=== PATIENT | male | born 1940 | race Caucasian/White ===

== ENCOUNTER 2016-09-08 14:59 | Inpatient (IN) | payer OTHER, MEDICARE ==
[~2016-09-08] VITALS: Ht 167.6 cm; Wt 49.9 kg
[~2016-09-08 14:59] MED LIST: 8 HOUR PAIN RE650 M2 PO; 8 HOUR650 MG PO; ACEPHEN650 M1 PR; ADULT TUSS100 MG/5 M PO; ALBUTEROL2.5 MG/3 M INH/SOL; ASPIRIN81 M4 PO; ATIVAN0.5 M1 PO; AUGMENTIN 875875 MG PO; B12 1MG PE1000 MCG/M SL; BISACODYL10 M1 RC; CALCIUM 600-D 61 TAB PO; CLINDAMYCIN HY300 MG PO; COZAAR 50MG TAB50 MG PO; COZAAR25 M1 PO; FLEET ENEMA133 ML RC; FOLIC ACID 1 MG PO; FOLIC ACID1 M1 PO; LASIX20 M1 PO; LEADER NIC14 MG/24 H TOP; LOPRESSOR50 M1 PO; LOSARTAN POTASS50 MG PO; LOVENOX40 MG/0.1 SC; MAG-OX 400400 MG PO; MAGIC CUP PO; MAGNESIUM OXID400 MG PO; MAGNESIUM250 M1 PO; METOPROLOL SUCC25 M1 PO; MILK OF MA400 MG/52 PO; MIRALAX119 GM PO; MULTI-DAY PLUS1 TAB PO; MULTI-DAY VITA1 EACH PO; MULTIVITAMIN1 TAB PO; NITROSTAT0.4 MG SL; NUTRITIONAL SU237 ML PO; ONE DAILY MULT1 EAC2 PO; PERCOCET 5-3251 EACH PO; POTASSIUM GLUC550 M1 PO; SENNA PLUS TAB1 EACH PO; SLO NIACIN500 MG PO; SLOW-MAG71.5 MG PO; SUPER B COMPLEX1 TAB PO; THYROSTIM PO; TOPROL XL 25MG25 MG PO; VITAMIN B-1100 MG PO; VITAMIN B1100 MG PO; VITAMIN B122500 MCG SL; VITAMIN D250000 UNIT PO; XANAX0.25 M1 PO; ZETIA10 MG PO; ZOFRAN ODT4 MG PO; ZOFRAN4 M1 SL; [UNRECOGNIZED DRUG - CODE] PO
--- NOTE | 2016-09-08 15:09 | NUR ---
PT TO ED REPORTING WEAKNESS AND BEING IN BED X A COUPLE WEEKS. NON-AMBULATORY AT HOME AT THIS POINT. REPORTS POOR PO INTAKE, LAST ATE 2-3 WEEKS AGO. PT VOMITED 6X YESTERDAY, 3X TODAY. LAST BM THIS AM AND MINIMAL. ABLE TO TOLERATE SMALL AMOUNTS OF WATER. PRESENTS MALNOURISHED, FRAIL. 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 HX COPD, EMPHYSEMA, DENIES CP OR SOB. ARRIVES TACHY 120'S AND O2 SAT 95% RA. AAOX3. ACCUCHECK 94. SPITTING UP SMALL AMT OF BLOOD CAM MAKER
--- NOTE | 2016-09-08 15:22 | NUR ---
TRIAGE NOTE ACKNOWLEDGED AND RN CARE ASSUMED PT BOUGHT TO ROOM # 2 AND EVALUATED BY DAVIE ALMAZAN
--- NOTE | 2016-09-08 15:22 | ED GENERAL ADULT ---
History of Present Illness General Chief Complaint: Nausea, Vomiting, Diarrhea Stated Complaint: N/V SINCE YESTERDAY, SPITTING UP BLOOD Source: patient, family, old records Exam Limitations: no limitations Vital Signs & Intake/Output Vital Signs & Intake/Output Vital Signs Date Time Temp Pulse Resp B/P Pulse O2 O2 Flow FiO2 Ox Delivery Rate 09/08 2033 98.8 99 20 127/75 100 Room Air 09/08 1815 98.3 102 20 150/75 09/08 1803 98.3 102 20 150/75 96 Room Air 09/08 1730 95 Room Air 09/08 1508 96.8 89 28 123/81 95 Room Air Allergies Coded Allergies: NO KNOWN ALLERGIES (06/18/16) Reconcile Medications Albuterol Sulfate 2.5 MG/3 ML VIAL.NEB 1 Vial INH/SHANNON Q6H PRN RESPIRATORY ( Reported) Aspirin (Aspirin*) 81 MG TAB.CHEW 81 MG PO DAILY heart Folic Acid 1 MG TABLET 1 MG PO DAILY SUPPLEMENT Losartan Potassium (Cozaar) 25 MG TABLET 1 TAB PO DAILY heart failure PLEASE START THE MEDICATION ON 12/12/2015. PLEASE HOLD IF SBP< 90 Metoprolol Tartrate (Lopressor) 50 MG TABLET 1 TAB PO BID TACHYCARDIA Multivitamin (One Daily Multivitamin) 1 EACH TABLET 1 TAB PO DAILY SUPPLEMENT Thiamine HCl (Vitamin B-1) 100 MG TABLET 100 MG PO DAILY SUPPLEMENT Triage Note: PT TO ED REPORTING WEAKNESS AND BEING IN BED X A COUPLE WEEKS. NON-AMBULATORY AT HOME AT THIS POINT. REPORTS POOR PO INTAKE, LAST ATE 2-3 WEEKS AGO. PT VOMITED 6X YESTERDAY, 3X TODAY. LAST BM THIS AM AND MINIMAL. ABLE TO TOLERATE SMALL AMOUNTS OF WATER. PRESENTS MALNOURISHED, FRAIL. 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 HX COPD, EMPHYSEMA, DENIES CP OR SOB. ARRIVES TACHY 120'S AND O2 SAT 95% RA. AAOX3. ACCUCHECK 94, REPORTS SPITTING UP SMALL AMT OF BLOOD FREE LANCE MODEL Triage Nurses Notes Reviewed? yes Onset: Gradual Duration: week(s): (3) Timing: remote history Injury Environment: home Severity: moderate Severity Numbers: 7 No Modifying Factors: none HPI: Patient is a 76-year-old male, daily smoker with history of open-heart surgery presenting to the emergency department with friends with chief complaint of failure to thrive over the past 2-3 weeks. According to friends and the patient he's been in bed for the past 3 weeks. He's been using a urinal in bed.. He hasn't been getting out of bed to bathe either. I requested weeks seize develop intermittent upper abdominal pain as crampy in nature and nonradiating. He's also had associated nausea and vomiting over the past couple days. He reports 6 episodes of emesis yesterday. Today he noticed sputum that was blood-tinged today when he was dry heaving. Denies any fevers or chills. No sick contacts. Friends report that his 3 weeks ago and is been like this ever since. His primary care physician is Dr. pond, he has canceled the last several appointments with her because he has been feeling ill. He also reports that he was supposed to see his hypertrichologist last week for checkup but canceled as well. Patient does report sadness. Denies any suicidal homicidal ideation. He hasn't been eating anything for the past 2-3 weeks. He's been drinking small amounts of water and Pepsi along with vodka. According to the friend she's been replacing some of the vodka with water. He reports increasing weakness in the lower extremities and feels off balance since he's been in bed. He usually ambulates with a cane but has been unsteady. He is reporting constipation over the past several days, was able to move his bowels today but it was small and hard. Denies any urinary frequency urgency or dysuria. (MARIAM ALMAZAN,DAVIE) Past History Travel History Traveled to [place] past 21 day No Medical History Any Pertinent Medical History? see below for history Neurological: NONE EENT: NONE Cardiovascular: CAD, hypertension, myocardial infarction, CAD status post CABG SVT ablation Respiratory: COPD, emphysema Gastrointestinal: NONE Hepatic: PANCREATITIS Renal: NONE Musculoskeletal: R/L HIP FX Psychiatric: ETOH WITHDRAWAL Endocrine: NONE Blood Disorders: NONE Cancer(s): NONE EXTRUSION OPERATOR/Reproductive: NONE History of MRSA: No History of VRE: No History of CDIFF: No Tetanus Vaccine: 02/28/12 Surgical History Surgical History: BYPASS QUAD b/l hip percutaneous pinning. Psychosocial History Who do you live with Spouse What is your primary language Bengali Tobacco Use: Current Daily Use Daily Tobacco Use Amount/Type: => 5 Cigarettes daily ETOH Use: alcoholic Illicit Drug Use: denies illicit drug use Family History Family History, If Any: MOTHER (Breast Cancer). . FATHER (Stroke, [place]). . Hx Contributory? No (DAVIE GONZALEZ) Review of Systems Review of Systems Constitutional: Reports: see HPI, malaise, weakness. Comments Review of systems: See HPI, All other systems negative. Constitutional, no chills fever HEENT: No visual changes no sore throat Cardiovascular: No chest pain ,palpitation , orthopnea or ankle swelling Skin, no jaundice no rashes Respiratory: No dyspnea GI: No diarrhea : No dysuria No hematuria Muscle skeletal: no back pain, no neck pain, Neurologic: No numbness no confusion, no headaches Psych: Positive stress, depression Heme/endocrine: No bruising no bleeding no polyuria or polydipsia Immunology: No splenectomy or history of AIDS (DAVIE GONZALEZ) Physical Exam Physical Exam General Appearance: no apparent distress, alert, cachetic Comments: Cachectic person in no acute distress HEENT: extraocular motion intact, no nystagmus. Pupils equally round and reactive to light and accommodation. Nose is atraumatic. External auditory canal and Tympanic membranes clear. Pharynx is erythematous, dry. No swelling or edema. Tongue has a white COAT on it, very dry and patchy in nature. Neck: Supple, no lymphadenopathy, normal range of motion without pain or tenderness Back: Nontender, no CVA tenderness. Full range of motion Cardiovascular: Tachycardic rate and rhythms no murmurs rubs or gallops, normal JVP Respiratory: Chest nontender. No respiratory distress.diffuse rhonchi to auscultation bilaterally Abdomen: Soft, thin, tender to palpation in the epigastric region without rebound or guarding, nondistended, no appreciable organomegaly. Normal bowel sounds. No ascites Extremity: No edema, no calf tenderness to palpation, normal and equal pulses. Muscular strength is 4-5 in the upper extremities well-seated, 3 out of 5 in the lower extremity is well-seated. Neuro: Alert oriented x3, motor sensory normal, cranial nerves II through XII grossly intact. Patellar reflexes are 2+ bilaterally. Skin: Stage I coccyx wound approximately 4 cm x 4 cm noted otherwise No appreciable rash on exposed skin, skin is warm and dry. Psych: Depressed affect, memory and judgment is normal. Core Measures ACS in differential dx? Yes CVA/TIA Diagnosis: No Severe Sepsis Present: No Septic Shock Present: No (DAVIE GONZALEZ) Progress Differential Diagnoses I considered the following diagnoses in my evaluation of the patient: Dehydration, electrolyte abnormality, failure to thrive, pneumonia, COPD exacerbation, bronchitis, multifactorial gait disorder, adjustment disorder, major depressive disorder Plan of Care: Orders Procedure Date/time Status Heart Healthy Diet 09/09 B Active MAGNESIUM 09/09 06 Active CBC WITHOUT DIFFERENTIAL 09/09 06 Active BASIC ELECTROLYTES PLUS BUN&CR 09/09 0600 Active MAGNESIUM 09/09 0100 Active BASIC ELECTROLYTES PLUS BUN&CR 09/09 010 Active PT Evaluate & Treat 09/08 190 Active SOCIAL WORK CONSULT 09/08 1908 Active Add-on Test (ER Only) 09/08 1858 Active PROTHROMBIN TIME 09/08 1858 Active Code Status 09/08 1858 Active Admit to inpatient 09/08 1843 Active Vital Signs 09/08 1843 Active BLOOD CULTURE 09/08 1824 Active TRC EVALUATION (GEN) 09/08 1822 Active Pathway - chart 09/08 1822 Active House Staff 09/08 1822 Active Patient Data 09/08 1822 Active Code Status 09/08 1822 Complete LACTIC ACID 09/08 1815 Active URINE DRUGS OF ABUSE 09/08 1805 Complete Add-on Test (ER Only) 09/08 1713 Active CIWA 09/08 1656 Active Add-on Test (ER Only) 09/08 1633 Active Add-on Test (ER Only) 09/08 1611 Active Add-on Test (ER Only) 09/08 1608 Active MAGNESIUM 09/08 1550 Complete FOLIC ACID 09/08 1550 Complete ETHANOL 09/08 1550 Complete CREATINE PHOSPHOKINASE 09/08 1550 Complete VITAMIN B12 09/08 1550 Complete CULTURE,URINE 09/08 1522 Active Add-on Test (ER Only) 09/08 1521 Active Telemetry/Rotary Surface Grinder 09/08 1515 Active URINALYSIS 09/08 1515 Complete TROPONIN LEVEL 09/08 1515 Complete LIPASE 09/08 1515 Complete LACTIC ACID 09/08 1515 Complete COMPREHENSIVE METABOLIC PANEL 09/08 1515 Complete CBC WITHOUT DIFFERENTIAL 09/08 1515 Complete AMYLASE 09/08 1515 Complete Intake & Output 09/08 1511 Active EKG 09/08 1510 Active VTE Mechanical Prophylaxis 09/08 UNK Active Vital Signs 09/08 UNK Active CIWA 09/08 UNK Active Current Medications Sig/Sae Start time Last Medication Dose Stop Time Status Admin Aspirin 81 MG DAILY 09/09 1000 AC (Aspirin) Folic Acid 1 MG DAILY 09/09 1000 AC (Folic Acid) Losartan Potassium 25 MG DAILY 09/09 1000 AC (Cozaar) Multivitamins 1 TAB DAILY 09/09 1000 AC Therapeutic (Theragran-M Vitamins Tabs) Thiamine HCl 100 MG DAILY 09/09 1000 AC (Vitamin B1) Lorazepam 2 MG Q6 09/08 2359 CAN (Ativan) Heparin Sodium 5,000 UNIT Q8 09/08 2199 AC (Porcine) Metoprolol Tartrate 50 MG BID 09/08 2199 AC (Lopressor) Vitamin A/Vitamin D 1 KAPIL BID 09/08 2199 AC (A+D Original) Zinc Oxide 1 KAPIL BID 09/08 2199 AC (Desitin) Nicotine 21 MG DAILY 09/08 193 AC (Nicoderm) Cyanocobalamin/ 1 BAG ONCE ONE 09/08 1914 AC Thiamine/Pyridoxine 09/09 0314 (Vitamin in I.V.) Sodium Chloride 1,000 ML (Normal Saline 0.9%) Acetaminophen 650 MG Q6P PRN 09/08 183 AC (Tylenol) Albuterol Sulfate 3 ML Q6P PRN 09/08 183 AC (Proventil) Lorazepam 0 Q1P PRN 09/08 183 AC (Ativan) Oxycodone/ 2 TAB Q6P PRN 09/08 183 AC Acetaminophen (Percocet) Magnesium Sulfate 1 GM ONCE ONE 09/08 1745 CAN (Mag Sulfate in D5) 09/08 2144 Dextrose/Water 100 ML (D5W) Laboratory Tests 09/08/16 1805: Urine Opiates Screen < 100.00, Methadone Screen < 40, Barbiturate Screen < 60, Ur Phencyclidine Scrn < 6.00, Amphetamines Screen 120, U Benzodiazepines Scrn < 85, Urine Cocaine Screen < 50, Urine Cannabis Screen < 5.00, Urine Color YEL, Urine Clarity CLEAR, Urine pH 6.0, Ur Specific Burwell 1.015, Urine Protein 100 H, Urine Ketones 15 H, Urine Nitrite NEG, Urine Bilirubin NEG@ICTO, Urine Urobilinogen 1.0, Ur Leukocyte Esterase NEG, Ur Microscopic SEDIMENT EXAMINED, Urine RBC 10-15 H, Urine WBC 5-10 H, Ur Epithelial Cells MANY H, Hyaline Casts MOD H, Granular Casts RARE H, Urine Hemoglobin MOD H, Urine Glucose NEG 09/08/16 1645: Whole Bld Vitamin B1 Pending 09/08/16 1550: Anion Gap 23 H, Estimated GFR > 60, BUN/Creatinine Ratio 33.0 H, Glucose 113 H, Lactic Acid 4.5 H, Calcium 9.7, Magnesium 1.0 L, Total Bilirubin 1.5 H, AST 125 H, ALT 57, Alkaline Phosphatase 114, Creatine Kinase 81, Troponin I < 0.01, Total Protein 7.9, Albumin 4.4, Globulin 3.5, Albumin/Globulin Ratio 1.3, Amylase 88, Lipase 221, Vitamin B12 778, Folate 2.3 L, CBC w Diff NO MAN DIFF REQ, RBC 5.20, MCV 95.0 H, MCH 31.9 H, RDW 13.6, MPV 7.8, Gran % 80.0 H, Lymphocytes % 12.7 L, Monocytes % 6.4, Eosinophils % 0.4, Basophils % 0.5, Absolute Granulocytes 5.9, Absolute Lymphocytes 0.9 L, Absolute Monocytes 0.5, Absolute Eosinophils 0, Absolute Basophils 0, PUBS MCHC 33.6, Serum Alcohol 23.0 Microbiology 09/09 1823 BLOOD: Blood Culture - ORD 09/09 1823 BLOOD: Blood Culture - ORD 09/08 1804 URINE ROUT: Urine Culture - RECD Diagnostic Imaging: Viewed by Me: Radiology Read. Discussed w/RAD: Radiology Read. Radiology Impression: PATIENT: CONCHA JAMA PRESENT AGE: 76 PATIENT ACCOUNT NO: [id number] : 42 LOCATION: [facility] ORDERING PHYSICIAN: DAVIE ALMAZAN SERVICE DATE: 09/08/16 EXAM TYPE: RAD - XRY-PORTABLE CHEST XRAY EXAMINATION: XR PORTABLE CHEST CLINICAL INFORMATION: Altered mental status COMPARISON: Chest x-ray 06/18/2016 TECHNIQUE: Portable AP portable view of the chest was obtained. 3:20 PM FINDINGS: Status post median sternotomy. Heart size is normal. There are calcifications of thoracic aorta. No pulmonary vascular congestion. Hyperexpansion of lungs. Lungs are clear. There is no pleural effusion. No pneumothorax. IMPRESSION: No acute abnormality of the chest., PATIENT: CONCHA JAMA PRESENT AGE: 76 PATIENT ACCOUNT NO: [id number] : 42 LOCATION: [facility] ORDERING PHYSICIAN: DAVIE ALMAZAN SERVICE DATE: 09/08/162329 EXAM TYPE: CAT - CT ABD & PELVIS W IV CONTRAST EXAMINATION: CT ABDOMEN AND PELVIS WITHOUT AND WITH CONTRAST CLINICAL INFORMATION: Epigastric pain, nausea and vomiting. COMPARISON: CT abdomen and pelvis 11/12/2015. TECHNIQUE: Multidetector volumetric imaging was performed of the abdomen and pelvis before and after the IV administration of 93 mL of Optiray 320 intravenous contrast. Sagittal and coronal reformatted images were obtained on the technologist's workstation. The abdomen was evaluated without contrast and the study repeated after injection of intravenous contrast through the abdomen in the arterial phase and through the abdomen and pelvis in the pancreatic phase. DLP: 395.92 mGy-cm FINDINGS: LUNG BASES: The visualized lung bases are unremarkable. LIVER, GALLBLADDER, AND BILIARY TREE: The liver is diffusely decreased in attenuation consistent with hepatic steatosis. Mild focal fatty sparing is seen around the gallbladder. No evidence of hepatic mass or biliary dilatation. The liver size is normal. The gallbladder is unremarkable with no evidence of radiopaque gallstones, gallbladder wall thickening, or obvious pericholecystic inflammatory changes. PANCREAS: The pancreas is atrophic. No evidence of pancreatic ductal dilatation or pancreatic mass. No evidence of adjacent peripancreatic adenopathy. No evidence to suggest vascular invasion. SPLEEN: Unremarkable. ADRENAL GLANDS: Unremarkable. KIDNEYS AND URETERS: Noncontrast images of the kidneys show no evidence of calculus or hydronephrosis. Contrast images of the kidneys show no evidence of renal mass. Incidental circumaortic left renal vein is identified. Atherosclerotic changes in the renal arteries are demonstrated. BLADDER: Mild bladder wall thickening. The bladder is unremarkable. GASTROINTESTINAL TRACT: Mild thickening of the right colonic wall is seen, also noted previously. No evidence of pericolonic soft tissue stranding or adjacent ascites. There is moderate diverticulosis without diverticulitis. The appendix is normal. Small hiatal hernia is seen. No evidence of small bowel thickening or bowel obstruction. ABDOMINAL WALL: No significant hernia is appreciated. LYMPH NODES: Normal. VASCULAR: Extensive atherosclerotic changes are seen in the abdominal aorta and iliac arteries. Calcification is seen at the ostium of the celiac artery and bilateral renal arteries. The celiac, superior mesenteric artery and inferior mesenteric arteries are patent. The renal arteries are patent with additional calcifications. PELVIC VISCERA: The prostate is enlarged. No evidence of pelvic mass. OSSEOUS STRUCTURES: Surgical changes are seen in both hips. IMPRESSION: 1. Hepatic steatosis with focal fatty sparing. 2. No evidence of pancreatic necrosis or pancreatic effusion or mass. The pancreas demonstrates atrophic change. 3. Extensive atherosclerotic changes are seen in the abdominal aorta and iliac arteries. No vascular thrombosis is appreciated. 4. Mild bowel wall thickening in the right colon was present previously and is slightly more prominent on the current study. Correlate with any clinical history of colitis, inflammatory or infectious. Correlate with prior colonoscopy. Evidence of diverticulosis without CT changes of diverticulitis. 5. Small hiatal hernia, similar to prior. DICTATED BY: MAMADOU ERAZO MD DATE/TIME DICTATED:09/08/161840 COTTRELL BLOWER:DAVIDSON DATE/TIME TRANSCRIBED:1840 CONFIDENTIAL, DO NOT COPY WITHOUT APPROPRIATE AUTHORIZATION. < Electronically signed in Other Vendor System> SIGNED BY: MAMADOU ERAZO MD 09/08/161913 Initial ED EKG: SINUS TACHYCARDIA AT 115 BPM Prior EKG: changed (PREVIOUS ekg WAS NORMAL SINUS ) Comments: 09/08/2016 4:33:59 PM on arrival patient is afebrile in no acute distress, appears cachectic, tachycardic on EKG. Patient has history of tachycardia, suppose to be on medications which she had stopped 4-6 months ago. He reports that he felt better off of the medications. His muscle strength is decreased from baseline according to patient. Patient barely unable to stand at bedside. Patient has a very dry oral mucosa as well. Patient will be hydrated with fluids. 09/08/2016 4:56:14 PM patient and family informed of all lab work results. Patient doing well. Was able to visualize patient's coccyx wound which appears to be grade 1 at this time. We will apply a dressing to see that helps with symptoms. We'll also rotate patient to help alleviate pressure. Lipase is negative. No signs of acute pancreatitis.. Alcohol level slightly positive. 09/08/2016 5:25:23 PM spoke with hospitalist, patient will be admitted for hypomagnesemia, lactic acidosis, dehydration. Patient will need physical therapy consultation and rehabilitation placement likely. Electrolyte abnormalities are likely from malnourishment, alcohol intake being stationary. Discussed with Dr. Vidal and he agrees to plan. (DAVIE GONZALEZ) Departure Departure Time of Disposition: 1753 Disposition: STILL A PATIENT Condition: Stable Clinical Impression Primary Impression: Hypomagnesemia Secondary Impressions: Dehydration, Lactic acidosis, Tachycardia, Weakness Referrals: THIERNO POND MD (PCP/Family) Departure Forms: Customer Survey General Discharge Information Admission Note Spoke With: ARNAUD ROJAS MD Documentation of Exam: Documentation of any treatments & extenuating circumstances including Concerns Regarding Discharge (functional status, medication knowledge or non-compliance, living conditions, etc.) that warrant an admission rather than observation: Patient requiring repletion of electrolytes, IV hydration for dehydration, physical therapy consultation secondary to weakness, may need social work consultation secondary to failure to thrive at home , may need psychiatric consultation secondary to eye just with disorder after her of SIGNIFICANT OTHER. Discharge at this time would be medically harmful, patient will likely become more dehydrated. Still pending CT of the abdomen for further evaluation of abdominal pain. (DAVIE GONZALEZ) PA/OPERATIONS PROGRAM MANAGER Co-Sign Statement Statement: ED Attending supervision documentation- [x] I saw and evaluated the patient. I have also reviewed all the pertinent lab results and diagnostic results. I agree with the findings and the plan of care as documented in the PA's/OPERATIONS PROGRAM MANAGER's documentation. [] I have reviewed the ED Record and agree with the PA's/OPERATIONS PROGRAM MANAGER's documentation. [] Additions or exceptions (if any) to the PAs/OPERATIONS PROGRAM MANAGER's note and plan are summarized below: [] I've seen and personally examined the patient. He is in no acute distress. The patient's being admitted to the hospital for IV magnesium and further care. (RENU VIDAL DO) Critical Care Note Critical Care Note Critical Care Time: non-applicable (DAVIE GONZALEZ)
--- NOTE | 2016-09-08 15:47 | RADIOLOGY REPORT ---
EXAMINATION: XR PORTABLE CHEST CLINICAL INFORMATION: Altered mental status COMPARISON: Chest x-ray 06/18/2016 TECHNIQUE: Portable AP portable view of the chest was obtained. 3:20 PM FINDINGS: Status post median sternotomy. Heart size is normal. There are calcifications of thoracic aorta. No pulmonary vascular congestion. Hyperexpansion of lungs. Lungs are clear. There is no pleural effusion. No pneumothorax. IMPRESSION: No acute abnormality of the chest.
--- NOTE | 2016-09-08 15:52 | NUR ---
BLOOD DRAWN AND SENT TO LAB. SST,LAV,BLUE,MCKENZIE
[2016-09-08 16:05] LABS: ABSOLUTE BASOPHIL COUNT 0 /CUMM (0.0-0.2); ABSOLUTE EOSINOPHIL COUNT 0 /CUMM (0.0-0.7); ABSOLUTE GRANULOCYTE CT 5.9 /CUMM (1.4-6.5); ABSOLUTE LYMPH COUNT 0.9 /CUMM (1.2-3.4); ABSOLUTE MONOCYTE COUNT 0.5 /CUMM (0.10-0.60); BASOPHIL % 0.5 % (0.0-2.0); EOSINOPHIL % 0.4 % (0-5); HEMATOCRIT 49.4 % (42-52); MEAN CORPUSCULAR HGB 31.9 PG (27.0-31.0); MEAN CORPUSCULAR HGB CONC 33.6 G/DL (33.0-37.0); MEAN PLATELET VOLUME 7.8 FL (7.4-10.4); PLATELET COUNT 94 /CUMM (130-400); RBC DISTRIBUTION WIDTH 13.6 % (11.5-14.5); WHITE BLOOD CELL COUNT 7.4 /CUMM (4.8-10.8)
--- NOTE | 2016-09-08 16:22 | NUR ---
JESSICA FROM LAB CALLED NEED A LAV DUE TO ADD ON
--- NOTE | 2016-09-08 17:01 | NUR ---
20 G GREG PLACED IN LEFT WRIST. IV OF N/S STARTED AT 500 ML/HR X 2 LITERS PT MEDICATED WITH 4 MG ZOFRAN IV FOR N/V
--- NOTE | 2016-09-08 18:08 | NUR ---
URINE TRIO SENT TO LAB.
[2016-09-08 18:15] VITALS: BP 150/75
--- NOTE | 2016-09-08 18:19 | History & Physical ---
[address] ST[address],LADARIUS 09/08/168: General Information and HPI MD Statement: I have seen and personally examined CONCHA JAMA and documented this H&P. The patient is a 76 year old M who presented with a patient stated chief complaint of [I feel weak]. Source of Information: patient Exam Limitations: no limitations History of Present Illness: This is a 76-year-old gentleman with a past history significant for hypertension and alcohol use that presents to the emergency room with his neighbors and friends with a chief complaint of weakness and failure to thrive. He states that his 2-1/2 weeks ago and since then he has been laying in bed and doesn't walk around much. He has not eaten anything in the last 2-1/2 weeks and continues to however drink alcohol which is brought to him by family members. Drinks about 5-6 drinks a day. Has tried previous detox no history of alcohol withdrawal seizures. States that his desire to the is fairly decreased since his . States he feels unsteady on his feet. States his mood is okay denies any overt depression. At present his only complaint is mild abdominal pain no chest pain or shortness of breath. States that he has lost 10 pounds in the last 2 weeks. Allergies/Medications Allergies: Coded Allergies: NO KNOWN ALLERGIES (06/18/16) Home Med list Albuterol Sulfate 2.5 MG/3 ML VIAL.NEB 1 Vial INH/SHANNON Q6H PRN RESPIRATORY ( Reported) Aspirin (Aspirin*) 81 MG TAB.CHEW 81 MG PO DAILY heart Folic Acid 1 MG TABLET 1 MG PO DAILY SUPPLEMENT Losartan Potassium (Cozaar) 25 MG TABLET 1 TAB PO DAILY heart failure PLEASE START THE MEDICATION ON 12/12/2015. PLEASE HOLD IF SBP< 90 Metoprolol Tartrate (Lopressor) 50 MG TABLET 1 TAB PO BID TACHYCARDIA Multivitamin (One Daily Multivitamin) 1 EACH TABLET 1 TAB PO DAILY SUPPLEMENT Thiamine HCl (Vitamin B-1) 100 MG TABLET 100 MG PO DAILY SUPPLEMENT Past History Travel History Traveled to [place] past 21 day No Medical History Neurological: NONE EENT: NONE Cardiovascular: CAD, hypertension, myocardial infarction, CAD status post CABG SVT ablation Respiratory: COPD, emphysema Gastrointestinal: NONE Hepatic: PANCREATITIS Renal: NONE Musculoskeletal: R/L HIP FX Psychiatric: ETOH WITHDRAWAL Endocrine: NONE Blood Disorders: NONE Cancer(s): NONE TRANSMITTER TESTER/Reproductive: NONE History of MRSA: No History of VRE: No History of CDIFF: No Tetanus Vaccine: 02/28/12 Surgical History Surgical History: BYPASS QUAD b/l hip percutaneous pinning. Past Family/Social History Family History Relations & Conditions if any MOTHER (Breast Cancer). . FATHER (Stroke, [place]). . Psychosocial History Who Do You Live With? spouse Primary Language: Bengali ETOH Use: alcoholic Illicit Drug Use: denies illicit drug use Functional Ability Ambulation: cane Review of Systems Review of Systems Constitutional: Reports: see HPI. Exam & Diagnostic Data Last 24 Hrs of Vital Signs/I&O Vital Signs Date Time Temp Pulse Resp B/P Pulse O2 O2 Flow FiO2 Ox Delivery Rate 09/08 180 98.3 102 20 150/75 96 Room Air 09/08 1730 95 Room Air 09/08 1508 96.8 89 28 123/81 95 Room Air Intake & Output 09/08 1600 09/08 0800 09/08 0000 Intake Total Output Total Balance Patient 110 lb Weight Physical Exam General Appearance Alert, Oriented X3 HEENT Atraumatic, PERRLA, EOMI Cardiovascular Regular Rate, Normal S1, Normal S2 Lungs Clear to Auscultation, Normal Air Movement Abdomen Normal Bowel Sounds, Soft, No Tenderness Neurological Normal Speech, Strength at 5/5 X4 Ext, Normal Tone, Sensation Intact, Cranial Nerves 3-12 NL Extremities No Clubbing, No Cyanosis, No Edema Last 24 Hrs of Labs/Dominic: Laboratory Tests 09/08/16 1805: Urine Color YEL, Urine Clarity CLEAR, Urine pH 6.0, Ur Specific [place] 1.015, Urine Protein 100 H, Urine Ketones 15 H, Urine Nitrite NEG, Urine Bilirubin NEG@ICTO, Urine Urobilinogen 1.0, Ur Leukocyte Esterase NEG, Ur Microscopic SEDIMENT EXAMINED, Urine RBC 10-15 H, Urine WBC 5-10 H, Ur Epithelial Cells MANY H, Hyaline Casts MOD H, Granular Casts RARE H, Urine Hemoglobin MOD H, Urine Glucose NEG 09/08/16 1645: Whole Bld Vitamin B1 Pending 09/08/16 1550: Anion Gap 23 H, Estimated GFR > 60, BUN/Creatinine Ratio 33.0 H, Glucose 113 H, Lactic Acid 4.5 H, Calcium 9.7, Magnesium 1.0 L, Total Bilirubin 1.5 H, AST 125 H, ALT 57, Alkaline Phosphatase 114, Creatine Kinase Pending, Troponin I < 0.01, Total Protein 7.9, Albumin 4.4, Globulin 3.5, Albumin/Globulin Ratio 1.3, Amylase 88, Lipase 221, Vitamin B12 778, Folate 2.3 L, CBC w Diff NO MAN DIFF REQ, RBC 5.20, MCV 95.0 H, MCH 31.9 H, RDW 13.6, MPV 7.8, Gran % 80.0 H, Lymphocytes % 12.7 L, Monocytes % 6.4, Eosinophils % 0.4, Basophils % 0.5, Absolute Granulocytes 5.9, Absolute Lymphocytes 0.9 L, Absolute Monocytes 0.5, Absolute Eosinophils 0, Absolute Basophils 0, PUBS MCHC 33.6, Serum Alcohol 23.0 Microbiology 09/09 1823 BLOOD: Blood Culture - ORD 09/09 1823 BLOOD: Blood Culture - ORD 09/08 1804 URINE ROUT: Urine Culture - RECD Diagnostic Data EKG Results Rate 115, PA-148, QRS 82, QTC 471 Sinus tachycardia CXR Results IMPRESSION: No acute abnormality of the chest. Assessment/Plan Assessment: Assessment- 1. Failure to thrive, decreased by mouth intake 2. Hypomagnesemia 3. Alcohol dependence 4. Lactic acidosis with anion gap; likely secondary to starvation ketosis 5. History of hypertension 6. Transaminitis; AST do ALT ratio was 2:1 suggestive of alcohol use Plan- Admit to general med Vitals per protocol CIWA protocol; Ativan 2 mg IV every 6 and Ativan when necessary Banana bag 1 L Replete electrolytes and recheck mag in about 6 hours Pending CAT scan of the abdomen pelvis to rule out any intra-abdominal source Psychiatry and social director consult PT eval Check U tox and INR Nutrition consult High-protein diet Pain pathway DVT prophylaxis with subcutaneous heparin DNR/DNI As Ranked By This Provider Problem List: 1. Weakness 2. Tachycardia 3. Lactic acidosis Core Measures/Miscellaneous Acute Coronary Syndrome ACS Diagnosis: No Cerebrovascular Accident CVA/TIA Diagnosis: No Congestive Heart Failure CHF Diagnosis: No Venous Thromboembolism VTE Risk Factors: Age > 40 [facility] prophylaxis d/t: No contraindications No VTE Pharm Prophylaxis d/t: No contraindications VTE Diagnosis: No VTE Type: NONE VTE Confirmed by (Test): NONE Severe Sepsis Severe Sepsis Present: No Septic Shock Septic Shock Present: No Miscellaneous Documentation Attending Case Discussed With: dr. jimenez Primary Care Physician: YE STREET,THIERNO Patient sees these Specialists none Level of Patient Care: General Medicine Resident Review Statement Resident Statement: examined this patient, discussed with international marketing coordinator CHRIS STREET, DRU 09/08/16 1836: Attending MD Review Statement Attending Statement Attending MD Statement: examined this patient, discuss w/resident/PA/FILENET ARCHITECT, agreed w/resident/PA/FILENET ARCHITECT Attending Assessment/Plan: 76 yo M smoker with h/o CAD s/p CABG, SVT ablation, P afib/flutter not on AC 2/2 falls, HTN, HLD, chronic alcohol abuse, COPD, alcoholic pancreatitis, UGIB (2012 ), 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 Patient recently lost his , and for past 2.5-3 weeks, he has been in bed, non- ambulatory, not eating, reports no appetite and drinking vodka (5-6 drinks daily ) although friend reported that they have been mixing vodka (1/4) with water ( 3/4), so patient actually is not consuming that much alcohol. He reports dizziness, unsteady gait and weakness, because of fear of falling he has not been moving around. C/o nausea, bilious vomiting with bloody streaks, and cough productive of white phlegm. Weight loss of 10 lbs in 2.5 weeks. He uses a bedside commode and has at times been incontinent of urine. Patient has not been taking any prescribed medications. Vitals stable except for tachycardia. Exam: Elderly cachectic male, disheveled appearance, in no distress, flat affect, dry mucous membranes. Chest b/l clear, Heart S1S2 regular, Abd soft, NT. Back: sacral decub 2 nonblanchable areas with discoloration. Labs: Platelets 94, Na 132, AG 23, BUN 33, glucose 113, lactic acid 4.5, Mag 1.0, T. Bili 1.5, AST 125, ALT 57, CK 81, trop neg, B12 778, folate 2.3. UA ketones positive, many epi cells, WBC 5-10, Utox neg. S. Alcohol 23. EKG: Sinus tachycardia, no acute changes. CXR: neg. CT abd/pelvis: hepatic steatosis, nonspecific colitis, small hiatal hernia. 1. Failure to thrive with starvation ketoacidosis - hypomagnesemia, lactic acidosis and dehydration. GM admit, nutrition consult, banana bag, replete electrolytes, IV fluids, anti-emetics, monitor renal functions, trend lactic acid. CT abd/pelvis nothing acute. CIWA protocol, IV ativan per CIWA, no scheduled ativan for now. Social work consult and PT eval. Patient refuses to see a psychiatrist. 2. Transaminitis and thrombocytopenia in the setting of chronic alcohol use. Check INR. Hydrate and trend LFTs. 3. Please resume his medications aspirin 81, metoprolol 50 BID, albuterol PRN and losartan 25 QD. 4. Smoking cessation counseling, patient refused nicotine patch. 5. Wound care - topical zinc oxide and vit A and D ointment to sacral area. DVT ppx Alps. DNR/I.
--- NOTE | 2016-09-08 19:13 | NUR ---
PT TO ROOM 209 BED 2
--- NOTE | 2016-09-08 19:14 | CT SCAN REPORT ---
EXAMINATION: CT ABDOMEN AND PELVIS WITHOUT AND WITH CONTRAST CLINICAL INFORMATION: Epigastric pain, nausea and vomiting. COMPARISON: CT abdomen and pelvis 11/12/2015. TECHNIQUE: Multidetector volumetric imaging was performed of the abdomen and pelvis before and after the IV administration of 93 mL of Optiray 320 intravenous contrast. Sagittal and coronal reformatted images were obtained on the technologist's workstation. The abdomen was evaluated without contrast and the study repeated after injection of intravenous contrast through the abdomen in the arterial phase and through the abdomen and pelvis in the pancreatic phase. DLP: 395.92 mGy-cm FINDINGS: LUNG BASES: The visualized lung bases are unremarkable. LIVER, GALLBLADDER, AND BILIARY TREE: The liver is diffusely decreased in attenuation consistent with hepatic steatosis. Mild focal fatty sparing is seen around the gallbladder. No evidence of hepatic mass or biliary dilatation. The liver size is normal. The gallbladder is unremarkable with no evidence of radiopaque gallstones, gallbladder wall thickening, or obvious pericholecystic inflammatory changes. PANCREAS: The pancreas is atrophic. No evidence of pancreatic ductal dilatation or pancreatic mass. No evidence of adjacent peripancreatic adenopathy. No evidence to suggest vascular invasion. SPLEEN: Unremarkable. ADRENAL GLANDS: Unremarkable. KIDNEYS AND URETERS: Noncontrast images of the kidneys show no evidence of calculus or hydronephrosis. Contrast images of the kidneys show no evidence of renal mass. Incidental circumaortic left renal vein is identified. Atherosclerotic changes in the renal arteries are demonstrated. BLADDER: Mild bladder wall thickening. The bladder is unremarkable. GASTROINTESTINAL TRACT: Mild thickening of the right colonic wall is seen, also noted previously. No evidence of pericolonic soft tissue stranding or adjacent ascites. There is moderate diverticulosis without diverticulitis. The appendix is normal. Small hiatal hernia is seen. No evidence of small bowel thickening or bowel obstruction. ABDOMINAL WALL: No significant hernia is appreciated. LYMPH NODES: Normal. VASCULAR: Extensive atherosclerotic changes are seen in the abdominal aorta and iliac arteries. Calcification is seen at the ostium of the celiac artery and bilateral renal arteries. The celiac, superior mesenteric artery and inferior mesenteric arteries are patent. The renal arteries are patent with additional calcifications. PELVIC VISCERA: The prostate is enlarged. No evidence of pelvic mass. OSSEOUS STRUCTURES: Surgical changes are seen in both hips. IMPRESSION: 1. Hepatic steatosis with focal fatty sparing. 2. No evidence of pancreatic necrosis or pancreatic effusion or mass. The pancreas demonstrates atrophic change. 3. Extensive atherosclerotic changes are seen in the abdominal aorta and iliac arteries. No vascular thrombosis is appreciated. 4. Mild bowel wall thickening in the right colon was present previously and is slightly more prominent on the current study. Correlate with any clinical history of colitis, inflammatory or infectious. Correlate with prior colonoscopy. Evidence of diverticulosis without CT changes of diverticulitis. 5. Small hiatal hernia, similar to prior.
--- NOTE | 2016-09-08 19:35 | NUR ---
REPORT GIVEN TO PAIGE CHRISTINE BY PAIGE MERRILL
--- NOTE | 2016-09-08 19:39 | Admission Certification ---
Admission Certification Certification Statement - As attending physician, I certify that at the time of - admission, based on clinical presentation, severity of - symptoms, need for further diagnostic testing and - therapeutic interventions, and risk of adverse outcomes - without in-hospital treatment, in my clinical assessment, - this patient requires an acute hospital stay for a minimum - of two nights or longer. I have also considered psychsocial - factors such as support system, advanced age, financial - issues, cognitive issues, and failed out-patient treatments, - past re-admission history, safety of patient, and lack of - compliance as applicable. Specific rationale supporting this admission is: 76 yo M with failure to thrive, gait instability and metabolic derangements - hypomagnesemia, lactic acidosis, transaminitis given h/o alcohol dependence. Needs PT eval, nutritional consult and possible placement.
--- NOTE | 2016-09-08 19:43 | NUR ---
PT ADMITTED TO ROOM # 209-2. ORAL REPORT GIVEN TO SHABBIR GIBSON
--- NOTE | 2016-09-08 19:55 | NUR ---
[facility] CALLED FOR TRANSPORT
[2016-09-08 20:34] VITALS: BP 127/75
[2016-09-08 23:11] VITALS: BP 124/82
[2016-09-09] VITALS (8 sets, daily range): BP systolic 92–134; BP diastolic 51–82
--- NOTE | 2016-09-09 02:17 | NUR ---
LATE ENTRY NURSING NOTE: PT ARRIVED ON FLOOR VIA STRETCHER WITH FRIENDS AT BEDSIDE. PT STATED THOSE ARE FRIENDS HE PAYS TO HELP HIM WITH HIS ADLs. PT AOX2. CONFUSED TO TIME. PT ON RA AND NONAMBULATORY AT THIS TIME. PT INDEPENDANT W/CANE AT BASELINE. PT HAS 2 RED AREAS THAT ARE NONBLANCHABE AT THE COCCYX WITH DARK DISCOLRATION. WCE SUBMITTED FOR ASSESSMENT. PT HAD MAG BOLUS RNNING WHEN ARRIVED TO FLOOR. IV WORKING WELL. BED ALARM & ALPS PLACED. PT HAS PRODUCTIVE COUGH BRINGING UP WHITE THICK SPUTUM. PT HAS A VERY FLAT AFFECT AND DID MENTION A FEW WEEKS AGO. PT REFUSED A VISIT FROM THE ANISH AND BECAME AGITATED WHEN THIS WAS OFFERED. PT HYGIENE APPEARS TO BE LACKING. THIS RN WITH ASSISTANCE OF MST PERFORMED BED BATH. ORDER FOR SIZEWIZE TO BE PLACED IN THE AM. PT RESTING AT THIS TIME. BED INLOWEST POSITION AND CALL RODRÍGUEZ WITHIN PT REACH.
--- NOTE | 2016-09-09 08:00 | PN- Housestaff ---
See Addendum Subjective Follow-up For: Starvation ketosis Subjective: Mr Courtney was seen and examined this morning. He reports no issues overnight. Patient states that he understands why he is in the hospital and expresses his desire in "getting through" after recently using his approximately 2 weeks ago..Patient denies any active pain. He is tolerating by mouth intake well although endorses a small appetite. Patient denies any fever, chills, nausea, vomiting. Review of Systems Constitutional: Reports: see HPI. Objective Last 24 Hrs of Vital Signs/I&O Vital Signs Date Time Temp Pulse Resp B/P Pulse O2 O2 Flow FiO2 Ox Delivery Rate 09/09 1406 97.8 78 20 134/82 9 09/09 1010 97.5 71 18 118/65 09/09 1010 97.5 71 18 118/65 09/09 0731 97.5 71 18 118/65 93 Room Air 09/08 2311 97.6 98 18 124/82 96 Room Air 09/08 2229 127/75 09/08 2058 Room Air Room Air 09/08 2034 98.8 99 20 127/75 100 Room Air 09/08 1815 98.3 102 20 150/75 09/08 1803 98.3 102 20 150/75 96 Room Air 09/08 1730 95 Room Air Intake & Output 09/09 1600 09/09 0800 09/09 0000 Intake Total 800 1150 Output Total 600 Balance 800 550 Intake, IV 200 1000 Intake, Oral 600 150 Output, Urine 600 Patient 49.895 kg Weight Physical Exam General Appearance: Alert, Oriented X3, Cooperative, No Acute Distress, Cachectic Cardiovascular: Regular Rate, Normal S1, Normal S2 Lungs: Clear to Auscultation Abdomen: Normal Bowel Sounds, Soft, No Tenderness Neurological: Normal Speech Extremities: No Clubbing, No Cyanosis, No Edema Current Medications: Current Medications Sig/Sae Start time Last Medication Dose Route Stop Time Status Admin Acetaminophen 650 MG Q6P PRN 09/08 1830 AC PO Albuterol Sulfate 3 ML Q4-PRN PRN 09/08 2100 AC INH Albuterol Sulfate 3 ML Q6P PRN 09/08 1830 AC INH Albuterol Sulfate 3 ML ONCE ONE 09/08 1630 DC 09/08 INH 09/08 1631 1650 Aspirin 81 MG DAILY 09/09 1000 AC 09/09 PO 1010 Cyanocobalamin/ 1 BAG ONCE ONE 09/08 1915 DC 09/08 Thiamine/Pyridoxine IV 09/09 0314 2227 Sodium Chloride 1,000 ML Folic Acid 1 MG DAILY 09/09 1000 AC 09/09 PO 1010 Heparin Sodium 5,000 UNIT Q8 09/08 2200 DC 09/08 (Porcine) SC 2228 Ipratropium [place] 2.5 ML ONCE ONE 09/08 1630 DC 09/08 INH 09/08 1631 1649 Lorazepam 2 MG Q6 09/08 2359 CAN IV Lorazepam 0 Q1P PRN 09/08 1830 AC IV Losartan Potassium 25 MG DAILY 09/09 1000 AC 09/09 PO 1010 Magnesium Sulfate 0 .STK-MED ONE 09/08 1805 DC .ROUTE Magnesium Sulfate 1 GM Q2H 09/08 1800 DC 09/08 Dextrose/Water 100 ML IV 09/08 2159 2226 Magnesium Sulfate 1 GM ONCE ONE 09/08 1745 CAN Dextrose/Water 100 ML IV 09/08 2144 Metoprolol Tartrate 50 MG BID 09/08 2200 AC 09/09 PO 1010 Multivitamins 1 TAB DAILY 09/09 1000 AC 09/09 Therapeutic PO 1010 Nicotine 0 .STK-MED ONE 09/08 1943 DC TOP Nicotine 21 MG DAILY 09/08 1934 AC TOP Ondansetron HCl 0 .STK-MED ONE 09/08 1650 DC .ROUTE Ondansetron HCl 4 MG ONCE ONE 09/08 1545 DC 09/08 IV 09/08 1546 1651 Oxycodone HCl 0 .STK-MED ONE 09/08 1943 DC PO Oxycodone HCl 5 MG Q6H 09/08 1830 AC 09/09 PO 1304 Oxycodone/ 2 TAB Q6P PRN 09/08 1830 AC Acetaminophen PO Potassium Chloride 40 MEQ ONCE ONE 09/09 1130 DC 09/09 PO 09/09 1131 1304 Sodium Chloride 1,000 ML BOLUS ONE 09/08 1645 DC 09/08 IV 09/08 1844 1811 Sodium Chloride 1,000 ML BOLUS ONE 09/08 1530 DC 09/08 IV 09/08 1729 1651 Thiamine HCl 100 MG DAILY 09/09 1000 AC 09/09 PO 1011 Vitamin A/Vitamin D 1 KAPIL BID 09/08 2200 AC 09/09 TOP 1011 Zinc Oxide 1 KAPIL BID 09/08 2200 AC 09/09 TOP 1011 Last 24 Hrs of Lab/Dominic Results Last 24 Hrs of Labs/Mics: Laboratory Tests 09/09/16 0658: Anion Gap 11, Estimated GFR > 60, BUN/Creatinine Ratio 32.5 H, Lactic Acid 1.1, Magnesium 1.8, PT 10.8, INR 1.03, CBC w Diff NO MAN DIFF REQ, RBC 4.33 L, MCV 94.9 H, MCH 31.8 H, RDW 13.6, MPV 8.2, Gran % 76.3 H, Lymphocytes % 15.7 L, Monocytes % 7.0, Eosinophils % 0.7, Basophils % 0.3, Absolute Granulocytes 4.2, Absolute Lymphocytes 0.9 L, Absolute Monocytes 0.4, Absolute Eosinophils 0, Absolute Basophils 0, PUBS MCHC 33.5 09/09/16 0355: Lactic Acid Cancelled 09/09/16 0100: Anion Gap 13, Estimated GFR > 60, BUN/Creatinine Ratio 35.0 H, Magnesium 1.8 09/08/16 1858: PT Cancelled, INR Cancelled 09/08/16 1815: Lactic Acid Cancelled 09/08/16 1805: Urine Opiates Screen < 100.00, Methadone Screen < 40, Barbiturate Screen < 60, Ur Phencyclidine Scrn < 6.00, Amphetamines Screen 120, U Benzodiazepines Scrn < 85, Urine Cocaine Screen < 50, Urine Cannabis Screen < 5.00, Urine Color YEL, Urine Clarity CLEAR, Urine pH 6.0, Ur Specific [place] 1.015, Urine Protein 100 H, Urine Ketones 15 H, Urine Nitrite NEG, Urine Bilirubin NEG@ICTO, Urine Urobilinogen 1.0, Ur Leukocyte Esterase NEG, Ur Microscopic SEDIMENT EXAMINED, Urine RBC 10-15 H, Urine WBC 5-10 H, Ur Epithelial Cells MANY H, Hyaline Casts MOD H, Granular Casts RARE H, Urine Hemoglobin MOD H, Urine Glucose NEG 09/08/16 1645: Whole Bld Vitamin B1 Pending 09/08/16 1550: Anion Gap 23 H, Estimated GFR > 60, BUN/Creatinine Ratio 33.0 H, Glucose 113 H, Lactic Acid 4.5 H, Calcium 9.7, Magnesium 1.0 L, Total Bilirubin 1.5 H, AST 125 H, ALT 57, Alkaline Phosphatase 114, Creatine Kinase 81, Troponin I < 0.01, Total Protein 7.9, Albumin 4.4, Globulin 3.5, Albumin/Globulin Ratio 1.3, Amylase 88, Lipase 221, Vitamin B12 778, Folate 2.3 L, CBC w Diff NO MAN DIFF REQ, RBC 5.20, MCV 95.0 H, MCH 31.9 H, RDW 13.6, MPV 7.8, Gran % 80.0 H, Lymphocytes % 12.7 L, Monocytes % 6.4, Eosinophils % 0.4, Basophils % 0.5, Absolute Granulocytes 5.9, Absolute Lymphocytes 0.9 L, Absolute Monocytes 0.5, Absolute Eosinophils 0, Absolute Basophils 0, PUBS MCHC 33.6, Serum Alcohol 23.0 Microbiology 09/09 1823 BLOOD: Blood Culture - CAN Cancelled: SPECIMEN NOT RECEIVED IN LABORATORY 09/09 1823 BLOOD: Blood Culture - CAN Cancelled: SPECIMEN NOT RECEIVED IN LABORATORY 09/08 1804 URINE ROUT: Urine Culture - RES Assessment/Plan Assessment: This is a 76-year-old gentleman with past medical history of atrial fibrillation not on anticoagulation hypertension, coronary artery disease,E Zakiya abuse to who presented to the emergency department on 09/08/2016 altered mental status malaise and weakness. Failure to thrive due to alcohol abuse and decreased by mouth intake. CIWA protocol; Ativan 2 mg IV every 6 and Ativan when necessary. Ciwa over last 24 hours 0, 4, 2, 2, 2, 0, 0 A banana bag was given to the patient overnight. Pending CAT scan of the abdomen pelvis to rule out any intra-abdominal source. No evidence of any intra-abdominal pathology. Psychiatry and social work contract on Sunday09/12/2016. PT eval History of hypertension. Continue Cozaar 25 mg daily. Hypokalemia. Patient had a potassium level of 2.3 today. Repeat BEP in a.m. Potassium by mouth 40 mEq dosed. Questionable drugs of abuse Check U tox and INR DVT prophylaxis DVT prophylaxis with subcutaneous heparin CODE STATUS DNR/DNI Problem List: 1. Weakness 2. Tachycardia 3. Hypokalemia 4. Alcohol abuse 5. Alcohol abuse Pain Ratin Pain Location: No Pain Pain Goal: Remain pain free Pain Plan: Tylenol PRN Tomorrow's Labs & Rationales: BEP: Monitor K and Magnesium Magenisum
[2016-09-09 08:35] LABS: PT 10.8 SEC (9.4-12.5)
[2016-09-09 09:03] LABS: ABSOLUTE BASOPHIL COUNT 0 /CUMM (0.0-0.2); ABSOLUTE EOSINOPHIL COUNT 0 /CUMM (0.0-0.7); ABSOLUTE LYMPH COUNT 0.9 /CUMM (1.2-3.4); ABSOLUTE MONOCYTE COUNT 0.4 /CUMM (0.10-0.60); EOSINOPHIL % 0.7 % (0-5); MEAN CORPUSCULAR HGB CONC 33.5 G/DL (33.0-37.0)
[2016-09-09 09:39] LABS: ABSOLUTE GRANULOCYTE CT 4.2 /CUMM (1.4-6.5); BASOPHIL % 0.3 % (0.0-2.0); GRANULOCYTE % 76.3 % (42.2-75.2); MEAN CORPUSCULAR HGB 31.8 PG (27.0-31.0); MEAN CORPUSCULAR VOLUME 94.9 FL (80.0-94.0); MEAN PLATELET VOLUME 8.2 FL (7.4-10.4); PLATELET COUNT 57 /CUMM (130-400); RBC DISTRIBUTION WIDTH 13.6 % (11.5-14.5); RED BLOOD CELL CT 4.33 /CUMM (4.70-6.10); WHITE BLOOD CELL COUNT 5.5 /CUMM (4.8-10.8)
[2016-09-09 09:45] LABS: HEMATOCRIT 41.1 % (42-52)
--- NOTE | 2016-09-09 23:06 | NUR ---
PATIENT IS ALERT AND ORIENTED. CONFUSED AT TIMES. DENIES CHEST PAIN. + PULSES ON ROOM AIR. NO DISCOMFORT NOTED. SPOOLER OPERATOR AWARE OF BP. PATIENT RESTING AT THIS TIME. WILL CONTINUE TO MONIOTR
[2016-09-10] VITALS (9 sets, daily range): BP systolic 98–110; BP diastolic 55–68
--- NOTE | 2016-09-10 08:41 | PN- Housestaff ---
Subjective Follow-up For: Failure to thrive Alcohol Subjective: I saw and examined the patient today morning Reports significant night hein disrupting sleep. otherwise no pain. Didnt have a bowel movement for the past 2 days. Review of Systems Constitutional: Reports: see HPI. Comments: ROS negative except the above. Objective Last 24 Hrs of Vital Signs/I&O Vital Signs Date Time Temp Pulse Resp B/P Pulse O2 O2 Flow FiO2 Ox Delivery Rate 09/10 0652 98.6 74 20 110/68 92 Room Air 09/10 0017 76 110/60 09/10 0000 Room Air 09/09 2220 95.6 65 18 92/51 94 Room Air 09/09 2215 97.1 09/09 2200 97.1 65 18 92/51 09/09 2134 63 90/60 09/09 2000 96.9 63 20 113/55 09/09 1952 93 Room Air 09/09 1900 96.9 63 20 113/55 95 Room Air 09/09 1800 97.8 78 20 134/82 09/09 1600 97.8 78 20 134/82 09/09 1600 95 Room Air 09/09 1406 97.8 78 20 134/82 9 09/09 1010 97.5 71 18 118/65 11 1010 97.5 71 18 118/65 Intake & Output 09/10 1600 09/10 0800 09/10 0000 Intake Total 300 Output Total 300 Balance -300 300 Intake, Oral 300 Output, Urine 300 Physical Exam General Appearance: Alert, Oriented X3, Cooperative, No Acute Distress Skin: No Rashes, No Breakdown HEENT: Atraumatic, PERRLA Neck: Supple Cardiovascular: Normal S1, Normal S2, No Murmurs Lungs: Clear to Auscultation, Normal Air Movement Abdomen: Normal Bowel Sounds, Soft, No Tenderness Neurological: Normal Speech, Strength at 5/5 X4 Ext, Normal Tone Extremities: No Clubbing, No Cyanosis, No Edema Current Medications: Current Medications Sig/Sae Start time Last Medication Dose Route Stop Time Status Admin Acetaminophen 650 MG Q6P PRN 09/08 1830 AC PO Albuterol Sulfate 3 ML Q4-PRN PRN 09/08 2100 AC INH Albuterol Sulfate 3 ML Q6P PRN 09/08 1830 AC INH Aspirin 81 MG DAILY 09/09 1000 AC 09/09 PO 1010 Folic Acid 1 MG DAILY 09/09 1000 AC 09/09 PO 1010 Lorazepam 0 Q1P PRN 09/08 1830 AC IV Losartan Potassium 25 MG DAILY 09/09 1000 AC 09/09 PO 1010 Metoprolol Tartrate 50 MG BID 09/08 2200 AC 09/09 PO 1010 Multivitamins 1 TAB DAILY 09/09 1000 AC 09/09 Therapeutic PO 1010 Nicotine 21 MG DAILY 09/08 1934 AC 09/09 TOP 1831 Oxycodone HCl 5 MG Q6H 09/08 1830 AC 09/10 PO 0546 Oxycodone/ 2 TAB Q6P PRN 09/08 1830 AC Acetaminophen PO Potassium Chloride 40 MEQ ONCE ONE 09/09 1130 DC 09/09 PO 09/09 1131 1304 Thiamine HCl 100 MG DAILY 09/09 1000 AC 09/09 PO 1011 Vitamin A/Vitamin D 1 KAPIL BID 09/08 2200 AC 09/09 TOP 2134 Zinc Oxide 1 KAPIL BID 09/08 2200 AC 09/09 TOP 2134 Last 24 Hrs of Lab/Dominic Results Last 24 Hrs of Labs/Mics: Laboratory Tests 09/10/16 0615: Anion Gap 9, Estimated GFR > 60, BUN/Creatinine Ratio 30.0 H, Magnesium 1.4 L Lines/Diet/Fluids Lines: peripheral lines Assessment/Plan Assessment: This is a 76-year-old gentleman with past medical history of atrial fibrillation not on anticoagulation hypertension, coronary artery disease,E Zakiya abuse to who presented to the emergency department on 09/08/2016 altered mental status malaise and weakness. Failure to thrive due to alcohol abuse and decreased by mouth intake. CIWA protocol; Ativan 2 mg IV every 6 and Ativan when necessary. A banana bag was given to the patient overnight. Pending CAT scan of the abdomen pelvis to rule out any intra-abdominal source. No evidence of any intra-abdominal pathology. Psychiatry and social work contract on Sunday09/12/2016. PT eval History of hypertension. Continue Cozaar 25 mg daily. Hypokalemia. Patient had a potassium level of 2.3 today. Repeat BEP in a.m. Potassium by mouth 40 mEq dosed. Questionable drugs of abuse Check U tox and INR DVT prophylaxis DVT prophylaxis with subcutaneous heparin CODE STATUS DNR/DNI Problem List: 1. Alcohol abuse 2. Alcoholism Pain Ratin Pain Location: n/a Pain Goal: Pain 4 or less Pain Plan: tylenol Tomorrow's Labs & Rationales: BEP: Monitor K and Magnesium
--- NOTE | 2016-09-10 10:31 | NUR ---
PHYSICAL THERAPY. Pt ADAMENTLY REFUSING PT TREATMENT AT THIS TIME. Pt UNABLE TO GIVE A REASON. PT WILL F/U APPROPRIATE.
--- NOTE | 2016-09-10 10:52 | NUR ---
PATIENT HAS 2 CELL PHONES AT BEDSIDE TABLE. PT ALSO WISHES TO HOLD ONTO HIS 35 DOLLARS IN [place] IN BED WITH HIM. 2 - 1O DOLLAR BILLS 1 FIVE DOLLAR BILL AND 10 - 1 DOLLAR BILLS.
--- NOTE | 2016-09-10 15:15 | PN- Att Addend ---
Attending MD Review Statement Attending Statement Attending MD Statement: examined this patient, discuss w/resident/PA/ANTHROPOLOGY DEPARTMENT CHAIR, agreed w/resident/PA/ANTHROPOLOGY DEPARTMENT CHAIR, reviewed EMR data (avail), discussed w/nursing Attending Assessment/Plan: Laboratory Tests 09/10/16 0615: Anion Gap 9, Estimated GFR > 60, BUN/Creatinine Ratio 30.0 H, Magnesium 1.4 L Vital Signs Date Time Temp Pulse Resp B/P Pulse O2 O2 Flow FiO2 Ox Delivery Rate 09/10 1459 98.1 76 20 98/56 92 Room Air 09/10 0950 78 110/68 09/10 0950 74 110/68 09/10 0909 94 Room Air Room Air 09/10 0652 98.6 74 20 110/68 92 Room Air 09/10 0017 76 110/60 09/10 0000 Room Air 09/09 2220 95.6 65 18 92/51 94 Room Air 09/09 2215 97.1 09/09 2200 97.1 65 18 92/51 09/09 2134 63 90/60 09/09 2000 96.9 63 20 113/55 09/09 1952 93 Room Air 09/09 1900 96.9 63 20 113/55 95 Room Air 09/09 1800 97.8 78 20 134/82 09/09 1600 97.8 78 20 134/82 09/09 1600 95 Room Air Patient seen and examined at bedside. CIWA scores has been between 0 and 6. Continue to monitor him closely. We will get psychiatry to see the patient on Sunday given his feeling of depression. Patient's recently from COPD 3 weeks ago. Patient appears very unkempt and would need social media editor evaluation prior to discharge. Thrombocytopenia patient's platelet count yesterday was 57. We will repeat the the platelet count tomorrow. Hypomagnesemia with magnesium level of 1.4. We will give him 2 g IV magnesium. Recheck labs in the morning. Discussed with patient the care plan.
--- NOTE | 2016-09-10 16:36 | NUR ---
PATIENT IS ALERT TO PERSON AND TIME BUT DISORIENTED TO PLACE. PATIENT IS AGITATED AND PULLED OUT HIS IV. 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
--- NOTE | 2016-09-11 | NUR ---
PATIENT ALERT.SPEECH CLEAR.MOVING ABOUT IN BED.PT ABLE TO TELL ME HE IS IN [place],STATES MONTH AUG.,RELATES THAT HE HAS RECENTLY .C/O HEADACHE JUST BEGINNING. SCHEDULED DOSE OF ROXICODONE GIVEN.
--- NOTE | 2016-09-11 04:06 | NUR ---
PATIENT CALMER AT PRESENT.SLEEPING. TALKING IN HIS SLEEP.CIWA AT 0000 PRIOR TO ROXICODONE DOSE WAS 7,4 AT 0200.NOW 2-4.LESS AGITATED BUT REMAINS WITH CLOUDED ORIENTATION.
--- NOTE | 2016-09-11 06:03 | PN- Housestaff ---
[address],[facility] 09/11/16 0603: Subjective Follow-up For: Failure to thrive Alcohol Abuse Subjective: Mr. Ford was seen and examined this morning. He appears very somnolent and states that he does not want to be disturbed. Patient states that he does feel some back discomfort. Located in the coccyx area. Does not endose any further complaints. Patient denies any fever, chills, nausea, vomiting. Nurse did report that he was unable to sleep till early this morning. Review of Systems Constitutional: Reports: see HPI. Objective Last 24 Hrs of Vital Signs/I&O Vital Signs Date Time Temp Pulse Resp B/P Pulse O2 O2 Flow FiO2 Ox Delivery Rate 09/11 0818 98.6 78 17 116/70 96 Room Air 09/11 0000 Room Air 09/10 2302 62 115/60 09/10 2239 98.5 75 21 110/60 94 09/10 2200 97.4 70 18 100/55 09/10 2005 92 Room Air 09/10 2000 97.4 70 18 100/55 09/10 1900 97.4 70 18 100/55 93 Room Air 09/10 1800 98.1 76 20 98/56 09/10 1600 98.1 76 20 98/56 09/10 1459 98.1 76 20 98/56 92 Room Air 09/10 0950 78 110/68 09/10 0950 74 110/68 09/10 0909 94 Room Air Room Air Intake & Output 09/11 1600 09/11 0800 09/11 0000 Intake Total 50 200 Output Total Balance 50 200 Intake, Oral 50 200 Physical Exam General Appearance: Alert, Oriented X3, Cooperative Cardiovascular: Regular Rate, Normal S1, Normal S2 Lungs: Clear to Auscultation Abdomen: Normal Bowel Sounds, Soft, No Tenderness Neurological: Normal Tone Extremities: No Cyanosis, No Edema, Stage one Coccyx Ulcer. 2x2 cm Current Medications: Current Medications Sig/Sae Start time Last Medication Dose Route Stop Time Status Admin Acetaminophen 650 MG Q6P PRN 09/08 1830 AC PO Albuterol Sulfate 3 ML Q4-PRN PRN 09/08 2100 DC INH Albuterol Sulfate 3 ML Q6P PRN 09/08 1830 AC 09/10 INH 0906 Aspirin 81 MG DAILY 09/09 1000 AC 09/10 PO 0949 Folic Acid 1 MG DAILY 09/09 1000 AC 09/10 PO 0949 Lorazepam 2 MG ONCE ONE 09/10 1645 DC 09/10 PO 09/10 1646 1706 Lorazepam 0 Q1P PRN 09/08 1830 AC IV Losartan Potassium 25 MG DAILY 09/09 1000 AC 09/10 PO 0950 Magnesium Sulfate 1 GM Q2H 09/10 1145 DC 09/10 Dextrose/Water 100 ML IV 09/10 1544 1250 Metoprolol Tartrate 50 MG BID 09/08 2200 AC 09/10 PO 0950 Multivitamins 1 TAB DAILY 09/09 1000 AC 09/10 Therapeutic PO 0949 Nicotine 21 MG DAILY 09/08 1934 AC 09/10 TOP 1220 Oxycodone HCl 5 MG Q6H 09/08 1830 AC 09/11 PO 0059 Oxycodone/ 2 TAB Q6P PRN 09/08 1830 AC Acetaminophen PO Thiamine HCl 100 MG DAILY 09/09 1000 AC 09/10 PO 0949 Vitamin A/Vitamin D 1 KAPIL BID 09/08 2200 AC 09/10 TOP 2229 Zinc Oxide 1 KAPIL BID 09/08 2200 AC 09/10 TOP 2229 Last 24 Hrs of Lab/Dominic Results Last 24 Hrs of Labs/Mics: Laboratory Tests 09/11/16 0740: Sodium Pending, Potassium Pending, Chloride Pending, Carbon Dioxide Pending, Anion Gap Pending, BUN Pending, Creatinine Pending, BUN/Creatinine Ratio Pending , Magnesium Pending, CBC w Diff Pending, WBC Pending, RBC Pending, Hgb Pending, Hct Pending, MCV Pending, MCH Pending, RDW Pending, Plt Count Pending, MPV Pending, PUBS MCHC Pending Assessment/Plan Assessment: This is a 76-year-old gentleman with past medical history of atrial fibrillation not on anticoagulation hypertension, coronary artery disease,E Zakiya abuse to who presented to the emergency department on 09/08/2016 altered mental status malaise and weakness. Failure to thrive due to alcohol abuse and decreased by mouth intake. CIWA protocol; Ativan 2 mg IV every 6 and Ativan when necessary. A banana bag was given to the patient overnight. Pending CAT scan of the abdomen pelvis to rule out any intra-abdominal source. No evidence of any intra-abdominal pathology. Psychiatry and social work consult on Sunday09/11/2016. PT eval Patient may benefit from Mirtazapine 15-45mg PO QHS History of hypertension. Continue Cozaar 25 mg daily. Hypomagnesemia Patient had a magenesium level of 1.1 Repeat BEP in a.m. Magnesium Sulfate inj 1 GM Hypokalemia. Patient had a potassium level of 3.6 today. Repeat BEP in a.m. Potassium by mouth 40 mEq dosed. #Skin Break down Located in [place] area. Continue Zinc Oxide BID Questionable drugs of abuse Check U tox INR: 1.03 DVT prophylaxis DVT prophylaxis with subcutaneous heparin General well being: PT recomends STR CODE STATUS DNR/DNI Problem List: 1. Weakness 2. Altered mental status 3. Alcohol withdrawal 4. Hypomagnesemia 5. Alcoholism Pain Ratin Pain Location: [place] Pain Goal: Remain pain free Pain Plan: Oxycodone Tomorrow's Labs & Rationales: BEP: Monitor Electrolytes Magenesium: Hypomagnesimia [address],[facility] 09/11/16 1309: Attending MD Review Statement Attending Statement Attending MD Statement: examined this patient, discuss w/resident/PA/ASSISTANT HAIRSTYLIST, agreed w/resident/PA/ASSISTANT HAIRSTYLIST, discussed with family, reviewed EMR data (avail), discussed with nursing, discussed with case mgmt, reviewed images, amended to note Attending Assessment/Plan: Patient seen and examined, did not participate much in conversation. He just laid in bed with his eyes closed. Vital Signs Date Time Temp Pulse Resp B/P Pulse O2 O2 Flow FiO2 Ox Delivery Rate 09/11 1104 98.6 78 17 118/70 09/11 1104 98.6 78 17 118/70 09/11 1103 94 Room Air 09/11 0900 98.6 78 17 118/70 09/11 0818 98.6 78 17 116/70 96 Room Air 09/11 0000 Room Air 09/10 2302 62 115/60 09/10 2239 98.5 75 21 110/60 94 09/10 2200 97.4 70 18 100/55 09/10 2005 92 Room Air 09/10 2000 97.4 70 18 100/55 09/10 1900 97.4 70 18 100/55 93 Room Air 09/10 1800 98.1 76 20 98/56 09/10 1600 98.1 76 20 98/56 09/10 1459 98.1 76 20 98/56 92 Room Air on exam; awake, not cooperative, nad. cv; s1, s2, rrr resp; clear abd; soft, nt, bs+ ext; no edema. Laboratory Tests 09/11 0740 Chemistry Sodium (137 - 145 mmol/L) 135 L Potassium (3.5 - 5.1 mmol/L) 3.6 Chloride (98 - 107 mmol/L) 94 L Carbon Dioxide (22 - 30 mmol/L) 31 H Anion Gap (5 - 16) 10 BUN (9 - 20 mg/dL) 18 Creatinine (0.7 - 1.2 mg/dL) 0.8 Estimated GFR (>60 ml/min) > 60 BUN/Creatinine Ratio (7 - 25 %) 22.5 Magnesium (1.6 - 2.3 mg/dL) 1.1 L Hematology CBC w Diff NO MAN DIFF REQ WBC (4.8 - 10.8 /CUMM) 4.5 L RBC (4.70 - 6.10 /CUMM) 4.30 L Hgb (14.0 - 18.0 G/DL) 13.6 L Hct (42 - 52 %) 40.6 L MCV (80.0 - 94.0 FL) 94.4 H MCH (27.0 - 31.0 PG) 31.5 H RDW (11.5 - 14.5 %) 13.4 Plt Count (130 - 400 /CUMM) 51 L MPV (7.4 - 10.4 FL) 8.6 Gran % (42.2 - 75.2 %) 63.9 Lymphocytes % (20.5 - 51.1 %) 21.9 Monocytes % (1.7 - 9.3 %) 10.7 H Eosinophils % (0 - 5 %) 2.6 Basophils % (0.0 - 2.0 %) 0.9 Absolute Granulocytes (1.4 - 6.5 /CUMM) 2.9 Absolute Lymphocytes (1.2 - 3.4 /CUMM) 1.0 L Absolute Monocytes (0.10 - 0.60 /CUMM) 0.5 Absolute Eosinophils (0.0 - 0.7 /CUMM) 0.1 Absolute Basophils (0.0 - 0.2 /CUMM) 0 PUBS MCHC (33.0 - 37.0 G/DL) 33.4 A/P: 76 y/o M with pmh sig for CAD s/p CABG, SVT ablation, P afib/flutter not on AC 2/2 falls, HTN, HLD, chronic alcohol abuse, COPD, alcoholic pancreatitis, UGIB (2012), 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 Patient on ativan per CIWA but scores are not high. Will replete electrolytes as indicated. Psych eval. Continue MVI, FA and thiamine DVt px ; ALPS.
[2016-09-11 08:18] VITALS: BP 116/70
[2016-09-11 08:43] LABS: ABSOLUTE BASOPHIL COUNT 0 /CUMM (0.0-0.2); ABSOLUTE EOSINOPHIL COUNT 0.1 /CUMM (0.0-0.7); ABSOLUTE GRANULOCYTE CT 2.9 /CUMM (1.4-6.5); ABSOLUTE MONOCYTE COUNT 0.5 /CUMM (0.10-0.60); BASOPHIL % 0.9 % (0.0-2.0); EOSINOPHIL % 2.6 % (0-5); GRANULOCYTE % 63.9 % (42.2-75.2); HEMATOCRIT 40.6 % (42-52); MEAN CORPUSCULAR HGB 31.5 PG (27.0-31.0); MEAN CORPUSCULAR HGB CONC 33.4 G/DL (33.0-37.0); MEAN CORPUSCULAR VOLUME 94.4 FL (80.0-94.0); MEAN PLATELET VOLUME 8.6 FL (7.4-10.4); RBC DISTRIBUTION WIDTH 13.4 % (11.5-14.5); WHITE BLOOD CELL COUNT 4.5 /CUMM (4.8-10.8)
[2016-09-11 09:00] VITALS: BP 118/70
--- NOTE | 2016-09-11 09:57 | NUR ---
PHYSICAL THERAPY- ATTEMPTED TO SEE PT x2 THIS AM. PT REFUSED TO OPEN EYES, STATING "I ONLY WALK WITH MY FRIENDS" AND "I'M NOT GETTING UP". WHEN EDUCATED ON IMPORTANCE OF MOBILITY AND FULL EVALUATION OF AMBULATION FOR SAFE HOME D/C. PT TURNED OVER AND IGNORED THERAPIST. WILL FOLLOW ABLE.
[2016-09-11 10:42] LABS: PLATELET COUNT 51 /CUMM (130-400)
--- NOTE | 2016-09-11 12:59 | NUR ---
PHYSICAL THERAPY- ATTEMPTED A THIRD TIME TO SEE PT TODAY FOR P.T. TX, PT AGITATED AND REFUSING. APPEARS TO MOVE SELF AROUND IN BED AND POSITION SELF WELL, BUT NOT AMENABLE TO FURTHER ASSESSMENT OF OOB AND GAIT AT THIS TIME. WILL FOLLOW ABLE.
--- NOTE | 2016-09-11 14:00 | NUR ---
PATIENT LETHARGIC AND CONFUSED. UNCOPERATIVE AT TIMES. VSS. DENIES PAIN. CARDIOPULMONARY STABLE. TOLORATED DIETS. INCONTINENT OF LARGE AMOUNT OF URINE. STAGE 2 TO COCCYX. WOUND CARE CONSULT INPLACE. DESETIN AND A&D OINTMENT APPLIED. WILL FOLLOWUP WITH WOUNDCARE NURSE FOR FURTHER TREATMENT PLAN.
--- NOTE | 2016-09-11 15:16 | Discharge Summary ---
Visit Information Visit Dates Admission Date: 09/08/16 Discharge Date: 09/15/2016 Hospital Course Course Attending Physician: CRICKET LINK MDESHA Primary Care Physician: [address],[place] Hospital Course: This is a 76-year-old gentleman with a past history significant for hypertension and alcohol use that presents to the emergency room with his neighbors and friends with a chief complaint of weakness and failure to thrive. Vitals and admission: Blood pressure 123/81, respiration 28, pulse 89, temperature 96.8, oxygen saturation 95% on room air. Labs an exam: WBC 7.4, hemoglobin 16.6, hematocrit 49.4, platelets 94, sodium 132, hypertension 2.0, BUN 33, creatinine 1.0, lactic acid on admission 4.5 one total bilirubin 1.5, and admission 1.0, anion gap 23 Hospital course 1. Failure to thrive with starvation ketoacidosis: She does admit to general medical floor, at least depicted. Lactic acid returned to baseline. CAT scan of the abdomen and pelvis did not show any acute abdominal pathology. Patient has recently lost his about one half weeks ago and has been not eating at all. Psychiatry consult was obtained recommended to start him on mirtazapine which could again antidepressant as well as an appetite stimulant. He denied any suicidal or homicidal ideations, but was refusing to participate in conversation or take his medications. He will need to follow-up with psychiatry as an outpatient and mirtazapine can be increased to a total of 15 mg at bedtime if no improvement at current dose. Nutrition consult was obtained 2. Mild protein calorie malnutrition due to poor by mouth intake. Patient was followed by nutrition consult during the hospital stay. 3. Transaminitis and thrombocytopenia in the setting of chronic alcohol use: INR was stable. 4. Hypertension: He was restarted on his home medications including metoprolol and losartan. 5. Stage I sacral ulcer present on admission: He was started on topical zinc oxide vitamin A and D ointment 6. Hypomagnesemia: Secondary to alcohol use. Was monitored and repleted accordingly. He was discharged on Mag-ox for 10 days. 7. EtOH dependence: He was maintained on CIWA protocol and Ativan scheduled and when necessary as needed. He wa salso seen by psych and was given Mirtazepine in hospital. DVT prophylaxis with Alps DNR/DNI Allergies: Coded Allergies: NO KNOWN ALLERGIES (06/18/16) Pertinent Lab Results: Laboratory Tests 09/13 09/12 0700 0710 Chemistry Sodium (137 - 145 mmol/L) 138 137 Potassium (3.5 - 5.1 mmol/L) 4.1 4.4 Chloride (98 - 107 mmol/L) 99 97 L Carbon Dioxide (22 - 30 mmol/L) 26 28 Anion Gap (5 - 16) 13 12 BUN (9 - 20 mg/dL) 21 H 20 Creatinine (0.7 - 1.2 mg/dL) 0.8 0.8 Estimated GFR (>60 ml/min) > 60 > 60 BUN/Creatinine Ratio (7 - 25 %) 26.3 H 25.0 Magnesium (1.6 - 2.3 mg/dL) 1.4 L 1.4 L Total Bilirubin (0.2 - 1.3 mg/dL) 0.9 Direct Bilirubin (< 0.4 mg/dL) 0.6 H AST (17 - 59 U/L) 160 H ALT (21 - 72 U/L) 107 H Alkaline Phosphatase (< 127 U/L) 109 Total Protein (6.3 - 8.2 g/dL) 7.2 Albumin (3.5 - 5.0 g/dL) 3.8 Folate (2.76 - 20.0 ng/mL) Pending Hematology CBC w Diff NO MAN DIFF REQ WBC (4.8 - 10.8 /CUMM) 8.5 RBC (4.70 - 6.10 /CUMM) 4.73 Hgb (14.0 - 18.0 G/DL) 15.0 Hct (42 - 52 %) 44.8 MCV (80.0 - 94.0 FL) 94.7 H MCH (27.0 - 31.0 PG) 31.7 H RDW (11.5 - 14.5 %) 13.7 Plt Count (130 - 400 /CUMM) 110 L MPV (7.4 - 10.4 FL) 9.3 Gran % (42.2 - 75.2 %) 67.8 Lymphocytes % (20.5 - 51.1 %) 14.4 L Monocytes % (1.7 - 9.3 %) 15.6 H Eosinophils % (0 - 5 %) 1.6 Basophils % (0.0 - 2.0 %) 0.6 Absolute Granulocytes (1.4 - 6.5 /CUMM) 5.8 Absolute Lymphocytes (1.2 - 3.4 /CUMM) 1.2 Absolute Monocytes (0.10 - 0.60 /CUMM) 1.3 H Absolute Eosinophils (0.0 - 0.7 /CUMM) 0.1 Absolute Basophils (0.0 - 0.2 /CUMM) 0 PUBS MCHC (33.0 - 37.0 G/DL) 33.5 03/13 0740 Chemistry Sodium (137 - 145 mmol/L) 135 L Potassium (3.5 - 5.1 mmol/L) 3.6 Chloride (98 - 107 mmol/L) 94 L Carbon Dioxide (22 - 30 mmol/L) 31 H Anion Gap (5 - 16) 10 BUN (9 - 20 mg/dL) 18 Creatinine (0.7 - 1.2 mg/dL) 0.8 Estimated GFR (>60 ml/min) > 60 BUN/Creatinine Ratio (7 - 25 %) 22.5 Phosphorus (2.5 - 4.5 mg/dL) 1.4 L Magnesium (1.6 - 2.3 mg/dL) 1.1 L Hematology CBC w Diff NO MAN DIFF REQ WBC (4.8 - 10.8 /CUMM) 4.5 L RBC (4.70 - 6.10 /CUMM) 4.30 L Hgb (14.0 - 18.0 G/DL) 13.6 L Hct (42 - 52 %) 40.6 L MCV (80.0 - 94.0 FL) 94.4 H MCH (27.0 - 31.0 PG) 31.5 H RDW (11.5 - 14.5 %) 13.4 Plt Count (130 - 400 /CUMM) 51 L MPV (7.4 - 10.4 FL) 8.6 Gran % (42.2 - 75.2 %) 63.9 Lymphocytes % (20.5 - 51.1 %) 21.9 Monocytes % (1.7 - 9.3 %) 10.7 H Eosinophils % (0 - 5 %) 2.6 Basophils % (0.0 - 2.0 %) 0.9 Absolute Granulocytes (1.4 - 6.5 /CUMM) 2.9 Absolute Lymphocytes (1.2 - 3.4 /CUMM) 1.0 L Absolute Monocytes (0.10 - 0.60 /CUMM) 0.5 Absolute Eosinophils (0.0 - 0.7 /CUMM) 0.1 Absolute Basophils (0.0 - 0.2 /CUMM) 0 PUBS MCHC (33.0 - 37.0 G/DL) 33.4 Disposition Summary Disposition Principal Diagnosis: 1. Failure to thrive with starvation ketoacidosis 2. Mild protein calorie malnutrition 3. ETOH dependence 4. Transaminitis and thrombocytopenia 5. Stage I sacral ulcer Additional Diagnosis: Current smoker Discharge Disposition: STR Discharge Instructions General Discharge Information Code Status: Do Not Resucitate/Intubat Patient's Diet: Heart healthy diet Patient's Activity: As tolerated with physical therapy Follow-Up Instructions/Appts: 1. Follow-up with primary care physician a week upon discharge Medications at Discharge Discharge Medications: Continue taking these medications: Aspirin (Aspirin*) 81 MG TAB.CHEW 81 Milligram ORAL DAILY Days = 30 Comments: Last Taken: 09/15/16 Time: 08:00 AM Metoprolol Tartrate (Lopressor) 50 MG TABLET 1 Tablet ORAL TWICE DAILY Qty = 60 Comments: Last Taken: 09/15/16 Time: 08:00 AM Albuterol Sulfate (Albuterol Sulfate) 2.5 MG/3 ML VIAL.NEB 1 Vial Inhale Solution Q6H as needed for RESPIRATORY Comments: PER PT NOT TAKING MEDS NOT GIVEN Losartan Potassium (Cozaar) 25 MG TABLET 1 Tablet ORAL DAILY Qty = 60 Instructions: PLEASE START THE MEDICATION ON 12/12/2015. PLEASE HOLD IF SBP< 90 Comments: Last Taken: 09/15/16 Time: 08:00 AM Folic Acid (Folic Acid) 1 MG TABLET 1 Milligram ORAL DAILY Days = 28 Comments: Last Taken: 09/15/16 Time: 08:00 AM Thiamine HCl (Vitamin B-1) 100 MG TABLET 100 Milligram ORAL DAILY Days = 28 Comments: Last Taken: 09/15/16 Time: 08:00 AM Multivitamin (One Daily Multivitamin) 1 EACH TABLET 1 Tablet ORAL DAILY Days = 28 Comments: Last Taken: 09/15/16 TimE: 08:00 AM Start taking the following new medications: Magnesium Oxide (Magnesium Oxide) 400 MG TABLET 400 Milligram ORAL TWICE DAILY Days = 10 No Refills Comments: Last Taken: 09/15/16 Time: 08:00 AM Copies To: THIERNO BELCHER MD Copies To: THIERNO BELCHER MD
[2016-09-11 15:27] VITALS: BP 110/60
--- NOTE | 2016-09-11 16:30 | Cons- Psychiatry ---
MELLISA HIRSCH 09/11/16 1612: Psychiatric Consult Date of Consult: 09/11/16 Reason for Consult: Depressed mood, recent loss of spouse History of Present Illness: 76M with history of alcohol use disorder and multiple chronic medical problems is on HD#4 admitted for weakness, unsteadiness on his feet, and lactic acidosis with elevated anion gap gradually developing since his about 2 weeks ago. Per chart he has been staying in bed all day, stopped eating, lost 10 lbs, and has continued to drink 5-6 drinks daily. Patient has been very irritable and nursing states he is not cooperating with [facility] assessments. In the past he has had hallucinations and delirium in the setting of EtOH withdrawal. Upon entering the patient's room he did not open his eyes to speak with us, answered only some questions, cursed at us and expressed that he did not want to speak to psychiatry. Further history unable to obtain at this time. Plan: - Recommend beginning Ativan 0.5mg q6hrs for EtOH withdrawal. If the patient does not respond we will taper to off. - Recommend beginning Mirtazapine 7.5mg QHS PRN for depression and appetite stimulation. - Will revisit and reassess the patient tomorrow morning. 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 Psychosocial History Strengths/Capabilities: Unknown Physical Limitations (Interventions): Multiple medical comorbidities Psychiatric Treatment History Diagnosis: Alcohol use disorder Risk Factors: age (under 24/over 65), chronic/serious med cond., SA/MH hospitalized, substance abuse, poor impulse control, male DIANELYS FRIEND APRN 09/11/16 5256: Assessment/Plan Mental Status Mental Status Exam: We visited the patient today, 09/11/16, and found him lying on his side. He is responsive to our initial greeting, but opened his eyes only briefly, and declined to answer most questions. He did state that he wanted to throw some soto off the roof, who was bothering him; house staff warned of this. Lab Results: Laboratory Tests 09/11 0740 Chemistry Sodium (137 - 145 mmol/L) 135 L Potassium (3.5 - 5.1 mmol/L) 3.6 Chloride (98 - 107 mmol/L) 94 L Carbon Dioxide (22 - 30 mmol/L) 31 H Anion Gap (5 - 16) 10 BUN (9 - 20 mg/dL) 18 Creatinine (0.7 - 1.2 mg/dL) 0.8 Estimated GFR (>60 ml/min) > 60 BUN/Creatinine Ratio (7 - 25 %) 22.5 Phosphorus (2.5 - 4.5 mg/dL) 1.4 L Magnesium (1.6 - 2.3 mg/dL) 1.1 L Hematology CBC w Diff NO MAN DIFF REQ WBC (4.8 - 10.8 /CUMM) 4.5 L RBC (4.70 - 6.10 /CUMM) 4.30 L Hgb (14.0 - 18.0 G/DL) 13.6 L Hct (42 - 52 %) 40.6 L MCV (80.0 - 94.0 FL) 94.4 H MCH (27.0 - 31.0 PG) 31.5 H RDW (11.5 - 14.5 %) 13.4 Plt Count (130 - 400 /CUMM) 51 L MPV (7.4 - 10.4 FL) 8.6 Gran % (42.2 - 75.2 %) 63.9 Lymphocytes % (20.5 - 51.1 %) 21.9 Monocytes % (1.7 - 9.3 %) 10.7 H Eosinophils % (0 - 5 %) 2.6 Basophils % (0.0 - 2.0 %) 0.9 Absolute Granulocytes (1.4 - 6.5 /CUMM) 2.9 Absolute Lymphocytes (1.2 - 3.4 /CUMM) 1.0 L Absolute Monocytes (0.10 - 0.60 /CUMM) 0.5 Absolute Eosinophils (0.0 - 0.7 /CUMM) 0.1 Absolute Basophils (0.0 - 0.2 /CUMM) 0 PUBS MCHC (33.0 - 37.0 G/DL) 33.4 Diffential Diagnosis: Alcohol use disorder, recurrent. Adjustment disorder 2/2 recent of his spouse. rule out alcohol-related dementia Rule out neurocognitive disorder Impression: We will revisit the patient on 09/12/16, and hope to administer a Folstein/MMSE. The patient has not been responding to nursing's questions regarding CIWA and alcohol detox progression. He has a history of hallucinosis in the setting of alcohol withdrawal. We suggest above that a trial of lorazepam 0.5 mg PO every 6 hours be performed, as he is currently not on any scheduled lorazepam, only a low PRN dose. It is possible that he is not communicating well due to recurrent hallucinosis and alcohol withdrawal symptoms. If the patient calms with lorazepam, nursing and staff may have a better chance of determining his mental status. If he is indeed delirious from alcohol withdrawal, haloperidol is indicated, provided no arrythmia or QTC greater than 475 mS. Serum alcohol on admission was 23; utox was negative. Provisional Treatment Plan: In addition to the plan above: * Continue daily thiamine, folate and MVI * Please start haloperidol 0.5 mg PO every 6 hours when necessary for hallucinosis or agitation. Consider IM formulation if violent agitation. Monitor electrolytes and EKG. * Nursing interventions to the minimum necessary during sleep hours. We will continue to follow, and expect to revist on 08/15/16 Toshia Friend APRN, Pager [phone] Addendum Addendum The patient was not receptive to an interview today, and refused permission to speak with his friend (or sister) who arrived during our visit. He expressed apprecitation for our condolences on the of his a few weeks ago, but declined to answer most questions. When asked by this senior technical writer if he was having suicidal or homicidal thoughts, he stated that there was a soto who kept bothering him, whom he wanted to throw off the roof, and that I was a candidate, too. I informed the patient's sports broadcasting internship, Ashutosh Dueñas MD, of the patient's statement about throwing a man off the roof; possibly meaning Dr. Dueñas.
--- NOTE | 2016-09-11 18:39 | Patient Discharge Instructions ---
Discharge Instructions General Discharge Information You were seen/treated for: Electrolyte Disturbances Alcohol Use Failure to Thrive Watch for these problems: Fever, nausea, vomiting, chills, weakness, increased generalized edema. Palpitations. Chest pain. Shortness of breath. If you have any adverse reactions from any of the medications prescribed please inform your primary care physician and you may be required to come back to the emergency department. Thank you for allowing us to be part of your care. Special Instructions: Please follow up with your PCP Dr Lundberg in one week. Please inform Dr Lundberg about the medication changes we have made and started. Diet Recommended Diet: Regular Activity Activity Self Limited: Yes (As Tolerated) Acute Coronary Syndrome Inclusion Criteria At DC or during hospital stay patient has or had the following: ACS DIAGNOSIS No Discharge Core Measures Meds if any: Prescribed or Continued at Discharge Meds if any: NOT Prescribed or Continued at Discharge Congestive Heart Failure Inclusion Criteria At DC or during hospital stay patient has or had the following: CHF DIAGNOSIS No Discharge Core Measures Meds if any: Prescribed or Continued at Discharge Meds if any: NOT Prescribed or Continued at Discharge Cerebrovascular accident Inclusion Criteria At DC or during hospital stay patient has or had the following: CVA/TIA Diagnosis No Discharge Core Measures Meds if any: Prescribed or Continued at Discharge Meds if any: NOT Prescribed or Continued at Discharge Venous thromboembolism Inclusion Criteria VTE Diagnosis No VTE Type NONE VTE Confirmed by (Test) NONE Discharge Core Measures - Per Current guidelines, there needs to be overlap - treatment for the first 5 days of Warfarin therapy. - If discharged on Warfarin prior to 5 days of - overlap therapy, the patient will need to be - assessed for post discharge needs including - *Post discharge parental anticoagulation - *Warfarin and/or parental anticoagulation education - *Follow up date to check INR post discharge At least 5 days overlap therapy as Inpatient No Meds if any: Prescribed or Continued at Discharge Note: Overlap Therapy is Warfarin and Anticoagulant Meds if any: NOT Prescribed or Continued at Discharge
[2016-09-11 22:19] VITALS: BP 137/60
--- NOTE | 2016-09-11 23:45 | NUR ---
PT MAKING MULTIPLE ATTEMPTS OOB UNASSISTED. WHEN STAFF ENTERS ROOM, PT YELLING TO GET OUT OF HIS HOUSE, THREATENING STAFF WITH VIOLENCE AND TAKING SWINGS. PT MEDICATED WITH ATIVAN PER ORDERS. ORDER 10 CALLED, SECURITY ALSO UNSUCCESSFUL AT REDIRECTING PT. SECURITY PLACED BACK TO BED BY SECURITY AND NIMCO NUNEZT APPLIED. RECREATION ESTABLISHMENT MANAGER BLANCHE BONE PAGED, AWAITING CALL BACK.
--- NOTE | 2016-09-12 07:00 | NUR ---
PHYSICAL THERAPY- ATTEMPTED TO SEE PT THIS DAY; PT SOMNOLENT AND IN NIMCO R/T ATTEMPTING UNSAFE AMB WHILE AGITATED PREV EVENING. PT UNABLE TO OPEN EYES OR ENGAGE IN ANY LEVEL OF CONVERSATION 2* LETHARGY. UNABLE TO PARTICIPATE IN P.T. AT THIS TIME. WILL FOLLOW.
[2016-09-12 07:05] VITALS: BP 144/76
--- NOTE | 2016-09-12 07:24 | PN- Housestaff ---
[address],[facility] 09/12/16 0724: Subjective Follow-up For: Failure to thrive Alcohol abuse Subjective: Patient was seen and examined. He looks lethargic and delirious, the nurse reported that patient was agitated and yelling on the nurses yesterday, oxycodone 7 was called on the patient yesterday. Patient vitals are within normal limits. Review of Systems Constitutional: Reports: see HPI. Comments: Review of systems can't be obtained because patient is in cooperative and won't respond to questions Objective Last 24 Hrs of Vital Signs/I&O Vital Signs Date Time Temp Pulse Resp B/P Pulse O2 O2 Flow FiO2 Ox Delivery Rate 09/12 1431 97.8 77 20 138/80 96 Room Air 09/12 1042 97 Room Air 09/12 0705 97.9 84 18 144/76 93 Room Air 09/11 2219 99.1 79 20 137/60 93 Room Air 09/11 2148 80 110/60 Intake & Output 09/12 1600 09/12 0800 09/12 0000 Intake Total 400 500 Output Total Balance 400 500 Intake, IV 150 Intake, Oral 250 500 Number 0 Bowel Movements Physical Exam General Appearance: patient is sleeping all day long, when we make him up to examine him he gets agitated HEENT: Atraumatic Cardiovascular: Regular Rate, Normal S1, Normal S2, No Murmurs Lungs: Clear to Auscultation Abdomen: Soft, No Tenderness Current Medications: Current Medications Sig/Sae Start time Last Medication Dose Route Stop Time Status Admin Acetaminophen 650 MG Q6P PRN 09/08 1830 AC PO Albuterol Sulfate 3 ML Q6P PRN 09/08 1830 DC 09/10 INH 0906 Aspirin 81 MG DAILY 09/09 1000 AC 09/11 PO 1104 Docusate Sodium 100 MG DAILY PRN 09/12 1945 AC PO Folic Acid 1 MG DAILY 09/09 1000 AC 09/11 PO 1104 Lorazepam 0.5 MG Q6 09/11 1800 DC 09/11 PO 09/18 1759 2332 Lorazepam 0 Q1P PRN 09/08 1830 AC IV Losartan Potassium 25 MG DAILY 09/09 1000 AC 09/11 PO 1104 Magnesium Sulfate 1 GM ONCE ONE 09/12 1000 DC 09/12 Dextrose/Water 100 ML IV 09/12 1359 1147 Metoprolol Tartrate 50 MG BID 09/08 2199 AC 09/11 PO 2148 Mirtazapine 7.5 MG AT BEDTIME PRN 09/11 2200 AC 09/11 PO 2148 Multivitamins 1 TAB DAILY 09/09 1000 AC 09/11 Therapeutic PO 1104 Nicotine 21 MG DAILY 09/08 1934 AC 09/12 TOP 1418 Oxycodone HCl 5 MG Q6H 09/08 1830 AC 09/11 PO 0059 Oxycodone/ 2 TAB Q6P PRN 09/08 1830 AC Acetaminophen PO Senna 187 MG AT BEDTIME PRN 09/12 1945 AC PO Thiamine HCl 100 MG DAILY 09/09 1000 AC 09/11 PO 1104 Vitamin A/Vitamin D 1 KAPIL BID 09/08 2199 AC 09/12 TOP 1419 Zinc Oxide 1 KAPIL BID 09/08 2199 AC 09/12 TOP 1419 Last 24 Hrs of Lab/Dominic Results Last 24 Hrs of Labs/Mics: Laboratory Tests 09/12/16 0710: Anion Gap 12, Estimated GFR > 60, BUN/Creatinine Ratio 25.0, Magnesium 1.4 L Assessment/Plan Assessment: This is a 76-year-old gentleman with past medical history of atrial fibrillation not on anticoagulation hypertension, coronary artery disease,E Zakiya abuse to who presented to the emergency department on 09/08/2016 altered mental status malaise and weakness. #Failure to thrive due to alcohol abuse and decreased by mouth intake. * We'll continue Ativan as per EVA pack * We replete electrolytes as necessary * We will replete his folate Psychiatry and social work consult * We will follow up psychiatry recommendation * Patient will be followed up by physical therapy to try to ambulate him #History of hypertension. * We will Continue Cozaar 25 mg daily. #Hypomagnesemia * We replete magnesium today * We repeat magnesium tomorrow #Hypokalemia. Potassium today is 4.4 #Skin Break down * Located in [place] area. * Continue Zinc Oxide BID Regular diet DVT Ppx heparin SC DNR/DNI Problem List: 1. Alcohol abuse Pain Ratin (cant be obtained) Pain Location: NA Pain Goal: Remain pain free Pain Plan: see A&P Tomorrow's Labs & Rationales: see A&P [address],[place] 09/12/16 1338: Attending MD Review Statement Attending Statement Attending MD Statement: examined this patient, discuss w/resident/PA/[employer] INDUSTRIAL DEVELOPMENT CONSULTANT, agreed w/resident/PA/[employer] INDUSTRIAL DEVELOPMENT CONSULTANT, reviewed EMR data (avail), discussed with case mgmt, reviewed images Attending Assessment/Plan: This is a 76-year-old male with multiple medical problems including coronary artery disease status post bypass, A. fib flutter not on anticoagulation due to bleeding and fall risk, COPD and ongoing alcohol abuse. He is here with failure to thrive, multiple electrolyte abnormalities and overnight started becoming very delirious. He was agitated and yelling and an order #7 was called in. Today he is quite drowsy and somnolent. His last dose of Ativan was yesterday 0.5 mg and today wasn't given. We are repleting his electrolytes, depleting his folate for his folate deficiency PT is actively working with him. We think his liver enzymes all secondary to alcoholic liver disease his imaging to shows hepatic steatosis and will need to follow that closely.
--- NOTE | 2016-09-12 14:00 | NUR ---
LATE ENTRY: PT HAS BEEN LETHARGIC FOR MOST OF THE DAY. RN HAS MADE CONTINUED ATTEMPTS TO WAKE PT UP FOR MEALS AND MEDICATIONS. RN UNABLE TO ADMINISTER PT'S MEDICATIONS D/T PT'S LETHARGY AND ASPIRATION RISK. VSS. DR. BELCHER NOTIFIED. TO CONT TO MONITOR.
[2016-09-12 14:31] VITALS: BP 138/80
--- NOTE | 2016-09-12 16:02 | PN- Psychiatry ---
Assessment/Plan Impression: The patient did not respond to lorazepam 0.5 mg PO q 6 hours, ordered for alcohol withdrawal, and has had the last two doses held, due to sedation. He has received lorazepam 0.5 mg X 2 doses yesterday, but none today. I will discontinue this medication, leaving the CIWA-directed, as needed dosing in place. CIWA as of 09/12/16 1200: 1-6-7-7-8-3-02-8-0-0-0-2-0-1 VS as of 09/12/16 1431: 138/80, 77, 97.8, 20, 96% RA Magnesium is being repleted. We had hoped to perform a Folstein/MMSE today, but the patient is too sleepy to participate. Suggestion: 1. Continue CIWA monitoring, and advise if the patient's scores trend upward. 2. Continue daily thiamine, folate and MVI. 3. Continue mirtazapine 7.5 mg PO at bedtime as needed. Hold for oversedation. We will continue to follow along with you. Saud Friend APRN, Pager [phone] Subjective Subjective: The patient declined to be interviewed today, and continued to sleep through preliminary questions. He does not appear to be in any distress. Objective Last 24 Hrs of Vital Signs/I&O Vital Signs Date Time Temp Pulse Resp B/P Pulse O2 O2 Flow FiO2 Ox Delivery Rate 09/12 1431 97.8 77 20 138/80 96 Room Air 09/12 1042 97 Room Air 09/12 0705 97.9 84 18 144/76 93 Room Air 09/11 2219 99.1 79 20 137/60 93 Room Air 09/11 2148 80 110/60 09/11 1632 98 Room Air Room Air Intake & Output 09/12 1600 09/12 0800 09/12 0000 Intake Total 500 Output Total Balance 500 Intake, Oral 500 Current Medications: Current Medications Sig/Sae Start time Last Medication Dose Route Stop Time Status Admin Acetaminophen 650 MG Q6P PRN 09/08 1830 AC PO Albuterol Sulfate 3 ML Q6P PRN 09/08 1830 DC 09/10 INH 0906 Aspirin 81 MG DAILY 09/09 1000 AC 09/11 PO 1104 Folic Acid 1 MG DAILY 09/09 1000 AC 09/11 PO 1104 Lorazepam 0.5 MG Q6 09/11 1800 AC 09/11 PO 09/18 1759 2332 Lorazepam 0 Q1P PRN 09/08 1830 AC IV Losartan Potassium 25 MG DAILY 09/09 1000 AC 09/11 PO 1104 Magnesium Sulfate 1 GM ONCE ONE 09/12 1000 DC 09/12 Dextrose/Water 100 ML IV 09/12 1359 1147 Metoprolol Tartrate 50 MG BID 09/080 AC 09/11 PO 2148 Mirtazapine 7.5 MG AT BEDTIME PRN 09/11 2200 AC 09/11 PO 2148 Multivitamins 1 TAB DAILY 09/09 1000 AC 09/11 Therapeutic PO 1104 Nicotine 21 MG DAILY 09/08 1934 AC 09/12 TOP 1418 Oxycodone HCl 5 MG Q6H 09/08 1830 AC 09/11 PO 0059 Oxycodone/ 2 TAB Q6P PRN 09/08 183 AC Acetaminophen PO Thiamine HCl 100 MG DAILY 09/09 1000 AC 09/11 PO 1104 Vitamin A/Vitamin D 1 KAPIL BID 09/08 2200 AC 09/12 TOP 1419 Zinc Oxide 1 KAPIL BID 09/080 AC 09/12 TOP 1419 Results Last 24 Hrs of Labs/Mics: Laboratory Tests 09/12 0710 Chemistry Sodium (137 - 145 mmol/L) 137 Potassium (3.5 - 5.1 mmol/L) 4.4 Chloride (98 - 107 mmol/L) 97 L Carbon Dioxide (22 - 30 mmol/L) 28 Anion Gap (5 - 16) 12 BUN (9 - 20 mg/dL) 20 Creatinine (0.7 - 1.2 mg/dL) 0.8 Estimated GFR (>60 ml/min) > 60 BUN/Creatinine Ratio (7 - 25 %) 25.0 Magnesium (1.6 - 2.3 mg/dL) 1.4 L
--- NOTE | 2016-09-12 19:43 | NUR ---
PT'S LBM NOTED TO BE 5 DAYS AGO- 09/07/16. PT HAS VARIED PO INTAKE- DID MANAGE TO DO WELL WITH DINNER. NO LAXATIVES ON ORDER. DR. MAYORGA UPDATED. PENDING POSSIBLE NEW ORDERS. NIGHT RN TO FOLLOW.
[2016-09-12 22:00] VITALS: BP 120/60
[2016-09-13 07:15] VITALS: BP 123/71
[2016-09-13 08:09] LABS: ABSOLUTE BASOPHIL COUNT 0 /CUMM (0.0-0.2); ABSOLUTE EOSINOPHIL COUNT 0.1 /CUMM (0.0-0.7); ABSOLUTE GRANULOCYTE CT 5.8 /CUMM (1.4-6.5); ABSOLUTE LYMPH COUNT 1.2 /CUMM (1.2-3.4); ABSOLUTE MONOCYTE COUNT 1.3 /CUMM (0.10-0.60); BASOPHIL % 0.6 % (0.0-2.0); EOSINOPHIL % 1.6 % (0-5); GRANULOCYTE % 67.8 % (42.2-75.2); HEMATOCRIT 44.8 % (42-52); MEAN CORPUSCULAR HGB 31.7 PG (27.0-31.0); MEAN CORPUSCULAR HGB CONC 33.5 G/DL (33.0-37.0); MEAN CORPUSCULAR VOLUME 94.7 FL (80.0-94.0); MEAN PLATELET VOLUME 9.3 FL (7.4-10.4); RBC DISTRIBUTION WIDTH 13.7 % (11.5-14.5); RED BLOOD CELL CT 4.73 /CUMM (4.70-6.10)
[2016-09-13 08:20] LABS: PLATELET COUNT 110 /CUMM (130-400); WHITE BLOOD CELL COUNT 8.5 /CUMM (4.8-10.8)
--- NOTE | 2016-09-13 08:26 | PN- Housestaff ---
[address],[facility] 09/13/16 0826: Subjective Follow-up For: Failure to thrive Alcohol abuse Subjective: Afebrile, awake and alert, looks relaxed and comfortable. There is a significant improvement comparing to yesterday. Patient appetite improved. He denies any current complaints. Patient is refusing to go to the short-term rehabilitation. Review of Systems Constitutional: Reports: no symptoms. Objective Last 24 Hrs of Vital Signs/I&O Vital Signs Date Time Temp Pulse Resp B/P Pulse O2 O2 Flow FiO2 Ox Delivery Rate 09/13 1353 97.4 80 18 112/60 94 Room Air 09/13 0959 86 09/13 0959 124/70 09/13 0715 98.5 85 20 123/71 94 Room Air 09/13 0000 Room Air 09/12 2200 97.9 113 18 120/60 09/12 2055 113 120/60 Intake & Output 09/13 1600 09/13 0800 09/13 0000 Intake Total 650 Output Total Balance 650 Intake, Oral 650 Physical Exam General Appearance: Alert, Oriented X3, Cooperative, No Acute Distress Skin: No Rashes HEENT: Atraumatic, PERRLA, EOMI, Mucous Membr. moist/pink Cardiovascular: Regular Rate, Normal S1, Normal S2, No Murmurs Lungs: Clear to Auscultation Abdomen: Soft, No Tenderness Neurological: Normal Speech Extremities: No Clubbing, No Cyanosis, No Edema Current Medications: Current Medications Sig/Sae Start time Last Medication Dose Route Stop Time Status Admin Acetaminophen 650 MG Q6P PRN 09/08 1830 AC PO Aspirin 81 MG DAILY 09/09 1000 AC 09/13 PO 0959 Docusate Sodium 100 MG DAILY PRN 09/12 1945 AC 09/13 PO 0959 Folic Acid 1 MG DAILY 09/09 1000 AC 09/13 PO 1000 Lorazepam 0 Q1P PRN 09/08 1830 AC IV Losartan Potassium 25 MG DAILY 09/09 1000 AC 09/13 PO 0959 Magnesium Sulfate 1 GM Q2H 09/13 0845 DC 09/13 Dextrose/Water 100 ML IV 09/13 1244 1235 Metoprolol Tartrate 50 MG BID 09/08 2200 AC 09/13 PO 0959 Mirtazapine 7.5 MG AT BEDTIME PRN 09/11 2200 AC 09/12 PO 205 Multivitamins 1 TAB DAILY 09/09 1000 AC 09/13 Therapeutic PO 0959 Nicotine 21 MG DAILY 09/08 1934 AC 09/13 TOP 0959 Oxycodone HCl 5 MG Q6H 09/08 1830 AC 09/11 PO 0059 Oxycodone/ 2 TAB Q6P PRN 09/08 1830 AC Acetaminophen PO Patient Medication 1 ED .STK-MED ONE 09/13 1350 NM Teaching ED 09/13 1351 Polyethylene Glycol 17 GM DAILY PRN 09/13 1515 AC PO Senna 187 MG AT BEDTIME PRN 09/12 1945 AC 09/12 PO 2055 Thiamine HCl 100 MG DAILY 09/09 1000 AC 09/13 PO 0959 Vitamin A/Vitamin D 1 KAPIL BID 09/08 2200 AC 09/13 TOP 1001 Zinc Oxide 1 KAPIL BID 09/08 2200 AC 09/13 TOP 1001 Last 24 Hrs of Lab/Dominic Results Last 24 Hrs of Labs/Mics: Laboratory Tests 09/13/16 0700: Anion Gap 13, Estimated GFR > 60, BUN/Creatinine Ratio 26.3 H, Magnesium 1.4 L , Total Bilirubin 0.9, Direct Bilirubin 0.6 H, AST 160 H, ALT 107 H, Alkaline Phosphatase 109, Total Protein 7.2, Albumin 3.8, Folate 12.0, CBC w Diff NO MAN DIFF REQ, RBC 4.73, MCV 94.7 H, MCH 31.7 H, RDW 13.7, MPV 9.3, Gran % 67.8, Lymphocytes % 14.4 L, Monocytes % 15.6 H, Eosinophils % 1.6, Basophils % 0.6, Absolute Granulocytes 5.8, Absolute Lymphocytes 1.2, Absolute Monocytes 1.3 H, Absolute Eosinophils 0.1, Absolute Basophils 0, PUBS MCHC 33.5 Assessment/Plan Assessment: This is a 76-year-old gentleman with past medical history of atrial fibrillation not on anticoagulation hypertension, coronary artery disease,E Zakiya abuse to who presented to the emergency department on 09/08/2016 with altered mental status malaise and weakness. #Failure to thrive due to alcohol abuse and decreased by mouth intake. * We'll continue Ativan as per CIWA protoco * We replete electrolytes as necessary * We will replete his folate Psychiatry and social work consult * We will follow up psychiatry recommendation * Physical therapy recommended short-term rehabilitation however the patient is refusing, will discuss the case with the case manage. #History of hypertension. * We will Continue Cozaar 25 mg daily. #Hypomagnesemia Magnesium today is 1.4 * We replete magnesium today * We repeat magnesium tomorrow #Hypokalemia. Potassium today is 4.1 #Skin Break down * Located in [place] area. * Continue Zinc Oxide BID Regular diet DVT Ppx heparin SC DNR/DNI Problem List: 1. Alcohol abuse Pain Ratin Pain Location: NA Pain Goal: Remain pain free Pain Plan: See assessment and plan Tomorrow's Labs & Rationales: See assessment and plan [address],[facility] 09/13/16 1429: Attending MD Review Statement Attending Statement Attending MD Statement: examined this patient, discuss w/resident/PA/SEED PACKER, agreed w/resident/PA/SEED PACKER, reviewed EMR data (avail), discussed with nursing, discussed with case mgmt, reviewed images, amended to note Attending Assessment/Plan: Patient seen and examined, he was much more awake today and ate his breakfast. He was not very happy with the cold breakfast and the care he has been provided. Vital Signs Date Time Temp Pulse Resp B/P Pulse O2 O2 Flow FiO2 Ox Delivery Rate 09/13 1353 97.4 80 18 112/60 94 Room Air 09/13 0959 86 09/13 0959 124/70 09/13 0715 98.5 85 20 123/71 94 Room Air 09/13 0000 Room Air 09/12 2200 97.9 113 18 120/60 09/12 2055 113 120/60 on exam; awake, nad cv; s1,s2, rrr resp: clear. abd; soft, nt, bs+ ext; no edema. Laboratory Tests 09/13 0700 Chemistry Sodium (137 - 145 mmol/L) 138 Potassium (3.5 - 5.1 mmol/L) 4.1 Chloride (98 - 107 mmol/L) 99 Carbon Dioxide (22 - 30 mmol/L) 26 Anion Gap (5 - 16) 13 BUN (9 - 20 mg/dL) 21 H Creatinine (0.7 - 1.2 mg/dL) 0.8 Estimated GFR (>60 ml/min) > 60 BUN/Creatinine Ratio (7 - 25 %) 26.3 H Magnesium (1.6 - 2.3 mg/dL) 1.4 L Total Bilirubin (0.2 - 1.3 mg/dL) 0.9 Direct Bilirubin (< 0.4 mg/dL) 0.6 H AST (17 - 59 U/L) 160 H ALT (21 - 72 U/L) 107 H Alkaline Phosphatase (< 127 U/L) 109 Total Protein (6.3 - 8.2 g/dL) 7.2 Albumin (3.5 - 5.0 g/dL) 3.8 Folate (2.76 - 20.0 ng/mL) 12.0 Hematology CBC w Diff NO MAN DIFF REQ WBC (4.8 - 10.8 /CUMM) 8.5 RBC (4.70 - 6.10 /CUMM) 4.73 Hgb (14.0 - 18.0 G/DL) 15.0 Hct (42 - 52 %) 44.8 MCV (80.0 - 94.0 FL) 94.7 H MCH (27.0 - 31.0 PG) 31.7 H RDW (11.5 - 14.5 %) 13.7 Plt Count (130 - 400 /CUMM) 110 L MPV (7.4 - 10.4 FL) 9.3 Gran % (42.2 - 75.2 %) 67.8 Lymphocytes % (20.5 - 51.1 %) 14.4 L Monocytes % (1.7 - 9.3 %) 15.6 H Eosinophils % (0 - 5 %) 1.6 Basophils % (0.0 - 2.0 %) 0.6 Absolute Granulocytes (1.4 - 6.5 /CUMM) 5.8 Absolute Lymphocytes (1.2 - 3.4 /CUMM) 1.2 Absolute Monocytes (0.10 - 0.60 /CUMM) 1.3 H Absolute Eosinophils (0.0 - 0.7 /CUMM) 0.1 Absolute Basophils (0.0 - 0.2 /CUMM) 0 PUBS MCHC (33.0 - 37.0 G/DL) 33.5 A/P; 76 y/o M with pmh sig for CAD s/p CABG, SVT ablation, P afib/flutter not on AC 2/2 falls, HTN, HLD, chronic alcohol abuse, COPD, alcoholic pancreatitis, UGIB (2012), 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 Today he is more awake and talking. Continue CIWA protocol. Continue to encourage by mouth intake. Physical therapy has been ordered. Patient also has abnormal LFTs secondary to alcoholic and fatty liver disease. Bowel regimen has been ordered. Continue other current medications.. DVT px; ALPS secondary to thrombocytopenia.
--- NOTE | 2016-09-13 13:48 | NUR ---
WOUND CARE: REQUESTED BY NURSING TO EVALUATE PT FOR SKIN ALTERATIONS T BUTTOCKS/COCCYX REGION - PT NOTED WITH AN AREA OF HYPERPIGMENTED TISSUE FROM PREVIOUS BREAKDOWN, AND DEEP TISSUE INJURY TO COCCYX 1 X 1.3 CM LIGHT GRAYISH HUE - SUPERFICIAL BREAK IN SKIN INTEGRITY 0.3 X 0.1 CM CLEAN PINK FILL RECOMMNEDATION: CLEANSE WITH SOAP AND WATER FB MOISTURE BARRIER QS AND PRN - MAINTAIN SIDELYING POSITION FOR 100% OFFLOADING AT ALL TIMES PLEASE IMPRESSION: EVOLVING DTI
[2016-09-13 13:53] VITALS: BP 112/60
[2016-09-13 16:00] VITALS: BP 112/60
--- NOTE | 2016-09-13 21:57 | NUR ---
NO BM SINCE 09/07/16. SENNA AND MIRALAX GIVEN WITH 2200 MEDS. BP 100/52, METOPROLOL 50 MG HELD, DR AMARIS Soriano NOTIFIED. PATIENT SLEEPY AT BEGINNING OF SHIFT, OTHERWISE QUIETLY WATCHING TV. DID ASK TO REMOVE NIMCO VEST, AND I EXPLAINED THE IMPORTANCE OF HIS SAFETY. CONTINUE TO MONITOR
[2016-09-13 22:00] VITALS: BP 100/52
[2016-09-13 22:02] VITALS: BP 100/52
[2016-09-14 07:09] VITALS: BP 108/61
--- NOTE | 2016-09-14 07:40 | PN- Housestaff ---
[address] 09/14/16 0740: Subjective Follow-up For: Failure to thrive Alcohol abuse Subjective: Afebrile, patient laying in bed not in any distress. Patient Review of Systems Constitutional: Reports: no symptoms. Denies: chills, diaphoresis, fever, malaise, weakness. Objective Last 24 Hrs of Vital Signs/I&O Vital Signs Date Time Temp Pulse Resp B/P Pulse O2 O2 Flow FiO2 Ox Delivery Rate 09/14 1025 Room Air Room Air 09/14 0709 98.3 95 20 108/61 93 Room Air 09/13 2202 98.2 88 18 100/52 92 09/13 2200 98.2 88 18 100/52 09/13 2104 79 100/52 09/13 1600 97.4 80 18 112/60 Intake & Output 09/14 1600 09/14 0800 09/14 0000 Intake Total 500 Output Total Balance 500 Intake, Oral 500 Physical Exam General Appearance: Alert, Oriented X3, Cooperative, No Acute Distress Skin: No Rashes Cardiovascular: Regular Rate, Normal S1, Normal S2, No Murmurs Lungs: Clear to Auscultation, Normal Air Movement Abdomen: Soft, No Tenderness Neurological: Normal Speech Extremities: No Clubbing, No Cyanosis, No Edema Current Medications: Current Medications Sig/Sae Start time Last Medication Dose Route Stop Time Status Admin Acetaminophen 650 MG Q6P PRN 09/08 1829 AC PO Aspirin 81 MG DAILY 09/09 1000 AC 09/13 PO 0959 Docusate Sodium 100 MG DAILY PRN 09/12 1945 AC 09/13 PO 0959 Folic Acid 1 MG DAILY 09/09 1000 AC 09/13 PO 1000 Lorazepam 0 Q1P PRN 09/08 183 AC IV Losartan Potassium 25 MG DAILY 09/09 1000 AC 09/13 PO 0959 Metoprolol Tartrate 50 MG BID 09/08 2199 AC 09/13 PO 0959 Mirtazapine 7.5 MG AT BEDTIME PRN 09/11 2199 AC 09/12 PO 205 Multivitamins 1 TAB DAILY 09/09 1000 AC 09/13 Therapeutic PO 0959 Nicotine 21 MG DAILY 09/08 193 AC 09/13 TOP 0959 Ondansetron HCl 4 MG ONCE ONE 09/14 0315 DC 09/14 PO 09/15 315 0312 Oxycodone HCl 5 MG Q6H 09/08 1830 AC 09/11 PO 0059 Oxycodone/ 2 TAB Q6P PRN 09/08 1830 AC Acetaminophen PO Polyethylene Glycol 17 GM DAILY PRN 09/13 1515 AC 09/13 PO 2104 Senna 187 MG AT BEDTIME PRN 09/12 1945 AC 09/13 PO 2105 Thiamine HCl 100 MG DAILY 09/09 1000 AC 09/13 PO 0959 Vitamin A/Vitamin D 1 KAPIL BID 09/08 2200 AC 09/14 TOP 1240 Zinc Oxide 1 KAPIL BID 09/08 2200 AC 09/14 TOP 1240 Last 24 Hrs of Lab/Dominic Results Last 24 Hrs of Labs/Mics: Laboratory Tests 09/14/16 0710: Anion Gap 10, Estimated GFR > 60, BUN/Creatinine Ratio 34.5 H, Magnesium 1.7 Assessment/Plan Assessment: This is a 76-year-old gentleman with past medical history of atrial fibrillation not on anticoagulation hypertension, coronary artery disease,E Zakiya abuse to who presented to the emergency department on 09/08/2016 with altered mental status malaise and weakness. #Failure to thrive due to alcohol abuse and decreased by mouth intake. * We'll continue Ativan as per EVA pack * We replete electrolytes as necessary * We will replete his folate Psychiatry and social work consult * We will follow up psychiatry recommendation * Physical therapy recommended short-term rehabilitation patient today agreed to go for one week only #History of hypertension. * We will Continue Cozaar 25 mg daily. #Hypomagnesemia Magnesium today is 1.7 * We will start patient on 400 mg magnesium twice a day by mouth #Hypokalemia. Potassium today is 3.8 #Skin Break down * Located in [place] area. * Continue Zinc Oxide BID Regular diet DVT Ppx heparin SC DNR/DNI Problem List: 1. Alcohol abuse Pain Ratin Pain Location: [place] area Pain Goal: Remain pain free Pain Plan: See assessment and plan Tomorrow's Labs & Rationales: See assessment and plan PABLO LINK MD 09/14/16 1533: Attending MD Review Statement Attending Statement Attending Statement: examined this patient, discuss w/resident/PA/CASING MIXER, agreed w/resident/PA/CASING MIXER, reviewed EMR data (avail), discussed with nursing, discussed with case mgmt, amended to note Attending Assessment/Plan: Patient seen and examined, he is much more awake today. He ate his breakfast. He was more cooperative today. Vital Signs Date Time Temp Pulse Resp B/P Pulse O2 O2 Flow FiO2 Ox Delivery Rate 09/14 1025 Room Air Room Air 09/14 0709 98.3 95 20 108/61 93 Room Air 09/13 2202 98.2 88 18 100/52 92 09/13 2200 98.2 88 18 100/52 09/13 2104 79 100/52 09/13 1600 97.4 80 18 112/60 on exam; aox3, nad. cv; s1,s2, rrr resp; clear abd; soft, nt, bs+ ext; no edema. 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 Electrolytes are improving. Can switch magnesium to oral. Patient has been seen by psychiatry. Overall his mental status is improving. Patient was encouraged to ambulate. For DVT px he is on ALPS. Patient needs rehabilitation for discharge and possibly can be discharged tomorrow if there is a bed available.
--- NOTE | 2016-09-14 11:29 | NUR ---
Physical Therapy: Attempted to see pt this morning for treatment. Pt refusing participation at this time. Not willing to even open his eyes. Will follow up as appropraite.
--- NOTE | 2016-09-14 16:13 | NUR ---
PATIENT LETHARGIC AND SLEEPING THROUGHOUT SHIFT. AFTER BREAKFAST PATIENT FELL ASLEEP. WHEN LUNCH CAME, PATIENT REFUSED TRAY AND REFUSED MORNING MEDICATIONS WELL. MD STEPHIE WELSH NOTIFIED THAT PATIENT IS REFUSING MEDICATIONS.
[2016-09-14 23:13] VITALS: BP 100/58
[2016-09-15 06:32] VITALS: BP 112/62
--- NOTE | 2016-09-15 07:37 | PN- Housestaff ---
See Addendum Subjective Follow-up For: Failure to thrive Alcohol abuse Subjective: Afebrile, looks relaxed and comfortable, no events reported, tolerating food. Patient denies any current complaints and all review of system was benign. Patient agreed to go for 1 week at a short-term rehabilitation. Review of Systems Constitutional: Reports: no symptoms. Objective Last 24 Hrs of Vital Signs/I&O Vital Signs Date Time Temp Pulse Resp B/P Pulse O2 O2 Flow FiO2 Ox Delivery Rate 09/15 0805 90 112/64 09/15 0804 90 112/64 09/15 0632 98.4 90 18 112/62 94 Room Air 09/14 2313 98.6 89 18 100/58 93 Room Air 09/14 2137 89 100/58 Intake & Output 09/15 1600 09/15 0800 09/15 0000 Intake Total 240 500 Output Total 300 Balance -60 500 Intake, Oral 240 500 Output, Urine 300 Physical Exam General Appearance: Alert, Oriented X3, Cooperative, No Acute Distress Skin: No Rashes HEENT: Atraumatic, PERRLA, EOMI, Mucous Membr. moist/pink Cardiovascular: Regular Rate, Normal S1, Normal S2, No Murmurs Lungs: Clear to Auscultation Abdomen: Soft, No Tenderness Neurological: Normal Speech Extremities: No Cyanosis, No Edema Current Medications: Current Medications Sig/Sae Start time Last Medication Dose Route Stop Time Status Admin Acetaminophen 650 MG Q6P PRN 09/08 183 AC PO Aspirin 81 MG DAILY 09/09 1000 AC 09/15 PO 0804 Docusate Sodium 100 MG DAILY PRN 09/12 1945 AC 09/15 PO 0817 Folic Acid 1 MG DAILY 09/09 1000 AC 09/15 PO 0805 Lorazepam 0 Q1P PRN 09/08 1830 AC IV Losartan Potassium 25 MG DAILY 09/09 1000 AC 09/15 PO 0805 Magnesium Oxide 400 MG BID 09/14 2200 AC 09/15 PO 0805 Metoprolol Tartrate 50 MG BID 09/08 2199 AC 09/15 PO 0804 Mirtazapine 7.5 MG AT BEDTIME PRN 09/11 2200 AC 09/12 PO 205 Multivitamins 1 TAB DAILY 09/09 1000 AC 09/15 Therapeutic PO 0805 Nicotine 21 MG DAILY 09/08 1934 AC 09/15 TOP 0805 Oxycodone HCl 5 MG Q6H 09/08 1830 AC 09/14 PO 1756 Oxycodone/ 2 TAB Q6P PRN 09/08 1830 AC Acetaminophen PO Polyethylene Glycol 17 GM DAILY PRN 09/13 1515 AC 09/13 PO 2104 Senna 187 MG AT BEDTIME PRN 09/12 1945 AC 09/13 PO 2105 Thiamine HCl 100 MG DAILY 09/09 1000 AC 09/15 PO 0805 Vitamin A/Vitamin D 1 KAPIL BID 09/08 2200 AC 09/15 TOP 0805 Zinc Oxide 1 KAPIL BID 09/08 2200 AC 09/15 TOP 0805 Assessment/Plan Assessment: This is a 76-year-old gentleman with past medical history of atrial fibrillation not on anticoagulation hypertension, coronary artery disease,E Zakiya abuse to who presented to the emergency department on 09/08/2016 with altered mental status malaise and weakness. #Failure to thrive due to alcohol abuse and decreased by mouth intake. Patient looks stable and ready to be discharge, he is waiting for a bed on the short term rehabilitation * We'll continue Ativan as per EVA pack until discharge * We replete electrolytes as necessary * We will replete his folate Psychiatry and social work consult * We will follow up psychiatry recommendation * Physical therapy recommended short-term rehabilitation patient today agreed to go for one week only #History of hypertension. * We will Continue Cozaar 25 mg daily. #Hypomagnesemia Magnesium yesterday is 1.7 * We will start patient on 400 mg magnesium twice a day by mouth, he will be discharged on the same exact dose #Skin Break down * Located in [place] area. * Continue Zinc Oxide BID Regular diet DVT Ppx heparin SC DNR/DNI Problem List: 1. Alcohol abuse Pain Ratin Pain Location: na Pain Goal: Remain pain free Pain Plan: Assessment and plan Tomorrow's Labs & Rationales: See assessment and plan
[2016-09-15] MEDS ORDERED: MAGNESIUM OXID400 M1 PO (09:58)
[2016-09-15 12:40] VITALS: BP 112/64
--- NOTE | 2016-09-15 13:55 | NUR ---
Late Entry: Aware of patients discharge earlier today to [facility] in [place]. Referral had been submitted at time of admission with no specific reason for social work consult. This patient is known to this business writer from multiple previous admissions; patient with a history of chronic ETOH Dependence. recently . Patients sister assisted with post hospital plans.
== END 2016-09-15 13:35 | DRG 641 ==
LOC: ENRESERVDT → ENRESERVTM → ERH 14:59 → 2NB 18:43 → ENPENDDIS 18:43 → ERHI 18:43 → 2NB 20:05
PROVIDERS: Internal Medicine; Physician Assistant; Student in an Organized Health Care Education/Training Program; ADMIT Student in an Organized Health Care Education/Training Program
DX: R62.7 Adult failure to thrive (principal); E87.2 Acidosis; R64 Cachexia; D69.6 Thrombocytopenia, unspecified; I48.2 Chronic atrial fibrillation; E44.1 Mild protein-calorie malnutrition; J44.9 Chronic obstructive pulmonary disease, unspecified; E83.42 Hypomagnesemia; K70.9 Alcoholic liver disease, unspecified; L98.429 Non-pressure chronic ulcer of back with unspecified severity; E86.0 Dehydration; F10.239 Alcohol dependence with withdrawal, unspecified; Z68.1 Body mass index [BMI] 19.9 or less, adult; I25.10 Atherosclerotic heart disease of native coronary artery without angina pectoris; I25.2 Old myocardial infarction; Z95.1 Presence of aortocoronary bypass graft; F17.200 Nicotine dependence, unspecified, uncomplicated; R26.89 Other abnormalities of gait and mobility; E87.6 Hypokalemia; F43.20 Adjustment disorder, unspecified
CPT/HCPCS: 2NBSP; 36415; 74177; 80307; 81001; 82436; 84425; 87040; 87086; 93005; 93010; 96374; 96375; 97116-GO; 97161-GP; 97530-GO; G0480; J1644; J2405; J3101; J3490; J7060

== ENCOUNTER 2016-10-15 12:27 | Inpatient (IN) | payer OTHER, MEDICARE ==
[~2016-10-15] VITALS: Ht 167.6 cm; Wt 52.7 kg
[~2016-10-15 12:27] MED LIST changes: +MAGNESIUM OXID400 M1 PO
--- NOTE | 2016-10-15 12:30 | NUR ---
PT TO ROOM3 BIBA FROM HOME FOR C/O SOB SINCE THIS MORNING, +GENERAL WEAKNESS AND FAILURE TO THRIVE. HX OF COPD, EMPHYSEMA, HTN,MD,CAD. PT ARRIVED AAOx3, O2SAT 88-90%ON RA, PT PLACED ON O2 BY NON-REBREATHER WITH O2SAT IMPROVEMENT 96%. PT AFEBRILE AND HYPERTENSIVE. 2 LARGE SKIN GAEL NOTED TO LLE. DUONEB ADMINISTERED BY NAILING MACHINE OPERATOR. THA ROQUE AT BEDSIDE FOR PT EVAL.
--- NOTE | 2016-10-15 12:38 | ED GENERAL ADULT ---
History of Present Illness General Chief Complaint: Dyspnea (COPD, CHF, Other) Stated Complaint: SOB Source: patient, old records, EMS Exam Limitations: clinical condition, confusion, poor historian Vital Signs & Intake/Output Vital Signs & Intake/Output Vital Signs Date Time Temp Pulse Resp B/P Pulse O2 O2 Flow FiO2 Ox Delivery Rate 10/15 1428 97.0 108 26 127/66 97 Non ReBreather 10/15 1340 99 20 91/56 98 Non ReBreather 10/15 1302 98 Non ReBreather 10/15 1231 96.0 114 20 173/59 90 Room Air Allergies Coded Allergies: NO KNOWN ALLERGIES (06/18/16) Triage Nurses Notes Reviewed? yes HPI: Patient is a 76-year-old male brought in by ambulance for evaluation of dyspnea and failure to thrive. Patient's nephew reportedly called 911 reports that patient has remained in bed for several days. Patient reports that his recently , he has been depressed and did not want to come to the hospital. Intermittent cough. Patient appears confused. Denies any recent trauma, chest pain, fevers, chills, vomiting EMS reports that patient's oxygen saturation was in the mid 80s upon their arrival and he was tachycardic into the 160s. Patient received a nebulizer treatment and IV fluids during transport. Patient drinks alcohol daily. Reports last alcohol intake was yesterday. Denies history of alcohol withdrawal seizures. (JUDE ALMAZAN,MURRAY) Reconcile Medications Folic Acid 0.8 MG TABLET 1 TAB PO DAILY SUPPLEMENT (Reported) Losartan Potassium (Cozaar) 25 MG TABLET 1 TAB PO DAILY heart failure PLEASE START THE MEDICATION ON 12/12/2015. PLEASE HOLD IF SBP< 90 Magnesium Oxide 400 MG TABLET 400 MG PO BID supplement Meloxicam 7.5 MG TABLET 1 TAB PO DAILY PAIN (Reported) Metoprolol Tartrate (Lopressor) 50 MG TABLET 1 TAB PO BID TACHYCARDIA Phenol (Chloraseptic) 1.4 % SPRAY SORE THROAT (Reported) Thiamine HCl (Vitamin B-1) 100 MG TABLET 100 MG PO DAILY SUPPLEMENT ([address],XAVIER Bill) ED Sepsis Exam Date of Focused Sepsis Exam: 10/15/16 Time of Focused Sepsis Exam: 1240 Sepsis Cardiac Exam: Regular Rate/Rhythm Sepsis Resp Exam: CTA Sepsis Cap Refill Exam: <2 Sec Sepsis Peripheral Pulse Exam: Normal Sepsis Peripheral Pulse Location: Radial Sepsis Skin Color Exam: Normal for Ethnicity Skin Temp/Moisture Exam: Warm/Dry (MURRAY TAMEZ) Past History Travel History Traveled to [place] past 21 day No Medical History Any Pertinent Medical History? see below for history Neurological: NONE EENT: NONE Cardiovascular: CAD, hypertension, myocardial infarction, CAD status post CABG SVT ablation Respiratory: COPD, emphysema Gastrointestinal: NONE Hepatic: PANCREATITIS Renal: NONE Musculoskeletal: R/L HIP FX Psychiatric: ETOH WITHDRAWAL Endocrine: NONE Blood Disorders: NONE Cancer(s): NONE [employer]/Reproductive: NONE History of MRSA: No History of VRE: No History of CDIFF: No Tetanus Vaccine: 02/28/12 Surgical History Surgical History: BYPASS QUAD b/l hip percutaneous pinning. Psychosocial History Services at Home None What is your primary language [place] Tobacco Use: Current Daily Use Daily Tobacco Use Amount/Type: => 5 Cigarettes daily Family History Family History, If Any: MOTHER (Breast Cancer). . FATHER (Stroke, OR). . Hx Contributory? No (MURRAY TAMEZ) Review of Systems Review of Systems Constitutional: Reports: malaise, weakness. Denies: chills, fever. EENTM: Reports: no symptoms. Respiratory: Reports: cough, short of breath. Cardiovascular: Denies: chest pain, syncope. GI: Reports: vomiting. Denies: abdominal pain, diarrhea, bloody stool. Genitourinary: Reports: no symptoms. Musculoskeletal: Reports: joint pain (CHRONIC). Skin: Reports: lesions. Neurological/Psychological: Reports: confusion. Denies: headache. Hematologic/Endocrine: Denies: bruising, bleeding. Immunologic/Allergic: Denies: splenectomy. (MURRAY TAMEZ) Physical Exam Physical Exam General Appearance: awake, cachetic, lethargic Head: atraumatic, normal appearance Eyes: Bilateral: normal appearance, PERRL, EOMI. Ears, Nose, Throat: hearing grossly normal Neck: normal inspection, supple, full range of motion Respiratory: normal breath sounds, no respiratory distress, lungs clear Cardiovascular: regular rate/rhythm (regular rhythm), tachycardia Peripheral Pulses: 2+ dorsalis pedis (R), 2+ dorsalis pedis (L) Gastrointestinal: soft, non-tender Back: normal inspection, normal range of motion Extremities: partial thickness viveros to left lower extremities. no surrounding erythema Neurologic/Psych: awake, lethargic, easily arousable. disoriented to time Skin: partial thickness viveros left lower extremity. no drainage or surrounding erythema Lymphatic: no anterior cervical sherrie Core Measures ACS in differential dx? Yes ASA ordered for poss ACS? Yes-ordered CVA/TIA Diagnosis: No Severe Sepsis Present: Yes BC x2: Yes Lactic Acid x2: Yes IV ABX Broad Spectrum: Yes NS/LR Started: Yes Septic Shock Present: No (JUDE ALMAZAN,MURRAY) Progress Differential Diagnoses I considered the following diagnoses in my evaluation of the patient: Sepsis, COPD, pneumonia, intra-abdominal infection, acute coronary syndrome, metabolic acidosis(methanol, uremia, DKA, atypical alcohols, lactic acidosis, ethanol, salicylates), ICH, ACS Plan of Care: Orders Procedure Date/time Status CBC WITHOUT DIFFERENTIAL 10/16 0600 Active TROPONIN LEVEL 10/16 0500 Active EKG 10/16 0500 Active Nothing by Mouth 10/15 D Active TROPONIN LEVEL 10/15 2100 Active EKG 10/15 2100 Active LACTIC ACID 10/15 1534 Active ECHOCARDIOGRAM 10/15 1449 Active TRC EVALUATION (GEN) 10/15 1444 Active ARTERIAL BLOOD GAS (GEN) 10/15 1444 Active Pathway - chart 10/15 1444 Active Code Status 10/15 1444 Active Admit to inpatient 10/15 1415 Active Patient Data 10/15 1411 Active BLOOD CULTURE 10/15 1409 Active Admit to inpatient 10/15 1343 Active Add-on Test (ER Only) 10/15 1343 Active Add-on Test (ER Only) 10/15 1328 Active Add-on Test (ER Only) 10/15 1317 Active Add-on Test (ER Only) 10/15 1313 Active Chou, Insertion/Removal/Asses 10/15 1312 Active CULTURE,URINE 10/15 1312 Active ARTERIAL BLOOD GAS (GEN) 10/15 1300 Complete SALICYLATE 10/15 1245 Complete CREATINE PHOSPHOKINASE 10/15 1245 Complete ACETONE 10/15 1245 Complete TYPE & SCREEN (NOT X-MATCH) 10/15 1245 Active Add-on Test (ER Only) 10/15 1243 Active CIWA 10/15 1243 Active Add-on Test (ER Only) 10/15 1239 Active URINE DRUG SCREEN FOR ER ONLY 10/15 1239 Complete URINALYSIS 10/15 1239 Complete EKG 10/15 1237 Active Telemetry/Nutrition Consultant 10/15 1234 Active BLOOD CULTURE 10/15 1234 Active TROPONIN LEVEL 10/15 1234 Complete PARTIAL THROMBOPLASTIN TIME 10/15 1234 Complete PROTHROMBIN TIME 10/15 1234 Complete MAGNESIUM 10/15 1234 Complete LACTIC ACID 10/15 1234 Complete ETHANOL 10/15 1234 Complete COMPREHENSIVE METABOLIC PANEL 10/15 1234 Complete CBC WITHOUT DIFFERENTIAL 10/15 1234 Complete B-TYPE NATRIURETIC PEP (BNP) 10/15 1234 Complete House Staff 10/15 UNK Active Intake & Output 10/15 UNK Active Hemoccult 10/15 UNK Active CIWA 10/15 UNK Active SOCIAL WORK CONSULT 10/15 UNK Active Current Medications Sig/Sae Start time Last Medication Dose Stop Time Status Admin Heparin Sodium 5,000 UNIT Q8 10/15 2200 CAN (Porcine) Ampicillin Sodium/ 1,500 MG Q6 10/15 1800 UNVr Sulbactam Sodium (Unasyn) Sodium Chloride 100 ML (Normal Saline 0.9%) Acetaminophen/ 1 TAB Q6P PRN 10/15 1445 AC Hydrocodone Bitart (Vicodin) Morphine Sulfate 2 MG Q4P PRN 10/15 1445 AC (Morphine) Aspirin 162 MG ONCE ONE 10/15 1315 CAN (Aspirin) 10/15 1316 Laboratory Tests 10/15/16 1445: Urine Opiates Screen < 100.00, Methadone Screen 48, Barbiturate Screen < 60, Ur Phencyclidine Scrn 9.60, Amphetamines Screen < 100, U Benzodiazepines Scrn < 85, Urine Cocaine Screen < 50, Urine Cannabis Screen < 5.00, Urinalysis HEAVY H, Urine Color YEL, Urine Clarity HAZY H, Urine pH 5.5, Ur Specific [place] >= 1.030, Urine Protein 100 H, Urine Ketones TRACE H, Urine Nitrite POS H, Urine Bilirubin NEG@ICTO, Urine Urobilinogen 0.2, Ur Leukocyte Esterase NEG, Ur Microscopic SEDIMENT EXAMINED, Urine RBC 25-50 H, Urine WBC 3-5 H, Ur Epithelial Cells MOD H, Urine Bacteria MANY H, Granular Casts RARE H, Urine Hemoglobin MOD H, Urine Glucose NEG 10/15/16 1300: pH 7.26 *L, pCO2 21 L, pO2 91, HCO3 9 L, ABG O2 Sat (Measured) 94.0 L, Carboxyhemoglobin 1.3 L, O2 Concentration % 100, O2 Delivery Method NRB, Phlebotomy Draw Site RIGHT RADIAL 10/15/16 1245: Anion Gap 34 H, Estimated GFR 13 L, BUN/Creatinine Ratio 11.4, Glucose 200 H, Lactic Acid 14.1 H, Calcium 9.7, Magnesium 2.1, Total Bilirubin 1.8 H, AST 198 H, ALT 103 H, Alkaline Phosphatase 107, Creatine Kinase 7783 H, Troponin I 0.18 *H, Jvp-S-Bamzjgbjsjy Pept 55635 H, Total Protein 7.4, Albumin 4.2, Globulin 3.2, Albumin/Globulin Ratio 1.3, PT 13.1 H, INR 1.25 H, APTT 32, CBC w Diff MAN DIFF ORDERED, RBC 5.24, MCV 95.0 H, MCH 31.5 H, RDW 15.5 H, MPV 9.0, Gran % 86.4 H, Lymphocytes % 9.5 L, Monocytes % 4.0, Eosinophils % 0, Basophils % 0.1, Absolute Granulocytes 13.5 H, Segmented Neutrophils 80 H, Band Neutrophils 6 H, Absolute Lymphocytes 1.5, Lymphocytes 13 L, Monocytes 1 L, Absolute Monocytes 0.6, Absolute Eosinophils 0, Absolute Basophils 0, Platelet Estimate DECREASED, Normocytic RBCs VERIFIED, Normochromic RBCs VERIFIED, PUBS MCHC 33.2, Salicylates 2.7, Serum Alcohol < 10.0, Acetone Level NEGATIVE Microbiology 10/15 1445 URINE ROUT: Urine Culture - RECD 10/15 1427 BLOOD: Blood Culture - RECD 10/15 1245 BLOOD: Blood Culture - RECD 10/15 1234 BLOOD: Blood Culture - CAN Cancelled: QNS 10/15/2016 1:24:51 PM: Possible free air under the left hemidiaphragm. Patient reevaluated multiple times. IV fluids and Unasyn ordered. Discussed with Dr. Castellon. 10/15/2016 2:01:06 PM: Patient reevaluated multiple times. Discussed with Dr. Romero. Dr. Castellon discussed patient with Dr. Julien for admission to ICU. Aspirin deferred initially while working up patient for possible trauma, bleeding, and his etiology of metabolic acidosis (MURRAY TAMEZ) Diagnostic Imaging: Viewed by Me: Radiology Read, CT Scan. Discussed w/RAD: Radiology Read, CT Scan. Radiology Impression: PATIENT: CONCHA JAMA PRESENT AGE: 76 PATIENT ACCOUNT NO: [id number] : 42 LOCATION: [facility] ORDERING PHYSICIAN: MURRAY ALMAZAN SERVICE DATE: 10/15/16 EXAM TYPE: CAT - CT CERV SPINE WO IV CONTRAST; CT HEAD WO IV CONTRAST EXAMINATION: CT OF THE HEAD WITHOUT CONTRAST CT OF THE CERVICAL SPINE WITHOUT CONTRAST CLINICAL INFORMATION: Confusion. Evaluate for hemorrhage. Altered mental status. Evaluate for fracture. COMPARISON: CT scan of the head dated 06/18/2016 and 12/06/2015. TECHNIQUE: Contiguous axial imaging was performed from the skullbase to vertex without intravenous administration of contrast. Coronal reformations of the head were obtained. Subsequently, contiguous axial imaging was performed from the skull base to the thoracic inlet without intravenous administration of contrast. Coronal and sagittal reformations of the cervical spine were then obtained. DLP: 888.47 mGy-cm. FINDINGS: CT scan of the head: There is no evidence of acute intracranial hemorrhage or territorial infarction. No abnormal mass-effect or midline shift is seen. Kapoor to white matter differentiation is well preserved. No extra-axial fluid collections are identified. The ventricles and sulci are enlarged, consistent with involutional changes. Prominent periventricular deep white matter low-attenuation is seen, consistent with ischemic small vessel disease. Atherosclerotic calcifications of the carotid siphons and the vertebrobasilar arteries are seen. The osseous structures and soft tissues are normal. The patient is status post bilateral ocular lens extractions with lens implant placement. Complete opacification of the included portions of the left maxillary sinus is seen. The mastoid air cells and remainder of the visualized portions of the paranasal sinuses are well-aerated. CT scan of the cervical spine: No acute fracture or dislocation is seen. Prevertebral soft tissues are normal in thickness. There is a convex right cervical scoliosis and an exaggeration of the normal cervical lordosis. Grade 1 retrolisthesis of C2 on C3 is seen, likely on a degenerative basis. Alignment of the cervical spine otherwise unremarkable. Craniocervical junction is intact. Moderate degenerative change seen at the atlantoaxial articulation with joint space narrowing, sclerosis and ligamentous calcification seen. There is partial fusion of the C6- C7 vertebral bodies with prominent posterior disc osteophyte complex seen mildly indenting the thecal sac without causing significant spinal stenosis. Multilevel severe facet arthropathy is seen throughout the spine with partial fusion of the facet joints seen in the mid and lower cervical spine. The thyroid gland is heterogeneous in texture with small subcentimeter sized scattered nodular densities seen. No suspicious dominant mass noted. There is a subcutaneous well- circumscribed low attenuation mass in the posterior right lateral superficial soft tissues of the upper neck (series 9, image 72) with mean attenuation values of 21 Hounsfield units, most consistent with a small sebaceous cyst, measuring 1.4 x 0.9 cm versus 1.5 x 0.4 cm (06/18/2016), most consistent with a small sebaceous cyst. IMPRESSION: 1. No acute intracranial pathology. 2. Diffuse parenchymal volume loss and moderate to severe chronic white matter microangiopathy again noted. 3. No acute cervical spine fracture. 4. Extensive degenerative changes as seen throughout the cervical spine. 5. Advanced atherosclerotic calcifications of the cervical vessels. DICTATED BY: JENNY ALTAMIRANO MD DATE/TIME DICTATED:10/15/161404 MANAGING CONSULTANT:DAVIDSON DATE/ TIME TRANSCRIBED:10/15/161404 CONFIDENTIAL, DO NOT COPY WITHOUT APPROPRIATE AUTHORIZATION. <Electronically signed in Other Vendor System> SIGNED BY: JENNY ALTAMIRANO MD 10/15/16 1434, PATIENT: CONCHA JAMA PRESENT AGE: 76 PATIENT ACCOUNT NO: [id number] : 42 LOCATION: [facility] ORDERING PHYSICIAN: MURRAY ALMAZAN SERVICE DATE: 10/15/16 EXAM TYPE: CAT - CT ABD & PELVIS W/O IV CONTRAS; CT CHEST WO IV CONTRAST EXAMINATION: CT CHEST, ABDOMEN AND PELVIS WITHOUT CONTRAST CLINICAL INFORMATION: Elevated white blood cell count, elevated lactic acid. Evaluate for infection, trauma. COMPARISON: Multiple priors, most recent CT abdomen/pelvis dated 2016. TECHNIQUE: Contiguous axial thin section helical images of the chest, abdomen and pelvis were performed without contrast. The data set was reformatted in the coronal and sagittal planes and reviewed on an independent workstation. DLP: 349.94 mGy-cm. FINDINGS: LUNGS: There are patchy airspace opacities within the posterior aspect of the right upper lobe as well as minimally within the right lower lobe. These findings could represent early infiltrates in the appropriate clinical setting. There is a 2 mm subpleural calcification adjacent to the left major fissure with associated probable scarring, which could represent the sequela of prior granulomatous disease. Emphysematous changes are redemonstrated. MEDIASTINUM: Sternotomy wires are redemonstrated. There are extensive atherosclerotic calcifications associated with the coronary arteries. Diffuse atherosclerotic calcifications are again seen within the thoracic aorta. PLEURA: There is no pleural effusion. No pleural mass or thickening. AXILLA: No lymphadenopathy. LIVER, GALLBLADDER, BILIARY TREE: Hypodensity of the liver is redemonstrated, consistent with fatty infiltration. There is no intra or extrahepatic biliary ductal dilatation. The gallbladder is unremarkable. There are no radiopaque gallstones. There is no pericholecystic fat stranding. PANCREAS: Atrophic. No peripancreatic edema or associated fluid collection. SPLEEN: Normal. ADRENAL GLANDS AND KIDNEYS: The adrenal glands are unremarkable. There is no hydronephrosis or nephrolithiasis. No renal mass or cyst is identified. URETERS AND BLADDER: No evidence of ureteral stones. The urinary bladder is largely collapsed. BOWEL LOOPS: No intra-abdominal free air or free fluid. No abdominal fluid collection or abscess. No large or small bowel obstruction. Sigmoid colon diverticula are redemonstrated without adjacent inflammatory change. Normal appendix. LYMPHOVASCULAR STRUCTURES: Extensive atherosclerotic calcifications are redemonstrated throughout the abdominal aorta and its branch vessels. PELVIC VISCERA: Unremarkable by CT examination. BONES: There is irregularity and fragmentation of the distal right clavicle, consistent with a remote fracture or traumatic injury. There is a minimally displaced fracture of the L3 left transverse process, new since the prior examination. No additional acute fracture is identified. ADDITIONAL FINDINGS: There is a small fat-containing left inguinal hernia. IMPRESSION: 1. New, minimally displaced fracture of the left L3 transverse process. No additional acute fracture identified. Fragmentation and irregularity of the distal right clavicle, consistent with a remote fracture or traumatic injury. 2. Patchy airspace opacities within the right upper and lower lobes, which could represent early infiltrates in the appropriate clinical setting. Emphysematous changes are redemonstrated. 3. Fatty infiltration of the liver. Pancreatic atrophy without additional abnormality, unchanged. 4. Diverticulosis without evidence of acute diverticulitis. No intra-abdominal fluid collection or abscess. 5. Extensive atherosclerotic calcifications. DICTATED BY: TO MCDOWELL MD DATE/TIME DICTATED:10/15/161407 MANAGING CONSULTANT:DAVIDSON DATE/TIME TRANSCRIBED:1407 CONFIDENTIAL, DO NOT COPY WITHOUT APPROPRIATE AUTHORIZATION. < Electronically signed in Other Vendor System> SIGNED BY: TO MCDOWELL MD 10/15/16 1443 CXR Impression: PATIENT: CONCHA JAMA PRESENT AGE: 76 PATIENT ACCOUNT NO: [id number] : 42 LOCATION: [facility] ORDERING PHYSICIAN: MURRAY ALMAZAN SERVICE DATE: 10/15/16 EXAM TYPE: RAD - XRY-PORTABLE CHEST XRAY EXAMINATION: XR PORTABLE CHEST CLINICAL INFORMATION: Dyspnea. Low oxygen. COMPARISON: Chest 09/08/2016 TECHNIQUE: Portable AP view of the chest was obtained. FINDINGS: Both lungs are hyperinflated consistent with emphysema. No acute consolidation or effusion seen. There is bilateral apical pleural calcifications. The heart size and pulmonary vascularity is normal. No gross bony abnormality seen. There are median sternotomy sutures and mediastinal dee from previous CABG. IMPRESSION: Emphysema without acute process. DICTATED BY: CARLY VASQUEZ MD DATE/TIME DICTATED:10/15/161323 MANAGING CONSULTANT :DAVIDSON DATE/TIME TRANSCRIBED:10/15/161323 CONFIDENTIAL, DO NOT COPY WITHOUT APPROPRIATE AUTHORIZATION. <Electronically signed in Other Vendor System> SIGNED BY: CARLY VASQUEZ MD 10/15/16 1329 Initial ED EKG: sinus tachycardia rate in the low 100s ST depression in the inferior lateral leads more pronounced than previous EKG, prolonged QT interval. Prior EKG: changed Rhythm Strip: sinus tachycardia (MURRAY TAMEZ) Departure Departure Disposition: STILL A PATIENT Condition: Critical Clinical Impression Primary Impression: Multisystem organ failure Secondary Impressions: Acute renal failure due to rhabdomyolysis, Elevated troponin, Lactic acidosis, Metabolic acidosis Referrals: THIERNO BELCHER MD (PCP/Family) Departure Forms: Customer Survey General Discharge Information (MURRAY TAMEZ) Admission Note Spoke With: THI JULIEN MD Documentation of Exam: Documentation of any treatments & extenuating circumstances including Concerns Regarding Discharge (functional status, medication knowledge or non-compliance, living conditions, etc.) that warrant an admission rather than observation: [ICU admission, aggressive hydration, broad-spectrum antibiotics, poor prognosis, follow CIWA score closely, cardiology consultation] PA/POCKET OPERATOR Co-Sign Statement Statement: ED Attending supervision documentation- [X] I saw and evaluated the patient. I have also reviewed all the pertinent lab results and diagnostic results. I agree with the findings and the plan of care as documented in the PA's/POCKET OPERATOR's documentation. [X] I have reviewed the ED Record and agree with the PA's/POCKET OPERATOR's documentation. [] Additions or exceptions (if any) to the PAs/POCKET OPERATOR's note and plan are summarized below: [] ([address],XAVIER Bill) Critical Care Note Critical Care Note Critical Care Time: 30-74 min (JUDE ALMAZAN,MURRAY)
--- NOTE | 2016-10-15 12:46 | NUR ---
RESP AT BEDSIDE FOR ABG.
--- NOTE | 2016-10-15 12:48 | NUR ---
RAD AT BEDSIDE FOR CHEST XRAY.
[2016-10-15 12:53] LABS: ABSOLUTE BASOPHIL COUNT 0 /CUMM (0.0-0.2); ABSOLUTE EOSINOPHIL COUNT 0 /CUMM (0.0-0.7); ABSOLUTE GRANULOCYTE CT 13.5 /CUMM (1.4-6.5); ABSOLUTE LYMPH COUNT 1.5 /CUMM (1.2-3.4); ABSOLUTE MONOCYTE COUNT 0.6 /CUMM (0.10-0.60); BASOPHIL % 0.1 % (0.0-2.0); EOSINOPHIL % 0 % (0-5); GRANULOCYTE % 86.4 % (42.2-75.2); HEMATOCRIT 49.8 % (42-52); MEAN CORPUSCULAR HGB 31.5 PG (27.0-31.0); MEAN CORPUSCULAR HGB CONC 33.2 G/DL (33.0-37.0); PLATELET COUNT 115 /CUMM (130-400); RBC DISTRIBUTION WIDTH 15.5 % (11.5-14.5); RED BLOOD CELL CT 5.24 /CUMM (4.70-6.10); WHITE BLOOD CELL COUNT 15.6 /CUMM (4.8-10.8)
[2016-10-15 13:01] LABS: PT 13.1 SEC (9.4-12.5); PTT 32 SEC (25-37)
--- NOTE | 2016-10-15 13:19 | NUR ---
CRITICAL [facility] [id number] [facility] 76 [facility] TESTS AND RESULTS: LACTIC ACID 14.1 Results received and read back by: ADRYAN RYDER Results received date and time: 10/15/16 1320 The following provider was notified of the results, and read the results back: THA ROQUE Notified date and time: 10/15/16 at 1320
--- NOTE | 2016-10-15 13:20 | NUR ---
PT TO CAT SCAN BY STRETCHER.
--- NOTE | 2016-10-15 13:29 | RADIOLOGY REPORT ---
EXAMINATION: XR PORTABLE CHEST CLINICAL INFORMATION: Dyspnea. Low oxygen. COMPARISON: Chest 09/08/2016 TECHNIQUE: Portable AP view of the chest was obtained. FINDINGS: Both lungs are hyperinflated consistent with emphysema. No acute consolidation or effusion seen. There is bilateral apical pleural calcifications. The heart size and pulmonary vascularity is normal. No gross bony abnormality seen. There are median sternotomy sutures and mediastinal dee from previous CABG. IMPRESSION: Emphysema without acute process.
--- NOTE | 2016-10-15 13:40 | NUR ---
PT RETURNED FROM CT. 2ND NS INFUSING PER EMAR.
--- NOTE | 2016-10-15 14:08 | NUR ---
GRIGGS CATH PLACED, STERILE TECHNIQUE MAINTAINED, 10ML DARK LORY CLOUDY URINE OBTAINED AND SENT TO LAB. PT BECAME NAUSIOUS, MEDICATED WITH REGLAN PER ORDER.
--- NOTE | 2016-10-15 14:24 | History & Physical ---
[address],[facility] 10/15/16 1424: General Information and HPI MD Statement: I have seen and personally examined CONCHA JAMA and documented this H&P. The patient is a 76 year old M who presented with a patient stated chief complaint of [weakness, coughing, vomiting and poor oral intake]. Source of Information: patient, family, old records History of Present Illness: Patient is a 76 year old male with PMH significant for HTN, CAD s/p CABG, AFIB ( not on anticoagulation due to fall risk), COPD (emphysema), ETOH abuse, upper GI bleed in 2012, who was brought in to the ED by family members after several days of worsening cough, vomiting, poor oral intake and weakness. Patient lives alone at home after his (recently and at [facility]). Patient himself was admitted in August due to failure to thrive and starvation ketoacidosis, he was discharged to rehab and went back home almost 2 weeks ago; he is an alcoholic and per his nephew he has been drinking again since then. Patient reports drinking 3-4 shots of vodka for the past 5-6 days, at the same time he has started vomiting and reports increased coughing; due to the excess cough he has lost his voice and has to whisper during the interview. Patient has had poor appetite for at least two weeks and reports not eating and drinking well. Reports the vomit color is brown, non bloody. Denies abdominal pain and diarrhea, however has been incontinent with loose stools since his admission in the ED and in the ICU. Denies any headache, dizziness, chest pain, or palpitation; reports an episode of almost having a fall before coming to the ED resulting in an abrasion on the left knee. denies head or other limb injuries. denies LOC. Patient also denies any changes in the urine but reports hesitancy and urgency. Denies fever chills, URI symptoms or sick contacts. Allergies/Medications Allergies: Coded Allergies: NO KNOWN ALLERGIES (06/18/16) Past History Travel History Traveled to [place] past 21 day No Medical History Neurological: NONE EENT: NONE Cardiovascular: CAD, hypertension, myocardial infarction, CAD status post CABG SVT ablation Respiratory: COPD, emphysema Gastrointestinal: NONE Hepatic: PANCREATITIS Renal: NONE Musculoskeletal: R/L HIP FX Psychiatric: ETOH WITHDRAWAL Endocrine: NONE Blood Disorders: NONE Cancer(s): NONE INVENTORY MANAGEMENT SPECIALIST/Reproductive: NONE History of MRSA: No History of VRE: No History of CDIFF: No Tetanus Vaccine: 02/28/12 Surgical History Surgical History: BYPASS QUAD b/l hip percutaneous pinning. Past Family/Social History Family History Relations & Conditions if any MOTHER (Breast Cancer). . FATHER (Stroke, [place]). . Psychosocial History Who Do You Live With? self Services at Home: None Primary Language: Sinhala Smoking Status: Current Everyday Smoker (pack/day since 16 years old) ETOH Use: alcoholic Functional Ability Ambulation: cane Review of Systems Review of Systems Constitutional: Reports: malaise, weakness. Denies: chills, fever. EENTM: Reports: no symptoms. Cardiovascular: Denies: chest pain, palpitations, peripheral edema, syncope. Respiratory: Reports: cough, hemoptysis, short of breath, sputum production. Denies: orthopnea, stridor, wheezing. GI: Reports: vomiting. Denies: abdominal pain, diarrhea, bloody stool, changes in stool. Genitourinary: Reports: hesitation, urgency. Denies: dysuria. Musculoskeletal: Reports: no symptoms. Skin: Reports: lesions. Neurological/Psychological: Reports: weakness (generalized). Hematologic/Endocrine: Reports: no symptoms. Exam & Diagnostic Data Last 24 Hrs of Vital Signs/I&O Vital Signs Date Time Temp Pulse Resp B/P Pulse O2 O2 Flow FiO2 Ox Delivery Rate 10/15 1925 Nasal 4.0L Cannula 10/15 1600 96.7 86 22 86/62 95 Nasal 5.0L Cannula 10/15 1555 96 Nasal 5.0L Cannula 10/15 1519 96.3 84 22 104/67 95 Nasal 4.0L Cannula 10/15 1428 97.0 108 26 127/66 97 Non ReBreather 10/15 1340 99 20 91/56 98 Non ReBreather 10/15 1302 98 Non ReBreather 10/15 1231 96.0 114 20 173/59 90 Room Air Intake & Output 10/15 1600 10/15 0800 10/15 0000 Intake Total Output Total Balance Patient 51.71 kg Weight Physical Exam General Appearance Alert, Oriented X3, Cooperative, Mild Distress Skin 6x6 cm area of skin breakdown with dirty margins, covered by xerofom. HEENT Atraumatic, EOMI, dry mucous membranes, appears cachectic Neck Supple, No JVD Cardiovascular Normal S1, Normal S2, No Murmurs, irregular Lungs decreased breath sounds bilaterally, no wheezing, rhonchi or rhales Abdomen Soft, No Tenderness Neurological Normal Speech, Normal Tone, 4+/5 strength on the lower extremity Extremities No Cyanosis, No Edema, Normal Pulses, No Tenderness/Swelling Vascular Pulses Symmetrical Last 24 Hrs of Labs/Dominic: Laboratory Tests 10/15/16 2100: Troponin I Cancelled 10/15/162049: Sodium Pending, Potassium Pending, Chloride Pending, Carbon Dioxide Pending, Anion Gap Pending, BUN Pending, Creatinine Pending, Glucose Pending, Lactic Acid Pending, Calcium Pending, Phosphorus Pending, Magnesium Pending, Total Bilirubin Pending, AST Pending, ALT Pending, Troponin I Pending, Albumin Pending, CBC w Diff Pending, WBC Pending, RBC Pending, Hgb Pending, Hct Pending, MCV Pending, MCH Pending, RDW Pending, Plt Count Pending, MPV Pending, PUBS MCHC Pending 10/15/16 1952: Lactic Acid Cancelled 10/15/16 1900: Lactic Acid Cancelled 10/15/16 1520: Lactic Acid 5.5 H 10/15/16 1445: Urine Opiates Screen < 100.00, Methadone Screen 48, Barbiturate Screen < 60, Ur Phencyclidine Scrn 9.60, Amphetamines Screen < 100, U Benzodiazepines Scrn < 85, Urine Cocaine Screen < 50, Urine Cannabis Screen < 5.00, Urinalysis HEAVY H, Urine Color YEL, Urine Clarity HAZY H, Urine pH 5.5, Ur Specific Lyme >= 1.030, Urine Protein 100 H, Urine Ketones TRACE H, Urine Nitrite POS H, Urine Bilirubin NEG@ICTO, Urine Urobilinogen 0.2, Ur Leukocyte Esterase NEG, Ur Microscopic SEDIMENT EXAMINED, Urine RBC 25-50 H, Urine WBC 3-5 H, Ur Epithelial Cells MOD H, Urine Bacteria MANY H, Granular Casts RARE H, Urine Hemoglobin MOD H, Urine Glucose NEG 10/15/16 1300: pH 7.26 *L, pCO2 21 L, pO2 91, HCO3 9 L, ABG O2 Sat (Measured) 94.0 L, Carboxyhemoglobin 1.3 L, O2 Concentration % 100, O2 Delivery Method NRB, Phlebotomy Draw Site RIGHT RADIAL 10/15/16 1245: Anion Gap 34 H, Estimated GFR 13 L, BUN/Creatinine Ratio 11.4, Glucose 200 H, Serum Osmolality 343 H, Lactic Acid 14.1 H, Calcium 9.7, Magnesium 2.1, Total Bilirubin 1.8 H, AST 198 H, ALT 103 H, Alkaline Phosphatase 107, Creatine Kinase 7783 H, Troponin I 0.18 *H, Bmb-Y-Ptvfiklhwmm Pept 28581 H, Total Protein 7.4, Albumin 4.2, Globulin 3.2, Albumin/Globulin Ratio 1.3, PT 13.1 H, INR 1.25 H, APTT 32, CBC w Diff MAN DIFF ORDERED, RBC 5.24, MCV 95.0 H, MCH 31.5 H, RDW 15.5 H, MPV 9.0, Gran % 86.4 H, Lymphocytes % 9.5 L, Monocytes % 4.0, Eosinophils % 0, Basophils % 0.1, Absolute Granulocytes 13.5 H, Segmented Neutrophils 80 H, Band Neutrophils 6 H, Absolute Lymphocytes 1.5, Lymphocytes 13 L, Monocytes 1 L, Absolute Monocytes 0.6, Absolute Eosinophils 0, Absolute Basophils 0, Platelet Estimate DECREASED, Normocytic RBCs VERIFIED, Normochromic RBCs VERIFIED, PUBS MCHC 33.2, Salicylates 2.7, Serum Alcohol < 10.0, Acetone Level NEGATIVE Microbiology 10/15 175 URINE ROUT: Legionella Antigen - COMP 10/15 175 URINE ROUT: Streptococcus pneumoniae Antigen (M - COMP 10/15 1700 STOOL: Cryptosporidium Antigen - COLB 10/15 1700 STOOL: Giardia Antigen (DOMINIC) - COLB 10/15 1700 STOOL: Clostridium difficile Toxin A & B - RECD 10/15 165 LOWER RESP: Respiratory Culture - COLB 10/15 1657 LOWER RESP: Gram Stain - COLB 10/15 165 STOOL: Stool Culture - COLB 10/15 1600 UPPER RESP: Surveillance Culture - RECD 10/15 1600 GI: Surveillance Culture - RECD 10/15 1445 URINE ROUT: Urine Culture - RECD 10/15 1427 BLOOD: Blood Culture - RECD 10/15 1245 BLOOD: Blood Culture - RECD 10/15 1234 BLOOD: Blood Culture - CAN Cancelled: QNS Diagnostic Data CXR Results SERVICE DATE: 10/15/16 EXAM TYPE: RAD - XRY-PORTABLE CHEST XRAY EXAMINATION: XR PORTABLE CHEST CLINICAL INFORMATION: Dyspnea. Low oxygen. COMPARISON: Chest 09/08/2016 TECHNIQUE: Portable AP view of the chest was obtained. FINDINGS: Both lungs are hyperinflated consistent with emphysema. No acute consolidation or effusion seen. There is bilateral apical pleural calcifications. The heart size and pulmonary vascularity is normal. No gross bony abnormality seen. There are median sternotomy sutures and mediastinal dee from previous CABG. IMPRESSION: Emphysema without acute process. DICTATED BY: CHRISTINA STREETCARLY DATE/TIME DICTATED:10/15/161323 COMMISSARY OFFICER:DAVIDSON DATE/TIME TRANSCRIBED:10/15/161323 Other Results SERVICE DATE: 10/15/16 EXAM TYPE: CAT - CT CERV SPINE WO IV CONTRAST; CT HEAD WO IV CONTRAST EXAMINATION: CT OF THE HEAD WITHOUT CONTRAST CT OF THE CERVICAL SPINE WITHOUT CONTRAST CLINICAL INFORMATION: Confusion. Evaluate for hemorrhage. Altered mental status. Evaluate for fracture. COMPARISON: CT scan of the head dated 06/18/2016 and 12/06/2015. TECHNIQUE: Contiguous axial imaging was performed from the skullbase to vertex without intravenous administration of contrast. Coronal reformations of the head were obtained. Subsequently, contiguous axial imaging was performed from the skull base to the thoracic inlet without intravenous administration of contrast. Coronal and sagittal reformations of the cervical spine were then obtained. DLP: 888.47 mGy-cm. FINDINGS: CT scan of the head: There is no evidence of acute intracranial hemorrhage or territorial infarction. No abnormal mass-effect or midline shift is seen. Kapoor to white matter differentiation is well preserved. No extra-axial fluid collections are identified. The ventricles and sulci are enlarged, consistent with involutional changes. Prominent periventricular deep white matter low-attenuation is seen, consistent with ischemic small vessel disease. Atherosclerotic calcifications of the carotid siphons and the vertebrobasilar arteries are seen. The osseous structures and soft tissues are normal. The patient is status post bilateral ocular lens extractions with lens implant placement. Complete opacification of the included portions of the left maxillary sinus is seen. The mastoid air cells and remainder of the visualized portions of the paranasal sinuses are well-aerated. CT scan of the cervical spine: No acute fracture or dislocation is seen. Prevertebral soft tissues are normal in thickness. There is a convex right cervical scoliosis and an exaggeration of the normal cervical lordosis. Grade 1 retrolisthesis of C2 on C3 is seen, likely on a degenerative basis. Alignment of the cervical spine otherwise unremarkable. Craniocervical junction is intact. Moderate degenerative change seen at the atlantoaxial articulation with joint space narrowing, sclerosis and ligamentous calcification seen. There is partial fusion of the C6-C7 vertebral bodies with prominent posterior disc osteophyte complex seen mildly indenting the thecal sac without causing significant spinal stenosis. Multilevel severe facet arthropathy is seen throughout the spine with partial fusion of the facet joints seen in the mid and lower cervical spine. The thyroid gland is heterogeneous in texture with small subcentimeter sized scattered nodular densities seen. No suspicious dominant mass noted. There is a subcutaneous well-circumscribed low attenuation mass in the posterior right lateral superficial soft tissues of the upper neck (series 9, image 72) with mean attenuation values of 21 Hounsfield units, most consistent with a small sebaceous cyst, measuring 1.4 x 0.9 cm versus 1.5 x 0.4 cm (06/18/2016), most consistent with a small sebaceous cyst. IMPRESSION: 1. No acute intracranial pathology. 2. Diffuse parenchymal volume loss and moderate to severe chronic white matter microangiopathy again noted. 3. No acute cervical spine fracture. 4. Extensive degenerative changes as seen throughout the cervical spine. 5. Advanced atherosclerotic calcifications of the cervical vessels. DICTATED BY: [address]AR[address] STREET,JENNY Mcdonough DATE/TIME DICTATED:10/15/161404 COMMISSARY OFFICER:DAVIDSON DATE/TIME TRANSCRIBED:10/15/161404 SERVICE DATE: 10/15/16 EXAM TYPE: CAT - CT ABD & PELVIS W/O IV CONTRAS; CT CHEST WO IV CONTRAST EXAMINATION: CT CHEST, ABDOMEN AND PELVIS WITHOUT CONTRAST CLINICAL INFORMATION: Elevated white blood cell count, elevated lactic acid. Evaluate for infection, trauma. COMPARISON: Multiple priors, most recent CT abdomen/pelvis dated 09/08/2016. TECHNIQUE: Contiguous axial thin section helical images of the chest, abdomen and pelvis were performed without contrast. The data set was reformatted in the coronal and sagittal planes and reviewed on an independent workstation. DLP: 349.94 mGy-cm. FINDINGS: LUNGS: There are patchy airspace opacities within the posterior aspect of the right upper lobe as well as minimally within the right lower lobe. These findings could represent early infiltrates in the appropriate clinical setting. There is a 2 mm subpleural calcification adjacent to the left major fissure with associated probable scarring, which could represent the sequela of prior granulomatous disease. Emphysematous changes are redemonstrated. MEDIASTINUM: Sternotomy wires are redemonstrated. There are extensive atherosclerotic calcifications associated with the coronary arteries. Diffuse atherosclerotic calcifications are again seen within the thoracic aorta. PLEURA: There is no pleural effusion. No pleural mass or thickening. AXILLA: No lymphadenopathy. LIVER, GALLBLADDER, BILIARY TREE: Hypodensity of the liver is redemonstrated, consistent with fatty infiltration. There is no intra or extrahepatic biliary ductal dilatation. The gallbladder is unremarkable. There are no radiopaque gallstones. There is no pericholecystic fat stranding. PANCREAS: Atrophic. No peripancreatic edema or associated fluid collection. SPLEEN: Normal. ADRENAL GLANDS AND KIDNEYS: The adrenal glands are unremarkable. There is no hydronephrosis or nephrolithiasis. No renal mass or cyst is identified. URETERS AND BLADDER: No evidence of ureteral stones. The urinary bladder is largely collapsed. BOWEL LOOPS: No intra-abdominal free air or free fluid. No abdominal fluid collection or abscess. No large or small bowel obstruction. Sigmoid colon diverticula are redemonstrated without adjacent inflammatory change. Normal appendix. LYMPHOVASCULAR STRUCTURES: Extensive atherosclerotic calcifications are redemonstrated throughout the abdominal aorta and its branch vessels. PELVIC VISCERA: Unremarkable by CT examination. BONES: There is irregularity and fragmentation of the distal right clavicle, consistent with a remote fracture or traumatic injury. There is a minimally displaced fracture of the L3 left transverse process, new since the prior examination. No additional acute fracture is identified. ADDITIONAL FINDINGS: There is a small fat-containing left inguinal hernia. IMPRESSION: 1. New, minimally displaced fracture of the left L3 transverse process. No additional acute fracture identified. Fragmentation and irregularity of the distal right clavicle, consistent with a remote fracture or traumatic injury. 2. Patchy airspace opacities within the right upper and lower lobes, which could represent early infiltrates in the appropriate clinical setting. Emphysematous changes are redemonstrated. 3. Fatty infiltration of the liver. Pancreatic atrophy without additional abnormality, unchanged. 4. Diverticulosis without evidence of acute diverticulitis. No intra-abdominal fluid collection or abscess. 5. Extensive atherosclerotic calcifications. DICTATED BY: TO MCDOWELL MD DATE/TIME DICTATED:10/15/161407 COMMISSARY OFFICER:DAVIDSON DATE/TIME TRANSCRIBED:10/15/161407 Assessment/Plan Assessment: Patient is a 76 year old male with PMH significant for HTN, CAD s/p CABG, AFIB ( not on anticoagulation due to fall risk), COPD (emphysema), ETOH abuse, upper GI bleed in 2012, who was brought in to the ED by family members after several days of worsening coughing, vomiting, poor oral intake and weakness. On admission patient appears cachectic, had borderline BP, elevated lactic acid of 14.1, AG 34, carbon dioxide 14, Hypernatremia of 152, Cr of 4.4, AST 198, ALT 103, troponin 0.18. He is admitted to the ICU for close cardiac monitoring due to severe anion gap metabolic acidosis. Problem list and plan: Sepsis severe sepsis - tachycardic, leukocytosis, ERIKA, elevated troponin, lactic acidosis above findings could also be due to severe dehydration (vomiting, poor po intake , diarrhea) possible etiology: HCAP or aspiration PNA or UTI * 2 large bore catheters * IV hydration * repeat lactic acid Q3h * urine culture, sputum culture, blood culture x2 * continue IV vancomycin and ceftazidime, send vanc level in am and redose * consider ID consult in am * legionella and strep urine antigen * Pulmonary consult in am Metabolic acidosis and lactic acidosis With elevated anion gap, likely secondary to alcohol. Could be likely secondary to sepsis and alcohol abuse * IN fluids * recheck BEP and lactic acid q3h * consider NaBicarbonate if bicarbonate remain low ERIKA possibly due to dehydration * IV fluids * repeat BEP * consider Nephrology consult * avoid NSAIDs and nephrotoxins * meloxicam on hold Positive troponins in the setting of infection, no chest pain, nonspecific ST changes, history of CAD; ACS versus demand ischemia secondary to sepsis * trend troponins and EKG; could be demand ischemia secondary to sepsis * Cardiology consult in place Alcohol intoxication and withdrawal History of alcohol abuse, recent increase in alcohol intake * Ativan per CIWA and PRN * Thiamine, folic acid and multivitamins Musculoskeletal Recent fall/trauma at home CT chest shows New, minimally displaced fracture of the left L3 transverse process, no tenderness over the spine and patient does not report back pain, there is also skin abrasion on the left lateral knee. * pain management for the L3 fx * wound consult in am * irrigate the sound with normal saline and use kerlix and xeroform for dressing Hypernatremia Sodium 152 on admission * IV fluids * recheck BEP this pm and in the morning * If Na increased change IV fluids to 1/2 NS Hypokalemia * 3.6 on admission, will repeat adequately Transaminitis most likely due to alcoholism * repeat LFTs in am * avoid acetaminophen Vomiting and coffee ground emesis in the setting of heavy alcohol use and history of upper GI bleed * IV protonix * IV fluids * avoid NSAIDs and aspirin * consider GI consult for EGD Diarrhea patient has become incontinent for stool since admission * IV hydration * rectal tube * stool for cdiff * stool cultures for ova & parasites Poor oral intake history of mild protein calorie malnutrition in the previous admission * IV fluids * Continue multivitamin, folic acid, thiamine * Nutrition consult in am HTN currently borderline low BP, keep home medication on hold Pain * Tylenol for mild, Vicodin for moderate, and Percocet for severe pain Regular diet DVT prophylaxis with ALPS FULL code As Ranked By This Provider Problem List: 1. Elevated troponin 2. Metabolic acidosis 3. Weakness 4. Tachycardia 5. Lactic acidosis 6. ERIKA (acute kidney injury) 7. Altered mental status 8. Alcohol abuse 9. Vomiting Core Measures/Miscellaneous Acute Coronary Syndrome ACS Diagnosis: No Cerebrovascular Accident CVA/TIA Diagnosis: No Congestive Heart Failure CHF Diagnosis: No Venous Thromboembolism VTE Risk Factors: Acute medical illness, Age > 40 No [facility] VTE prophylaxis d/t: No contraindications No VTE Pharm Prophylaxis d/t: Active bleeding VTE Diagnosis: No VTE Type: NONE VTE Confirmed by (Test): NONE Sepsis Focused Exam Sepsis Cardiac Exam: Tachycardia Sepsis Cap Refill Exam: <2 Sec Sepsis Peripheral Pulse Exam: Normal Sepsis Peripheral Pulse Location: Dorsalis Pedis Sepsis Skin Exam (color): Normal for Ethnicity Skin Temp/Moisture Exam: Cool/Dry Severe Sepsis Severe Sepsis Present: No Septic Shock Septic Shock Present: No Miscellaneous Documentation Attending Case Discussed With: THI IZAGUIRRE MD Primary Care Physician: THIERNO BELCHER MD Patient sees these Specialists Dr. Cortes, cardiology Level of Patient Care: Critical Care (CRI) MADELINE FROST MD 10/15/16 1437: General Information and HPI Allergies/Medications Home Med list Folic Acid 0.8 MG TABLET 1 TAB PO DAILY SUPPLEMENT (Reported) Losartan Potassium (Cozaar) 25 MG TABLET 1 TAB PO DAILY heart failure Reason to Stop at ADM: sepsis, hypotension Magnesium Oxide 400 MG TABLET 400 MG PO BID supplement Meloxicam 7.5 MG TABLET 1 TAB PO DAILY PAIN (Reported) Reason to Stop at ADM:ERIKA Metoprolol Tartrate (Lopressor) 50 MG TABLET 1 TAB PO BID TACHYCARDIA Reason to Stop at ADM:hypotension, sepsis Phenol (Chloraseptic) 1.4 % SPRAY SORE THROAT (Reported) Thiamine HCl (Vitamin B-1) 100 MG TABLET 100 MG PO DAILY SUPPLEMENT Resident Review Statement Resident Statement: examined this patient, discussed with automotive internet sales manager, agreed with automotive internet sales manager, discussed with family, reviewed EMR data (avail), discussed with nursing , reviewed images, amended to note Other Findings: 74-year-old man with a past medical history of alcohol abuse and detox with 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 fib not on anticoagulation secondary to falls, discharged from [facility] on August after being treated for failure to thrive with starvation ketoacidosis, protein calorie malnutrition due to poor oral intake, transaminitis and thrombocytopenia and alcohol dependence, presented to [place] ED today with complaints of shortness of breath, coffee- ground emesis, productive cough with brown sputum, poor by mouth intake, perfuse diarrhea, urinary frequency and urgency which is chronic, and increased intake of alcohol the past week, with surgery to 5 shots every day, and increased intake of shots in the morning today. He also has new onset hoarseness. Denies chest pain, palpitations, headache, lightheadedness. No abdominal pain. Family reported the patient has been drinking a lot lately and he may have had an episode of passing out. In the ED his vitals included temperature 90.6, respiratory rate of 20, heart rate 114, blood pressure 173/59 initially which could be incorrectly documented because it decreased to 91/56 in less than an hour, and oxygen saturation 90% on 4 L of oxygen, eventually requiring a Ventimask at 60% FiO2. Physical exam the patient seemed to be in mild distress, emaciated, disheveled, coffee-ground emesis stains on his Umang coat, wearing a Ventimask which was then changed to oxygen by nasal cannula Very dry mucous membranes, parched lips Lungs clear auscultation, no wheezing or rhonchi or crackles S1 and S2 were heard with no murmurs, sternotomy scar on inspection of the chest Abdomen exam was within normal limits with hyperactive bowel sounds, nontender nondistended no guarding, no suprapubic tenderness Thin extremities, no edema no cyanosis, peripheral pulses palpable He has an abrasion, with skin sloughing off, on the lateral side of the left knee, dressing was placed on it which was removed and the wound evaluated. Laboratory shows a WBC count of 15.6 with bands of 6, and 80 segmented neutrophils Sodium 152, potassium 3.6, bicarbonate 14, BUN 50, creatinine 4.1, baseline 1, serum osmolality 343, lactic acid 14.1, Total bili 1.8, AST/ALT 198/103, proBNP 12,000, troponin 0.18 PT 13.1, INR 1.25 UA is heavy, hazy, positive nitrite, WBC 3-5, rbc's 25-50, moderate hemoglobin, trace urine ketones and 100 proteins, many bacteria and rare granular casts U tox shows serum alcohol less than 10, negative acetone, normal otherwise Chest x-ray shows emphysematous changes CT chest shows Patchy airspace opacities within the right upper and lower lobes CT abdomen pelvis show reticulosis without evidence of diverticulitis, fatty infiltrated liver, minimally placed fracture of left L3 transverse process Assessment: 1. Sepsis likely secondary to hospital-acquired pneumonia versus urinary tract infection versus gastroenteritis (patient meets criteria for SIRS with WBC count 15.4, bands 6, tachycardia 114, in addition was hypotensive to systolic blood pressure in 90s) 2. Anion gap metabolic acidosis likely secondary to alcohol 3. Severe lactic acidosis 4. Acute hypoxic respiratory failure likely secondary to hospital-acquired pneumonia 5. Hospital-acquired pneumonia, as the patient was discharged from [facility] on September 15, and to a nursing care facility versus possibility of aspiration pneumonia; new onset hoarseness 6. Acute renal failure secondary to sepsis and dehydration 7. Hypokalemia 8. Hypernatremia 9. Transaminitis 10. Perfuse watery diarrhea/gastroenteritis; question C. difficile 11. Thrombocytopenia 12. Hematemesis and possible hemoptysis 13. Positive troponins in the setting of infection, no chest pain, nonspecific ST changes, history of CAD; ACS versus demand ischemia 14. Alcohol abuse, question pending withdrawal 15. Laceration to the left knee 16. Poor peripheral intake/failure to thrive 17. History of hypertension Plan: - Admit to the ICU - Vitals as per ICU protocol 1. Sepsis likely secondary to hospital-acquired pneumonia versus urinary tract infection versus gastroenteritis (patient meets criteria for SIRS with WBC count 15.4, bands 6, tachycardia 114, in addition was hypotensive to systolic blood pressure in 90s): - Patient presented with severe sepsis, meeting criteria for SIRS as mentioned above, and hypotension which was responsive to fluids. Blood pressure increased to 127/66 after 3 boluses of normal saline. However it was again down to 80s when he came to the ICU because he was having constant watery perfuse diarrhea, 8 episodes in the ED. He was given another bolus of normal saline with blood pressure responding and coming up. The patient is hypovolemic. - We'll continue on aggressive hydration, normal saline at 1 50 mL per hour - We'll panculture the patient, blood in urine cultures were sent in the ED, will also send sputum culture - Start broad separate antibiotics, that is IV vancomycin and ceftazidime. Vision received a dose of IV Unasyn in the ED. - We'll watch her respiratory status and signs of fluid overload. The lungs are clear to auscultation, no signs of fluid overload in fact is hypovolemic, an EF in June 2016 was 55% - We'll hold metoprolol and losartan which the patient takes at home - Consider ID in the morning - Critical care consult 2. Anion gap metabolic acidosis likely secondary to alcohol: - Patient presented with severe anion gap metabolic acidosis with lactic acid level of 40.1, pH of 7.25, bicarbonate of 14 and anion gap of 34 - Could be likely secondary to sepsis and alcohol abuse - Ketones negative - Glucose 200 - We'll continue with aggressive hydration with normal saline - We'll recheck BEP and lactic acid and another 3 hours - We'll also check ABGs and another 45 hours - If bicarbonate continues to remain low, and anion gap does not trend down, with a pH but normalizing we may consider bicarbonate therapy 3. Severe lactic acidosis: - Likely secondary to sepsis/alcoholism - After its 3 boluses of normal saline the lactic acid trended down from 14-5.1 - Continue with normal saline and rechecking lactic acid every 3 hours until it normalizes 4. Acute hypoxic respiratory failure likely secondary to hospital-acquired pneumonia: - The patient presented with hypoxia requiring 4 L of oxygen by nasal cannula with a transition to Ventimask at 60% FiO2. The patient has history of COPD but does not use oxygen at home - He was also having productive cough, hemoptysis, and shortness of breath -Respiratory failure is likely secondary to pneumonia - Continue with oxygen/Ventimask as tolerated - We'll repeat ABG in the morning - TRC nebs as needed - Broad spectrum antibiotics - Critical care/pulmonology consult 5. Hospital-acquired pneumonia, as the patient was discharged from [facility] on September 15, and to a nursing care facility versus possibility of aspiration pneumonia; new onset hoarseness - The patient reported vomiting and there is a possibility of aspiration. CT scan also shows opacity on the right side of the lung. Most likely the patient has aspiration pneumonia however as the patient has been in the hospital in the last month and was discharged on September 15 said that 2 to nursing care facility the possibility of hospital-acquired pneumonia remains - Follow blood culture and sputum culture - We'll also send legionella and strep urine antigen - We'll start on broad-spectrum antibiotics including IV vancomycin and ceftazidime, and narrow down in the next 24-48 hours depending on the clinical status - Chloraseptic [place] 6. Acute renal failure secondary to sepsis and dehydration: - The patient presented with severe dehydration, very dry mucosa and pains, particularly hips, BUN of 50 and a creatinine of 4.4 with a baseline creatinine of 1 - He was also hypotensive and responded very nicely to fluid therapy - Continue with aggressive hydration with normal saline - At a BUN and creatinine and check a BEP in the next 3 hours - Nephrology consult - We'll avoid NSAIDs, nephrotoxic drugs - Patient uses meloxicam at home which we'll hold for now - Will give one dose of Vancomycin, and rechcek a random Vanc level in am to redose due to lowcreatinine clearance and ERIKA 7. Hypokalemia: - 3.6 on admission, will repeat adequately 8. Hypernatremia: - Sodium 152 - The patient needs aggressive fluid therapy, for now will continue normal saline and check a BEP in the next 3 hours - Sodium is creeping up we'll have to change the fluids to D5 half normal saline 9. Transaminitis: - The patient has high ALT and AST, likely secondary to septic shock versus alcoholism - As he has had high ALT and AST as well, CT scan shows fatty infiltrative liver - Monitor LFTs for now and consider GI they continue to trend up - Avoid acetaminophen 10. Perfuse watery diarrhea/gastroenteritis; question C. difficile: - Patient has perfuse watery diarrhea that could be adding to the sepsis and dehydration - He does not have any history of antibiotics use but will check a C. difficile - We'll also check stool cultures/ova & parasites - Aggressive fluid hydration 11. Thrombocytopenia: - 115 today previously has been lower than that - Could be multifactorial with alcohol and sepsis as the cause - Trend and watch for bleeding 12. Hematemesis and possible hemoptysis: - Patient presented vomiting, coffee-ground, and was bringing up phlegm which was coffee-ground colored as well - ? Bronchoscopy, sputum cytology - ? Endoscopy - We'll monitor H&H and further episodes - We'll hold off on subcutaneous heparin and aspirin/NSAIDs 13. Positive troponins in the setting of infection, no chest pain, nonspecific ST changes, history of CAD; ACS versus demand ischemia: - The patient has history of CAD status post CABG - Troponin 0.18, nonspecific ST changes on EKG - Will trend troponins and EKG; could be demand ischemia secondary to sepsis - ?ECHO if continues to get worse - Cardiology consult placed 14. Alcohol abuse, question impending withdrawal: - The patient has history of alcohol abuse, alcoholism and alcoholic but it is in the past, has been admitted several times for alcohol detox. Today the apical level was less than 10 - He reported having increased level of vodka shots in the past 3-4 days - Keep on CIWA protocol; possible impending withdrawal - We will keep on folic acid and vitamin B1 and multivitamins - When necessary Ativan if needed 15. Laceration to the left knee: - A had a fall several days ago that led to the one on his left knee - Wound needs to be cleaned with daily dressings - Does not seem to be the source of infection 16. Poor peripheral intake/failure to thrive: - Aggressive hydration - Nutrition consult - Continue vitamin, folic acid, vitamin B supplement 17. History of hypertension: - We'll hold metoprolol and start that he takes at home due to hypotension 18. Regular diet 19. Pain pathway: - Avoid acetaminophen and NSAIDs - By mouth Vicodin for moderate pain and 2 tablets of Percocet for severe pain 20. Alps for DVT prophylaxis; will avoid subcutaneous heparin because of low platelets, hemoptysis and hematemesis, also the patient has a care 21. 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 Drinking 3-4 vodka shots everyday. +having diarrhea. Pertinent physical exam: cachetic, mild distress, no JVD, parched lips, dehydrated, CVS no murmur, CHEST no adventitious sounds heard. ABD increased bowel sounds, soft non tender, no guarding, no rigidity, no suprapubic tenderness. no pedal edema. abrasion on left knee. LABS : WBC 15.6, Plt 115, Na 152, K 3.6, HCO3 14, AG 34, serum osmolarity pending, BUN 50, Cr 4.4, Glu 200 , LA 14.4, AST 198/103. CK 7783, trop 0.18, pro bnp [id number]. (last [id number]). INR 1.25 ABG Ph 7.26, Pco2 21 Po2 91 HCO3 9 ABG o2 sat 94. Guaic+. UA nitrite+, WBC 3-5, epithelial cells moderate. LE negative. EKG Sinus tachycardia, ST T wave changes non specific. Imaging CT chest/abd/pelvis : Early inflitrates on right upper and lower lobes. No acute pathology in abdomen. New minimally displace L3 fracture. ASSESSMENT 1. Sepsis 2. Starvation ketoacidosis 3. Severe Lactic acidosis. 4. Hematemesis 5. Dairrhea 6. AG Metabolic acidosis 7. Acute renal failure 8. HCAP (recently admitted to [facility]) 9. Acute respiratory failure 10. Transaminitis 11. Failure to thrive 12. Alcohol abuse 13. Thrombocytopenia 14. Skin wound. PLAN - Admit to ICU , vitals as per ICU protocol. - Aggresive fluid resuscitation, Broad spectrum Abx coverage, panculture. LA q 3. - repeat BMP close watch to AG and acidosis - Trend cardiac enzymes. h/h. trend LFTs, echo as per cards. - PPI i/v 40 daily. - wound care as per nursing. - Consult nephrology, Cardiology, pulmonary as multidisciplinary approach. DVT ppx Alps. Full code. Patient with guarded prognosis. Discussed prognosis with family. Patient with guarded prognosis. Discussed prognosis with family.
[2016-10-15] MEDS ORDERED: FOLIC ACID0.8 M2 PO (14:26)
[2016-10-15] MEDS ORDERED: MELOXICAM7.5 M1 PO (14:27)
--- NOTE | 2016-10-15 14:27 | NUR ---
3RD NS AND UNASYN INFUSING PER EMAR. BP 127/66 AT THIS TIME.
[2016-10-15] MEDS ORDERED: CHLORASEPTIC20 ML (14:28)
--- NOTE | 2016-10-15 14:34 | CT SCAN REPORT ---
EXAMINATION: CT OF THE HEAD WITHOUT CONTRAST CT OF THE CERVICAL SPINE WITHOUT CONTRAST CLINICAL INFORMATION: Confusion. Evaluate for hemorrhage. Altered mental status. Evaluate for fracture. COMPARISON: CT scan of the head dated 06/18/2016 and 12/06/2015. TECHNIQUE: Contiguous axial imaging was performed from the skullbase to vertex without intravenous administration of contrast. Coronal reformations of the head were obtained. Subsequently, contiguous axial imaging was performed from the skull base to the thoracic inlet without intravenous administration of contrast. Coronal and sagittal reformations of the cervical spine were then obtained. DLP: 888.47 mGy-cm. FINDINGS: CT scan of the head: There is no evidence of acute intracranial hemorrhage or territorial infarction. No abnormal mass-effect or midline shift is seen. Kapoor to white matter differentiation is well preserved. No extra-axial fluid collections are identified. The ventricles and sulci are enlarged, consistent with involutional changes. Prominent periventricular deep white matter low-attenuation is seen, consistent with ischemic small vessel disease. Atherosclerotic calcifications of the carotid siphons and the vertebrobasilar arteries are seen. The osseous structures and soft tissues are normal. The patient is status post bilateral ocular lens extractions with lens implant placement. Complete opacification of the included portions of the left maxillary sinus is seen. The mastoid air cells and remainder of the visualized portions of the paranasal sinuses are well-aerated. CT scan of the cervical spine: No acute fracture or dislocation is seen. Prevertebral soft tissues are normal in thickness. There is a convex right cervical scoliosis and an exaggeration of the normal cervical lordosis. Grade 1 retrolisthesis of C2 on C3 is seen, likely on a degenerative basis. Alignment of the cervical spine otherwise unremarkable. Craniocervical junction is intact. Moderate degenerative change seen at the atlantoaxial articulation with joint space narrowing, sclerosis and ligamentous calcification seen. There is partial fusion of the C6-C7 vertebral bodies with prominent posterior disc osteophyte complex seen mildly indenting the thecal sac without causing significant spinal stenosis. Multilevel severe facet arthropathy is seen throughout the spine with partial fusion of the facet joints seen in the mid and lower cervical spine. The thyroid gland is heterogeneous in texture with small subcentimeter sized scattered nodular densities seen. No suspicious dominant mass noted. There is a subcutaneous well-circumscribed low attenuation mass in the posterior right lateral superficial soft tissues of the upper neck (series 9, image 72) with mean attenuation values of 21 Hounsfield units, most consistent with a small sebaceous cyst, measuring 1.4 x 0.9 cm versus 1.5 x 0.4 cm (06/18/2016), most consistent with a small sebaceous cyst. IMPRESSION: 1. No acute intracranial pathology. 2. Diffuse parenchymal volume loss and moderate to severe chronic white matter microangiopathy again noted. 3. No acute cervical spine fracture. 4. Extensive degenerative changes as seen throughout the cervical spine. 5. Advanced atherosclerotic calcifications of the cervical vessels.
--- NOTE | 2016-10-15 14:37 | NUR ---
HOUSE STAFF AT BEDSIDE FOR PT EVAL.
--- NOTE | 2016-10-15 14:43 | CT SCAN REPORT ---
EXAMINATION: CT CHEST, ABDOMEN AND PELVIS WITHOUT CONTRAST CLINICAL INFORMATION: Elevated white blood cell count, elevated lactic acid. Evaluate for infection, trauma. COMPARISON: Multiple priors, most recent CT abdomen/pelvis dated 09/08/2016. TECHNIQUE: Contiguous axial thin section helical images of the chest, abdomen and pelvis were performed without contrast. The data set was reformatted in the coronal and sagittal planes and reviewed on an independent workstation. DLP: 349.94 mGy-cm. FINDINGS: LUNGS: There are patchy airspace opacities within the posterior aspect of the right upper lobe as well as minimally within the right lower lobe. These findings could represent early infiltrates in the appropriate clinical setting. There is a 2 mm subpleural calcification adjacent to the left major fissure with associated probable scarring, which could represent the sequela of prior granulomatous disease. Emphysematous changes are redemonstrated. MEDIASTINUM: Sternotomy wires are redemonstrated. There are extensive atherosclerotic calcifications associated with the coronary arteries. Diffuse atherosclerotic calcifications are again seen within the thoracic aorta. PLEURA: There is no pleural effusion. No pleural mass or thickening. AXILLA: No lymphadenopathy. LIVER, GALLBLADDER, BILIARY TREE: Hypodensity of the liver is redemonstrated, consistent with fatty infiltration. There is no intra or extrahepatic biliary ductal dilatation. The gallbladder is unremarkable. There are no radiopaque gallstones. There is no pericholecystic fat stranding. PANCREAS: Atrophic. No peripancreatic edema or associated fluid collection. SPLEEN: Normal. ADRENAL GLANDS AND KIDNEYS: The adrenal glands are unremarkable. There is no hydronephrosis or nephrolithiasis. No renal mass or cyst is identified. URETERS AND BLADDER: No evidence of ureteral stones. The urinary bladder is largely collapsed. BOWEL LOOPS: No intra-abdominal free air or free fluid. No abdominal fluid collection or abscess. No large or small bowel obstruction. Sigmoid colon diverticula are redemonstrated without adjacent inflammatory change. Normal appendix. LYMPHOVASCULAR STRUCTURES: Extensive atherosclerotic calcifications are redemonstrated throughout the abdominal aorta and its branch vessels. PELVIC VISCERA: Unremarkable by CT examination. BONES: There is irregularity and fragmentation of the distal right clavicle, consistent with a remote fracture or traumatic injury. There is a minimally displaced fracture of the L3 left transverse process, new since the prior examination. No additional acute fracture is identified. ADDITIONAL FINDINGS: There is a small fat-containing left inguinal hernia. IMPRESSION: 1. New, minimally displaced fracture of the left L3 transverse process. No additional acute fracture identified. Fragmentation and irregularity of the distal right clavicle, consistent with a remote fracture or traumatic injury. 2. Patchy airspace opacities within the right upper and lower lobes, which could represent early infiltrates in the appropriate clinical setting. Emphysematous changes are redemonstrated. 3. Fatty infiltration of the liver. Pancreatic atrophy without additional abnormality, unchanged. 4. Diverticulosis without evidence of acute diverticulitis. No intra-abdominal fluid collection or abscess. 5. Extensive atherosclerotic calcifications.
--- NOTE | 2016-10-15 15:09 | NUR ---
REPORT GIVEN TO PAIGE COSBY TO ICU.
--- NOTE | 2016-10-15 15:10 | Cons- Cardiology ---
General Information and HPI Consulting Request Date of Consult: 10/15/16 Requested By: THI IZAGUIRRE MD Reason for Consult: Sepsis; abnormal EKG; elevated troponin Source of Information: family, old records History of Present Illness: The patient is a 76-year-old male who was brought in by ambulance to the ER for evaluation of dyspnea and failure to thrive. Patient's nephew reportedly called 911 reports that patient has remained in bed for several days. Patient reports that his recently , he has been depressed and did not want to come to the hospital. Intermittent cough. At the time I saw the patient he was clearly confused and unable to give any adequate history. The family was not available at the time I saw the patient. EMS reports that patient's oxygen saturation was in the mid 80s upon their arrival and he was tachycardic into the 160s. Patient received a nebulizer treatment and IV fluids during transport. Patient drinks alcohol daily. Reports last alcohol intake was yesterday. Denies history of alcohol I was asked to see the patient for further evaluation of his cardiac status and his abnormal ECG. Allergies/Medications Allergies: Coded Allergies: NO KNOWN ALLERGIES (06/18/16) Home Med List: Folic Acid 0.8 MG TABLET 1 TAB PO DAILY SUPPLEMENT (Reported) Losartan Potassium (Cozaar) 25 MG TABLET 1 TAB PO DAILY heart failure PLEASE START THE MEDICATION ON 12/12/2015. PLEASE HOLD IF SBP< 90 Magnesium Oxide 400 MG TABLET 400 MG PO BID supplement Meloxicam 7.5 MG TABLET 1 TAB PO DAILY PAIN (Reported) Metoprolol Tartrate (Lopressor) 50 MG TABLET 1 TAB PO BID TACHYCARDIA Phenol (Chloraseptic) 1.4 % SPRAY SORE THROAT (Reported) Thiamine HCl (Vitamin B-1) 100 MG TABLET 100 MG PO DAILY SUPPLEMENT Current Medications: Current Medications Sig/Sae Start time Last Medication Dose Route Stop Time Status Admin Acetaminophen/ 1 TAB Q6P PRN 10/15 1445 AC Hydrocodone Bitart PO Ampicillin Sodium/ 1,500 MG Q6 10/15 1800 UNVr Sulbactam Sodium IV Sodium Chloride 100 ML Ampicillin Sodium/ 0 .STK-MED ONE 10/15 1423 DC Sulbactam Sodium .ROUTE Ampicillin Sodium/ 3,000 MG ONCE ONE 10/15 1315 DC 10/15 Sulbactam Sodium IV 10/15 1344 1426 Sodium Chloride 100 ML Aspirin 162 MG ONCE ONE 10/15 1500 DC PO 10/15 1501 Aspirin 162 MG ONCE ONE 10/15 1315 CAN PO 10/15 1316 Cyanocobalamin/ 1 BAG DAILY 10/15 1450 DCr Thiamine/Pyridoxine IV Sodium Chloride 1,000 ML Heparin Sodium 5,000 UNIT Q8 10/15 2200 AC (Porcine) SC Metoclopramide HCl 10 MG ONCE ONE 10/15 1400 DC 10/15 IV 10/15 1401 1407 Metoclopramide HCl 0 .STK-MED ONE 10/15 1400 DC .ROUTE Morphine Sulfate 2 MG Q4P PRN 10/15 1445 AC IV Sodium Chloride 1,000 ML BOLUS ONE 10/15 1345 DC 10/15 IV 10/15 1444 1426 Sodium Chloride 1,000 ML BOLUS ONE 10/15 1315 DC 10/15 IV 10/15 1414 1345 Sodium Chloride 1,000 ML BOLUS ONE 10/15 1300 DC 10/15 IV 10/15 1359 1255 Past History Travel History Traveled to [place] past 21 day No Medical History Neurological: NONE EENT: NONE Cardiovascular: CAD, hypertension, myocardial infarction, CAD status post CABG SVT ablation Respiratory: COPD, emphysema Gastrointestinal: NONE Hepatic: PANCREATITIS Renal: NONE Musculoskeletal: R/L HIP FX Psychiatric: ETOH WITHDRAWAL Endocrine: NONE Blood Disorders: NONE Cancer(s): NONE 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 Family History Relations & Conditions If Any: MOTHER (Breast Cancer). . FATHER (Stroke, [place]). . Psychosocial History Who Do You Live With? spouse Services at Home: None Primary Language: Emir[place] Functional Ability Ambulation: cane Exam & Diagnostic Data Vital Signs and I&O Vital Signs Date Time Temp Pulse Resp B/P Pulse O2 O2 Flow FiO2 Ox Delivery Rate 10/15 1428 97.0 108 26 127/66 97 Non ReBreather 10/15 1340 99 20 91/56 98 Non ReBreather 10/15 1302 98 Non ReBreather 10/15 1231 96.0 114 20 173/59 90 Room Air Intake & Output 10/15 1600 10/15 0800 10/15 0000 10/14 1600 10/14 0800 10/14 0000 Intake Total Output Total Balance Patient 106 lb Weight Physical Exam: General Appearance: awake, cachetic, lethargic, confused Head: atraumatic, normal appearance Eyes:normal Ears, Nose, Throat: hearing grossly normal Neck: normal inspection, supple, full range of motion, JVP normal, Carotds normal Respiratory: normal breath sounds, no respiratory distress, lungs clear Cardiovascular: regular rate/rhythm (regular rhythm), tachycardia, 1-2/6 systolc murmur Peripheral Pulses: 2+ dorsalis pedis (R), 2+ dorsalis pedis (L) Gastrointestinal: soft, non-tender Extremities: partial thickness viveros to left lower extremities. no surrounding erythema Neurologic/Psych: awake, lethargic, easily arousable. disoriented to time Skin: partial thickness viveros left lower extremity. no drainage or surroundin Labs/Dominic Results: Laboratory Tests 10/15 10/15 1445 1300 Blood Gas pH (7.35 - 7.45 PH) 7.26 *L pCO2 (35 - 45 TORR) 21 L pO2 (80 - 100 TORR) 91 HCO3 (21 - 28 MEQ/L) 9 L ABG O2 Sat (Measured) (>96.0 %) 94.0 L Carboxyhemoglobin (1.5 - 5.0 %) 1.3 L O2 Concentration % 100 O2 Delivery Method NRB Miscellaneous Phlebotomy Draw Site RIGHT RADIAL Toxicology Urine Opiates Screen (>2000 NG/ML) < 100.00 Methadone Screen (>300 NG/ML) 48 Barbiturate Screen (>200 NG/ML) < 60 Ur Phencyclidine Scrn (>25 NG/ML) 9.60 Amphetamines Screen (>1000 NG/ML) < 100 U Benzodiazepines Scrn (>200 NG/ML) < 85 Urine Cocaine Screen (>300 NG/ML) < 50 Urine Cannabis Screen (>50 NG/ML) < 5.00 Urines Urinalysis HEAVY H Urine Color (YEL,AMB,STR) YEL Urine Clarity (CLEAR) HAZY H Urine pH (5.0 - 8.0) 5.5 Ur Specific [place] (1.001 - 1.035) >= 1.030 Urine Protein (NEG,<30 MG/DL) 100 H Urine Ketones (NEG) TRACE H Urine Nitrite (NEG) POS H Urine Bilirubin (NEG) NEG@ICTO Urine Urobilinogen (0.1 - 1.0 EU/dl) 0.2 Ur Leukocyte Esterase (NEG) NEG Ur Microscopic SEDIMENT EXAMINED Urine RBC (0 - 5 /HPF) 25-50 H Urine WBC (0 - 2 /HPF) 3-5 H Ur Epithelial Cells (NONE,FEW) MOD H Urine Bacteria (NEG/NONE) MANY H Granular Casts (NONE /LPF) RARE H Urine Hemoglobin (NEG) MOD H Urine Glucose (N MG/DL) NEG 10/15 1245 Chemistry Sodium (137 - 145 mmol/L) 152 H Potassium (3.5 - 5.1 mmol/L) 3.6 Chloride (98 - 107 mmol/L) 103 Carbon Dioxide (22 - 30 mmol/L) 14 L Anion Gap (5 - 16) 34 H BUN (9 - 20 mg/dL) 50 H Creatinine (0.7 - 1.2 mg/dL) 4.4 H Estimated GFR (>60 ml/min) 13 L BUN/Creatinine Ratio (7 - 25 %) 11.4 Glucose (65 - 99 mg/dL) 200 H Lactic Acid (0.7 - 2.1 mmol/L) 14.1 H Calcium (8.4 - 10.2 mg/dL) 9.7 Magnesium (1.6 - 2.3 mg/dL) 2.1 Total Bilirubin (0.2 - 1.3 mg/dL) 1.8 H AST (17 - 59 U/L) 198 H ALT (21 - 72 U/L) 103 H Alkaline Phosphatase (< 127 U/L) 107 Creatine Kinase (55 - 170 U/L) 7783 H Troponin I (<0.11 ng/ml) 0.18 *H Ylw-M-Lohatokntrs Pept (<125 pg/mL) 71577 H Total Protein (6.3 - 8.2 g/dL) 7.4 Albumin (3.5 - 5.0 g/dL) 4.2 Globulin (1.9 - 4.2 gm/dL) 3.2 Albumin/Globulin Ratio (1.1 - 2.2 %) 1.3 Coagulation PT (9.4 - 12.5 SEC) 13.1 H INR (0.90 - 1.17) 1.25 H APTT (25 - 37 SEC) 32 Hematology CBC w Diff MAN DIFF ORDERED WBC (4.8 - 10.8 /CUMM) 15.6 H RBC (4.70 - 6.10 /CUMM) 5.24 Hgb (14.0 - 18.0 G/DL) 16.5 Hct (42 - 52 %) 49.8 MCV (80.0 - 94.0 FL) 95.0 H MCH (27.0 - 31.0 PG) 31.5 H RDW (11.5 - 14.5 %) 15.5 H Plt Count (130 - 400 /CUMM) 115 L MPV (7.4 - 10.4 FL) 9.0 Gran % (42.2 - 75.2 %) 86.4 H Lymphocytes % (20.5 - 51.1 %) 9.5 L Monocytes % (1.7 - 9.3 %) 4.0 Eosinophils % (0 - 5 %) 0 Basophils % (0.0 - 2.0 %) 0.1 Absolute Granulocytes (1.4 - 6.5 /CUMM) 13.5 H Segmented Neutrophils (42.2 - 75.2 %) 80 H Band Neutrophils (0.0 - 5.0 %) 6 H Absolute Lymphocytes (1.2 - 3.4 /CUMM) 1.5 Lymphocytes (20.5 - 51.1 %) 13 L Monocytes (1.7 - 9.3 %) 1 L Absolute Monocytes (0.10 - 0.60 /CUMM) 0.6 Absolute Eosinophils (0.0 - 0.7 /CUMM) 0 Absolute Basophils (0.0 - 0.2 /CUMM) 0 Platelet Estimate (ADEQUATE) DECREASED Normocytic RBCs VERIFIED Normochromic RBCs VERIFIED PUBS MCHC (33.0 - 37.0 G/DL) 33.2 Toxicology Salicylates (0 - 20.0 mg/dL) 2.7 Serum Alcohol (<10 MG/DL) < 10.0 Acetone Level (NEGATIVE) NEGATIVE Diagnostic Data EKG Results Sinus rhythm; lateral ST-T depression more prominent than on previous ECG CXR Results FINDINGS: Both lungs are hyperinflated consistent with emphysema. No acute consolidation or effusion seen. There is bilateral apical pleural calcifications. The heart size and pulmonary vascularity is normal. No gross bony abnormality seen. There are median sternotomy sutures and mediastinal dee from previous CABG. IMPRESSION: Emphysema without acute process. Assessment/Plan Assessment/Plan Assessment: 1. Abnormal ECG with minimally elevated troponin 2. Metabolic / Lactic acidosis 3. HCAP 4. ERIKA 5. Transaminitis 6. Failure to thrive 7. Thrombocytopenia 8. History of alcohol abuse 9. Hypernatremia / dehydration Recommendations: - ICU admission - Full cultures and antibiotic coverage - Serial troponins - Serial ECGs - If troponin continues to rise, follow up echocardiogram to reassess LV wall motion. - DT precautions - IV fluid hydration as outlined. Consult Acknowledgment - Thank you for your consult request.
--- NOTE | 2016-10-15 15:13 | NUR ---
[facility] CALLED FOR TRANSPORT.
[2016-10-15 16:00] VITALS: BP 86/62
[2016-10-15] MEDS ORDERED: MAGNESIUM OXID400 M1 PO (18:33)
[2016-10-15] MEDS ORDERED: COZAAR25 M1 PO (18:33)
[2016-10-15] MEDS ORDERED: VITAMIN B-1100 MG PO (18:33)
[2016-10-15] MEDS ORDERED: LOPRESSOR50 M1 PO (18:33)
[2016-10-15 20:00] VITALS: BP 100/60
--- NOTE | 2016-10-15 20:00 | NUR ---
PT ARRIVED TO UNIT AT 1600. A+OX3. NSR ON MONITOR. MANUAL B/P 80'S. 1L NS BOLUS GIVEN. 5L NC IN PLACE. HARD TO GET OXYGEN SAT ON PT. TRIED EAR/FINGER/ AND TOE. SAT 93-96% WITH RESP THERAPIST OXYGEN SAT PROBE. LUNGS RHONCHI THROUGHOUT. NON PRODUCTIVE COUGH. PT STATING HE HAS A SORE THROAT MD FROST AWARE. PT WAS INCONTINENT OF LARGE AMOUNT OF LIQUID BROWN STOOL +HEME, HOUSE STAFF MADE AWARE. GRIGGS IN PLACE DRAINING YELLOW URINE. ALPS PLACED. RED SOCKS ON, BED ALARM IN PLACE. LEAF ON DOOR. MULTIPLE SKIN ISSUES: LEFT HIP/THIGH OPEN WOUND (APPEARS TO BE RUG BURN PT HAS FALLEN ON SUNDAY), 9.5 X 5.5, XEROFORM, TELFA AND ABD PAD PLACED, SAME WOUND TO LEFT KNEE, XEROFORM, TELFA AND ABD PAD PLACED. LEFT SHOULDER BLISTER, POPPED. MULTIPLE OLD HEALED RUG BURN APPEARING WOUNDS (RIGHT HIP, LEFT UPPER BACK, RIGHT INNER THIGH). BRUISE NOTED TO RIGHT HIP. WOUND CARE CONSULT PLACED. TOES AND FINGERS COLD TO TOUCH. +CMS. C-DIFF SAMPLE SENT. #20 LAC PRE HOSP IV, #20 RAC PLACED HERE AND #20 RF PLACED HERE. IVF RUNNING NS @ 150 ML/HR. IV VANCO GIVEN. PT HAD 3 MORE LIQUID BROWN BOWEL MOVEMENTS. BOTTOM RED/BLANCHABLE. SOME BLOOD COMING FROM [facility]ENIS WHERE GRIGGS INSERTED.
[2016-10-15 21:52] LABS: ABSOLUTE BASOPHIL COUNT 0 /CUMM (0.0-0.2); ABSOLUTE EOSINOPHIL COUNT 0 /CUMM (0.0-0.7); ABSOLUTE GRANULOCYTE CT 7.5 /CUMM (1.4-6.5); ABSOLUTE LYMPH COUNT 0.8 /CUMM (1.2-3.4); ABSOLUTE MONOCYTE COUNT 0.4 /CUMM (0.10-0.60); BASOPHIL % 0 % (0.0-2.0); EOSINOPHIL % 0 % (0-5); GRANULOCYTE % 86.7 % (42.2-75.2); MEAN CORPUSCULAR HGB 31.3 PG (27.0-31.0); MEAN CORPUSCULAR HGB CONC 32.8 G/DL (33.0-37.0); MEAN CORPUSCULAR VOLUME 95.5 FL (80.0-94.0); MEAN PLATELET VOLUME 9.1 FL (7.4-10.4); PLATELET COUNT 75 /CUMM (130-400); RBC DISTRIBUTION WIDTH 15.7 % (11.5-14.5); WHITE BLOOD CELL COUNT 8.7 /CUMM (4.8-10.8)
[2016-10-15 22:00] VITALS: BP 91/50
[2016-10-15 22:12] LABS: HEMATOCRIT 41.1 % (42-52)
[2016-10-15 23:00] VITALS: BP 93/55
[2016-10-16] VITALS: BP 88/50; BP 92/50
--- NOTE | 2016-10-16 01:37 | NUR ---
LATE ENTRY PT EXTREMELY AGGITATED AT 2300 VERY PARANOID SUSPICIOUS OF CARE REFUSING RESP TREATMENT PILL FOUND IN BED DR ARGUETA AWARE RESISTIVE OF ALL CARE ATIVAN 2MG IVP ORDERED WITH DESIRED AFFECT IV STARTED INTO LARM. BP DROPPED TO 88/50 MANUAL IV 500ML NS FLUID BALANCE GIVEN WITH BP BACK UP TO 98/52. PT VERY SEDATE AT THIS TIME. DR CRAIN.
[2016-10-16 02:00] VITALS: BP 92/50
[2016-10-16 04:00] VITALS: BP 119/68
[2016-10-16 06:00] VITALS: BP 112/64
[2016-10-16 06:23] LABS: ABSOLUTE BASOPHIL COUNT 0 /CUMM (0.0-0.2); ABSOLUTE EOSINOPHIL COUNT 0 /CUMM (0.0-0.7); ABSOLUTE GRANULOCYTE CT 6.9 /CUMM (1.4-6.5); ABSOLUTE LYMPH COUNT 0.8 /CUMM (1.2-3.4); ABSOLUTE MONOCYTE COUNT 0.3 /CUMM (0.10-0.60); BASOPHIL % 0.2 % (0.0-2.0); EOSINOPHIL % 0.1 % (0-5); GRANULOCYTE % 86.6 % (42.2-75.2); HEMATOCRIT 37.9 % (42-52); MEAN CORPUSCULAR HGB 31.3 PG (27.0-31.0); MEAN CORPUSCULAR HGB CONC 33.1 G/DL (33.0-37.0); MEAN CORPUSCULAR VOLUME 94.5 FL (80.0-94.0); MEAN PLATELET VOLUME 8.5 FL (7.4-10.4); PLATELET COUNT 59 /CUMM (130-400); RBC DISTRIBUTION WIDTH 15.4 % (11.5-14.5); RED BLOOD CELL CT 4.01 /CUMM (4.70-6.10)
--- NOTE | 2016-10-16 07:32 | Cons- CRCU ---
[address],[facility] 10/16/16 0732: General Information and HPI History of Present Illness: Patient is a 76 year old male with PMH significant for HTN, CAD s/p CABG, AFIB ( not on anticoagulation due to fall risk), COPD (emphysema), ETOH abuse, upper GI bleed in 2012, who was brought in to the ED by family members after several days of worsening cough, vomiting, poor oral intake and weakness. Patient lives alone at home after his (recently and at [facility]). Patient himself was admitted in August due to failure to thrive and starvation ketoacidosis, he was discharged to rehab and went back home almost 2 weeks ago; he is an alcoholic and per his nephew he has been drinking again since then. Patient reports drinking 3-4 shots of vodka for the past 5-6 days, at the same time he has started vomiting and reports increased coughing; due to the excess cough he has lost his voice and has to whisper during the interview. Patient has had poor appetite for at least two weeks and reports not eating and drinking well. Reports the vomit color is brown, non bloody. Denies abdominal pain and diarrhea, however has been incontinent with loose stools since his admission in the ED and in the ICU. Denies any headache, dizziness, chest pain, or palpitation; reports an episode of almost having a fall before coming to the ED resulting in an abrasion on the left knee. denies head or other limb injuries. denies LOC. Patient also denies any changes in the urine but reports hesitancy and urgency. Denies fever chills, URI symptoms or sick contacts. Allergies/Medications Allergies: Coded Allergies: NO KNOWN ALLERGIES (06/18/16) Home Med List: Folic Acid 0.8 MG TABLET 1 TAB PO DAILY SUPPLEMENT (Reported) Losartan Potassium (Cozaar) 25 MG TABLET 1 TAB PO DAILY heart failure Reason to Stop at ADM: sepsis, hypotension Magnesium Oxide 400 MG TABLET 400 MG PO BID supplement Meloxicam 7.5 MG TABLET 1 TAB PO DAILY PAIN (Reported) Reason to Stop at ADM:ERIKA Metoprolol Tartrate (Lopressor) 50 MG TABLET 1 TAB PO BID TACHYCARDIA Reason to Stop at ADM:hypotension, sepsis Phenol (Chloraseptic) 1.4 % SPRAY SORE THROAT (Reported) Thiamine HCl (Vitamin B-1) 100 MG TABLET 100 MG PO DAILY SUPPLEMENT Review of Systems Review of Systems Constitutional: Reports: malaise, weakness. Denies: chills, fever. EENTM: Denies: visual changes, throat pain. Cardiovascular: Denies: chest pain, palpitations, peripheral edema, syncope. Respiratory: Reports: cough, hemoptysis, short of breath, sputum production. GI: Denies: abdominal pain, constipation, diarrhea, nausea, vomiting. Genitourinary: Reports: hesitation, urgency. Musculoskeletal: Reports: back pain. Skin: Reports: lesions (left knee). Neurological/Psychological: Reports: weakness. Denies: headache, numbness. Hematologic/Endocrine: Reports: no symptoms. Past History Travel History Traveled to [place] past 21 day No Medical History Neurological: NONE EENT: NONE Cardiovascular: CAD, hypertension, myocardial infarction, CAD status post CABG SVT ablation Respiratory: COPD, emphysema Gastrointestinal: NONE Hepatic: PANCREATITIS Renal: NONE Musculoskeletal: R/L HIP FX Psychiatric: ETOH WITHDRAWAL Endocrine: NONE Blood Disorders: NONE Cancer(s): NONE JEEP DRIVER/Reproductive: NONE Surgical History Surgical History: BYPASS QUAD b/l hip percutaneous pinning. Family History Relations & Conditions If Any: MOTHER (Breast Cancer). . FATHER (Stroke, MS). . Psychosocial History Where Do You Live? Home Who Do You Live With? self Services at Home: None Primary Language: Nepali Smoking Status: Current Everyday Smoker (pack/day since 16 years old) ETOH Use: alcoholic Functional Ability Ambulation: cane Exam & Diagnostic Data Last 24 Hrs of Vital Signs/I&O Vital Signs Date Time Temp Pulse Resp B/P Pulse O2 O2 Flow FiO2 Ox Delivery Rate 10/16 0600 97.0 81 18 112/64 10/16 0400 97.0 80 18 119/68 10/16 0400 97 Nasal 5.0L Cannula 10/16 0200 97.8 83 18 92/50 10/16 0000 97.8 94 18 88/50 10/16 0000 97 Nasal 5.0L Cannula 10/16 0000 97.6 94 20 92/50 97 Nasal 5.0L Cannula 10/15 2300 97.8 94 18 93/55 10/15 2200 97.4 87 20 91/50 10/15 2000 97.8 80 20 100/60 10/15 1925 Nasal 4.0L Cannula 10/15 1600 96.7 86 22 86/62 95 Nasal 5.0L Cannula 10/15 1555 96 Nasal 5.0L Cannula 10/15 1519 96.3 84 22 104/67 95 Nasal 4.0L Cannula 10/15 1428 97.0 108 26 127/66 97 Non ReBreather 10/15 1340 99 20 91/56 98 Non ReBreather 10/15 1302 98 Non ReBreather 10/15 1231 96.0 114 20 173/59 90 Room Air Intake & Output 10/16 1600 10/16 0800 10/16 0000 Intake Total 1850 3230 Output Total 400 280 Balance 1450 2950 Intake, IV 1850 2030 Intake, Oral 1200 Number 6 Bowel Movements Output, Urine 400 280 Patient 51.256 kg 51.256 kg Weight Physical Exam General Appearance: no apparent distress, alert, awake, comfortable, cachetic Head: normal appearance, active bleeding Eyes: Bilateral: PERRL, EOMI. Ears, Nose, Throat: normal ENT inspection Neck: normal inspection, supple Respiratory: chest non-tender, wheezing on the left lower lung, decreased breath sounds bilaterally Cardiovascular: regular rate/rhythm Peripheral Pulses: 2+ radial (R), 2+ radial (L), 2+ dorsalis pedis (R), 2+ dorsalis pedis (L) Gastrointestinal: soft, non-tender Extremities: normal capillary refill, normal range of motion, no edema Neurologic/Psych: awake, alert, oriented x 3 Cranial Nerves: normal hearing, normal speech, PERRL Skin: normal color, warm/dry, abrasion on the left knee Assessment/Plan Impression/Plan: Patient is a 76 year old male with PMH significant for ETOH abuse, HTN, CAD s/p CABG, AFIB (not on anticoagulation due to fall risk), COPD (emphysema), upper GI bleed in 2012, who was brought in to the ED by family members after several days of worsening coughing, vomiting, poor oral intake and weakness. On admission patient had borderline BP, elevated lactic acid of 14.1, AG 34, carbon dioxide 14, Hypernatremia of 152, Cr of 4.4, AST 198, ALT 103, troponin 0.18. He is admitted to the ICU for close cardiac monitoring due to severe high anion gap metabolic acidosis. Chou catheter placed in the ED, day 2 Problem list and plan: Possible Sepsis meets criteria for severe sepsis - tachycardic, leukocytosis, ERIKA, elevated troponin, lactic acidosis above findings could also be due to severe dehydration (vomiting, poor po intake , diarrhea) as well as alcoholism. possible infectius etiology: HCAP or aspiration PNA or UTI. legionella and strep Ag (-) * 2 large bore catheters * IV hydration * urine culture, sputum culture, blood culture x2 * continue IV vancomycin and ceftazidime, vanc level this am * will consider ID consult if patient develops fever and icnreased WBC Metabolic acidosis and lactic acidosis With elevated anion gap, likely secondary to alcohol. patient has had NL capillary refill since admission, alcoholism most likely is the major contributer to the current lactic acidosis. today lab AG is WNL and lactic acid is trending down, bicarbonate is up from 14 to 20 * IV fluids * consider NaBicarbonate if bicarbonate remain low ERIKA BUN 50, Cr 4.4, possibly due to dehydration * IV fluids * repeat BEP shows improvement today, will monitor * consider Nephrology consult if not improved with IV hydration * avoid NSAIDs and nephrotoxins * home med meloxicam on hold Positive troponins in the setting of infection, no chest pain, nonspecific ST changes, history of CAD; ACS versus demand ischemia secondary to sepsis, trended troponins and EKG; could be demand ischemia secondary to sepsis. Troponin came down to 0.07 * Cardiology consult in place, if troponin continues to rise will do echocardiogram to reassess LV wall motion. Alcohol intoxication and withdrawal History of alcohol abuse, recent increase in alcohol intake * Ativan per CIWA and PRN * Thiamine, folic acid and multivitamins Musculoskeletal Recent fall/trauma at home CT chest shows New, minimally displaced fracture of the left L3 transverse process there is also Skin abrasion on the left lateral knee * pain management for the L3 fx * wound consult in am * irrigate the sound with normal saline and use kerlix and xeroform for dressing Alimentary Hypernatremia Sodium 152 on admission, possibly due to dehydration, receiving fluids. this am is down to 148 * continue IV fluids * recheck BEP this pm and in the morning * If Na increased change IV fluids to 1/2 NS Hypokalemia 3.6 on admission, down to 2.9 today, gave 40 meq * repeat K at 1 pm today Transaminitis Most likely due to alcoholism, repeat LFTs show improvement * continue monitor LFTs * avoid acetaminophen * couseling for abstinence from alcholo before discharge Vomiting and coffee ground emesis In the setting of heavy alcohol use and history of upper GI bleed * IV protonix * IV fluids * avoid NSAIDs and aspirin * consider GI consult and possible endoscopy Diarrhea patient has become incontinent for stool since admission, with loose stool, guaisc positive, was brown in color on admission, appears greenish today * IV hydration * rectal tube * stool for cdiff * stool cultures for ova & parasites Poor oral intake History of mild protein calorie malnutrition in the previous admission * IV fluids * Continue multivitamin, folic acid, thiamine * Nutrition consult in am HTN currently borderline low BP, keep home medication on hold Pain * Tylenol for mild, Vicodin for moderate, and Percocet for severe pain Regular diet DVT prophylaxis with ALPS FULL code Consult Acknowledgment - Thank you for your consult request. [address],[facility] 10/16/16 0955: General Information and HPI Consulting Request Date of Consult: 10/16/16 Requested By: Dr. Julien Reason for Consult: CRCU management Source of Information: old records Exam Limitations: unable to give history, clinical condition Allergies/Medications Current Medications: Current Medications Sig/Sae Start time Last Medication Dose Route Stop Time Status Admin Acetaminophen/ 1 TAB Q6P PRN 10/15 1445 AC Hydrocodone Bitart PO Albuterol Sulfate 3 ML BID 10/15 2200 AC 10/16 INH 0923 Ampicillin Sodium/ 1,500 MG DAILY@1430 10/16 1430 CAN Sulbactam Sodium IV Sodium Chloride 100 ML Ampicillin Sodium/ 0 .STK-MED ONE 10/15 1423 DC Sulbactam Sodium .ROUTE Ampicillin Sodium/ 3,000 MG ONCE ONE 10/15 1315 DC 10/15 Sulbactam Sodium IV 10/15 1344 1426 Sodium Chloride 100 ML Aspirin 162 MG ONCE ONE 10/15 1500 DC 10/15 PO 10/15 1501 1834 Aspirin 162 MG ONCE ONE 10/15 1315 CAN PO 10/15 1316 Ceftazidime 1,000 MG DAILY@1800 10/15 1800 AC 10/15 IV 1829 Cyanocobalamin/ 1 BAG DAILY 10/15 1450 DC Thiamine/Pyridoxine IV Sodium Chloride 1,000 ML Folic Acid 1 MG DAILY 10/16 1000 AC PO Heparin Sodium 5,000 UNIT Q8 10/15 2200 CAN (Porcine) SC Ipratropium Tresckow 2.5 ML BID 10/15 2200 AC 10/16 INH 0923 Lorazepam 2 MG ONE ONE 10/15 2300 DC 10/15 IV 10/15 2301 2306 Lorazepam 0 Q1P PRN 10/15 1915 AC IV Magnesium Oxide 400 MG BID 10/15 2200 AC PO Metoclopramide HCl 10 MG ONCE ONE 10/15 1400 DC 10/15 IV 10/15 1401 1407 Metoclopramide HCl 0 .STK-MED ONE 10/15 1400 DC .ROUTE Morphine Sulfate 2 MG Q4P PRN 10/15 1445 AC IV Pantoprazole Sodium 40 MG DAILY 10/16 1999 AC 10/15 IV 2033 Patient Medication 1 UNIT ONE NR 10/16 1999 DC Teaching ED 10/15 2030 Phenol 2 SPRAY DAILY PRN 10/15 1845 AC EXT Potassium Chloride 40 MEQ ONCE ONE 10/16 0945 DC PO 10/16 0946 Potassium Chloride 10 MEQ Q1H 10/16 0515 DC 10/16 IV 10/16 0616 0646 Sodium Chloride 500 ML BOLUS ONE 10/16 0015 DC 10/16 IV 10/16 0114 0000 Sodium Chloride 1,000 ML Q6H 10/15 1700 AC 10/16 IV 0540 Sodium Chloride 1,000 ML BOLUS ONE 10/15 1645 DC 10/15 IV 10/15 1744 1644 Sodium Chloride 1,000 ML BOLUS ONE 10/15 1345 DC 10/15 IV 10/15 1444 1426 Sodium Chloride 1,000 ML BOLUS ONE 10/15 1315 DC 10/15 IV 10/15 1414 1345 Sodium Chloride 1,000 ML BOLUS ONE 10/15 1300 DC 10/15 IV 10/15 1359 1255 Thiamine HCl 100 MG DAILY 10/16 1000 AC PO Vancomycin HCl 750 MG ONCE ONE 10/15 1700 DC 10/15 Sodium Chloride 250 ML IV 10/15 1759 1828 Vancomycin HCl 1,000 MG DAILY 10/15 1649 DC Sodium Chloride 250 ML IV Exam & Diagnostic Data Last 24 Hrs of Vital Signs/I&O Vital Signs Date Time Temp Pulse Resp B/P Pulse O2 O2 Flow FiO2 Ox Delivery Rate 10/16 0600 97.0 81 18 112/64 10/16 0400 97.0 80 18 119/68 10/16 0400 97 Nasal 5.0L Cannula 10/16 0200 97.8 83 18 92/50 10/16 0000 97.8 94 18 88/50 10/16 0000 97 Nasal 5.0L Cannula 10/16 0000 97.6 94 20 92/50 97 Nasal 5.0L Cannula 10/15 2300 97.8 94 18 93/55 10/15 2200 97.4 87 20 91/50 10/15 2000 97.8 80 20 100/60 10/15 1925 Nasal 4.0L Cannula 10/15 1600 96.7 86 22 86/62 95 Nasal 5.0L Cannula 10/15 1555 96 Nasal 5.0L Cannula 10/15 1519 96.3 84 22 104/67 95 Nasal 4.0L Cannula 10/15 1428 97.0 108 26 127/66 97 Non ReBreather 10/15 1340 99 20 91/56 98 Non ReBreather 10/15 1302 98 Non ReBreather 10/15 1231 96.0 114 20 173/59 90 Room Air Intake & Output 10/16 1600 10/16 0800 10/16 0000 Intake Total 1850 3230 Output Total 400 280 Balance 1450 2950 Intake, IV 1850 2030 Intake, Oral 1200 Number 6 Bowel Movements Output, Urine 400 280 Patient 113 lb 113 lb Weight Last 48 Hrs of Labs/Dominic: Laboratory Tests 10/16/16 0600: CBC w Diff MAN DIFF ORDERED, RBC 4.01 L, MCV 94.5 H, MCH 31.3 H, RDW 15.4 H, MPV 8.5, Gran % 86.6 H, Lymphocytes % 9.6 L, Monocytes % 3.5, Eosinophils % 0.1, Basophils % 0.2, Absolute Granulocytes 6.9 H, Segmented Neutrophils 85 H, Band Neutrophils 2, Absolute Lymphocytes 0.8 L, Lymphocytes 9 L, Monocytes 4, Absolute Monocytes 0.3, Absolute Eosinophils 0, Absolute Basophils 0, Nucleated RBCs 1 H, Platelet Estimate DECREASED, Polychromasia 1+, Poikilocytosis 1+, Ovalocytes 1+, PUBS MCHC 33.1, Fld Total RBCs Counted 100 10/16/16 0410: Lactic Acid 3.1 H 10/16/16 0410: Anion Gap 12, Estimated GFR 35 L, Glucose 91, Calcium 7.1 L, Phosphorus 2.8, Magnesium 1.4 L, Total Bilirubin 1.1, AST 144 H, ALT 84 H, Troponin I 0.07, Albumin 2.5 L, CBC w Diff Cancelled, WBC Cancelled, RBC Cancelled, Hgb Cancelled, Hct Cancelled, MCV Cancelled, MCH Cancelled, RDW Cancelled, Plt Count Cancelled, MPV Cancelled, Gran % Cancelled, Lymphocytes % Cancelled, Monocytes % Cancelled, Eosinophils % Cancelled, Basophils % Cancelled, Absolute Granulocytes Cancelled, Segmented Neutrophils Cancelled, Absolute Lymphocytes Cancelled, Absolute Monocytes Cancelled, Absolute Eosinophils Cancelled, Absolute Basophils Cancelled, PUBS MCHC Cancelled, Random Vancomycin 8.5 10/15/160: Sodium Cancelled, Potassium Cancelled, Chloride Cancelled, Carbon Dioxide Cancelled, Anion Gap Cancelled, BUN Cancelled, Creatinine Cancelled, Glucose Cancelled, Calcium Cancelled, Phosphorus Cancelled, Magnesium Cancelled, Total Bilirubin Cancelled, AST Cancelled, ALT Cancelled, Albumin Cancelled, CBC w Diff Cancelled, WBC Cancelled, RBC Cancelled, Hgb Cancelled, Hct Cancelled, MCV Cancelled, MCH Cancelled, RDW Cancelled, Plt Count Cancelled, MPV Cancelled, PUBS MCHC Cancelled 10/15/16 2100: Troponin I Cancelled 10/15/162049: Anion Gap 19 H, Estimated GFR 24 L, Glucose 108 H, Lactic Acid 4.6 H, Calcium 7.8 L, Phosphorus 2.8, Magnesium 1.6, Total Bilirubin 1.3, AST 207 H, ALT 101 H, Troponin I 0.08, Albumin 2.8 L, CBC w Diff MAN DIFF ORDERED, RBC 4.30 L, MCV 95.5 H, MCH 31.3 H, RDW 15.7 H, MPV 9.1, Gran % 86.7 H, Lymphocytes % 8.7 L, Monocytes % 4.6, Eosinophils % 0, Basophils % 0 L, Absolute Granulocytes 7.5 H, Segmented Neutrophils 79 H, Band Neutrophils 11 H, Absolute Lymphocytes 0.8 L, Lymphocytes 6 L, Monocytes 4, Absolute Monocytes 0.4, Absolute Eosinophils 0, Absolute Basophils 0, Platelet Estimate DECREASED, Normochromic RBCs VERIFIED, Anisocytosis 1+, PUBS MCHC 32.8 L, Fld Total RBCs Counted 100 10/15/161951: Lactic Acid Cancelled 10/15/16 1900: Lactic Acid Cancelled 10/15/16 1520: Lactic Acid 5.5 H 10/15/16 1445: Urine Opiates Screen < 100.00, Methadone Screen 48, Barbiturate Screen < 60, Ur Phencyclidine Scrn 9.60, Amphetamines Screen < 100, U Benzodiazepines Scrn < 85, Urine Cocaine Screen < 50, Urine Cannabis Screen < 5.00, Urinalysis HEAVY H, Urine Color YEL, Urine Clarity HAZY H, Urine pH 5.5, Ur Specific [place] >= 1.030, Urine Protein 100 H, Urine Ketones TRACE H, Urine Nitrite POS H, Urine Bilirubin NEG@ICTO, Urine Urobilinogen 0.2, Ur Leukocyte Esterase NEG, Ur Microscopic SEDIMENT EXAMINED, Urine RBC 25-50 H, Urine WBC 3-5 H, Ur Epithelial Cells MOD H, Urine Bacteria MANY H, Granular Casts RARE H, Urine Hemoglobin MOD H, Urine Glucose NEG 10/15/16 1300: pH 7.26 *L, pCO2 21 L, pO2 91, HCO3 9 L, ABG O2 Sat (Measured) 94.0 L, Carboxyhemoglobin 1.3 L, O2 Concentration % 100, O2 Delivery Method NRB, Phlebotomy Draw Site RIGHT RADIAL 10/15/16 1245: Anion Gap 34 H, Estimated GFR 13 L, BUN/Creatinine Ratio 11.4, Glucose 200 H, Serum Osmolality 343 H, Lactic Acid 14.1 H, Calcium 9.7, Magnesium 2.1, Total Bilirubin 1.8 H, AST 198 H, ALT 103 H, Alkaline Phosphatase 107, Creatine Kinase 7783 H, Troponin I 0.18 *H, Feo-L-Cyqnxxbikoy Pept 52120 H, Total Protein 7.4, Albumin 4.2, Globulin 3.2, Albumin/Globulin Ratio 1.3, PT 13.1 H, INR 1.25 H, APTT 32, CBC w Diff MAN DIFF ORDERED, RBC 5.24, MCV 95.0 H, MCH 31.5 H, RDW 15.5 H, MPV 9.0, Gran % 86.4 H, Lymphocytes % 9.5 L, Monocytes % 4.0, Eosinophils % 0, Basophils % 0.1, Absolute Granulocytes 13.5 H, Segmented Neutrophils 80 H, Band Neutrophils 6 H, Absolute Lymphocytes 1.5, Lymphocytes 13 L, Monocytes 1 L, Absolute Monocytes 0.6, Absolute Eosinophils 0, Absolute Basophils 0, Platelet Estimate DECREASED, Normocytic RBCs VERIFIED, Normochromic RBCs VERIFIED, PUBS MCHC 33.2, Salicylates 2.7, Serum Alcohol < 10.0, Acetone Level NEGATIVE Microbiology 10/16 1751 URINE ROUT: Legionella Antigen - COMP 10/16 1751 URINE ROUT: Streptococcus pneumoniae Antigen (M - COMP Diagnostic Data Other Results 1. New, minimally displaced fracture of the left L3 transverse process. No additional acute fracture identified. Fragmentation and irregularity of the distal right clavicle, consistent with a remote fracture or traumatic injury. 2. Patchy airspace opacities within the right upper and lower lobes, which could represent early infiltrates in the appropriate clinical setting. Emphysematous changes are redemonstrated. 3. Fatty infiltration of the liver. Pancreatic atrophy without additional abnormality, unchanged. 4. Diverticulosis without evidence of acute diverticulitis. No intra-abdominal fluid collection or abscess. 5. Extensive atherosclerotic calcifications. Assessment/Plan Other Findings/Comments: I have personally seen and examined the patient, and agree with the resident's assessment and plan as detailed above. The patient is a 76-year-old male with a past medical history significant for hypertension, CAD status post CABG, atrial fibrillation off anticoagulation due to fall risk, COPD with ongoing tobacco use disorder, upper GI bleed, and decades of alcohol abuse. The patient was admitted on 10/15/2016 with complaints of increased weakness, productive cough, vomiting and decreased oral intake. He is also had significant loose stools. The patient was evaluated and found to have sepsis secondary to pneumonia, noting the patient had patchy airspace opacities on CT scanning. The patient's urinalysis was also abnormal and suspicious for possible UTI. The patient had evidence of severe lactic acidosis suspicious for starvation ketosis. He was in acute renal failure, and is tolerating IV fluid resuscitation. The patient is admitted to the ICU, and cultures, placed on broad-spectrum antibiotics, and resuscitated with IV fluids. Cardiology was consulted for abnormal troponins. The patient is currently awake but unable to provide any history due to confusion. Impression: 1. Sepsis secondary to pneumonia with respiratory failure. 2. Starvation ketoacidosis. 3. Severe lactic acidosis, secondary to starvation and sepsis. 4. Hematemesis - no current evidence of active bleeding. 5. Dairrhea - r/o c diff. 6. ERIKA - improving with fluid resuscitation, CPK elevated consistent with rhabdomyolysis. 7. Hypokalemia. 8. EtOH hepatitis. 9. Chronic ETOH abuse - monitor for withdrawal. 10. Failure to thrive. 11. Thrombocytopenia - chronic, likely secondary to EtOH. 14. Skin wound. 15. COPD. Plan: * Continue IV fluid resuscitation. * Follow up culture results. * Continue empiric IV antibiotics. * Skin care protocol. * Monitor labs every 8 hours today. * Check a follow-up CPK. Add on to a.m. blood work. * CIWA protocol. * Aggressive electrolyte repletion. * Continue nebs/TRC. * MVI, thiamine and folate to continue. * Check a repeat ABG. * Check a bedside renal ultrasound. * Continue all supportive care. * The patient remains critically ill and requires ongoing close follow-up. Will continue to follow and make further recommendations as necessary. Consult Acknowledgment - Thank you for your consult request.
[2016-10-16 08:00] VITALS: BP 110/72
--- NOTE | 2016-10-16 13:55 | NUR ---
Wound Care Assessment: Patient presents with multiple areas of alterations in skin integrity- presumed pressure related since patient was found on the floor under his bed for an unknown period of time. Right medial thigh presents with an areas that measures 3 X 3.5 cm- area is intact however is dark red in color- presumed area of DTI since some deep purple non blanchable markings are also noted. Left medial clarke wound measures 3.5 X 3cm with a 1.5 X 1.5 open area within the initial wound measurement- presumed stage 2 pressure injury however dark red areas are also noted where the skin remains intact- wound bed to the partial thickness area is pink and moist with a good dermal fill. Left outer knee consists of an open wound that measures 8.5 X 6cm- mostly pink moist fill noted to the wound bed with scant areas of yellow moist tissue that were removed with cleansing the area- presumed stage 2 pressure injury however dark puple colored areas are noted to edge of the wound- therefore area can be considered and evolving area of DTI- Left upper thigh wound measures 8.5 X 5 cm- wound bed is red and moist- A 2.5 X 2 cm area within this wound appears dark purple- presumed area of DTI- no drainage is noted and no S/s of infection. Mid back wound presents as a DTi measuring 2 X 8 cm with partial thickness wound measuring 2 X 1.8 to the left- No s/s of infection are noted- no drainage- Patient is a poor historian and no family is available at this time. History was reviewed with RN. Impression: Multiple areas of evolving DTI as mentioned above with partial thickness wounds- presumed stage 2- It is important to consider the fact that DTI will continue to evolve or progress over the next 72 hours therefore further decline is to be expected. Recommendations: Please cleanse open wounds with normal saline and pat dry. Apply xeroform followed by Telfa, followed by a DPD to the open areas of the back, left upper thigh, left knee, and left medial clarke. Rught medial thigh wound can be dressed with a DPD since no open area is noted at this time. Please monitor wounds for any further decline and notify wound care- Place patient on a catergory 2 mattress and obtain a nutrition consult. Please encourage frequent turning and repositioning. Follow all additonal pressure injury guidelines.
--- NOTE | 2016-10-16 15:30 | PN- Cardiology ---
Subjective Subjective: Patient quite lethargic this morning. Minimally following commands and answers "okay "when I asked him how he was feeling. Objective Vital Signs and I&Os Vital Signs Date Time Temp Pulse Resp B/P Pulse O2 O2 Flow FiO2 Ox Delivery Rate 10/16 0940 100 Nasal 3.0L Cannula 10/16 0600 97.0 81 18 112/64 10/16 0400 97.0 80 18 119/68 10/16 0400 97 Nasal 5.0L Cannula 10/16 0200 97.8 83 18 92/50 10/16 0000 97.8 94 18 88/50 10/16 0000 97 Nasal 5.0L Cannula 10/16 0000 97.6 94 20 92/50 97 Nasal 5.0L Cannula 10/15 2300 97.8 94 18 93/55 10/15 2200 97.4 87 20 91/50 10/15 2000 97.8 80 20 100/60 10/15 1925 Nasal 4.0L Cannula 10/15 1600 96.7 86 22 86/62 95 Nasal 5.0L Cannula 10/15 1555 96 Nasal 5.0L Cannula 10/15 1519 96.3 84 22 104/67 95 Nasal 4.0L Cannula Intake & Output 10/16 1600 10/16 0800 10/16 0000 10/15 1600 10/15 0800 10/15 0000 Intake Total 1850 3230 Output Total 400 280 Balance 1450 2950 Intake, IV 1850 2030 Intake, Oral 1200 Number 6 Bowel Movements Output, Urine 400 280 Patient 113 lb 113 lb 114 lb Weight Physical Exam: General: Lethargic, cachectic HEENT: No jugular venous distention or abnormal jugular venous pulsations. Cardiovascular: Normal intensity S1/S2. Regular Respiratory: no rales or rhonchi Abdomen: no guarding or rebound tenderness. Musculoskeletal: No clubbing or cyanosis noted, no edema Skin: warm Current Medications: Current Medications Sig/Sae Start time Last Medication Dose Route Stop Time Status Admin Acetaminophen/ 1 TAB Q6P PRN 10/15 1445 AC Hydrocodone Bitart PO Albuterol Sulfate 3 ML BID 10/15 2200 AC 10/16 INH 0923 Ampicillin Sodium/ 1,500 MG DAILY@1430 10/16 1430 CAN Sulbactam Sodium IV Sodium Chloride 100 ML Ceftazidime 1,000 MG DAILY@1800 10/15 1800 AC 10/15 IV 1829 Folic Acid 1 MG DAILY 10/16 1000 AC 10/16 PO 1047 Ipratropium [place] 2.5 ML BID 10/15 2200 AC 10/16 INH 0923 Lorazepam 2 MG ONE ONE 10/15 2300 DC 10/15 IV 10/15 2301 2306 Lorazepam 0 Q1P PRN 10/15 1915 AC IV Magnesium Oxide 400 MG BID 10/15 2200 AC 10/16 PO 1047 Morphine Sulfate 2 MG Q4P PRN 10/15 1445 AC IV Pantoprazole Sodium 40 MG DAILY 10/16 1999 AC 10/16 IV 1014 Patient Medication 1 UNIT ONE NR 10/16 1999 DC Teaching ED 10/15 2030 Phenol 2 SPRAY DAILY PRN 10/15 1845 AC EXT Potassium Chloride 40 MEQ ONCE ONE 10/16 0945 DC 10/16 PO 10/16 0946 1047 Potassium Chloride 10 MEQ Q1H 10/16 0515 DC 10/16 IV 10/16 0616 0646 Sodium Chloride 500 ML BOLUS ONE 10/16 0015 DC 10/16 IV 10/16 0114 0000 Sodium Chloride 1,000 ML Q6H 10/15 1700 AC 10/16 IV 1014 Sodium Chloride 1,000 ML BOLUS ONE 10/15 1645 DC 10/15 IV 10/15 1744 1644 Thiamine HCl 100 MG DAILY 10/16 1000 AC 10/16 PO 1047 Vancomycin HCl 750 MG ONCE ONE 10/15 1700 DC 10/15 Sodium Chloride 250 ML IV 10/15 1759 1828 Vancomycin HCl 1,000 MG DAILY 10/15 1649 DC Sodium Chloride 250 ML IV Results Last 48 Hrs of Labs/Mics: Laboratory Tests 10/16/16 1500: Potassium Pending 10/16/16 1500: Sodium Pending, Potassium Pending, Chloride Pending, Carbon Dioxide Pending, Anion Gap Pending, BUN Pending, Creatinine Pending, Glucose Pending, Calcium Pending, Phosphorus Pending, Magnesium Pending, Total Bilirubin Pending, AST Pending, ALT Pending, Albumin Pending, CBC w Diff Pending, WBC Pending, RBC Pending, Hgb Pending, Hct Pending, MCV Pending, MCH Pending, RDW Pending, Plt Count Pending, MPV Pending, PUBS MCHC Pending 10/16/16 1007: Lactic Acid 2.9 H 10/16/16 0600: CBC w Diff MAN DIFF ORDERED, RBC 4.01 L, MCV 94.5 H, MCH 31.3 H, RDW 15.4 H, MPV 8.5, Gran % 86.6 H, Lymphocytes % 9.6 L, Monocytes % 3.5, Eosinophils % 0.1, Basophils % 0.2, Absolute Granulocytes 6.9 H, Segmented Neutrophils 85 H, Band Neutrophils 2, Absolute Lymphocytes 0.8 L, Lymphocytes 9 L, Monocytes 4, Absolute Monocytes 0.3, Absolute Eosinophils 0, Absolute Basophils 0, Nucleated RBCs 1 H, Platelet Estimate DECREASED, Polychromasia 1+, Poikilocytosis 1+, Ovalocytes 1+, PUBS MCHC 33.1, Fld Total RBCs Counted 100 10/16/16 0410: Lactic Acid 3.1 H 10/16/16409: Anion Gap 12, Estimated GFR 35 L, Glucose 91, Calcium 7.1 L, Phosphorus 2.8, Magnesium 1.4 L, Total Bilirubin 1.1, AST 144 H, ALT 84 H, Creatine Kinase 4466 H, Troponin I 0.07, Albumin 2.5 L, CBC w Diff Cancelled, WBC Cancelled, RBC Cancelled, Hgb Cancelled, Hct Cancelled, MCV Cancelled, MCH Cancelled, RDW Cancelled, Plt Count Cancelled, MPV Cancelled, Gran % Cancelled, Lymphocytes % Cancelled, Monocytes % Cancelled, Eosinophils % Cancelled, Basophils % Cancelled , Absolute Granulocytes Cancelled, Segmented Neutrophils Cancelled, Absolute Lymphocytes Cancelled, Absolute Monocytes Cancelled, Absolute Eosinophils Cancelled, Absolute Basophils Cancelled, PUBS MCHC Cancelled, Random Vancomycin 8.5 10/15/162199: Sodium Cancelled, Potassium Cancelled, Chloride Cancelled, Carbon Dioxide Cancelled, Anion Gap Cancelled, BUN Cancelled, Creatinine Cancelled, Glucose Cancelled, Calcium Cancelled, Phosphorus Cancelled, Magnesium Cancelled, Total Bilirubin Cancelled, AST Cancelled, ALT Cancelled, Albumin Cancelled, CBC w Diff Cancelled, WBC Cancelled, RBC Cancelled, Hgb Cancelled, Hct Cancelled, MCV Cancelled, MCH Cancelled, RDW Cancelled, Plt Count Cancelled, MPV Cancelled, PUBS MCHC Cancelled 10/15/16 2100: Troponin I Cancelled 10/15/162049: Anion Gap 19 H, Estimated GFR 24 L, Glucose 108 H, Lactic Acid 4.6 H, Calcium 7.8 L, Phosphorus 2.8, Magnesium 1.6, Total Bilirubin 1.3, AST 207 H, ALT 101 H, Troponin I 0.08, Albumin 2.8 L, CBC w Diff MAN DIFF ORDERED, RBC 4.30 L, MCV 95.5 H, MCH 31.3 H, RDW 15.7 H, MPV 9.1, Gran % 86.7 H, Lymphocytes % 8.7 L, Monocytes % 4.6, Eosinophils % 0, Basophils % 0 L, Absolute Granulocytes 7.5 H, Segmented Neutrophils 79 H, Band Neutrophils 11 H, Absolute Lymphocytes 0.8 L, Lymphocytes 6 L, Monocytes 4, Absolute Monocytes 0.4, Absolute Eosinophils 0, Absolute Basophils 0, Platelet Estimate DECREASED, Normochromic RBCs VERIFIED, Anisocytosis 1+, PUBS MCHC 32.8 L, Fld Total RBCs Counted 100 10/15/161951: Lactic Acid Cancelled 10/15/16 1900: Lactic Acid Cancelled 10/15/16 1520: Lactic Acid 5.5 H 10/15/16 1445: Urine Opiates Screen < 100.00, Methadone Screen 48, Barbiturate Screen < 60, Ur Phencyclidine Scrn 9.60, Amphetamines Screen < 100, U Benzodiazepines Scrn < 85, Urine Cocaine Screen < 50, Urine Cannabis Screen < 5.00, Urinalysis HEAVY H, Urine Color YEL, Urine Clarity HAZY H, Urine pH 5.5, Ur Specific [place] >= 1.030, Urine Protein 100 H, Urine Ketones TRACE H, Urine Nitrite POS H, Urine Bilirubin NEG@ICTO, Urine Urobilinogen 0.2, Ur Leukocyte Esterase NEG, Ur Microscopic SEDIMENT EXAMINED, Urine RBC 25-50 H, Urine WBC 3-5 H, Ur Epithelial Cells MOD H, Urine Bacteria MANY H, Granular Casts RARE H, Urine Hemoglobin MOD H, Urine Glucose NEG 10/15/16 1300: pH 7.26 *L, pCO2 21 L, pO2 91, HCO3 9 L, ABG O2 Sat (Measured) 94.0 L, Carboxyhemoglobin 1.3 L, O2 Concentration % 100, O2 Delivery Method NRB, Phlebotomy Draw Site RIGHT RADIAL 10/15/16 1245: Anion Gap 34 H, Estimated GFR 13 L, BUN/Creatinine Ratio 11.4, Glucose 200 H, Serum Osmolality 343 H, Lactic Acid 14.1 H, Calcium 9.7, Magnesium 2.1, Total Bilirubin 1.8 H, AST 198 H, ALT 103 H, Alkaline Phosphatase 107, Creatine Kinase 7783 H, Troponin I 0.18 *H, Tpl-D-Wcmpxczucdh Pept 86062 H, Total Protein 7.4, Albumin 4.2, Globulin 3.2, Albumin/Globulin Ratio 1.3, PT 13.1 H, INR 1.25 H, APTT 32, CBC w Diff MAN DIFF ORDERED, RBC 5.24, MCV 95.0 H, MCH 31.5 H, RDW 15.5 H, MPV 9.0, Gran % 86.4 H, Lymphocytes % 9.5 L, Monocytes % 4.0, Eosinophils % 0, Basophils % 0.1, Absolute Granulocytes 13.5 H, Segmented Neutrophils 80 H, Band Neutrophils 6 H, Absolute Lymphocytes 1.5, Lymphocytes 13 L, Monocytes 1 L, Absolute Monocytes 0.6, Absolute Eosinophils 0, Absolute Basophils 0, Platelet Estimate DECREASED, Normocytic RBCs VERIFIED, Normochromic RBCs VERIFIED, PUBS MCHC 33.2, Salicylates 2.7, Serum Alcohol < 10.0, Acetone Level NEGATIVE Microbiology 10/16 1751 URINE ROUT: Legionella Antigen - COMP 10/15 175 URINE ROUT: Streptococcus pneumoniae Antigen (M - COMP 10/15 1700 STOOL: Clostridium difficile Toxin A & B - COMP Recent Imaging Studies: Telemetry tracings were personally reviewed shows sinus rhythm Assessment/Plan Assessment/Plan 1. PNA 2. Recurrent alcohol abuse/EtOH withdrawal 3. Acute renal failure/dehydration 4. Reported history of paroxysmal atrial fibrillation/flutter deemed a poor candidate for anticoagulation to falls/continued alcohol abuse/medical noncomplaince 5. History of coronary artery disease with prior CABG 6. 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 Chronic systolic congestive heart failure, compensated 10. History of medication noncompliance 11. Minimally elevated troponin consistent with demand ischemia 12. Thrombocytopenia and transaminitis Patient remains lethargic today and minimally responsive to questions. Unclear if he was taking his outpatient medications but per report he has been drinking heavily again. I have had multiple conversations with him in the past about the significant dangers of his continued alcohol use including but not limited to the adverse cardiac effects. I would agree that the minimally elevated troponin is most likely due to demand ischemia but given his history of significant LV dysfunction in the past and history of coronary artery disease I would recommend obtaining a routine transthoracic echocardiogram for reassessment of the ejection fraction. His outpatient beta-luh should be resumed when blood pressure tolerates. Hold aspirin and statin in the setting of thrombocytopenia and transaminitis. Nathan Fermin MD [facility] Continue telemetry? Yes
[2016-10-16 15:50] LABS: ABSOLUTE BASOPHIL COUNT 0 /CUMM (0.0-0.2); ABSOLUTE EOSINOPHIL COUNT 0 /CUMM (0.0-0.7); ABSOLUTE GRANULOCYTE CT 5.8 /CUMM (1.4-6.5); ABSOLUTE LYMPH COUNT 0.4 /CUMM (1.2-3.4); ABSOLUTE MONOCYTE COUNT 0.3 /CUMM (0.10-0.60); BASOPHIL % 0 % (0.0-2.0); EOSINOPHIL % 0.1 % (0-5); HEMATOCRIT 33.9 % (42-52); MEAN CORPUSCULAR HGB 31.5 PG (27.0-31.0); MEAN CORPUSCULAR HGB CONC 33.4 G/DL (33.0-37.0); MEAN CORPUSCULAR VOLUME 94.4 FL (80.0-94.0); RBC DISTRIBUTION WIDTH 15.6 % (11.5-14.5); RED BLOOD CELL CT 3.59 /CUMM (4.70-6.10); WHITE BLOOD CELL COUNT 6.5 /CUMM (4.8-10.8)
[2016-10-16 16:03] LABS: GRANULOCYTE % 89.6 % (42.2-75.2); PLATELET COUNT 63 /CUMM (130-400)
[2016-10-16 20:00] VITALS: BP 110/56
[2016-10-16 22:50] LABS: ABSOLUTE BASOPHIL COUNT 0 /CUMM (0.0-0.2); ABSOLUTE EOSINOPHIL COUNT 0 /CUMM (0.0-0.7); ABSOLUTE GRANULOCYTE CT 6.2 /CUMM (1.4-6.5); ABSOLUTE LYMPH COUNT 0.5 /CUMM (1.2-3.4); ABSOLUTE MONOCYTE COUNT 0.3 /CUMM (0.10-0.60); BASOPHIL % 0.1 % (0.0-2.0); EOSINOPHIL % 0.2 % (0-5); HEMATOCRIT 32.1 % (42-52); MEAN CORPUSCULAR HGB 31.5 PG (27.0-31.0); MEAN CORPUSCULAR HGB CONC 33.3 G/DL (33.0-37.0); MEAN CORPUSCULAR VOLUME 94.5 FL (80.0-94.0); MEAN PLATELET VOLUME 8.8 FL (7.4-10.4); RBC DISTRIBUTION WIDTH 15.9 % (11.5-14.5); WHITE BLOOD CELL COUNT 7.1 /CUMM (4.8-10.8)
[2016-10-16 23:01] LABS: GRANULOCYTE % 88.4 % (42.2-75.2); PLATELET COUNT 57 /CUMM (130-400)
[2016-10-17] VITALS (11 sets, daily range): BP systolic 98–134; BP diastolic 52–70
--- NOTE | 2016-10-17 03:53 | NUR ---
pt continously pulling on lines. Bilat. soft wrist restraints ordered.
[2016-10-17 06:37] LABS: ABSOLUTE BASOPHIL COUNT 0 /CUMM (0.0-0.2); ABSOLUTE EOSINOPHIL COUNT 0 /CUMM (0.0-0.7); ABSOLUTE GRANULOCYTE CT 5.5 /CUMM (1.4-6.5); ABSOLUTE LYMPH COUNT 0.7 /CUMM (1.2-3.4); ABSOLUTE MONOCYTE COUNT 0.5 /CUMM (0.10-0.60); BASOPHIL % 0.2 % (0.0-2.0); EOSINOPHIL % 0.7 % (0-5); GRANULOCYTE % 81.1 % (42.2-75.2); HEMATOCRIT 30.4 % (42-52); MEAN CORPUSCULAR HGB 31.5 PG (27.0-31.0); MEAN CORPUSCULAR HGB CONC 33.5 G/DL (33.0-37.0); MEAN PLATELET VOLUME 8.4 FL (7.4-10.4); RBC DISTRIBUTION WIDTH 15.6 % (11.5-14.5); RED BLOOD CELL CT 3.23 /CUMM (4.70-6.10); WHITE BLOOD CELL COUNT 6.8 /CUMM (4.8-10.8)
[2016-10-17 06:38] LABS: PLATELET COUNT 57 /CUMM (130-400)
[2016-10-17 06:42] LABS: PT 13.7 SEC (9.4-12.5); PTT 33 SEC (25-37)
--- NOTE | 2016-10-17 07:25 | NUR ---
PT ALERT AND CONFUSED. 2LNC. GRIGGS. LOOSE STOOLS X 2. GAUIAC POSITIVE. IRREGULAR HEARTRATE ON THE MONITOR. FLUIDS AT 200ML/H. IV MAG 1 GRAM AND POTASSIUM PHOS IV ADMINISTERED ORDERED. PT BECAME AGIATED, PULLING ON LINES YELLING AND SWEARING. SOFT BILAT WRISTS RESTRAINTS ORDERED FOR SAFETY. MEDICATED PER CIWA SCALE. WILL CONTINUE TO MONITOR.
--- NOTE | 2016-10-17 07:28 | PN- Resident CRCU ---
Subjective HPI/CRCU Issues: CRCU issues: 1. alcohol withdrawal 2. somnolence since Ativan was given this am 3. electrolyte imbalance, hypomagnesemia, hypokalemia 4. poor oral intake, malnutrition 24 Hour Events: Mr. Courtney is very drowsy this morning, appears calm not in distress, according to the nursing staff he could not sleep well overnight, received a dose of Ativan 2 mg IV at 6 am with CIWA score of 16. Patient was also choking while eating last night therefore he was made NPO pending swallow eval, however pt has been very drowsy since this am and swallow eval could not be performed. Laboratory Tests 10/17/16 0610: Anion Gap 10, Estimated GFR > 60, Glucose 97, Calcium 7.0 L, Phosphorus 1.9 L, Magnesium 1.1 L, Total Bilirubin 1.6 H, AST 84 H, ALT 79 H, Albumin 2.4 L, PT 13.7 H, INR 1.31 H, APTT 33, CBC w Diff NO MAN DIFF REQ, RBC 3.23 L, MCV 94.0, MCH 31.5 H, RDW 15.6 H, MPV 8.4, Gran % 81.1 H, Lymphocytes % 10.8 L, Monocytes % 7.2, Eosinophils % 0.7, Basophils % 0.2, Absolute Granulocytes 5.5, Absolute Lymphocytes 0.7 L, Absolute Monocytes 0.5, Absolute Eosinophils 0, Absolute Basophils 0, PUBS MCHC 33.5 10/16/165: Anion Gap 12, Estimated GFR > 60, Glucose 112 H, Calcium 7.2 L, Phosphorus 0.7 *L, Magnesium 1.0 L, Total Bilirubin 1.0, AST 100 H, ALT 80 H, Troponin I 0.05, Albumin 2.4 L, CBC w Diff NO MAN DIFF REQ, RBC 3.40 L, MCV 94.5 H, MCH 31.5 H, RDW 15.9 H, MPV 8.8, Gran % 88.4 H, Lymphocytes % 6.4 L, Monocytes % 4.9, Eosinophils % 0.2, Basophils % 0.1, Absolute Granulocytes 6.2, Absolute Lymphocytes 0.5 L, Absolute Monocytes 0.3, Absolute Eosinophils 0, Absolute Basophils 0, PUBS MCHC 33.3 04/17/17 2131: Troponin I Cancelled 10/16/16 1650: pH 7.47 H, pCO2 24 L, pO2 74 L, HCO3 17 L, ABG O2 Sat (Measured) 94.0 L, P- 50 (Temp Corrected) N, Carboxyhemoglobin 0.7 L, O2 Concentration % 2L, Temperature 97.0, O2 Delivery Method NC, Phlebotomy Draw Site RIGHT RADIAL 10/16/16 1500: Potassium Cancelled 10/16/16 1500: Anion Gap 12, Estimated GFR > 60, Glucose 132 H, Calcium 7.3 L, Phosphorus 1.3 L, Magnesium 1.1 L, Total Bilirubin 1.1, AST 117 H, ALT 89 H, Albumin 2.5 L , CBC w Diff NO MAN DIFF REQ, RBC 3.59 L, MCV 94.4 H, MCH 31.5 H, RDW 15.6 H , MPV 9.0, Gran % 89.6 H, Lymphocytes % 6.4 L, Monocytes % 3.9, Eosinophils % 0.1, Basophils % 0 L, Absolute Granulocytes 5.8, Absolute Lymphocytes 0.4 L, Absolute Monocytes 0.3, Absolute Eosinophils 0, Absolute Basophils 0, PUBS MCHC 33.4 10/16/16 1007: Lactic Acid 2.9 H Vital Signs Date Time Temp Pulse Resp B/P Pulse O2 O2 Flow FiO2 Ox Delivery Rate 10/17 040 98.9 104 29 120/60 10/17 0400 97 Nasal 2.0L Cannula 10/17 0200 98.9 116 36 116/66 10/17 0000 99.0 116 28 110/70 10/17 0000 99.0 116 28 110/70 95 Nasal 2.0L Cannula 10/17 0000 95 Nasal 2.0L Cannula 10/16 2037 98 Nasal 2.0L Cannula 10/17 1999 Nasal 2.0L Cannula 10/17 1999 109 34 110/56 10/16 0940 100 Nasal 3.0L Cannula Intake & Output 10/17 1600 10/17 0800 10/17 0000 Intake Total 1954 2440 Output Total 1170 2845 Balance 785 -405 Intake, IV 1954 1600 Intake, Oral 840 Number 2 3 Bowel Movements Output, Urine 1170 2845 Objective Vital Signs & I&O Last 8 Hrs of Vitals and I&O: max T 99.0 WA 96-116 RR 27-38 BP 106/63 to 120/60 Intake 1110 cc Output 1170 cc Exam General Appearance: no apparent distress, thin, somnolent Head: atraumatic Ears, Nose, Throat: normal ENT inspection Neck: normal inspection, supple Respiratory: normal breath sounds, chest non-tender Cardiovascular: regular rate/rhythm Gastrointestinal: soft, non-tender Extremities: normal capillary refill Cranial Nerves: PERRL Skin: warm/dry Back: normal inspection, normal range of motion Current Medications: Current Medications Sig/Sae Start time Last Medication Dose Route Stop Time Status Admin Acetaminophen/ 1 TAB Q6P PRN 10/15 1445 AC Hydrocodone Bitart PO Albuterol Sulfate 3 ML BID 10/15 2200 AC 10/17 INH 0950 Ceftazidime 1,000 MG DAILY@1800 10/15 1800 AC 10/16 IV 1633 Cyanocobalamin/ 1 BAG ONCE ONE 10/17 1630 AC 10/17 Thiamine/Pyridoxine IV 10/18 0029 1712 Dextrose/Water 1,000 ML Dextrose/Sodium 1,000 ML Q8H 10/17 1500 AC Chloride IV Folic Acid 1 MG ONCE ONE 10/17 1630 CAN IV 10/17 1631 Folic Acid 1 MG DAILY 10/16 1000 AC 10/16 PO 1047 Ipratropium [place] 2.5 ML BID 10/15 2200 AC 10/17 INH 0950 Lorazepam 0 Q1P PRN 10/15 1915 AC 10/17 IV 0615 Magnesium Oxide 400 MG BID 10/15 2200 AC 10/16 PO 2211 Magnesium Sulfate 1 GM ONCE ONE 10/17 1430 AC 10/17 Dextrose/Water 100 ML IV 10/17 1829 1419 Magnesium Sulfate 1 GM ONCE ONE 10/17 0730 VT 10/17 Dextrose/Water 100 ML IV 10/17 1129 0820 Magnesium Sulfate 1 GM ONCE ONE 10/16 2330 DC 10/17 Dextrose/Water 100 ML IV 10/17 0329 0019 Morphine Sulfate 2 MG Q4P PRN 10/15 1445 AC IV Multivitamins 1 BOUCHRA ONCE ONE 10/17 1630 CAN IV 10/17 1631 Pantoprazole Sodium 40 MG DAILY 10/15 2000 AC 10/17 IV 0901 Phenol 2 SPRAY DAILY PRN 10/15 1845 AC EXT Potassium Chloride 10 MEQ ONCE ONE 10/17 1446 DC 10/17 IV 10/17 1447 1648 Potassium Chloride 10 MEQ ONCE ONE 10/17 1345 DC 10/17 IV 10/17 1346 1511 Potassium Chloride 10 MEQ ONCE ONE 10/17 0830 DC 10/17 IV 10/17 0831 0855 Potassium Phosphate 15 mMol ONE ONE 10/17 0730 DC 10/17 Dextrose/Water 250 ML IV 10/17 1133 1446 Potassium Phosphate 15 mMol ONE ONE 10/16 2330 DC 10/17 Dextrose/Water 250 ML IV 10/17 0333 0742 Potassium Phosphate 15 mMol ONE ONE 10/16 2315 DC 10/17 Dextrose/Water 250 ML IV 10/17 0318 0026 Sodium Chloride 1,000 ML Q6H 10/15 1700 DC 10/17 IV 1413 Thiamine HCl 100 MG ONCE ONE 10/17 1630 CAN Sodium Chloride 100 ML IV 10/17 1729 Thiamine HCl 100 MG DAILY 10/16 1000 AC 10/16 PO 1047 Vancomycin HCl 1,000 MG DAILY 10/16 1845 AC 10/17 Sodium Chloride 250 ML IV 1024 Impression/Plan Impression/Problem List Impression: Patient is a 76 year old male with PMH significant for ETOH abuse, HTN, CAD s/p CABG, AFIB (not on anticoagulation due to fall risk), COPD (emphysema), upper GI bleed in 2012, who was brought in to the ED by family members after several days of worsening coughing, vomiting, poor oral intake and weakness. On admission patient had borderline BP, elevated lactic acid of 14.1, AG 34, carbon dioxide 14, Hypernatremia of 152, Cr of 4.4, AST 198, ALT 103, troponin 0.18. He was admitted to the ICU for close cardiac monitoring due to severe high anion gap metabolic acidosis. Chou catheter placed in the ED, day 3 Problem list and plan: Alcohol intoxication and withdrawal History of alcohol abuse, recent increase in alcohol intake * Ativan per CIWA and PRN * continue Thiamine, folic acid and multivitamins Hypernatremia Sodium 152 on admission, possibly due to dehydration, receiving fluids. this am is down to 148 * continue IV fluids * recheck BEP this pm and in the morning * If Na increased change IV fluids to 1/2 NS Hypokalemia and Hypomagnesemia K 3.6 on admission, down to 2.7 again today, Mg hs also been 1.3 this am. patient has received total of 50 meq of KCl since yesterday evening, also 3 grams of Magnesium IV * repeat BEP at 6 pm today Sepsis - resolved meets criteria for severe sepsis - tachycardic, leukocytosis 15.6, ERIKA, elevated troponin, lactic acidosis. above findings could also be due to severe dehydration (vomiting, poor po intake , diarrhea) as well as alcoholism. possible infectius etiology: HCAP or aspiration PNA or UTI. legionella and strep Ag (-) Patient has stayed afebrile, WBC trending down, urine culture NG after 2 days, blood culture x2 NG after 1 day *lactic acid remains to be elevated, one explanation could be his chronic alcoholism causing decreased lactate utilization by the liver secondary to liver dysfunction. also fasting blood sugars have been normal/slightly elevated and he is non-diabetic. * maintained 2 large bore catheters * IV hydration, switched to D5w / as he is NPO, kept the rate at 200 cc/hour as the CPK levels still elevated to 1189 * continue IV vancomycin and ceftazidime Metabolic acidosis - resolved With elevated anion gap, likely secondary to alcohol. patient has had NL capillary refill since admission, alcoholism most likely is the major contributer to the current lactic acidosis. today lab AG is WNL, bicarbonate is up from 14 to 25 today Recent fall/trauma Patient reported he had an accident at home, and got stuck under a bed frame and injured his knee and back. CT chest shows New, minimally displaced fracture of the left L3 transverse process there is also Skin abrasion on the left lateral knee with xeroform and kerlix dressing. * pain management for mild, moderate and severe pain Transaminitis Most likely due to alcoholism, repeat LFTs shows improvement * continue monitor LFTs * avoid acetaminophen * couseling for abstinence from alcohol before discharge Vomiting and coffee ground emesis on admission - no further episode since In the setting of heavy alcohol use and history of upper GI bleed * IV protonix * IV fluids * avoid NSAIDs and aspirin * consider GI consult and possible endoscopy Diarrhea - improved patient has become incontinent for stool since admission, with loose stool, guaisc positive Stool culture has grown mixed sydni, negative for Cdiff toxin A and B mild protein calorie malnutrition - chronic reports poor oral intake History of mild protein calorie malnutrition in the previous admission * IV fluids * Continue multivitamin, folic acid, thiamine * Nutrition consult in am HTN currently borderline low BP, keep home medication on hold Pain * Tylenol for mild, Vicodin for moderate, and Percocet for severe pain Regular diet DVT prophylaxis with ALPS FULL code Problem List: 1. Weakness 2. Alcohol withdrawal 3. Alcohol abuse 4. Hypomagnesemia 5. Hypokalemia Pain Ratin Tomorrow's Labs & Rationales: CBC (anemia), ICU bundle (monitor electrolytes) Plan DVT/Prophylaxis: mechanical
--- NOTE | 2016-10-17 07:42 | ECHOCARDIOGRAM REPORT ---
[facility] Age: 76 : 1940 Gender: M Exam Date: 10/16/2016 19:55 Exam Location: [facility] Ht (in): 66 Wt (lb): 113 BSA: 1.54 BP: 112 / 64 Ordering Physician: BASILIA RODRIGUEZ MD Referring Physician: Judson Ferimn M.D. Technologist: Delaney Wise RDCS Room Number: 108 Indications: LV FUNCTION AFTER ACS Rhythm: Technical Quality: fair FINDINGS Left Ventricle Normal global left ventricular size, wall thickness, systolic function with no obvious regional wall motion abnormalities. Normal left ventricular ejection fraction estimated at 60-65%. Right Ventricle Normal right ventricular size and function. Right Atrium Normal right atrial size. Left Atrium Normal left atrial size. Mitral Valve Mild mitral annular calcification. Mild mitral regurgitation. Aortic Valve Diffuse thickening (sclerosis) of the aortic valve cusps without reduced excursion. Tricuspid Valve Tricuspid valve is normal in structure and function. Mild tricuspid regurgitation. Right ventricular systolic pressure estimated to be within the normal range at 15 mmHg. Pulmonic Valve Pulmonic valve not well visualized, grossly normal. Pericardium No pericardial effusion. Great Vessels Normal size aortic root. CONCLUSIONS Normal left ventricular systolic function. No significant valvular abnormalities noted. Johnny Gaines M.D. (Electronically Signed) Final Date: 17 October 2016 07:41 MEASUREMENTS (Male / Female) Normal Values 2D ECHO LV Diastolic Diameter PLAX 3.9 cm 4.2 - 5.9 / 3.9 - 5.3 cm LV Systolic Diameter PLAX 1.7 cm 2.1 - 4.0 cm LV Fractional Shortening PLAX 56.4 % 25 - 46 % LV Ejection Fraction 2D Teich 87.3 % IVS Diastolic Thickness 1.1 cm LVPW Diastolic Thickness 1.0 cm LV Relative Wall Thickness 0.5 RV Internal Dim ED PLAX 2.0 cm 1.9 - 3.8 cm LVOT Diameter 2.1 cm Aortic Root Diameter 3.3 cm LA Systolic Diameter LX 2.9 cm 3.0 - 4.0 / 2.7 - 3.8 cm LA Volume 21.0 cm 18 - 58 / 22 - 52 cm DOPPLER AV Peak Velocity 187.0 cm/s AV Peak Gradient 14.0 mmHg AV Mean Velocity 135.0 cm/s AV Mean Gradient 8.0 mmHg AV Velocity Time Integral 28.2 cm LVOT Peak Velocity 71.4 cm/s LVOT Peak Gradient 2.0 mmHg LVOT Mean Velocity 52.3 cm/s LVOT Mean Gradient 1.0 mmHg LVOT Velocity Time Integral 13.3 cm LVOT Stroke Volume 46.1 cm AV Area Cont Eq vti 1.6 cm AV Area Cont Eq pk 1.3 cm MV Peak Velocity 103.0 cm/s MV Peak Gradient 4.2 mmHg MV Mean Velocity 58.4 cm/s MV Mean Gradient 2.0 mmHg Mitral E Point Velocity 63.2 cm/s Mitral A Point Velocity 64.7 cm/s Mitral E to A Ratio 1.0 MV PHT Velocity 104.0 cm/s MV Deceleration [place] 431.0 cm/s MV Pressure Half Time 72.4 ms MV Area PHT 3.0 cm MV Deceleration Time 225.0 ms TR Peak Velocity 128.0 cm/s TR Peak Gradient 6.6 mmHg Right Atrial Pressure 5.0 mmHg Pulmonary Artery Systolic Pressu 11.6 mmHg Right Ventricular Systolic Press 11.6 mmHg PV Peak Velocity 142.0 cm/s PV Peak Gradient 8.1 mmHg PV Mean Velocity 104.0 cm/s PV Mean Gradient 5.0 mmHg PV Velocity Time Integral 18.5 cm LV E' Lateral Velocity 17.4 cm/s Mitral E to LV E' Lateral Ratio 3.6 LV E' Septal Velocity 7.4 cm/s Mitral E to LV E' Septal Ratio 8.5
--- NOTE | 2016-10-17 08:34 | PN- CRCU ---
Subjective HPI/Critical Care Issues: The patient was significantly agitated overnight. The patient's CIWA score was elevated at 16 and he required IV ativan. The patient is currently minimally responsive but arousable. He is in no distress. He is not able to offer complaints. His Tmax was 99.2. The patient has been in atrial fibrillation temporarily, with multifocal atrial tachycardia. He remains on normal saline at 200 ML per hour. He has excellent urine output. He has had decreased episodes of diarrhea. Objective Current Medications: Current Medications Sig/Sae Start time Last Medication Dose Route Stop Time Status Admin Acetaminophen/ 1 TAB Q6P PRN 10/15 1445 AC Hydrocodone Bitart PO Albuterol Sulfate 3 ML BID 10/15 2200 AC 10/16 INH 2035 Ceftazidime 1,000 MG DAILY@1800 10/15 1800 AC 10/16 IV 1633 Folic Acid 1 MG DAILY 10/16 1000 AC 10/16 PO 1047 Ipratropium [place] 2.5 ML BID 10/15 2200 AC 10/16 INH 2035 Lorazepam 0 Q1P PRN 10/15 1915 AC 10/17 IV 0615 Magnesium Oxide 400 MG BID 10/15 2200 AC 10/16 PO 2211 Magnesium Sulfate 1 GM ONCE ONE 10/17 0730 AC Dextrose/Water 100 ML IV 10/17 1129 Magnesium Sulfate 1 GM ONCE ONE 10/16 2330 DC 10/17 Dextrose/Water 100 ML IV 10/17 0329 0019 Morphine Sulfate 2 MG Q4P PRN 10/15 1445 AC IV Pantoprazole Sodium 40 MG DAILY 10/15 2000 AC 10/16 IV 1014 Phenol 2 SPRAY DAILY PRN 10/15 1845 AC EXT Potassium Chloride 10 MEQ Q1H 10/16 1630 DC 10/16 IV 10/16 1731 1840 Potassium Chloride 40 MEQ ONCE ONE 10/16 0945 DC 10/16 PO 10/16 0946 1047 Potassium Phosphate 15 mMol ONE ONE 10/17 0730 AC Dextrose/Water 250 ML IV 10/17 1133 Potassium Phosphate 15 mMol ONE ONE 10/16 2330 DC 10/17 Dextrose/Water 250 ML IV 10/17 0333 0742 Potassium Phosphate 15 mMol ONE ONE 10/16 2315 DC 10/17 Dextrose/Water 250 ML IV 10/17 0318 0026 Sodium Chloride 1,000 ML Q6H 10/15 1700 AC 10/17 IV 0448 Thiamine HCl 100 MG DAILY 10/16 1000 AC 10/16 PO 1047 Vancomycin HCl 1,000 MG DAILY 10/16 1845 AC 10/16 Sodium Chloride 250 ML IV 1944 Vital Signs & I&O Last 24 Hrs of Vitals and I&O: Vital Signs Date Time Temp Pulse Resp B/P Pulse O2 O2 Flow FiO2 Ox Delivery Rate 10/17 0400 98.9 104 29 120/60 10/17 0400 97 Nasal 2.0L Cannula 10/17 0200 98.9 116 36 116/66 10/17 0000 99.0 116 28 110/70 10/17 0000 99.0 116 28 110/70 95 Nasal 2.0L Cannula 10/17 0000 95 Nasal 2.0L Cannula 10/16 2037 98 Nasal 2.0L Cannula 10/17 1999 Nasal 2.0L Cannula 10/17 1999 109 34 110/56 10/16 0940 100 Nasal 3.0L Cannula Intake & Output 10/17 1600 10/17 0800 10/17 0000 Intake Total 1954 2440 Output Total 1170 2845 Balance 785 -405 Intake, IV 1954 1600 Intake, Oral 840 Number 2 3 Bowel Movements Output, Urine 1170 2845 Physical Exam General Appearance: no apparent distress, comfortable, cachetic Head: normal appearance Neck: normal inspection, supple Respiratory: faint scattered wheezes, decreased breath sounds bilaterally Cardiovascular: regular rate/rhythm Gastrointestinal: soft, non-tender Extremities: no edema Skin: normal color, warm/dry, abrasion on the left knee Results Last 24 Hrs of Lab Results: Laboratory Tests 10/17/16 0610: Anion Gap 10, Estimated GFR > 60, Glucose 97, Calcium 7.0 L, Phosphorus 1.9 L, Magnesium 1.1 L, Total Bilirubin 1.6 H, AST 84 H, ALT 79 H, Albumin 2.4 L, PT 13.7 H, INR 1.31 H, APTT 33, CBC w Diff NO MAN DIFF REQ, RBC 3.23 L, MCV 94.0, MCH 31.5 H, RDW 15.6 H, MPV 8.4, Gran % 81.1 H, Lymphocytes % 10.8 L, Monocytes % 7.2, Eosinophils % 0.7, Basophils % 0.2, Absolute Granulocytes 5.5, Absolute Lymphocytes 0.7 L, Absolute Monocytes 0.5, Absolute Eosinophils 0, Absolute Basophils 0, PUBS MCHC 33.5 10/16/16 2145: Anion Gap 12, Estimated GFR > 60, Glucose 112 H, Calcium 7.2 L, Phosphorus 0.7 *L, Magnesium 1.0 L, Total Bilirubin 1.0, AST 100 H, ALT 80 H, Troponin I 0.05, Albumin 2.4 L, CBC w Diff NO MAN DIFF REQ, RBC 3.40 L, MCV 94.5 H, MCH 31.5 H, RDW 15.9 H, MPV 8.8, Gran % 88.4 H, Lymphocytes % 6.4 L, Monocytes % 4.9, Eosinophils % 0.2, Basophils % 0.1, Absolute Granulocytes 6.2, Absolute Lymphocytes 0.5 L, Absolute Monocytes 0.3, Absolute Eosinophils 0, Absolute Basophils 0, PUBS MCHC 33.3 10/16/16 2131: Troponin I Cancelled 10/16/16 1650: pH 7.47 H, pCO2 24 L, pO2 74 L, HCO3 17 L, ABG O2 Sat (Measured) 94.0 L, P- 50 (Temp Corrected) N, Carboxyhemoglobin 0.7 L, O2 Concentration % 2L, Temperature 97.0, O2 Delivery Method NC, Phlebotomy Draw Site RIGHT RADIAL 10/16/16 1500: Potassium Cancelled 10/16/16 1500: Anion Gap 12, Estimated GFR > 60, Glucose 132 H, Calcium 7.3 L, Phosphorus 1.3 L, Magnesium 1.1 L, Total Bilirubin 1.1, AST 117 H, ALT 89 H, Albumin 2.5 L , CBC w Diff NO MAN DIFF REQ, RBC 3.59 L, MCV 94.4 H, MCH 31.5 H, RDW 15.6 H , MPV 9.0, Gran % 89.6 H, Lymphocytes % 6.4 L, Monocytes % 3.9, Eosinophils % 0.1, Basophils % 0 L, Absolute Granulocytes 5.8, Absolute Lymphocytes 0.4 L, Absolute Monocytes 0.3, Absolute Eosinophils 0, Absolute Basophils 0, PUBS MCHC 33.4 10/16/16 1007: Lactic Acid 2.9 H Last 24 Hrs of Micro Results: Cultures negative to date Impression/Plan Impression/Plan Impression/Plan: 1. Sepsis secondary to pneumonia with respiratory failure. 2. Hypokalemia - replacement underway. 3. Severe lactic acidosis, secondary to starvation and sepsis, improving. 4. Hematemesis - no current evidence of active bleeding. 5. Diarrhea - r/o c diff. 6. ERIKA - improving with fluid resuscitation, CPK elevated consistent with rhabdomyolysis. 7. Malnutrition and failure to thrive. 8. EtOH hepatitis. 9. Chronic ETOH abuse - with elevated CIWA score 10. PAF, MAT - cardiology following. 11. Thrombocytopenia - chronic, likely secondary to EtOH. 14. Skin wound. 15. COPD without evidence of bronchospasm. minimally displaced fracture of the left L3 transverse process. No additional acute fracture identified. Fragmentation and irregularity of the distal right clavicle, consistent with a remote fracture or traumatic injury. Recommendations: * Replete potassium, magnesium and phosphorus. * Recheck afternoon labs after repletion. * Recheck CPK, add on to a.m. labs. * Will need to adjust fluid resuscitation based upon CPK levels. * Continue to monitor CIWA scores, on EtOH withdrawal pathway. * Continue multivitamin, thiamine and folate. * Follow up culture results. * Continue empiric IV antibiotics. * Skin care protocol. * Monitor labs every 12 hours today. * Continue nebs/TRC. * DVT prophylaxis with Alps only, no subcutaneous heparin due to thrombocytopenia. * The patient remains critically ill and requires ongoing close follow-up. Will continue to follow and make further recommendations as necessary.
--- NOTE | 2016-10-17 09:11 | PN- Cardiology ---
Subjective Subjective: The patient was agitated overnight receiving Ativan. He is currently lethargic but arousable. Review of Systems: Unobtainable Objective Vital Signs and I&Os Vital Signs Date Time Temp Pulse Resp B/P Pulse O2 O2 Flow FiO2 Ox Delivery Rate 10/17 0400 98.9 104 29 120/60 10/17 0400 97 Nasal 2.0L Cannula 10/17 0200 98.9 116 36 116/66 10/17 0000 99.0 116 28 110/70 10/17 0000 99.0 116 28 110/70 95 Nasal 2.0L Cannula 10/17 0000 95 Nasal 2.0L Cannula 10/16 2037 98 Nasal 2.0L Cannula 10/17 1999 Nasal 2.0L Cannula 10/17 1999 109 34 110/56 10/16 0940 100 Nasal 3.0L Cannula Intake & Output 10/17 1600 10/17 0800 10/17 0000 10/16 1600 10/16 0800 10/16 0000 Intake Total 9265 698 9993 1850 3230 Output Total 2316 423 2000 400 280 Balance 785 -335 -70 1450 2950 Intake, IV 1955 1600 1850 2030 Intake, Oral 693 997 4988 Number 2 3 6 Bowel Movements Output, Urine 2657 807 9416 400 280 Patient 113 lb 113 lb 113 lb Weight Physical Exam: Patient is a well-developed well-nourished male appearing lethargic HEENT is unremarkable Neck is supple there is no JVD Lungs are clear Heart regular rhythm S1 and S2 are normal no murmurs gallops or rubs Abdomen bowel sounds positive Extremities without edema Current Medications: Current Medications Sig/Sae Start time Last Medication Dose Route Stop Time Status Admin Acetaminophen/ 1 TAB Q6P PRN 10/15 1445 AC Hydrocodone Bitart PO Albuterol Sulfate 3 ML BID 10/15 2200 AC 10/16 INH 2035 Ceftazidime 1,000 MG DAILY@1800 10/15 1800 AC 10/16 IV 1633 Folic Acid 1 MG DAILY 10/16 1000 AC 10/16 PO 1047 Ipratropium [place] 2.5 ML BID 10/15 2200 AC 10/16 INH 2035 Lorazepam 0 Q1P PRN 10/15 1915 AC 10/17 IV 0615 Magnesium Oxide 400 MG BID 10/15 2200 AC 10/16 PO 2211 Magnesium Sulfate 1 GM ONCE ONE 10/17 0730 AC 10/17 Dextrose/Water 100 ML IV 10/17 1129 0820 Magnesium Sulfate 1 GM ONCE ONE 10/16 2330 DC 10/17 Dextrose/Water 100 ML IV 10/17 0329 0019 Morphine Sulfate 2 MG Q4P PRN 10/15 1445 AC IV Pantoprazole Sodium 40 MG DAILY 10/15 2000 AC 10/17 IV 0901 Phenol 2 SPRAY DAILY PRN 10/15 1845 AC EXT Potassium Chloride 10 MEQ ONCE ONE 10/17 0830 DC 10/17 IV 10/17 0831 0855 Potassium Chloride 10 MEQ Q1H 10/16 1630 DC 10/16 IV 10/16 1731 1840 Potassium Chloride 40 MEQ ONCE ONE 10/16 0945 DC 10/16 PO 10/16 0946 1047 Potassium Phosphate 15 mMol ONE ONE 10/17 0730 AC Dextrose/Water 250 ML IV 10/17 1133 Potassium Phosphate 15 mMol ONE ONE 10/16 2330 DC 10/17 Dextrose/Water 250 ML IV 10/17 0333 0742 Potassium Phosphate 15 mMol ONE ONE 10/16 2315 DC 10/17 Dextrose/Water 250 ML IV 10/17 0318 0026 Sodium Chloride 1,000 ML Q6H 10/15 1700 AC 10/17 IV 0448 Thiamine HCl 100 MG DAILY 10/16 1000 AC 10/16 PO 1047 Vancomycin HCl 1,000 MG DAILY 10/16 1845 AC 10/16 Sodium Chloride 250 ML IV 1944 Results Last 48 Hrs of Labs/Mics: Laboratory Tests 10/17/16 0610: Anion Gap 10, Estimated GFR > 60, Glucose 97, Calcium 7.0 L, Phosphorus 1.9 L, Magnesium 1.1 L, Total Bilirubin 1.6 H, AST 84 H, ALT 79 H, Albumin 2.4 L, PT 13.7 H, INR 1.31 H, APTT 33, CBC w Diff NO MAN DIFF REQ, RBC 3.23 L, MCV 94.0, MCH 31.5 H, RDW 15.6 H, MPV 8.4, Gran % 81.1 H, Lymphocytes % 10.8 L, Monocytes % 7.2, Eosinophils % 0.7, Basophils % 0.2, Absolute Granulocytes 5.5, Absolute Lymphocytes 0.7 L, Absolute Monocytes 0.5, Absolute Eosinophils 0, Absolute Basophils 0, PUBS MCHC 33.5 10/16/16 2145: Anion Gap 12, Estimated GFR > 60, Glucose 112 H, Calcium 7.2 L, Phosphorus 0.7 *L, Magnesium 1.0 L, Total Bilirubin 1.0, AST 100 H, ALT 80 H, Troponin I 0.05, Albumin 2.4 L, CBC w Diff NO MAN DIFF REQ, RBC 3.40 L, MCV 94.5 H, MCH 31.5 H, RDW 15.9 H, MPV 8.8, Gran % 88.4 H, Lymphocytes % 6.4 L, Monocytes % 4.9, Eosinophils % 0.2, Basophils % 0.1, Absolute Granulocytes 6.2, Absolute Lymphocytes 0.5 L, Absolute Monocytes 0.3, Absolute Eosinophils 0, Absolute Basophils 0, PUBS MCHC 33.3 10/16/16 2131: Troponin I Cancelled 10/16/16 1650: pH 7.47 H, pCO2 24 L, pO2 74 L, HCO3 17 L, ABG O2 Sat (Measured) 94.0 L, P- 50 (Temp Corrected) N, Carboxyhemoglobin 0.7 L, O2 Concentration % 2L, Temperature 97.0, O2 Delivery Method NC, Phlebotomy Draw Site RIGHT RADIAL 10/16/16 1500: Potassium Cancelled 10/16/16 1500: Anion Gap 12, Estimated GFR > 60, Glucose 132 H, Calcium 7.3 L, Phosphorus 1.3 L, Magnesium 1.1 L, Total Bilirubin 1.1, AST 117 H, ALT 89 H, Albumin 2.5 L , CBC w Diff NO MAN DIFF REQ, RBC 3.59 L, MCV 94.4 H, MCH 31.5 H, RDW 15.6 H , MPV 9.0, Gran % 89.6 H, Lymphocytes % 6.4 L, Monocytes % 3.9, Eosinophils % 0.1, Basophils % 0 L, Absolute Granulocytes 5.8, Absolute Lymphocytes 0.4 L, Absolute Monocytes 0.3, Absolute Eosinophils 0, Absolute Basophils 0, PUBS MCHC 33.4 10/16/16 1007: Lactic Acid 2.9 H 10/16/16 0600: CBC w Diff MAN DIFF ORDERED, RBC 4.01 L, MCV 94.5 H, MCH 31.3 H, RDW 15.4 H, MPV 8.5, Gran % 86.6 H, Lymphocytes % 9.6 L, Monocytes % 3.5, Eosinophils % 0.1, Basophils % 0.2, Absolute Granulocytes 6.9 H, Segmented Neutrophils 85 H, Band Neutrophils 2, Absolute Lymphocytes 0.8 L, Lymphocytes 9 L, Monocytes 4, Absolute Monocytes 0.3, Absolute Eosinophils 0, Absolute Basophils 0, Nucleated RBCs 1 H, Platelet Estimate DECREASED, Polychromasia 1+, Poikilocytosis 1+, Ovalocytes 1+, PUBS MCHC 33.1, Fld Total RBCs Counted 100 10/16/16 0410: Lactic Acid 3.1 H 10/16/16 0410: Anion Gap 12, Estimated GFR 35 L, Glucose 91, Calcium 7.1 L, Phosphorus 2.8, Magnesium 1.4 L, Total Bilirubin 1.1, AST 144 H, ALT 84 H, Creatine Kinase 4466 H, Troponin I 0.07, Albumin 2.5 L, CBC w Diff Cancelled, WBC Cancelled, RBC Cancelled, Hgb Cancelled, Hct Cancelled, MCV Cancelled, MCH Cancelled, RDW Cancelled, Plt Count Cancelled, MPV Cancelled, Gran % Cancelled, Lymphocytes % Cancelled, Monocytes % Cancelled, Eosinophils % Cancelled, Basophils % Cancelled , Absolute Granulocytes Cancelled, Segmented Neutrophils Cancelled, Absolute Lymphocytes Cancelled, Absolute Monocytes Cancelled, Absolute Eosinophils Cancelled, Absolute Basophils Cancelled, PUBS MCHC Cancelled, Random Vancomycin 8.5 10/15/160: Sodium Cancelled, Potassium Cancelled, Chloride Cancelled, Carbon Dioxide Cancelled, Anion Gap Cancelled, BUN Cancelled, Creatinine Cancelled, Glucose Cancelled, Calcium Cancelled, Phosphorus Cancelled, Magnesium Cancelled, Total Bilirubin Cancelled, AST Cancelled, ALT Cancelled, Albumin Cancelled, CBC w Diff Cancelled, WBC Cancelled, RBC Cancelled, Hgb Cancelled, Hct Cancelled, MCV Cancelled, MCH Cancelled, RDW Cancelled, Plt Count Cancelled, MPV Cancelled, PUBS MCHC Cancelled 10/15/16 2100: Troponin I Cancelled 10/15/162049: Anion Gap 19 H, Estimated GFR 24 L, Glucose 108 H, Lactic Acid 4.6 H, Calcium 7.8 L, Phosphorus 2.8, Magnesium 1.6, Total Bilirubin 1.3, AST 207 H, ALT 101 H, Troponin I 0.08, Albumin 2.8 L, CBC w Diff MAN DIFF ORDERED, RBC 4.30 L, MCV 95.5 H, MCH 31.3 H, RDW 15.7 H, MPV 9.1, Gran % 86.7 H, Lymphocytes % 8.7 L, Monocytes % 4.6, Eosinophils % 0, Basophils % 0 L, Absolute Granulocytes 7.5 H, Segmented Neutrophils 79 H, Band Neutrophils 11 H, Absolute Lymphocytes 0.8 L, Lymphocytes 6 L, Monocytes 4, Absolute Monocytes 0.4, Absolute Eosinophils 0, Absolute Basophils 0, Platelet Estimate DECREASED, Normochromic RBCs VERIFIED, Anisocytosis 1+, PUBS MCHC 32.8 L, Fld Total RBCs Counted 100 10/15/161951: Lactic Acid Cancelled 10/15/16 1900: Lactic Acid Cancelled 10/15/16 1520: Lactic Acid 5.5 H 10/15/16 1445: Urine Opiates Screen < 100.00, Methadone Screen 48, Barbiturate Screen < 60, Ur Phencyclidine Scrn 9.60, Amphetamines Screen < 100, U Benzodiazepines Scrn < 85, Urine Cocaine Screen < 50, Urine Cannabis Screen < 5.00, Urinalysis HEAVY H, Urine Color YEL, Urine Clarity HAZY H, Urine pH 5.5, Ur Specific [place] [employer] >= 1.030, Urine Protein 100 H, Urine Ketones TRACE H, Urine Nitrite POS H, Urine Bilirubin NEG@ICTO, Urine Urobilinogen 0.2, Ur Leukocyte Esterase NEG, Ur Microscopic SEDIMENT EXAMINED, Urine RBC 25-50 H, Urine WBC 3-5 H, Ur Epithelial Cells MOD H, Urine Bacteria MANY H, Granular Casts RARE H, Urine Hemoglobin MOD H, Urine Glucose NEG 10/15/16 1300: pH 7.26 *L, pCO2 21 L, pO2 91, HCO3 9 L, ABG O2 Sat (Measured) 94.0 L, Carboxyhemoglobin 1.3 L, O2 Concentration % 100, O2 Delivery Method NRB, Phlebotomy Draw Site RIGHT RADIAL 10/15/16 1245: Anion Gap 34 H, Estimated GFR 13 L, BUN/Creatinine Ratio 11.4, Glucose 200 H, Serum Osmolality 343 H, Lactic Acid 14.1 H, Calcium 9.7, Magnesium 2.1, Total Bilirubin 1.8 H, AST 198 H, ALT 103 H, Alkaline Phosphatase 107, Creatine Kinase 7783 H, Troponin I 0.18 *H, [place] Pe[place] 12428 H, Total Protein 7.4, Albumin 4.2, Globulin 3.2, Albumin/Globulin Ratio 1.3, PT 13.1 H, INR 1.25 H, APTT 32, CBC w Diff MAN DIFF ORDERED, RBC 5.24, MCV 95.0 H, MCH 31.5 H, RDW 15.5 H, MPV 9.0, Gran % 86.4 H, Lymphocytes % 9.5 L, Monocytes % 4.0, Eosinophils % 0, Basophils % 0.1, Absolute Granulocytes 13.5 H, Segmented Neutrophils 80 H, Band Neutrophils 6 H, Absolute Lymphocytes 1.5, Lymphocytes 13 L, Monocytes 1 L, Absolute Monocytes 0.6, Absolute Eosinophils 0, Absolute Basophils 0, Platelet Estimate DECREASED, Normocytic RBCs VERIFIED, Normochromic RBCs VERIFIED, PUBS MCHC 33.2, Salicylates 2.7, Serum Alcohol < 10.0, Acetone Level NEGATIVE Microbiology 10/16 1751 URINE ROUT: Legionella Antigen - COMP 10/15 175 URINE ROUT: Streptococcus pneumoniae Antigen (M - COMP 10/15 1700 STOOL: Clostridium difficile Toxin A & B - COMP 10/15 1600 UPPER RESP: Surveillance Culture - COMP 10/15 1600 GI: Surveillance Culture - COMP Telemetry personally reviewed sinus rhythm with PACs and atrial tachycardia Recent Imaging Studies: Echocardiogram CONCLUSIONS Normal left ventricular systolic function. No significant valvular abnormalities noted. Johnny Gaines M.D. Assessment/Plan Assessment/Plan 1. PNA 2. Recurrent alcohol abuse/EtOH withdrawal 3. Acute renal failure/dehydration 4. Reported history of paroxysmal atrial fibrillation/flutter deemed a poor candidate for anticoagulation to falls/continued alcohol abuse/medical noncomplaince 5. History of coronary artery disease with prior CABG 6. 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 Chronic systolic congestive heart failure, compensated 10. History of medication noncompliance 11. Minimally elevated troponin consistent with demand ischemia 12. Thrombocytopenia and transaminitis Recommendations 1. Continue sedation as required 2. Continue to hold aspirin 3. Would resume beta luh when hemodynamically stable 4. Replete potassium and magnesium 5. Continue to hydrate 6. Continue antibiotics Continue telemetry? Yes
--- NOTE | 2016-10-17 12:05 | NUR ---
SPEECH THERAPY: ORDER FOR SWALLOW EVALUATION RECEIVED. PER RN, PT HAS BEEN LETHARGIC ALL DAY FOLLOWING ADMINISTRATION OF ATIVAN. ST SAW PT AT BEDSIDE, SLEEPING. PT'S SISTER, MYKEL, ALSO PRESENT AT BEDSIDE. DESPITE MAX. VERBAL, AND TACTILE CUES (INCLUDING STERNAL RUB), PT UNAROUSABLE. PT NOTED TO HAVE NONPRODUCTIVE COUGH AT BASELINE. ST ATTEMPTED TO SUCTION PT VIA [place], MINIMAL CLEAR SECRETIONS NOTED. REC PT REMAIN NPO AND ST TO CONTINUE TO FOLLOW PT'S LEVEL OF ALERTNESS IMPROVES. DISCUSSED W/ RN AND .
--- NOTE | 2016-10-17 12:14 | ULTRASOUND REPORT ---
EXAMINATION: US RETROPERITONEAL COMPLETE (RENAL) CLINICAL INFORMATION: Hydronephrosis. Elevated creatinine.. COMPARISON: CT abdomen and pelvis 09/08/2016 TECHNIQUE: Real-time imaging of the kidneys and bladder. FINDINGS: RIGHT KIDNEY: 12.0 x 4.7 x 5.8 cm (SAG x AP x TRV). The kidney is normal in size, contour, and echogenicity. Renal cortical thickness is normal. No calculi or focal parenchymal lesions. No hydronephrosis. LEFT KIDNEY: 11.4 x 5.2 x 5.1 cm (SAG x AP x TRV). The kidney is normal in size, contour, and echogenicity. Renal cortical thickness is normal. No calculi or focal parenchymal lesions. No hydronephrosis. BLADDER: Catheter is seen within the bladder. No ureteral jets were able to be identified. The bladder was underdistended which limits evaluation. IMPRESSION: Unremarkable renal ultrasound. Catheter within the bladder resulted in partial decompression with limits evaluation of the bladder.
--- NOTE | 2016-10-17 15:00 | NUR ---
[id number]: PT REMAINED DROWSY BUT AROUSABLE THROUGHOUT SHIFT. ST ON MONITOR. AFEBRILE, B/P WNL. 2L NC IN PLACE. LUNGS DIMINISHED. NON PRODUCTIVE COUGH, NPO FOR ? ASPIRATION. SPEECH UNABLE TO ASSESS DUE TO LETHARGY. NO BM THIS SHIFT. ABDOMEN SOFT, FLAT. GRIGGS IN PLACE DRIANING YELLOW URINE, ADEQUATE AMOUNTS. OPEN AREAS TO LEFT HIP AND LEFT KNEE. DRESSINGS IN PLACE. DTI TO BACK, TELFA AND TEGADERM. RIGHT INNER THIGH DTI WITH TELFA AND TEGADERM WELL. NS RUNNING AT 200ML/HR. ELECTROLYTES REPLETED, SEE EMAR. WRIST RESTRAINTS IN PLACE DUE TO PT PULLING AT LINES. BED ALARM IN PLACE. ALPS ON, SISTER AT BEDSIDE, SOLAR DEVELOPMENT ENGINEER GRAYSON MET WITH SISTER, PT HAS ADVANCED DIRECTIVES BUT NOTHING CHECK OFF ON PAPER IN COMPUTER. SO QUESTION TO WHAT HIS ADVANCE DIRECTIVES ARE. PER SISTER NO INFORMATION IS TO BE GIVEN TO PT'S GOOD FRIEND SRI FROM [place]. NOTE PLACED AT PHONE.
[2016-10-18] VITALS (10 sets, daily range): BP systolic 100–130; BP diastolic 50–70
[2016-10-18 03:10] LABS: MEAN CORPUSCULAR HGB 31.6 PG (27.0-31.0); MEAN CORPUSCULAR HGB CONC 33.7 G/DL (33.0-37.0); MEAN PLATELET VOLUME 8.4 FL (7.4-10.4); PLATELET COUNT 57 /CUMM (130-400); RBC DISTRIBUTION WIDTH 15.6 % (11.5-14.5); RED BLOOD CELL CT 2.98 /CUMM (4.70-6.10); WHITE BLOOD CELL COUNT 6.3 /CUMM (4.8-10.8)
--- NOTE | 2016-10-18 03:21 | NUR ---
PATIENT REMAIN ALERT BUT OCCASIONALLY CONFUSED AND DISORIENTED TO TIME PLACE AND SITUATION, PERRLA, OBEYS COMMAND, ON AND OFF AGITATED, CIWA MONITORING DONE Q 2, MOVING ALL THE LIMBS, ON BILATERAL SOFT RESTRAINTS. SINUS TACHYCARDIA, HR AT 110'S, BLOOD PRESSURE IS STABLE, AFEBRILE. BREATHING SPONTANEOUSLY ON NC AT 2 LITERS, WEANED DOWN BY RT TILL MANAGE TO PUT ON ROOM AIR, LUNGS IS CLEAR TO DIMINISH WITH GOOD OXYGEN SATURATION AT 95 TO 97% AND NOT IN DISTRESS. ABDOMEN IS SOFT, NOT DISTENDED, HAS GOOD BOWEL SOUNDS, PATIENT IS ON NPO, NO BM DURING THE SHIFT. GRIGGS CATHETER REMAIN IN PLACED WITH GOOD AMOUNT OF CLEAR YELLOW URINE OUTPUT. SKIN CONDITION REMAIN THE SAME, OPEN AREA TO THE LEFT LOWER LIMB AND KNEE AND DTI TO THE BACK AND RIGHT THIGH COVERED WITH XERO FORM.
--- NOTE | 2016-10-18 07:31 | PN- Resident CRCU ---
Subjective HPI/CRCU Issues: CRCU issues: 1. alcohol withdrawal 2. somnolence since Ativan was given this am 3. electrolyte imbalance, hypomagnesemia, hypokalemia 4. poor oral intake, malnutrition 24 Hour Events: Patient has become significantly more alert since yesterday evening. Still has hoarseness in his voice which has improved compared to yesterday. denies any pain, denies dizziness. Has not had any further loose bowel movement since 2 days prior, also no vomit after admission. Patient is still NPO pending swallow eval. His maximum CIWA score was 6 since yesterday. Objective Vital Signs & I&O Last 8 Hrs of Vitals and I&O: Max Temp 98.9 MO 98-108 RR 18-30, 2L NC, 95-100% BP 98/58 -130/70 Exam General Appearance: alert, awake, comfortable, thin Head: atraumatic, normal appearance Ears, Nose, Throat: normal ENT inspection, hearing grossly normal Neck: supple, full range of motion Respiratory: normal breath sounds, chest non-tender, no respiratory distress, scattered rhonchi b/l Cardiovascular: regular rate/rhythm, tachycardia Gastrointestinal: soft, non-tender Extremities: normal capillary refill, normal range of motion Cranial Nerves: PERRL Skin: normal color, warm/dry, there are multiple skin abrasions on the left side of the body: left lateral knee 5x5 , left medial calf 1x1, left lateral thigh 10x40 cm, left flank 1x1 cm, left shoulder 1x1 cm. right lateral thigh 10x1 deep tissue injury. Back: no vertebral tenderness and no CVA tenderness Chou Date In: 10/15/16 Current Medications: Current Medications Sig/Sae Start time Last Medication Dose Route Stop Time Status Admin Acetaminophen/ 1 TAB Q6P PRN 10/15 1445 AC Hydrocodone Bitart PO Albuterol Sulfate 3 ML Q4P PRN 10/18 1030 AC INH Albuterol Sulfate 3 ML BID 10/15 2200 DC 10/18 INH 0846 Azithromycin 500 MG DAILY 10/18 1000 AC 10/18 Sodium Chloride 250 ML IV 1034 Ceftazidime 1,000 MG DAILY@1800 10/15 1800 DC 10/17 IV 1826 Ceftriaxone Sodium 1,000 MG DAILY 10/18 1000 AC 10/18 IV 1111 Cyanocobalamin/ 1 BAG ONCE ONE 10/17 1630 DC 10/17 Thiamine/Pyridoxine IV 10/18 0029 1712 Dextrose/Water 1,000 ML Dextrose/Sodium 1,000 ML Q13H 10/18 0745 DC Chloride IV Dextrose/Sodium 1,000 ML Q8H 10/17 1500 DC 10/18 Chloride IV 0338 Folic Acid 1 MG ONCE ONE 10/17 1630 CAN IV 10/17 1631 Folic Acid 1 MG DAILY 10/16 1000 AC 10/18 PO 0931 Ipratropium Belden 2.5 ML Q4P PRN 10/18 1030 AC INH Ipratropium Belden 2.5 ML BID 10/15 2200 DC 10/18 INH 0846 Lorazepam 0 Q1P PRN 10/15 1915 AC 10/17 IV 0615 Magnesium Oxide 400 MG BID 10/15 2200 AC 10/18 PO 0932 Magnesium Sulfate 1 GM ONCE ONE 10/18 0800 DC 10/18 Dextrose/Water 100 ML IV 10/18 1159 0953 Magnesium Sulfate 1 GM ONCE ONE 10/18 0745 DC 10/18 Dextrose/Water 100 ML IV 10/18 1144 0847 Magnesium Sulfate 1 GM ONCE ONE 10/17 1930 DC 10/17 Dextrose/Water 100 ML IV 10/17 2329 2128 Magnesium Sulfate 1 GM ONCE ONE 10/17 1430 DC 10/17 Dextrose/Water 100 ML IV 10/17 1829 1419 Metoprolol Tartrate 25 MG BID 10/18 1122 AC PO Morphine Sulfate 2 MG Q4P PRN 10/15 1445 AC IV Multivitamins 1 TAB DAILY 10/18 1000 AC PO Multivitamins 1 BOUCHRA ONCE ONE 10/17 1630 CAN IV 10/17 1631 Pantoprazole Sodium 40 MG DAILY 10/15 2000 AC 10/18 IV 0908 Phenol 2 SPRAY DAILY PRN 10/15 1845 AC 10/18 EXT 0932 Potassium Chloride 40 MEQ Q8H 10/18 0745 AC 10/18 Dextrose/Sodium 1,000 ML IV 0847 Chloride Potassium Chloride 10 MEQ Q1H 10/17 1930 DC 10/17 IV 10/17 2031 2125 Potassium Chloride 10 MEQ ONCE ONE 10/17 1446 DC 10/17 IV 10/17 1447 1648 Potassium Chloride 10 MEQ ONCE ONE 10/17 1345 DC 10/17 IV 10/17 1346 1511 Potassium Phosphate 15 mMol ONE ONE 10/18 0800 DC 10/18 Sodium Chloride 250 ML IV 10/18 1203 0858 Sodium Chloride 1,000 ML Q6H 10/15 1700 DC 10/17 IV 1413 Thiamine HCl 100 MG ONCE ONE 10/17 1630 CAN Sodium Chloride 100 ML IV 10/17 1729 Thiamine HCl 100 MG DAILY 10/16 1000 AC 10/18 PO 0932 Vancomycin HCl 1,000 MG DAILY 10/16 1845 DC 10/18 Sodium Chloride 250 ML IV 0909 Impression/Plan Impression/Problem List Impression: Patient is a 76 year old male with PMH significant for ETOH abuse, HTN, CAD s/p CABG, AFIB (not on anticoagulation due to fall risk), COPD (emphysema), upper GI bleed in 2012, who was brought in to the ED by family members after several days of worsening coughing, vomiting, poor oral intake and weakness. On admission patient had borderline BP, elevated lactic acid of 14.1, AG 34, carbon dioxide 14, Hypernatremia of 152, Cr of 4.4, AST 198, ALT 103, troponin 0.18. He was admitted to the ICU for close cardiac monitoring due to severe high anion gap metabolic acidosis. Chou catheter placed in the ED, day 4 Problem list and plan: Alcohol intoxication and withdrawal History of alcohol abuse, recent increase in alcohol intake * Ativan per CIWA and PRN * continue Thiamine, folic acid and multivitamin tab Mild troponin elevation on admission - resolved Most likely due to demand ischemia He has a history of CAD s/p CABG, hx of chronic systolic HF with normal LV/RV systolic function history of paroxysmal atrial fibrillation/flutter not on anticoagulation due to falls, alcohol abuse and medical noncomplaince. Patient has tachycardia (HR in 100s this am, and had episodes of tachycardia during the night) * restarted metorpolol per cardiology but at a lower dose (he takes 50 mg BID at home), we started 25 mg BID and reassess, due to borderline low BP Hypernatremia on admission, persisting hypomagnesemia and hypokalemia Patient has very poor oral intake, had diarrhea and vomiting on admission which are resolved Na 136 this am, K 3.2, Mg 1.4 * continue IV fluids, switched to D5w1/2 with 40 meq KCl at 50 cc/hour * potassium phosphate IV * Magnesium sulfate IV * recheck BEP this pm Sepsis - resolved meets criteria for severe sepsis - tachycardic, leukocytosis 15.6, ERIKA, elevated troponin, lactic acidosis. above findings could also be due to severe dehydration (vomiting, poor po intake , diarrhea) as well as alcoholism. possible infectius etiology: HCAP or aspiration PNA or UTI. legionella and strep Ag (-) Patient has stayed afebrile, WBC trending down, urine culture NG after 2 days, blood culture x2 NG after 1 day *lactic acid remains to be elevated, one explanation could be his chronic alcoholism causing decreased lactate utilization by the liver secondary to liver dysfunction. also fasting blood sugars have been normal/slightly elevated and he is non-diabetic. * switched vancomycin and ceftazidime to ceftriaxone and azithromycin, will DC ABx tomorrow if patient remains afebrile Metabolic acidosis - resolved With elevated anion gap, likely secondary to alcohol. patient has had NL capillary refill since admission, alcoholism most likely is the major contributer to the current lactic acidosis. today lab AG is WNL, bicarbonate is up from 14 to 25 today Generalized weakness, recent fall and trauma In the setting of poor oral intake and pr calorie malnutrition. Patient reported he had an accident, almost a fall at home, and got stuck under a bed frame and injured his extremities and back. he has several skin abrsions as noted in the exam above. CT chest shows New, minimally displaced fracture of the left L3 transverse process there is also Skin abrasion on the left lateral knee with xeroform and kerlix dressing. * pain management for mild, moderate and severe pain * wound care consult placed and following the pt * PT consult was made but pt refused to work with PT Transaminitis - resolved Most likely due to alcoholism, repeat LFTs shows improvement * continue monitor LFTs * avoid acetaminophen * couseling for abstinence from alcohol before discharge Vomiting and coffee ground emesis on admission - no further episode since In the setting of heavy alcohol use and history of upper GI bleed * IV protonix * IV fluids * avoid NSAIDs and aspirin * will consider GI consult and possible endoscopy if any further evidence of bleeding noted Diarrhea - improved patient has become incontinent for stool since admission, with loose stool, guaisc positive Stool culture has grown mixed sydni, negative for Cdiff toxin A and B mild protein calorie malnutrition - chronic reports poor oral intake History of mild protein calorie malnutrition in the previous admission * continue IV fluids at 50 cc/hour * Continue multivitamin, folic acid, thiamine * Nutrition consult placed, pt choked on food on 10/16/16 night, refuses swallow eval HTN currently borderline low BP, keep home medication on hold Pain * Tylenol for mild, Vicodin for moderate, and Percocet for severe pain Regular diet DVT prophylaxis with ALPS FULL code Problem List: 1. Acute renal failure due to rhabdomyolysis 2. Elevated troponin 3. Metabolic acidosis 4. Multisystem organ failure 5. Weakness 6. Tachycardia 7. Lactic acidosis 8. ERIKA (acute kidney injury) 9. Hypokalemia Pain Ratin Tomorrow's Labs & Rationales: Icu bundle (monitor electrolytes) CBC (anemia) Plan DVT/Prophylaxis: mechanical
--- NOTE | 2016-10-18 07:39 | NUR ---
LEFT FOREARM PERIPHERAL LINE REMOVED AT 0730, SWOLLEN INTO THE IV SITE.
--- NOTE | 2016-10-18 08:52 | PN- CRCU ---
Subjective HPI/Critical Care Issues: The patient is much more awake this morning. He remains intermittently agitated. He is not able to offer complaints however he mumbles mostly incomprehensible sentences. His CIWA scores have ranged between 3 and 6, noting the patient has not required additional Ativan. His respiratory status remained stable on 2 L nasal cannula. He is NPO pending a swallowing evaluation. Objective Current Medications: Current Medications Sig/Sae Start time Last Medication Dose Route Stop Time Status Admin Acetaminophen/ 1 TAB Q6P PRN 10/15 1445 AC Hydrocodone Bitart PO Albuterol Sulfate 3 ML BID 10/15 2200 AC 10/17 INH 1929 Ceftazidime 1,000 MG DAILY@1800 10/15 1800 AC 10/17 IV 1826 Cyanocobalamin/ 1 BAG ONCE ONE 10/17 1630 DC 10/17 Thiamine/Pyridoxine IV 10/18 0029 1712 Dextrose/Water 1,000 ML Dextrose/Sodium 1,000 ML Q13H 10/18 0745 DC Chloride IV Dextrose/Sodium 1,000 ML Q8H 10/17 1500 DC 10/18 Chloride IV 0338 Folic Acid 1 MG ONCE ONE 10/17 1630 CAN IV 10/17 1631 Folic Acid 1 MG DAILY 10/16 1000 AC 10/16 PO 1047 Ipratropium Waterflow 2.5 ML BID 10/15 2200 AC 10/17 INH 1929 Lorazepam 0 Q1P PRN 10/15 1915 AC 10/17 IV 0615 Magnesium Oxide 400 MG BID 10/15 2200 AC 10/17 PO 2240 Magnesium Sulfate 1 GM ONCE ONE 10/18 0800 AC Dextrose/Water 100 ML IV 10/18 1159 Magnesium Sulfate 1 GM ONCE ONE 10/18 0745 AC Dextrose/Water 100 ML IV 10/18 1144 Magnesium Sulfate 1 GM ONCE ONE 10/17 1930 DC 10/17 Dextrose/Water 100 ML IV 10/17 2329 2128 Magnesium Sulfate 1 GM ONCE ONE 10/17 1430 DC 10/17 Dextrose/Water 100 ML IV 10/17 1829 1419 Magnesium Sulfate 1 GM ONCE ONE 10/17 0730 DC 10/17 Dextrose/Water 100 ML IV 10/17 1129 0820 Morphine Sulfate 2 MG Q4P PRN 10/15 1445 AC IV Multivitamins 1 BOUCHRA ONCE ONE 10/17 1630 CAN IV 10/17 1631 Pantoprazole Sodium 40 MG DAILY 10/16 1999 AC 10/17 IV 0901 Phenol 2 SPRAY DAILY PRN 10/15 1845 AC EXT Potassium Chloride 40 MEQ Q8H 10/18 0745 AC Dextrose/Sodium 1,000 ML IV Chloride Potassium Chloride 10 MEQ Q1H 10/17 1930 DC 10/17 IV 10/17 2031 2125 Potassium Chloride 10 MEQ ONCE ONE 10/17 1446 DC 10/17 IV 10/17 1447 1648 Potassium Chloride 10 MEQ ONCE ONE 10/17 1345 DC 10/17 IV 10/17 1346 1511 Potassium Phosphate 15 mMol ONE ONE 10/18 0800 AC Sodium Chloride 250 ML IV 10/18 1203 Potassium Phosphate 15 mMol ONE ONE 10/17 0730 DC 10/17 Dextrose/Water 250 ML IV 10/17 1133 1446 Sodium Chloride 1,000 ML Q6H 10/15 1700 DC 10/17 IV 1413 Thiamine HCl 100 MG ONCE ONE 10/17 1630 CAN Sodium Chloride 100 ML IV 10/17 1729 Thiamine HCl 100 MG DAILY 10/16 1000 AC 10/16 PO 1047 Vancomycin HCl 1,000 MG DAILY 10/16 1845 AC 10/17 Sodium Chloride 250 ML IV 1024 Vital Signs & I&O Last 24 Hrs of Vitals and I&O: Vital Signs Date Time Temp Pulse Resp B/P B/P Pulse O2 O2 Flow FiO2 Mean Ox Delivery Rate 10/18 0400 98.7 102 22 110/70 10/18 0400 95 Room Air 10/18 0000 98.4 108 30 109/62 10/18 0000 95 Room Air 10/17 2359 98.4 108 30 98/58 95 Nasal 2.0L Cannula 10/170 98.2 106 20 109/70 10/18 1999 98.7 112 28 110/70 10/18 1999 98.7 112 28 110/70 10/18 1999 96 Nasal 2.0L Cannula 10/17 1932 98 Nasal 1.0L Cannula 10/17 1600 Nasal 2.0L Cannula 10/17 1600 98.5 96 18 98/60 10/17 1600 98.5 96 18 98/60 99 Nasal 2.0L Cannula 10/17 1400 107 18 108/52 10/17 1200 Nasal 2.0L Cannula 10/17 1200 97.8 102 18 122/62 10/17 1200 97.8 102 18 122/62 98 Nasal 2.0L Cannula 10/17 1000 98.2 100 16 134/67 10/17 0953 99 Nasal 2.0L Cannula Intake & Output 10/18 1600 10/18 0800 10/18 0000 Intake Total 795 2025 Output Total 815 800 Balance -20 1225 Intake, IV 795 2025 Intake, Oral 0 Output, Urine 815 800 Physical Exam General Appearance: no apparent distress, comfortable, cachetic Head: normal appearance Neck: normal inspection, supple Respiratory: faint scattered wheezes, decreased breath sounds bilaterally Cardiovascular: regular rate/rhythm Gastrointestinal: soft, non-tender Extremities: no edema Skin: normal color, warm/dry, multiple wounds on skin as documented by nursing, no evidence of cellulitis Results Last 24 Hrs of Lab Results: Laboratory Tests 10/18/16 0200: Anion Gap 10, Estimated GFR > 60, Glucose 118 H, Calcium 6.3 L, Phosphorus 2.2 L, Magnesium 1.4 L, Total Bilirubin 1.4 H, AST 57, ALT 62, Albumin 2.3 L, CBC w Diff MAN DIFF ORDERED, RBC 2.98 L, MCV 94.0, MCH 31.6 H, RDW 15.6 H, MPV 8.4, Segmented Neutrophils 75, Band Neutrophils 1, Lymphocytes 18 L, Monocytes 5, Eosinophils 1, Platelet Estimate DECREASED, Polychromasia 1+, Poikilocytosis 1+, Ovalocytes 1+, PUBS MCHC 33.7, Fld Total RBCs Counted 100 10/17/16 1820: Anion Gap 11, Estimated GFR > 60, Glucose 117 H, Lactic Acid 1.3, Calcium 6.3 L, Phosphorus 3.4, Magnesium 1.4 L, Total Bilirubin 1.3, AST 62 H, ALT 68, Albumin 2.2 L 10/17/16 1150: Anion Gap 9, Estimated GFR > 60, Glucose 108 H, Calcium 6.7 L, Phosphorus 2.7, Magnesium 1.3 L, Total Bilirubin 1.2, AST 66 H, ALT 66, Creatine Kinase 1189 H, Albumin 2.1 L Diagnostic Data US Findings: Unremarkable renal ultrasound. Catheter within the bladder resulted in partial decompression with limits evaluation of the bladder. Impression/Plan Impression/Plan Impression/Plan: 1. Sepsis secondary to pneumonia with respiratory failure. 2. Electrolyte abnormalities - replacement underway. 3. Severe lactic acidosis, secondary to starvation and sepsis, improved. 4. Hematemesis - no current evidence of active bleeding. 5. Diarrhea - improved, c. diff negative. 6. ERIKA secondary to volume depletion and rhabdomyolysis, improving. 7. Malnutrition and failure to thrive. 8. EtOH hepatitis. 9. Chronic ETOH abuse - CIWA scores are low over the past 24 hours. 10. PAF, MAT - cardiology following. 11. Thrombocytopenia - chronic, likely secondary to EtOH. 14. Multiple skin wounds. 15. COPD without evidence of bronchospasm. minimally displaced fracture of the left L3 transverse process. No additional acute fracture identified. Fragmentation and irregularity of the distal right clavicle, consistent with a remote fracture or traumatic injury. Recommendations: * Check a portable chest x-ray this morning. * Continue to replete potassium, magnesium and phosphorus - serum levels still low. * Recheck afternoon labs after repletion. * Change IV fluids to D51/2 NS with KCL 40 meq/L at 50 ML per hour. * Continue to monitor CIWA scores, on EtOH withdrawal pathway. * Continue multivitamin, thiamine and folate. * Follow up culture results. * Stop vancomycin and ceftazidime. Start ceftriaxone and azithromycin. Will consider discontinuation of antibiotics over the next 24 hours if the patient's chest x-ray improves and cultures remain negative. * Skin care protocol. * Continue nebs/TRC. * DVT prophylaxis with Alps only, no subcutaneous heparin due to thrombocytopenia. * Try to avoid sedating medications. * Wound care nurse to evaluate patient, and change management administrator to [employer] bed. * Need to have a goals of care discussion with patient when he is more alert and family.
--- NOTE | 2016-10-18 09:45 | Cons- Wound Care ---
General Information and HPI Consulting Request Date of Consult: 10/18/16 Requested By: THI IZAGUIRRE MD Reason for Consult: Multiple pressure injury ulcers present on admission History of Present Illness: Patient is 76-year-old with multiple medical problems admitted with sepsis secondary to pneumonia acute kidney injury and malnutrition. His found to have multiple pressure ulcers as a result of a fall been found on the floor. Allergies/Medications Allergies: Coded Allergies: NO KNOWN ALLERGIES (06/18/16) Home Med List: Folic Acid 0.8 MG TABLET 1 TAB PO DAILY SUPPLEMENT (Reported) Losartan Potassium (Cozaar) 25 MG TABLET 1 TAB PO DAILY heart failure Reason to Stop at ADM: sepsis, hypotension Magnesium Oxide 400 MG TABLET 400 MG PO BID supplement Meloxicam 7.5 MG TABLET 1 TAB PO DAILY PAIN (Reported) Reason to Stop at ADM:ERIKA Metoprolol Tartrate (Lopressor) 50 MG TABLET 1 TAB PO BID TACHYCARDIA Reason to Stop at ADM:hypotension, sepsis Phenol (Chloraseptic) 1.4 % SPRAY SORE THROAT (Reported) Thiamine HCl (Vitamin B-1) 100 MG TABLET 100 MG PO DAILY SUPPLEMENT Past History Travel History Traveled to [place] past 21 day No Medical History Neurological: NONE EENT: NONE Cardiovascular: CAD, hypertension, myocardial infarction, CAD status post CABG SVT ablation Respiratory: COPD, emphysema Gastrointestinal: NONE Hepatic: PANCREATITIS Renal: NONE Musculoskeletal: R/L HIP FX Psychiatric: ETOH WITHDRAWAL Endocrine: NONE Blood Disorders: NONE Cancer(s): NONE 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 Family History Relations & Conditions If Any: MOTHER (Breast Cancer). . FATHER (Stroke, OR). . Psychosocial History Where Do You Live? Home Who Do You Live With? self Services at Home: None Primary Language: Afghan Smoking Status: Current Everyday Smoker (pack/day since 16 years old) ETOH Use: alcoholic Functional Ability Ambulation: cane Exam & Diagnostic Data Vital Signs and I&O Vital Signs Result Date Time Pulse Ox 94 10/18 0907 O2 Delivery Room Air 10/18 0907 B/P 110/70 10/18 0400 Temp 98.7 10/18 0400 Pulse 102 10/18 0400 Resp 22 10/18 0400 O2 Flow Rate 2.0L 10/17 2359 Intake & Output 10/18 0000 10/17 1600 10/17 0800 Intake Total 2024 2164 1954 Output Total 713 073 1009 Balance 1225 1315 785 Intake, IV 2024 2164 1954 Intake, Oral 0 0 Number 0 2 Bowel Movements Output, Urine 216 451 6096 Patient 116 lb Weight There are multiple areas of full-thickness partial thickness and deep tissue injury present. There are 2 areas of pressure injury over the left knee. There is a area of pressure injury over the right and left lateral hips. The right hip is an area of deep tissue injury measuring approximately 10 x 1 cm. The left is an area of deep tissue injury and stage II and 3 pressure injury measuring approximately 10 x 4 cm. There are multiple areas of pressure injury along the left lung flank and back as well as left shoulder. There is a small 1 x 1 cm area of pressure injury over the medial calf. Assessment/Plan Impression/Plan: 76-year-old gentleman with multiple medical problems admitted with sepsis has been at home after a fall with multiple areas of pressure injury all present on admission. Evidence of significant malnutrition. He should be on a low air loss mattress and frequently turned. Wounds can be cleansed and treated with Xeroform daily. The plan reviewed with housestaff and nurse Consult Acknowledgment - Thank you for your consult request.
--- NOTE | 2016-10-18 10:46 | PN- Cardiology ---
Subjective Subjective: Still with some confusion. Intermittently belligerent. No obvious respiratory distress. Objective Vital Signs and I&Os Vital Signs Date Time Temp Pulse Resp B/P B/P Pulse O2 O2 Flow FiO2 Mean Ox Delivery Rate 10/18 0907 94 Room Air 10/18 0400 98.7 102 22 110/70 10/18 0400 95 Room Air 10/18 0000 98.4 108 30 109/62 10/18 0000 95 Room Air 10/17 2359 98.4 108 30 98/58 95 Nasal 2.0L Cannula 10/170 98.2 106 20 109/70 10/18 1999 98.7 112 28 110/70 10/18 1999 98.7 112 28 110/70 10/18 1999 96 Nasal 2.0L Cannula 10/17 1932 98 Nasal 1.0L Cannula 10/17 1600 Nasal 2.0L Cannula 10/17 1600 98.5 96 18 98/60 10/17 1600 98.5 96 18 98/60 99 Nasal 2.0L Cannula 10/17 1400 107 18 108/52 10/17 1200 Nasal 2.0L Cannula 10/17 1200 97.8 102 18 122/62 10/17 1200 97.8 102 18 122/62 98 Nasal 2.0L Cannula Intake & Output 10/18 1600 10/18 0800 10/18 0000 10/17 1600 10/17 0800 10/17 0000 Intake Total 795 2025 2165 1955 2440 Output Total 815 470 351 7946 2845 Balance -20 1225 1315 785 -405 Intake, IV 795 2025 2165 1955 1600 Intake, Oral 0 0 840 Number 0 2 3 Bowel Movements Output, Urine 815 820 363 2790 2845 Patient 116 lb Weight Physical Exam: General: Confused, cachectic, in soft restraints HEENT: No jugular venous distention or abnormal jugular venous pulsations. Cardiovascular: Normal intensity S1/S2. Regular Respiratory: no rales or rhonchi Abdomen: no guarding or rebound tenderness. Musculoskeletal: No clubbing or cyanosis noted, no edema Skin: warm Current Medications: Current Medications Sig/Sae Start time Last Medication Dose Route Stop Time Status Admin Acetaminophen/ 1 TAB Q6P PRN 10/15 1445 AC Hydrocodone Bitart PO Albuterol Sulfate 3 ML Q4P PRN 10/18 1030 AC INH Albuterol Sulfate 3 ML BID 10/15 2200 DC 10/18 INH 0846 Azithromycin 500 MG DAILY 10/18 1000 AC 10/18 Sodium Chloride 250 ML IV 1034 Ceftazidime 1,000 MG DAILY@1800 10/15 1800 DC 10/17 IV 1826 Ceftriaxone Sodium 1,000 MG DAILY 10/18 1000 AC IV Cyanocobalamin/ 1 BAG ONCE ONE 10/17 1630 DC 10/17 Thiamine/Pyridoxine IV 10/18 0029 1712 Dextrose/Water 1,000 ML Dextrose/Sodium 1,000 ML Q13H 10/18 0745 DC Chloride IV Dextrose/Sodium 1,000 ML Q8H 10/17 1500 DC 10/18 Chloride IV 0338 Folic Acid 1 MG ONCE ONE 10/17 1630 CAN IV 10/17 1631 Folic Acid 1 MG DAILY 10/16 1000 AC 10/18 PO 0931 Ipratropium [place] 2.5 ML Q4P PRN 10/18 1030 AC INH Ipratropium [place] 2.5 ML BID 10/15 2200 DC 10/18 INH 0846 Lorazepam 0 Q1P PRN 10/15 1915 AC 10/17 IV 0615 Magnesium Oxide 400 MG BID 10/15 2200 AC 10/18 PO 0932 Magnesium Sulfate 1 GM ONCE ONE 10/18 0800 AC 10/18 Dextrose/Water 100 ML IV 10/18 1159 0953 Magnesium Sulfate 1 GM ONCE ONE 10/18 0745 AC 10/18 Dextrose/Water 100 ML IV 10/18 1144 0847 Magnesium Sulfate 1 GM ONCE ONE 10/17 1930 DC 10/17 Dextrose/Water 100 ML IV 10/17 2329 2128 Magnesium Sulfate 1 GM ONCE ONE 10/17 1430 DC 10/17 Dextrose/Water 100 ML IV 10/17 1829 1419 Magnesium Sulfate 1 GM ONCE ONE 10/17 0730 DC 10/17 Dextrose/Water 100 ML IV 10/17 1129 0820 Morphine Sulfate 2 MG Q4P PRN 10/15 1445 AC IV Multivitamins 1 TAB DAILY 10/18 1000 AC PO Multivitamins 1 BOUCHRA ONCE ONE 10/17 1630 CAN IV 10/17 1631 Pantoprazole Sodium 40 MG DAILY 10/15 2000 AC 10/18 IV 0908 Phenol 2 SPRAY DAILY PRN 10/15 1845 AC 10/18 EXT 0932 Potassium Chloride 40 MEQ Q8H 10/18 0745 AC 10/18 Dextrose/Sodium 1,000 ML IV 0847 Chloride Potassium Chloride 10 MEQ Q1H 10/17 1930 DC 10/17 IV 10/17 2031 2125 Potassium Chloride 10 MEQ ONCE ONE 10/17 1446 DC 10/17 IV 10/17 1447 1648 Potassium Chloride 10 MEQ ONCE ONE 10/17 1345 DC 10/17 IV 10/17 1346 1511 Potassium Phosphate 15 mMol ONE ONE 10/18 0800 AC 10/18 Sodium Chloride 250 ML IV 10/18 1203 0858 Potassium Phosphate 15 mMol ONE ONE 10/17 0730 DC 10/17 Dextrose/Water 250 ML IV 10/17 1133 1446 Sodium Chloride 1,000 ML Q6H 10/15 1700 DC 10/17 IV 1413 Thiamine HCl 100 MG ONCE ONE 10/17 1630 CAN Sodium Chloride 100 ML IV 10/17 1729 Thiamine HCl 100 MG DAILY 10/16 1000 AC 10/18 PO 0932 Vancomycin HCl 1,000 MG DAILY 10/16 1845 DC 10/18 Sodium Chloride 250 ML IV 0909 Results Last 48 Hrs of Labs/Mics: Laboratory Tests 10/18/16 0200: Anion Gap 10, Estimated GFR > 60, Glucose 118 H, Calcium 6.3 L, Phosphorus 2.2 L, Magnesium 1.4 L, Total Bilirubin 1.4 H, AST 57, ALT 62, Albumin 2.3 L, CBC w Diff MAN DIFF ORDERED, RBC 2.98 L, MCV 94.0, MCH 31.6 H, RDW 15.6 H, MPV 8.4, Segmented Neutrophils 75, Band Neutrophils 1, Lymphocytes 18 L, Monocytes 5, Eosinophils 1, Platelet Estimate DECREASED, Polychromasia 1+, Poikilocytosis 1+, Ovalocytes 1+, PUBS MCHC 33.7, Fld Total RBCs Counted 100 10/17/16 1820: Anion Gap 11, Estimated GFR > 60, Glucose 117 H, Lactic Acid 1.3, Calcium 6.3 L, Phosphorus 3.4, Magnesium 1.4 L, Total Bilirubin 1.3, AST 62 H, ALT 68, Albumin 2.2 L 10/17/16 1150: Anion Gap 9, Estimated GFR > 60, Glucose 108 H, Calcium 6.7 L, Phosphorus 2.7, Magnesium 1.3 L, Total Bilirubin 1.2, AST 66 H, ALT 66, Creatine Kinase 1189 H, Albumin 2.1 L 10/17/16 0610: Anion Gap 10, Estimated GFR > 60, Glucose 97, Calcium 7.0 L, Phosphorus 1.9 L, Magnesium 1.1 L, Total Bilirubin 1.6 H, AST 84 H, ALT 79 H, Albumin 2.4 L, PT 13.7 H, INR 1.31 H, APTT 33, CBC w Diff NO MAN DIFF REQ, RBC 3.23 L, MCV 94.0, MCH 31.5 H, RDW 15.6 H, MPV 8.4, Gran % 81.1 H, Lymphocytes % 10.8 L, Monocytes % 7.2, Eosinophils % 0.7, Basophils % 0.2, Absolute Granulocytes 5.5, Absolute Lymphocytes 0.7 L, Absolute Monocytes 0.5, Absolute Eosinophils 0, Absolute Basophils 0, PUBS MCHC 33.5 10/16/16 2145: Anion Gap 12, Estimated GFR > 60, Glucose 112 H, Calcium 7.2 L, Phosphorus 0.7 *L, Magnesium 1.0 L, Total Bilirubin 1.0, AST 100 H, ALT 80 H, Troponin I 0.05, Albumin 2.4 L, CBC w Diff NO MAN DIFF REQ, RBC 3.40 L, MCV 94.5 H, MCH 31.5 H, RDW 15.9 H, MPV 8.8, Gran % 88.4 H, Lymphocytes % 6.4 L, Monocytes % 4.9, Eosinophils % 0.2, Basophils % 0.1, Absolute Granulocytes 6.2, Absolute Lymphocytes 0.5 L, Absolute Monocytes 0.3, Absolute Eosinophils 0, Absolute Basophils 0, PUBS MCHC 33.3 10/16/16 2131: Troponin I Cancelled 10/16/16 1650: pH 7.47 H, pCO2 24 L, pO2 74 L, HCO3 17 L, ABG O2 Sat (Measured) 94.0 L, P- 50 (Temp Corrected) N, Carboxyhemoglobin 0.7 L, O2 Concentration % 2L, Temperature 97.0, O2 Delivery Method NC, Phlebotomy Draw Site RIGHT RADIAL 10/16/16 1500: Potassium Cancelled 10/16/16 1500: Anion Gap 12, Estimated GFR > 60, Glucose 132 H, Calcium 7.3 L, Phosphorus 1.3 L, Magnesium 1.1 L, Total Bilirubin 1.1, AST 117 H, ALT 89 H, Albumin 2.5 L , CBC w Diff NO MAN DIFF REQ, RBC 3.59 L, MCV 94.4 H, MCH 31.5 H, RDW 15.6 H , MPV 9.0, Gran % 89.6 H, Lymphocytes % 6.4 L, Monocytes % 3.9, Eosinophils % 0.1, Basophils % 0 L, Absolute Granulocytes 5.8, Absolute Lymphocytes 0.4 L, Absolute Monocytes 0.3, Absolute Eosinophils 0, Absolute Basophils 0, PUBS MCHC 33.4 Recent Imaging Studies: Telemetry tracings were personally reviewed and shows sinus rhythm/sinus tachycardia with short atrial runs Echo: CONCLUSIONS Normal left ventricular systolic function. No significant valvular abnormalities noted. Renal ultrasound IMPRESSION: Unremarkable renal ultrasound. Catheter within the bladder resulted in partial decompression with limits evaluation of the bladder. Assessment/Plan Assessment/Plan 1. PNA 2. Recurrent alcohol abuse/EtOH withdrawal 3. Acute renal failure/dehydration/rhabdomyolysis 4. Reported history of paroxysmal atrial fibrillation/flutter deemed a poor candidate for anticoagulation to falls/continued alcohol abuse/medical noncomplaince 5. History of coronary artery disease with prior CABG 6. 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 Chronic systolic congestive heart failure, compensated 10. History of medication noncompliance 11. Minimally elevated troponin consistent with demand ischemia 12. Thrombocytopenia and transaminitis Still confused and intermittently agitated. Has had fluctuating ejection fraction in the past but the recent echocardiogram shows a currently normal LV/ RV systolic function. Telemetry tracings show sinus tachycardia with some short atrial runs. When able to tolerate by mouth would resume his metoprolol as blood pressure tolerates. Aspirin and statin therapy remain on hold in the setting of thrombocytopenia with elevated CPK. Nathan Fermin MD [facility] Continue telemetry? Yes
--- NOTE | 2016-10-18 13:24 | RADIOLOGY REPORT ---
EXAMINATION: XR PORTABLE CHEST CLINICAL INFORMATION: Cough. Presumptive diagnosis of pneumonia. COMPARISON: Several prior chest x-rays, most recent of which is dated 10/15/2016. TECHNIQUE: Portable AP erect view of the chest was obtained. FINDINGS: The patient is status post median sternotomy and CABG surgery. The cardiomediastinal silhouette is within normal limits in size. Ectasia and tortuosity of the aorta is seen with mild calcifications of the aortic arch. Lungs bilaterally show diffusely increased reticular opacities with slight vascular indistinctness centrally. There is indistinctness of the right CP angle, suggestive of a small pleural effusion. Compared to the prior exam, findings are new and are suspicious for interval development of pulmonary edema superimposed upon chronic obstructive lung disease. Bony structures are grossly unremarkable. IMPRESSION: Findings are suggestive of pulmonary edema superimposed upon obstructive lung disease. Less likely, findings may be due to a viral or atypical pneumonitis with associated trace right effusion. Close clinical correlation and follow-up is requested.
--- NOTE | 2016-10-18 14:01 | NUR ---
Referral received on 10/16/16 via electronic line ordering clinician. This patient is a 76 year old man, admitted to the hospital on 10/15/16 with a diagnosis of sepsis. Joshua is known to this bid writer from previous admissions; many of which had ETOH Dependence as a component. Most recently, Joshua was discharged from [place] on 09/15/16 to [facility] in [place], where he stayed for about 2 weeks. This information provided by patients sister Alethea Campos, who was here visiting patient yesterday. At time of admission, Joshua was placed on the CIWA protocol; some symptoms still remaining namely tremors, agitation, anxiety and disorientation. Lethargic, and according to patients sister, has only been awake and alert for very short intervals since his admission on Sunday, 10/15. 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 Alethea reports that family would like "least restrictive" plan upon discharge, and her 2 sons have been, and continue to be able to assist with home care. 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 Have noted Case management assessment re: same. Matthew follow peripherally and will be available support managements efforts for safe discharge planning.
--- NOTE | 2016-10-18 15:39 | NUR ---
PHYSICAL THERAPY. PT CONSULT RECEIVED AND CHART REVIEWED. Pt CURRENTLY LETHARGIC, REPORTS THAT HE WISHES TO SLEEP AND BE LEFT ALONE. Pt UNABLE TO ACTIVELY PARTICIPATE IN EVALUATION DESPITE ENCOURAGEMENT FROM PT AND MD. PT WILL F/U APPROPRIATE.
--- NOTE | 2016-10-18 16:00 | NUR ---
ASSUMED CARE OF PATIENT, PATIENT INCONTINENT OF STOOL, CARE GIVEN AND PATIENT THEN TRANSFERRED TO SPECIALTY BED WITH AIR MATTRESS TO ASSIST WITH HEALING AND PREVENTION OF WOUNDS. PATIENT ALERT, OBSTINATE, AND INSULTING TO STAFF. REFUSING TO ASSIST WITH CARE AT THIS TIME. LUNGS WITH SCATTERED RHONCHI AND DIMINSHED AT BASES, ABD SOFT NON TENDER WITH GOOD BS. RGIGGS INTACT DRAINING CLEAR URINE. DRESSINGS INTACT TO L THIGH, L KNEE AND L SHOULDER. REDNESS NOTED TO INNER THIGHS AND SCROTUM, MD NOTIFIED. BARRIER CREAM APPLIED TO AREA AND TO COCCYX.
--- NOTE | 2016-10-18 21:13 | NUR ---
PATIENT BECOMING INCREASINGLY CONFUSED, CIWA NOT 10. ATIVAN GIVEN ORDERED.
[2016-10-19] VITALS: BP 120/60
[2016-10-19 02:00] VITALS: BP 125/72
[2016-10-19 04:00] VITALS: BP 118/60
--- NOTE | 2016-10-19 04:13 | NUR ---
PT GETS RESTLESS, FOLLOWS SIMPLE COMMANDS. SATURATION 95-96% ON RA, LUNGS SOUND CLEAR. BILATERAL SOFT WRIST RESTRAINT ON THE PT REMOVES HIS HEPLOCK. UO GOOD, GRIGGS IN PLACE.
[2016-10-19 04:50] LABS: ABSOLUTE BASOPHIL COUNT 0 /CUMM (0.0-0.2); ABSOLUTE EOSINOPHIL COUNT 0.2 /CUMM (0.0-0.7); ABSOLUTE GRANULOCYTE CT 3.3 /CUMM (1.4-6.5); ABSOLUTE LYMPH COUNT 0.9 /CUMM (1.2-3.4); ABSOLUTE MONOCYTE COUNT 1.2 /CUMM (0.10-0.60); BASOPHIL % 0.3 % (0.0-2.0); EOSINOPHIL % 3.3 % (0-5); GRANULOCYTE % 58.4 % (42.2-75.2); HEMATOCRIT 28.6 % (42-52); MEAN CORPUSCULAR HGB 31.5 PG (27.0-31.0); MEAN CORPUSCULAR HGB CONC 33.7 G/DL (33.0-37.0); MEAN CORPUSCULAR VOLUME 93.6 FL (80.0-94.0); MEAN PLATELET VOLUME 8.9 FL (7.4-10.4); PLATELET COUNT 78 /CUMM (130-400); RBC DISTRIBUTION WIDTH 15.4 % (11.5-14.5); RED BLOOD CELL CT 3.06 /CUMM (4.70-6.10); WHITE BLOOD CELL COUNT 5.6 /CUMM (4.8-10.8)
--- NOTE | 2016-10-19 07:15 | PN- Resident CRCU ---
Subjective HPI/CRCU Issues: CRCU issues: 1. alcohol intoxication and withdrawal 2. metabolic acidosis due to sepsis or increase alcohol intake and dehydration - resolved 3. elevated troponin most likely demand ischemia 4. metabolic derangement: hypernatremia, hypomagnesemia, hypokalemia, tranaminitis - improved 5. hoarseness ad difficulty swallowing - improved - will get ENT evaluate the patient 6. episodes of vomiting and diarrhea on admission - resolved 7. generalized wekaness, poor oral intake, malnutrition, nutrition and PT on board 24 Hour Events: Patient was drowsy earlier in the morning but became much more alert and awake at around 9 am, PT helped him to sit in the chair and he is taking some fluids. The weakness and hoarseness of the voice is slightly better. Denies any pain, denies dizziness. Vital Signs Date Time Temp Pulse Resp B/P B/P Pulse O2 O2 Flow FiO2 Mean Ox Delivery Rate 10/19 0846 82 149/76 10/19 0400 97.6 87 30 118/60 10/19 0400 96 Room Air Laboratory Tests 10/19 10/18 0356 1605 Chemistry Sodium (137 - 145 mmol/L) 136 L 136 L Potassium (3.5 - 5.1 mmol/L) 4.2 3.9 Chloride (98 - 107 mmol/L) 106 104 Carbon Dioxide (22 - 30 mmol/L) 22 25 Anion Gap (5 - 16) 7 7 BUN (9 - 20 mg/dL) 6 L 6 L Creatinine (0.7 - 1.2 mg/dL) 0.7 0.7 Estimated GFR (>60 ml/min) > 60 > 60 Glucose (65 - 99 mg/dL) 91 118 H Calcium (8.4 - 10.2 mg/dL) 7.0 L 6.5 L Phosphorus (2.5 - 4.5 mg/dL) 2.6 3.2 Magnesium (1.6 - 2.3 mg/dL) 1.4 L 1.7 Total Bilirubin (0.2 - 1.3 mg/dL) 1.5 H 1.0 AST (17 - 59 U/L) 47 49 ALT (21 - 72 U/L) 58 61 Creatine Kinase (55 - 170 U/L) 719 H Albumin (3.5 - 5.0 g/dL) 2.3 L 2.2 L Hematology CBC w Diff MAN DIFF ORDERED WBC (4.8 - 10.8 /CUMM) 5.6 RBC (4.70 - 6.10 /CUMM) 3.06 L Hgb (14.0 - 18.0 G/DL) 9.6 L Hct (42 - 52 %) 28.6 L MCV (80.0 - 94.0 FL) 93.6 MCH (27.0 - 31.0 PG) 31.5 H RDW (11.5 - 14.5 %) 15.4 H Plt Count (130 - 400 /CUMM) 78 L MPV (7.4 - 10.4 FL) 8.9 Gran % (42.2 - 75.2 %) 58.4 Lymphocytes % (20.5 - 51.1 %) 16.7 L Monocytes % (1.7 - 9.3 %) 21.3 H Eosinophils % (0 - 5 %) 3.3 Basophils % (0.0 - 2.0 %) 0.3 Absolute Granulocytes (1.4 - 6.5 /CUMM) 3.3 Segmented Neutrophils (42.2 - 75.2 %) 61 Band Neutrophils (0.0 - 5.0 %) 3 Absolute Lymphocytes (1.2 - 3.4 /CUMM) 0.9 L Lymphocytes (20.5 - 51.1 %) 19 L Monocytes (1.7 - 9.3 %) 14 H Absolute Monocytes (0.10 - 0.60 /CUMM) 1.2 H Eosinophils (0 - 5.0 %) 2 Absolute Eosinophils (0.0 - 0.7 /CUMM) 0.2 Absolute Basophils (0.0 - 0.2 /CUMM) 0 Platelet Estimate (ADEQUATE) DECREASED Anisocytosis 1+ PUBS MCHC (33.0 - 37.0 G/DL) 33.7 Other Body Source Fld Total RBCs Counted (%) 100 Objective Vital Signs & I&O Last 8 Hrs of Vitals and I&O: MAX TEMP 97.6 [place] 87-94 RR 24-30, RA 94-96% BP 100/41 to 133/74 I 342 O 500 Exam General Appearance: no apparent distress, awake, comfortable, cachetic, thin Head: atraumatic Ears, Nose, Throat: normal ENT inspection Neck: normal inspection, supple, full range of motion Respiratory: chest non-tender, no respiratory distress, quiet respiration Cardiovascular: regular rate/rhythm Gastrointestinal: soft, non-tender Extremities: normal capillary refill, no edema, prominent loss of muscle mass, chronic Cranial Nerves: normal hearing, PERRL, whispering when talking , speech is fluent Skin: warm/dry, several skin abrasions since admission, unchanged, xerform is applied and dressing is changed everyday. Back: normal range of motion Current Medications: Current Medications Sig/Sae Start time Last Medication Dose Route Stop Time Status Admin Acetaminophen/ 1 TAB Q6P PRN 10/15 1445 AC Hydrocodone Bitart PO Albuterol Sulfate 3 ML Q4P PRN 10/18 1030 AC INH Azithromycin 500 MG DAILY 10/18 1000 AC 10/19 Sodium Chloride 250 ML IV 0847 Ceftriaxone Sodium 1,000 MG DAILY 10/18 1000 AC 10/19 IV 0847 Folic Acid 1 MG DAILY 10/16 1000 AC 10/19 PO 0846 Guaifenesin 600 MG Q12 10/19 1000 AC PO Ipratropium [place] 2.5 ML Q4P PRN 10/18 1030 AC INH Lorazepam 0 Q1P PRN 10/15 1915 AC 10/18 IV 2110 Magnesium Oxide 400 MG BID 10/19 1000 CAN PO Magnesium Oxide 400 MG BID 10/15 2200 AC 10/19 PO 0846 Magnesium Sulfate 1 GM Q1H 10/19 0530 DC 10/19 Dextrose/Water 100 ML IV 10/19 0729 0634 Magnesium Sulfate 1 GM Q2H 10/19 0515 DC Dextrose/Water 100 ML IV 10/19 0814 Magnesium Sulfate 1 GM ONCE ONE 10/18 0800 DC 10/18 Dextrose/Water 100 ML IV 10/18 1159 0953 Magnesium Sulfate 1 GM ONCE ONE 10/18 0745 DC 10/18 Dextrose/Water 100 ML IV 10/18 1144 0847 Metoprolol Tartrate 25 MG BID 10/18 1122 AC 10/19 PO 0846 Morphine Sulfate 2 MG Q4P PRN 10/15 1445 AC IV Multivitamins 1 TAB DAILY 10/18 1000 AC 10/19 PO 0846 Pantoprazole Sodium 40 MG DAILY 10/15 2000 AC 10/19 IV 0846 Phenol 2 SPRAY DAILY PRN 10/15 1845 AC 10/18 EXT 0932 Phosphate 250 MG ONCE ONE 10/18 1715 DC 10/18 PO 10/18 1716 1805 Potassium Chloride 20 MEQ DAILY 10/19 1000 AC 10/19 PO 0845 Potassium Chloride 20 MEQ ONCE ONE 10/18 1715 DC 10/18 PO 10/18 1716 1805 Potassium Chloride 40 MEQ Q8H 10/18 0745 AC 10/19 Dextrose/Sodium 1,000 ML IV 0054 Chloride Potassium Phosphate 15 mMol ONE ONE 10/18 0800 DC 10/18 Sodium Chloride 250 ML IV 10/18 1203 0858 Thiamine HCl 100 MG DAILY 10/16 1000 AC 10/19 PO 0846 Zinc Oxide 1 KPAIL BID 10/18 2200 AC 10/18 TOP 1805 Impression/Plan Impression/Problem List Impression: Patient is a 76 year old male with PMH significant for ETOH abuse, HTN, CAD s/p CABG, AFIB (not on anticoagulation due to fall risk), COPD (emphysema), upper GI bleed in 2012, who was brought in to the ED by family members after several days of worsening coughing, vomiting, poor oral intake and weakness. On admission patient had borderline BP, elevated lactic acid of 14.1, AG 34, carbon dioxide 14, Hypernatremia of 152, Cr of 4.4, AST 198, ALT 103, troponin 0.18. He was admitted to the ICU for close cardiac monitoring due to severe high anion gap metabolic acidosis. Chou catheter placed in the ED, day 5 - discontinued today Problem list and plan: Respiratory #Hoarseness and difficultly swallowing hoarseness started since a week prior to admission * ENT consult for evaluation of possible vocal cord paralysis * per ENT: there is left sided vocal cord paralysis. Will obtain CT of the neck with IV contrast to assess for possible mass pressing on the laryngeal nerve ID #possible aspiration pneumonia or HCAP CXR today reports pulmonary edema superimposed on obstructive lung disease [place]aines afebrile, WBC count: 5.6 (down from 15.6) Ferritin elevated to 539.0 * continue with Ceftriaxone and azithromycin * attempt to obtain sputum culture #Sepsis - resolved met criteria for severe sepsis on admission - tachycardic, leukocytosis 15.6, ERIKA, elevated troponin, lactic acidosis. It could also be due to severe dehydration (vomiting, poor po intake, diarrhea) as well as alcoholism. possible infectious etiology: HCAP or aspiration PNA or UTI. legionella and strep Ag (-). Patient has stayed afebrile, WBC trending down, urine culture NG after 2 days, blood culture x2 NG after 1 day CXR: * switched vancomycin and ceftazidime to ceftriaxone and azithromycin, will DC ABx if patient remains afebrile Metabolic #Hypernatremia, hypomagnesemia, hypokalemia - improved Patient has very poor oral intake, had diarrhea and vomiting on admission which are resolved Na 136 this am, K 4.2, Mg 1.4 * continue IV fluids, switched to D5w1/2 with 40 meq KCl at 50 cc/hour * recheck BEP in am #Alcohol intoxication and withdrawal - improved History of alcohol abuse, recent increase in alcohol intake, CIWA scores 4 and 6 this am, did not receive ativan since Sunday10/16/16 * Ativan per CIWA and PRN * continue thiamine, folic acid and multivitamin tab #Metabolic acidosis - resolved With elevated anion gap, likely secondary to alcohol. patient has had NL capillary refill since admission, alcoholism most likely is the major contributor to the current lactic acidosis. AG is WNL, as well as bicarbonate Alimentary #Mild protein calorie malnutrition - chronic reports poor oral intake History of mild protein calorie malnutrition in the previous admission * Continue IV fluids at 50 cc/hour * Continue multivitamin, folic acid, thiamine * Nutrition consult placed * will need to place NG tube is pt agreeble for feeding as he needs to be kept NPP due to risk of aspiration Musculoskeletal #Generalized weakness, recent fall and trauma -In the setting of poor oral intake and pr calorie malnutrition. -Patient reported he had an accident, almost a fall at home, and got stuck under a bed frame and injured his extremities and back. he has several skin abrasions on the left knee, left thigh, left flank and shoulder. -CT chest shows New, minimally displaced fracture of the left L3 transverse process. no tenderness on the spine in the exam. -PT consult was made, managed to get out of bed to chair * pain management for mild, moderate and severe pain * wound care consult placed and following the pt * continue PT eval and tx Cardiac #Mild troponin elevation on admission - resolved Most likely due to demand ischemia He has a history of CAD s/p CABG, hx of chronic systolic HF with normal LV/RV systolic function history of paroxysmal atrial fibrillation/flutter not on anticoagulation due to falls, alcohol abuse and medical noncompliance. Patient has tachycardia (HR in 100s this am, and had episodes of tachycardia during the night) * restarted metoprolol per cardiology but at a lower dose on 10/18/16 (he takes 50 mg BID at home), we started 25 mg BID due to borderline low BP, HR in 80-90s * CXR today reveals volume overload, gave one dose of IV lasix 20 mg #HTN * Currently borderline low BP, keep home medication on hold, restarted metoprolol 25 mg BID GI #Transaminitis - resolved Most likely due to alcoholism * avoid acetaminophen * counseling for abstinence from alcohol before discharge #Vomiting and coffee ground emesis on admission - no further episode since 10/15 In the setting of heavy alcohol use and history of upper GI bleed * IV protonix * IV fluids * avoid NSAIDs and aspirin * will consider GI consult and possible endoscopy if any further evidence of bleeding noted #Diarrhea - improved patient has become incontinent for stool since admission, with loose stool, guaiac positive Stool culture has grown mixed sydni, negative for Cdiff toxin A and B #Pain * Tylenol for mild, Vicodin for moderate, and Percocet for severe pain NPO - failed swallow eval, will need NG tube placement DVT prophylaxis with ALPS FULL code I was told by the nursing staff in the morning around 9 am, that there is family on the phone for that need updates, the lady on the phone introduced herself as Alethea Campos his sister, I asked her what information she has on the status of the patient, I updated her on the fact that his metabolic acidosis is resolved, as well as electrolytes imbalance and abnormal kidney and liver function. I also talked to the nephew at bedside (Alethea's son) and updated regarding findings per ENT and the plan for CT of the neck and the need for NG tube, as we made him NPO again as he failed swallow eval. He will gather the family to discuss goals of care on Sunday. Problem List: 1. Alcohol abuse 2. Hypokalemia 3. Hypomagnesemia 4. Acute renal failure due to rhabdomyolysis 5. Metabolic acidosis 6. Weakness 7. Tachycardia Pain Ratin Tomorrow's Labs & Rationales: CBC (anemia), ICU bundle (montor electrolyes and kidey fx) Plan DVT/Prophylaxis: mechanical
[2016-10-19 08:00] VITALS: BP 140/70
--- NOTE | 2016-10-19 08:10 | PN- Cardiology ---
Subjective Subjective: Telemetry reviewed. Sinus rhythm throughout. No arrhythmias overnight. Objective Vital Signs and I&Os Vital Signs Date Time Temp Pulse Resp B/P B/P Pulse O2 O2 Flow FiO2 Mean Ox Delivery Rate 10/19 0400 97.6 87 30 118/60 10/19 0400 96 Room Air 10/19 0200 85 22 125/72 10/19 0000 97.2 89 28 120/60 10/19 0000 96 Room Air 10/19 0000 97.2 89 28 120/60 96 Room Air 10/18 2200 86 24 109/68 10/18 2110 88 22 116/72 10/18 2000 98.2 86 26 110/60 10/18 2000 96 Room Air 10/18 1829 92 Room Air 10/18 1800 84 24 111/62 10/18 1600 97.8 81 22 100/50 10/18 1600 96 Room Air 10/18 1600 97.8 81 22 100/50 96 Room Air 10/18 1416 84 111/65 10/18 1400 84 26 111/65 10/18 1200 98.8 98 112/62 10/18 1200 95 Room Air 10/18 1149 Room Air 2.0L 10/18 1000 95 24 124/52 10/18 0907 94 Room Air Intake & Output 10/19 1600 10/19 0800 10/19 0000 10/18 1600 10/18 0800 10/18 0000 Intake Total 599 308 2059 795 2025 Output Total 837 205 4117 815 800 Balance -158 -210 -150 -20 1225 Intake, IV 550 719 7898 795 2025 Intake, Oral 120 0 0 Number 0 Bowel Movements Output, Urine 641 104 1439 815 800 Physical Exam: Gen. exam patient awakens to my voice and responds to me although his response is barely decipherable. However he claims he is not in pain. Head normocephalic atraumatic Eyes sclera anicteric conjunctiva showed mild pallor extraocular muscles seem normal Lips abrasion on the right lower lip Chest lungs appeared clear bilaterally Heart regular rhythm with a 1/6 systolic murmur Abdomen soft no organomegaly Extremities no clubbing cyanosis or pedal edema Neurological could not be evaluated Current Medications: Current Medications Sig/Sae Start time Last Medication Dose Route Stop Time Status Admin Acetaminophen/ 1 TAB Q6P PRN 10/15 1445 AC Hydrocodone Bitart PO Albuterol Sulfate 3 ML Q4P PRN 10/18 1030 AC INH Albuterol Sulfate 3 ML BID 10/15 2200 DC 10/18 INH 0846 Azithromycin 500 MG DAILY 10/18 1000 AC 10/18 Sodium Chloride 250 ML IV 1034 Ceftazidime 1,000 MG DAILY@1800 10/15 1800 DC 10/17 IV 1826 Ceftriaxone Sodium 1,000 MG DAILY 10/18 1000 AC 10/18 IV 1111 Folic Acid 1 MG DAILY 10/16 1000 AC 10/18 PO 0931 Guaifenesin 600 MG Q12 10/19 1000 AC PO Ipratropium [place] 2.5 ML Q4P PRN 10/18 1030 AC INH Ipratropium [place] 2.5 ML BID 10/15 2200 DC 10/18 INH 0846 Lorazepam 0 Q1P PRN 10/15 1915 AC 10/18 IV 2110 Magnesium Oxide 400 MG BID 10/19 1000 CAN PO Magnesium Oxide 400 MG BID 10/15 2200 AC 10/18 PO 2109 Magnesium Sulfate 1 GM Q1H 10/19 0530 DC 10/19 Dextrose/Water 100 ML IV 10/19 0729 0634 Magnesium Sulfate 1 GM Q2H 10/19 0515 DC Dextrose/Water 100 ML IV 10/19 0814 Magnesium Sulfate 1 GM ONCE ONE 10/18 0800 DC 10/18 Dextrose/Water 100 ML IV 10/18 1159 0953 Magnesium Sulfate 1 GM ONCE ONE 10/18 0745 DC 10/18 Dextrose/Water 100 ML IV 10/18 1144 0847 Metoprolol Tartrate 25 MG BID 10/18 1122 AC 10/18 PO 2110 Morphine Sulfate 2 MG Q4P PRN 10/15 1445 AC IV Multivitamins 1 TAB DAILY 10/18 1000 AC 10/18 PO 1416 Pantoprazole Sodium 40 MG DAILY 10/15 2000 AC 10/18 IV 0908 Phenol 2 SPRAY DAILY PRN 10/15 1845 AC 10/18 EXT 0932 Phosphate 250 MG ONCE ONE 10/18 1715 DC 10/18 PO 10/18 1716 1805 Potassium Chloride 20 MEQ DAILY 10/19 1000 AC PO Potassium Chloride 20 MEQ ONCE ONE 10/18 1715 DC 10/18 PO 10/18 1716 1805 Potassium Chloride 40 MEQ Q8H 10/18 0745 AC 10/19 Dextrose/Sodium 1,000 ML IV 0054 Chloride Potassium Phosphate 15 mMol ONE ONE 10/18 0800 DC 10/18 Sodium Chloride 250 ML IV 10/18 1203 0858 Thiamine HCl 100 MG DAILY 10/16 1000 AC 10/18 PO 0932 Vancomycin HCl 1,000 MG DAILY 10/16 1845 DC 10/18 Sodium Chloride 250 ML IV 0909 Zinc Oxide 1 KAPIL BID 10/18 2200 10/18 TOP 1805 Results Last 48 Hrs of Labs/Mics: Laboratory Tests 10/19/16 0356: Anion Gap 7, Estimated GFR > 60, Glucose 91, Calcium 7.0 L, Phosphorus 2.6, Magnesium 1.4 L, Total Bilirubin 1.5 H, AST 47, ALT 58, Creatine Kinase 719 H , Albumin 2.3 L, CBC w Diff MAN DIFF ORDERED, RBC 3.06 L, MCV 93.6, MCH 31.5 H, RDW 15.4 H, MPV 8.9, Gran % 58.4, Lymphocytes % 16.7 L, Monocytes % 21.3 H , Eosinophils % 3.3, Basophils % 0.3, Absolute Granulocytes 3.3, Segmented Neutrophils 61, Band Neutrophils 3, Absolute Lymphocytes 0.9 L, Lymphocytes 19 L, Monocytes 14 H, Absolute Monocytes 1.2 H, Eosinophils 2, Absolute Eosinophils 0.2, Absolute Basophils 0, Platelet Estimate DECREASED, Anisocytosis 1+, PUBS MCHC 33.7, Fld Total RBCs Counted 100 10/18/16 1605: Anion Gap 7, Estimated GFR > 60, Glucose 118 H, Calcium 6.5 L, Phosphorus 3.2, Magnesium 1.7, Total Bilirubin 1.0, AST 49, ALT 61, Albumin 2.2 L 10/18/16 0200: Anion Gap 10, Estimated GFR > 60, Glucose 118 H, Calcium 6.3 L, Phosphorus 2.2 L, Magnesium 1.4 L, Total Bilirubin 1.4 H, AST 57, ALT 62, Creatine Kinase 1005 H, Albumin 2.3 L, CBC w Diff MAN DIFF ORDERED, RBC 2.98 L, MCV 94.0, MCH 31.6 H, RDW 15.6 H, MPV 8.4, Segmented Neutrophils 75, Band Neutrophils 1, Lymphocytes 18 L, Monocytes 5, Eosinophils 1, Platelet Estimate DECREASED, Polychromasia 1+, Poikilocytosis 1+, Ovalocytes 1+, PUBS MCHC 33.7, Fld Total RBCs Counted 100 10/17/16 1820: Anion Gap 11, Estimated GFR > 60, Glucose 117 H, Lactic Acid 1.3, Calcium 6.3 L, Phosphorus 3.4, Magnesium 1.4 L, Total Bilirubin 1.3, AST 62 H, ALT 68, Albumin 2.2 L 10/17/16 1150: Anion Gap 9, Estimated GFR > 60, Glucose 108 H, Calcium 6.7 L, Phosphorus 2.7, Magnesium 1.3 L, Total Bilirubin 1.2, AST 66 H, ALT 66, Creatine Kinase 1189 H, Albumin 2.1 L Assessment/Plan Assessment/Plan In summary this 76-year-old gentleman has the following problems 1. PNA 2. Recurrent alcohol abuse/EtOH withdrawal 3. Acute renal failure/dehydration/rhabdomyolysis 4. Reported history of paroxysmal atrial fibrillation/flutter deemed a poor candidate for anticoagulation to falls/continued alcohol abuse/medical noncomplaince 5. History of coronary artery disease with prior CABG 6. 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 Chronic systolic congestive heart failure, compensated 10. History of medication noncompliance 11. Minimally elevated troponin consistent with demand ischemia 12. Thrombocytopenia and transaminitis His main problem appears the ability to take oral feeding. Swallow eval was negative. Cardiac medications should be resumed when by mouth feeding is possible. At the moment there are no cardiac issues. As noted above left ventricular function appears normal by echocardiogram. Continue telemetry? Yes
--- NOTE | 2016-10-19 08:51 | PN- CRCU ---
Subjective HPI/Critical Care Issues: The patient is somnolent. He is not following commands on a regular basis. The patient has a bleeding right hand abrasion. He continues to have poor oral intake. He complains of not feeling good but is nonspecific about this. He is not able to hold a conversation. Objective Current Medications: Current Medications Sig/Sae Start time Last Medication Dose Route Stop Time Status Admin Acetaminophen/ 1 TAB Q6P PRN 10/15 1445 AC Hydrocodone Bitart PO Albuterol Sulfate 3 ML Q4P PRN 10/18 1030 AC INH Albuterol Sulfate 3 ML BID 10/15 2200 DC 10/18 INH 0846 Azithromycin 500 MG DAILY 10/18 1000 AC 10/18 Sodium Chloride 250 ML IV 1034 Ceftazidime 1,000 MG DAILY@1800 10/15 1800 DC 10/17 IV 1826 Ceftriaxone Sodium 1,000 MG DAILY 10/18 1000 AC 10/18 IV 1111 Folic Acid 1 MG DAILY 10/16 1000 AC 10/18 PO 0931 Guaifenesin 600 MG Q12 10/19 1000 AC PO Ipratropium Sod 2.5 ML Q4P PRN 10/18 1030 AC INH Ipratropium Sod 2.5 ML BID 10/15 2200 DC 10/18 INH 0846 Lorazepam 0 Q1P PRN 10/15 1915 AC 10/18 IV 2110 Magnesium Oxide 400 MG BID 10/19 1000 CAN PO Magnesium Oxide 400 MG BID 10/15 2200 AC 10/18 PO 2109 Magnesium Sulfate 1 GM Q1H 10/19 0530 DC 10/19 Dextrose/Water 100 ML IV 10/19 0729 0634 Magnesium Sulfate 1 GM Q2H 10/19 0515 DC Dextrose/Water 100 ML IV 10/19 0814 Magnesium Sulfate 1 GM ONCE ONE 10/18 0800 DC 10/18 Dextrose/Water 100 ML IV 10/18 1159 0953 Magnesium Sulfate 1 GM ONCE ONE 10/18 0745 DC 10/18 Dextrose/Water 100 ML IV 10/18 1144 0847 Metoprolol Tartrate 25 MG BID 10/18 1122 AC 10/18 PO 2110 Morphine Sulfate 2 MG Q4P PRN 10/15 1445 AC IV Multivitamins 1 TAB DAILY 10/18 1000 AC 10/18 PO 1416 Pantoprazole Sodium 40 MG DAILY 10/15 2000 AC 10/18 IV 0908 Phenol 2 SPRAY DAILY PRN 10/15 1845 AC 10/18 EXT 0932 Phosphate 250 MG ONCE ONE 10/18 1715 DC 10/18 PO 10/18 1716 1805 Potassium Chloride 20 MEQ DAILY 10/19 1000 AC PO Potassium Chloride 20 MEQ ONCE ONE 10/18 1715 DC 10/18 PO 10/18 1716 1805 Potassium Chloride 40 MEQ Q8H 10/18 0745 AC 10/19 Dextrose/Sodium 1,000 ML IV 0054 Chloride Potassium Phosphate 15 mMol ONE ONE 10/18 0800 DC 10/18 Sodium Chloride 250 ML IV 10/18 1203 0858 Thiamine HCl 100 MG DAILY 10/16 1000 AC 10/18 PO 0932 Vancomycin HCl 1,000 MG DAILY 10/16 1845 DC 10/18 Sodium Chloride 250 ML IV 0909 Zinc Oxide 1 KAPIL BID 10/18 2200 AC 10/18 TOP 1805 Vital Signs & I&O Last 24 Hrs of Vitals and I&O: Vital Signs Date Time Temp Pulse Resp B/P B/P Pulse O2 O2 Flow FiO2 Mean Ox Delivery Rate 10/19 0400 97.6 87 30 118/60 10/19 0400 96 Room Air 10/19 0200 85 22 125/72 10/19 0000 97.2 89 28 120/60 10/19 0000 96 Room Air 10/19 0000 97.2 89 28 120/60 96 Room Air 10/18 2200 86 24 109/68 10/18 2110 88 22 116/72 10/18 2000 98.2 86 26 110/60 10/18 2000 96 Room Air 10/18 1829 92 Room Air 10/18 1800 84 24 111/62 10/18 1600 97.8 81 22 100/50 10/18 1600 96 Room Air 10/18 1600 97.8 81 22 100/50 96 Room Air 10/18 1416 84 111/65 10/18 1400 84 26 111/65 10/18 1200 98.8 98 112/62 10/18 1200 95 Room Air 10/18 1149 Room Air 2.0L 10/18 1000 95 24 124/52 10/18 0907 94 Room Air Intake & Output 10/19 1600 10/19 0800 10/19 0000 Intake Total 342 320 Output Total 500 530 Balance -158 -210 Intake, IV 342 200 Intake, Oral 120 Output, Urine 500 530 Physical Exam General Appearance: no apparent distress, comfortable, cachetic Head: normal appearance Neck: normal inspection, supple Respiratory: faint scattered wheezes, decreased breath sounds bilaterally Cardiovascular: regular rate/rhythm Gastrointestinal: soft, non-tender Extremities: no edema Skin: normal color, warm/dry, multiple wounds on skin as documented by nursing, no evidence of cellulitis Results Last 24 Hrs of Lab Results: Laboratory Tests 10/19/16 0356: Anion Gap 7, Estimated GFR > 60, Glucose 91, Calcium 7.0 L, Phosphorus 2.6, Magnesium 1.4 L, Total Bilirubin 1.5 H, AST 47, ALT 58, Creatine Kinase 719 H , Albumin 2.3 L, CBC w Diff MAN DIFF ORDERED, RBC 3.06 L, MCV 93.6, MCH 31.5 H, RDW 15.4 H, MPV 8.9, Gran % 58.4, Lymphocytes % 16.7 L, Monocytes % 21.3 H , Eosinophils % 3.3, Basophils % 0.3, Absolute Granulocytes 3.3, Segmented Neutrophils 61, Band Neutrophils 3, Absolute Lymphocytes 0.9 L, Lymphocytes 19 L, Monocytes 14 H, Absolute Monocytes 1.2 H, Eosinophils 2, Absolute Eosinophils 0.2, Absolute Basophils 0, Platelet Estimate DECREASED, Anisocytosis 1+, PUBS MCHC 33.7, Fld Total RBCs Counted 100 10/18/16 1605: Anion Gap 7, Estimated GFR > 60, Glucose 118 H, Calcium 6.5 L, Phosphorus 3.2, Magnesium 1.7, Total Bilirubin 1.0, AST 49, ALT 61, Albumin 2.2 L Diagnostic Data CXR Findings: Findings are suggestive of pulmonary edema superimposed upon obstructive lung disease. Less likely, findings may be due to a viral or atypical pneumonitis with associated trace right effusion. Close clinical correlation and follow-up is requested. Impression/Plan Impression/Plan Impression/Plan: 1. Sepsis secondary to pneumonia with respiratory failure. 2. Electrolyte abnormalities - improving. 3. COPD without evidence of bronchospasm. 4. Hematemesis - resolved, no blood loss anemia. 5. Diarrhea - improved, c. diff negative. 6. ERIKA secondary to volume depletion and rhabdomyolysis, resolved. 7. Malnutrition and failure to thrive. 8. EtOH hepatitis. 9. Chronic ETOH abuse - CIWA scores are low over the past 24 hours. 10. PAF, MAT - cardiology following. 11. Thrombocytopenia - chronic, likely secondary to EtOH. 14. Multiple skin wounds. 15. Encephalopathy. 16. Volume overload? minimally displaced fracture of the left L3 transverse process. No additional acute fracture identified. Fragmentation and irregularity of the distal right clavicle, consistent with a remote fracture or traumatic injury. Recommendations: * Replete magnesium. * Discontinue IV fluids. * Give Lasix 20 mg 1 today. * Check an ammonia level. * Discontinue Chou catheter. * Continue to monitor CIWA scores, on EtOH withdrawal pathway. * Continue multivitamin, thiamine and folate. * Continue ceftriaxone and azithromycin. * Skin care protocol. * Continue nebs/TRC. * DVT prophylaxis with Alps only, no subcutaneous heparin due to thrombocytopenia. * Avoid any sedating medications. * Need to have a goals of care discussion with patient when he is more alert and family. * Downgrade to telemetry.
--- NOTE | 2016-10-19 11:39 | NUR ---
SPEECH THERAPY: ATTEMPTED TO SEE PT FOR DIET TOLERANCE/UPGRADE. PT SEEN OOB IN CHAIR, SLEEPING; MINIMALLY ROUSABLE W/ MAX. CUES. PT PRESENTS WITH APHONIC VOCAL QUALITY. PT REFUSING ALL PO TRIALS STATING 'JUST LEAVE ME ALONE.' PER RN REPORT, PT EXPECTORATED MEDS W/ APPLE SAUCE THIS AM. ST CONTINUE TO FOLLOW FOR DIET TOLERANCE/UPGRADE PT STATUS IMPROVES. D/W RN AND .
--- NOTE | 2016-10-19 11:52 | Transfer of Care Summary ---
Hospital Course Course Hospital Course: Patient is a 76 year old male with PMH significant for HTN, CAD s/p CABG, AFIB ( not on anticoagulation due to fall risk), COPD (emphysema, not on home O2), ETOH abuse and history of alcoholic cardiomyopathy, upper GI bleed in 2012, who was brought in to the ED by family members after several days of worsening cough, vomiting, poor oral intake and weakness. Patient lives alone at home after his (recently, at [facility]). Patient himself was admitted in August due to failure to thrive and starvation ketoacidosis, he was discharged to rehab and went back home almost 2 weeks prior to current admission. He is an alcoholic and reported drinking 3-4 shots of vodka for 5-6 days before admission , at the same time he started vomiting and reported increased coughing, he also lost his voice and had been whispering to make a conversation. Also reported poor appetite and not eating and drinking well. Reported an episode of almost falling the night before admission resulting in several abrasion on the left knee as well as the left thigh, left flank and shoulder. Denied LOC, dizziness, chest pain, palpitation, diaphoresis. Denied fever chills, URI symptoms or sick contacts. Denied changes in the urine. His Nephew reported that he did not respond to phone calls for a few hours on the same day of the fall and he may have lost consciousness as well. In the ED his vitals included temperature of 96.0, respiratory rate of 20, heart rate 114, blood pressure 91/56, and oxygen saturation 90% on 4 L of oxygen, eventually requiring a Ventimask at 60% FiO2. In physical exam the patient seemed to be in mild distress, emaciated, disheveled, coffee-ground emesis stains on his coat, wearing a Ventimask (which was then changed to oxygen per nasal cannula). Very dry mucous membranes, parched lips, cachectic. Lungs clear auscultation, no wheezing or rhonchi or crackles S1 and S2 were heard with no murmurs, sternotomy scar on inspection of the chest. Abdomen exam was within normal limits with hyperactive bowel sounds, nontender nondistended no guarding, no suprapubic tenderness. Thin extremities, no edema no cyanosis, peripheral pulses palpable. He also had multiple abrasions on the lateral side of the left knee, as well as on the left thigh, flank and shoulder. Laboratory shows a WBC count of 15.6 with bands of 6, and 80 segmented neutrophils Sodium 152, potassium 3.6, bicarbonate 14, BUN 50, creatinine 4.1, baseline 1, serum osmolality 343, lactic acid 14.1, Total bili 1.8, AST/ALT 198/103, proBNP 12,000, troponin 0.18, PT 13.1, INR 1.25. UA was heavy, hazy, positive nitrite, WBC 3-5, rbc's 25-50, moderate hemoglobin, trace urine ketones and 100 proteins, many bacteria and rare granular casts, U tox showed serum alcohol less than 10, negative acetone. Chest x-ray showed emphysematous changes, CT chest shows Patchy airspace opacities within the right upper and lower lobes, CT abdomen pelvis show reticulosis without evidence of diverticulitis, fatty infiltrated liver, minimally placed fracture of left L3 transverse process. Patient was admitted to the ICU with multi-organ failure in the setting of sepsis of possible pulmonary or urologic origin, as well as severe dehydration and poor oral intake with metabolic derangement. He was placed on cardiac monitoring, received O2 supplementation and aggressive fluid hydration and was started on IV antibiotics (vancomycin and ceftazidime). The following were addressed during his stay in the ICU. Respiratory #Acute hypoxic respiratory failure - resolved Presented with hypoxia requiring 4 L of oxygen by nasal cannula with a transition to Ventimask at 60% FiO2. (The patient has history of COPD but does not use oxygen at home, he also has history of smoking 1 pack/day since 16 years old). He reported productive cough and shortness of breath. CT chest showed ' patchy airspace opacities within the right upper and lower lobes'. He received ceftazidime and vancomycin for 3 days (10/15/16-10/17/16) and switched to ceftriaxone and azithromycin on 10/19/15. O2 supplementation was continued per NC as needed, he has been breathing on room air since 10/18/16. Also has been afebrile during the course of his ICU stay and WBC count is trending down (15.6 to 6.8). * continue antibiotics to finish a 7 day course (ending on 10/21/16) * discontinue Antibiotics if the patient remains afebrile #Left vocal cord paralysis Unknown etiology, patient came with hoarseness and difficultly swallowing, per his nephew started since a week prior to admission which was believed to be from excess coughing. ENT consult was placed on and reported left sided vocal cord paralysis. Possible etiologies: viral,or mass effect through the coarse of the left laryngeal nerve. CT of the neck with IV contrast reported several prominent lymph nodes in the AP window. These may affect the recurrent left laryngeal nerve. Patient's hoarseness improved minimally on 10/21/16, we repeated swallow evaluation followed by a modified barium swallow and he had penetration even with head maneuvers to decrease aspiration, all attempts have failed and he is made NPO. Attempts for NG tube were unsuccessful as the patient did not tolerate. * Continued gentle hydration with D5W1/2 normal saline with KCl * OASIS and nasal spray to help with dryness of the mucous membranes * Consider [place] tube which is narrower and perhaps more tolerable, if that fails too we will need to consider a PEG tube or parenteral feeding. Cardiac #Mild troponin elevation on admission - resolved Most likely due to demand ischemia. He has a history of CAD s/p CABG, severe LV dysfunction with subsequent normalization of ejection fraction and recurrence of severe cardiomyopathy likely due to alcohol abuse/medical non compliance. History of paroxysmal atrial fibrillation/flutter not on anticoagulation due to falls. Patient has had tachycardia during this admission (HR mostly in 100s). We restarted metoprolol per cardiology at a lower dose (25 mg BID) on 10/18/16 (he takes 50 mg BID at home). *metoprolol PO is not given as he is NPO. * consider 2.5g mg IV metoprolol to control the HR. #HTN, CAD BP has been on the lower side since admission, losartan and metoprolol were on hold. Restart metoprolol at a lower dose due to mild tachycardia, which is again on hold as he is NPO. * consider one time dose of 2.5 mg IV metoprolol if needed to control the HR ID #Sepsis - resolved met criteria for severe sepsis on admission - tachycardic, leukocytosis 15.6, ERIKA, elevated troponin, lactic acidosis. It could also be due to severe dehydration (vomiting, poor po intake, diarrhea) as well as alcoholism. possible infectious etiologies: HCAP (as he was admitted recently to [place]) or aspiration PNA (due to possible LOC and alcoholism) or UTI. legionella and strep Ag (-). Patient has stayed afebrile, WBC trended down, urine culture and blood culture x2 has been negative. * switched vancomycin and ceftazidime to ceftriaxone and azithromycin, will DC ABx if patient remains afebrile Metabolic #Hypernatremia, hypomagnesemia, hypokalemia - improved Patient has very poor oral intake, had diarrhea and vomiting on admission which are resolved * continue IV fluids D5w1/2 with 40 meq KCl at 50 cc/hour * monitor electrolytes #Alcohol intoxication and withdrawal - improved History of alcohol abuse and recent increase in alcohol intake, has not required ativan since Sunday10/16/16 * continue thiamine, folic acid and multivitamin tab #Metabolic acidosis - resolved With elevated anion gap, likely secondary to alcohol. patient has had NL capillary refill since admission, alcoholism most likely is the major contributor to the current lactic acidosis. AG is WNL, as well as bicarbonate Chou catheter removed on 10/19/16 after 5 days Alimentary #Mild protein calorie malnutrition - chronic reports poor oral intake History of mild protein calorie malnutrition in the previous admission * Continue IV fluids at 50 cc/hour * Continue multivitamin, folic acid, thiamine * Nutrition consult placed * will need to place NG tube is pt agreeable for feeding as he needs to be kept NPO due to risk of aspiration * Goals of care needs to be discussed with family, we talked to his nephew who stated that he will gather family on Sunday (10/23/16) #GI bleed Guaiac positive stool and coffee ground emesis on admission, both resolved. Etiology could have been an upper GIB in the setting of alcoholism and possible gastritis. Patient has low iron level and low hemoglobin, with MCV within normal limits which can be due to a combination of megaloblastic anemia (from folate or B12 deficiency) and LUCILLE. * please check B12 and folate level * continue folate supplementation * iron supplementation * avoid NSAIDS and aspirin * continue IV protonix * outpatient follow up with GI for EGD/colonoscopy #Diarrhea - improved patient has been incontinent for stool since admission, with loose stools, guaiac positive on admission, latest guaiac was negative on 10/20/16. Stool culture has grown mixed sydni, negative for Cdiff toxin A and B. #Transaminitis - resolved Most likely due to alcoholism * avoid acetaminophen * counseling for abstinence from alcohol before discharge Musculoskeletal #Generalized weakness, recent fall and trauma -In the setting of poor oral intake and pr calorie malnutrition. -Patient reported he had an accident, almost a fall at home, and got stuck under a bed frame and injured his extremities and back. he has several skin abrasions on the left knee, left thigh, left flank and shoulder. -CT chest shows New, minimally displaced fracture of the left L3 transverse process. no tenderness on the spine in the exam. -PT consult was made, managed to get out of bed to chair * pain management for mild, moderate and severe pain * wound care consult placed and following the pt * continue PT eval and tx Pain * Tylenol for mild, Vicodin for moderate, and Percocet for severe pain NPO - failed swallow eval, refused NG tube DVT prophylaxis with ALPS FULL code Assessment/Plan: As indicated above. -CT chest shows New, minimally displaced fracture of the left L3 transverse process. no tenderness on the spine in the exam. -PT consult was made, managed to get out of bed to chair * pain management for mild, moderate and severe pain * wound care consult placed and following the pt * continue PT eval and tx Pain * Tylenol for mild, Vicodin for moderate, and Percocet for severe pain NPO - failed swallow eval, refused NG tube DVT prophylaxis with ALPS FULL code Assessment/Plan: Patient is a 76 year old male with PMH significant for ETOH abuse, HTN, CAD s/p CABG, AFIB (not on anticoagulation due to fall risk), COPD (emphysema), upper GI bleed in 2012, who was brought in to the ED by family members after several days of worsening coughing, vomiting, poor oral intake and weakness. On admission patient had borderline BP, elevated lactic acid of 14.1, AG 34, carbon dioxide 14, Hypernatremia of 152, Cr of 4.4, AST 198, ALT 103, troponin 0.18. He was admitted to the ICU for close cardiac monitoring due to severe high anion gap metabolic acidosis. Chou catheter placed in the ED, day 5 - discontinued today Problem list and plan: Respiratory #Hoarseness and difficultly swallowing hoarseness started since a week prior to admission * ENT consult for evaluation of possible vocal cord paralysis * per ENT: there is left sided vocal cord paralysis. Will obtain CT of the neck with IV contrast to assess for possible mass pressing on the laryngeal nerve ID #possible aspiration pneumonia or HCAP CXR today reports pulmonary edema superimposed on obstructive lung disease [place] afebrile, WBC count: 5.6 (down from 15.6) Ferritin elevated to 539.0 * continue with Ceftriaxone and azithromycin * attempt to obtain sputum culture #Sepsis - resolved met criteria for severe sepsis on admission - tachycardic, leukocytosis 15.6, ERIKA, elevated troponin, lactic acidosis. It could also be due to severe dehydration (vomiting, poor po intake, diarrhea) as well as alcoholism. possible infectious etiology: HCAP or aspiration PNA or UTI. legionella and strep Ag (-). Patient has stayed afebrile, WBC trending down, urine culture NG after 2 days, blood culture x2 NG after 1 day CXR: * switched vancomycin and ceftazidime to ceftriaxone and azithromycin, will DC ABx if patient remains afebrile Metabolic #Hypernatremia, hypomagnesemia, hypokalemia - improved Patient has very poor oral intake, had diarrhea and vomiting on admission which are resolved Na 136 this am, K 4.2, Mg 1.4 * continue IV fluids, switched to D5w1/2 with 40 meq KCl at 50 cc/hour * recheck BEP in am #Alcohol intoxication and withdrawal - improved History of alcohol abuse, recent increase in alcohol intake, CIWA scores 4 and 6 this am, did not receive ativan since Sunday10/16/16 * Ativan per CIWA and PRN * continue thiamine, folic acid and multivitamin tab #Metabolic acidosis - resolved With elevated anion gap, likely secondary to alcohol. patient has had NL capillary refill since admission, alcoholism most likely is the major contributor to the current lactic acidosis. AG is WNL, as well as bicarbonate Alimentary #Mild protein calorie malnutrition - chronic reports poor oral intake History of mild protein calorie malnutrition in the previous admission * Continue IV fluids at 50 cc/hour * Continue multivitamin, folic acid, thiamine * Nutrition consult placed * will need to place NG tube is pt agreeble for feeding as he needs to be kept NPP due to risk of aspiration Musculoskeletal #Generalized weakness, recent fall and trauma -In the setting of poor oral intake and pr calorie malnutrition. -Patient reported he had an accident, almost a fall at home, and got stuck under a bed frame and injured his extremities and back. he has several skin abrasions on the left knee, left thigh, left flank and shoulder. -CT chest shows New, minimally displaced fracture of the left L3 transverse process. no tenderness on the spine in the exam. -PT consult was made, managed to get out of bed to chair * pain management for mild, moderate and severe pain * wound care consult placed and following the pt * continue PT eval and tx Cardiac #Mild troponin elevation on admission - resolved Most likely due to demand ischemia He has a history of CAD s/p CABG, hx of chronic systolic HF with normal LV/RV systolic function history of paroxysmal atrial fibrillation/flutter not on anticoagulation due to falls, alcohol abuse and medical noncompliance. Patient has tachycardia (HR in 100s this am, and had episodes of tachycardia during the night) * restarted metoprolol per cardiology but at a lower dose on 10/18/16 (he takes 50 mg BID at home), we started 25 mg BID due to borderline low BP, HR in 80-90s * CXR today reveals volume overload, gave one dose of IV lasix 20 mg #HTN * Currently borderline low BP, keep home medication on hold, restarted metoprolol 25 mg BID GI #Transaminitis - resolved Most likely due to alcoholism * avoid acetaminophen * counseling for abstinence from alcohol before discharge #Vomiting and coffee ground emesis on admission - no further episode since 10/15 In the setting of heavy alcohol use and history of upper GI bleed * IV protonix * IV fluids * avoid NSAIDs and aspirin * will consider GI consult and possible endoscopy if any further evidence of bleeding noted #Diarrhea - improved patient has become incontinent for stool since admission, with loose stool, guaiac positive Stool culture has grown mixed sydni, negative for Cdiff toxin A and B #Pain * Tylenol for mild, Vicodin for moderate, and Percocet for severe pain NPO - failed swallow eval, will need NG tube placement DVT prophylaxis with ALPS FULL code
--- NOTE | 2016-10-19 12:43 | Cons- Ear,Nose&Throat ---
General Information and HPI Consulting Request Date of Consult: 10/19/16 Requested By: [address],Millie FUNK Reason for Consult: HOARSENESS Source of Information: patient, old records Exam Limitations: no limitations, confusion History of Present Illness: ASKED TO SEE THIS PATIENT WITH ALCOHOL INTOXICATION AND WITHDRAWAL, CABG, AFIB, COPD, METABOLIC ACIDOSIS, PNEUMONIA, METABOLIC DERANGEMENTS, WHO HAS HAD HOARSENESS FOR 2 WEEKS. NEW ONSET. NO OBVIOUS TRIGGERS. NO COLD OR TRAUMA NOTED. HAS PNEUMONIA, BUT NOT INTUBATED. DENIES PND OR GERD OVERALL VOICE MAY BE IMPROVING SINCE HIS ADMISSION 5 DAYS AGO. SOME CONCERNS ABOUT ASPIRATION. NO SPITTING BLOOD Allergies/Medications Allergies: Coded Allergies: NO KNOWN ALLERGIES (06/18/16) Home Med List: Folic Acid 0.8 MG TABLET 1 TAB PO DAILY SUPPLEMENT (Reported) Losartan Potassium (Cozaar) 25 MG TABLET 1 TAB PO DAILY heart failure Reason to Stop at ADM: sepsis, hypotension Magnesium Oxide 400 MG TABLET 400 MG PO BID supplement Meloxicam 7.5 MG TABLET 1 TAB PO DAILY PAIN (Reported) Reason to Stop at ADM:ERIKA Metoprolol Tartrate (Lopressor) 50 MG TABLET 1 TAB PO BID TACHYCARDIA Reason to Stop at ADM:hypotension, sepsis Phenol (Chloraseptic) 1.4 % SPRAY SORE THROAT (Reported) Thiamine HCl (Vitamin B-1) 100 MG TABLET 100 MG PO DAILY SUPPLEMENT Current Medications: Current Medications Sig/Sae Start time Last Medication Dose Route Stop Time Status Admin Acetaminophen/ 1 TAB Q6P PRN 10/15 1445 AC Hydrocodone Bitart PO Albuterol Sulfate 3 ML Q4P PRN 10/18 1030 AC INH Azithromycin 500 MG DAILY 10/18 1000 AC 10/19 Sodium Chloride 250 ML IV 0847 Ceftriaxone Sodium 1,000 MG DAILY 10/18 1000 AC 10/19 IV 0847 Folic Acid 1 MG DAILY 10/16 1000 AC 10/19 PO 0846 Guaifenesin 600 MG Q12 10/19 1000 AC PO Ipratropium [place] 2.5 ML Q4P PRN 10/18 1030 AC INH Lorazepam 0 Q1P PRN 10/15 1915 AC 10/18 IV 2110 Magnesium Oxide 400 MG BID 10/19 1000 CAN PO Magnesium Oxide 400 MG BID 10/15 2200 AC 10/19 PO 0846 Magnesium Sulfate 1 GM Q1H 10/19 0530 DC 10/19 Dextrose/Water 100 ML IV 10/19 0729 0634 Magnesium Sulfate 1 GM Q2H 10/19 0515 DC Dextrose/Water 100 ML IV 10/19 0814 Metoprolol Tartrate 25 MG BID 10/18 1122 AC 10/19 PO 0846 Morphine Sulfate 2 MG Q4P PRN 10/15 1445 AC IV Multivitamins 1 TAB DAILY 10/18 1000 AC 10/19 PO 0846 Pantoprazole Sodium 40 MG DAILY 10/15 2000 AC 10/19 IV 0846 Phenol 2 SPRAY DAILY PRN 10/15 1845 AC 10/18 EXT 0932 Phosphate 250 MG ONCE ONE 10/18 1715 DC 10/18 PO 10/18 1716 1805 Potassium Chloride 20 MEQ DAILY 10/19 1000 AC 10/19 PO 0845 Potassium Chloride 20 MEQ ONCE ONE 10/18 1715 DC 10/18 PO 10/18 1716 1805 Potassium Chloride 40 MEQ Q8H 10/18 0745 AC 10/19 Dextrose/Sodium 1,000 ML IV 0054 Chloride Thiamine HCl 100 MG DAILY 10/16 1000 AC 10/19 PO 0846 Zinc Oxide 1 KAPIL BID 10/18 2200 AC 10/18 TOP 1805 Past History Medical History Neurological: NONE EENT: NONE Cardiovascular: CAD, hypertension, myocardial infarction, CAD status post CABG SVT ablation Respiratory: COPD, emphysema Gastrointestinal: NONE Hepatic: PANCREATITIS Renal: NONE Musculoskeletal: R/L HIP FX Psychiatric: ETOH WITHDRAWAL Endocrine: NONE Blood Disorders: NONE Cancer(s): NONE 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 Family History Relations & Conditions If Any: MOTHER (Breast Cancer). . FATHER (Stroke, [place]). . Psychosocial History Where Do You Live? Home Who Do You Live With? self Services at Home: None Primary Language: [place] Smoking Status: Current Everyday Smoker (pack/day since 16 years old) ETOH Use: alcoholic Functional Ability Ambulation: cane Review of Systems Review of Systems: POSITIVE FINDINGS NOTED THROUGHOUT NUMEROUS SYSTEMS ALL DOCUMENTED IN CHART SMOKES 1 PPD ALCOHOL ACTIVE Exam & Diagnostic Data Vital Signs and I&O Vital Signs Date Time Temp Pulse Resp B/P B/P Pulse O2 O2 Flow FiO2 Mean Ox Delivery Rate 10/19 0846 82 149/76 10/19 0800 97.4 88 18 140/70 95 Room Air 10/19 0400 97.6 87 30 118/60 10/19 0400 96 Room Air 10/19 0200 85 22 125/72 10/19 0000 97.2 89 28 120/60 10/19 0000 96 Room Air 10/19 0000 97.2 89 28 120/60 96 Room Air 10/18 2200 86 24 109/68 10/18 2110 88 22 116/72 10/19 1999 98.2 86 26 110/60 10/18 2000 96 Room Air 10/18 1829 92 Room Air 10/18 1800 84 24 111/62 10/18 1600 97.8 81 22 100/50 10/18 1600 96 Room Air 10/18 1600 97.8 81 22 100/50 96 Room Air 10/18 1416 84 111/65 10/18 1400 84 26 111/65 Intake & Output 10/19 1600 10/19 0800 10/19 0000 10/18 1600 10/18 0810/18 0000 Intake Total 098 705 2921 795 202 Output Total 813 010 2149 815 800 Balance -158 -210 -150 -20 1225 Intake, IV 658 468 4363 795 2024 Intake, Oral 120 0 0 Number 0 Bowel Movements Output, Urine 345 669 0506 815 800 Physical Exam: SITTING IN CHAIR, NOT INTUBATED NOT SOB NOT DROOLING NO BLOOD EARS NORMAL NOSE DRY OC/OP NO OBVIOUS LESION NECK NO PAIN FLEXIBLE FIBEROPTIC NASOPHARYNGOLARYNGOSCOPY SCOPE PERFORMED THROUGH LEFT NOSTRIL OLYMPUS ENF SCOPE PASSED THROUGH NASAL CAVITY AND NASOPHARYNX WHICH WERE CLEAR. OROPHARYNX CLEAR. PATIENT SEVERE GAG REFLEX AND WAS COUGHING FREQUENTLY THROUGHOUT THE PROCEDURE. VIEW OF VOCAL FOLDS SHOWS NO MASS LESIONS OF LARYNX OR HYPOPHARYNX. LEFT VOCAL FOLD PARALYZED IN PARAMEDIAN POSITION RIGHT VOCAL FOLD MOBILE NO OBVIOUS GERD NO HYPOPHARYNGEAL MASS VISIBLE Last 24 Hours of Labs: Laboratory Tests 10/19 10/19 10/18 1203 0356 1605 Chemistry Sodium (137 - 145 mmol/L) 136 L 136 L Potassium (3.5 - 5.1 mmol/L) 4.2 3.9 Chloride (98 - 107 mmol/L) 106 104 Carbon Dioxide (22 - 30 mmol/L) 22 25 Anion Gap (5 - 16) 7 7 BUN (9 - 20 mg/dL) 6 L 6 L Creatinine (0.7 - 1.2 mg/dL) 0.7 0.7 Estimated GFR (>60 ml/min) > 60 > 60 Glucose (65 - 99 mg/dL) 91 118 H Calcium (8.4 - 10.2 mg/dL) 7.0 L 6.5 L Phosphorus (2.5 - 4.5 mg/dL) 2.6 3.2 Magnesium (1.6 - 2.3 mg/dL) 1.4 L 1.7 Iron (49 - 181 ug/dL) 19 L TIBC (261 - 462 ug/dL) 189 L Ferritin (17.9 - 464 ng/mL) 539.0 H Total Bilirubin (0.2 - 1.3 mg/dL) 1.5 H 1.0 AST (17 - 59 U/L) 47 49 ALT (21 - 72 U/L) 58 61 Ammonia Pending Creatine Kinase (55 - 170 U/L) 719 H Albumin (3.5 - 5.0 g/dL) 2.3 L 2.2 L Hematology CBC w Diff MAN DIFF ORDERED WBC (4.8 - 10.8 /CUMM) 5.6 RBC (4.70 - 6.10 /CUMM) 3.06 L Hgb (14.0 - 18.0 G/DL) 9.6 L Hct (42 - 52 %) 28.6 L MCV (80.0 - 94.0 FL) 93.6 MCH (27.0 - 31.0 PG) 31.5 H RDW (11.5 - 14.5 %) 15.4 H Plt Count (130 - 400 /CUMM) 78 L MPV (7.4 - 10.4 FL) 8.9 Gran % (42.2 - 75.2 %) 58.4 Lymphocytes % (20.5 - 51.1 %) 16.7 L Monocytes % (1.7 - 9.3 %) 21.3 H Eosinophils % (0 - 5 %) 3.3 Basophils % (0.0 - 2.0 %) 0.3 Absolute Granulocytes (1.4 - 6.5 /CUMM) 3.3 Segmented Neutrophils (42.2 - 75.2 %) 61 Band Neutrophils (0.0 - 5.0 %) 3 Absolute Lymphocytes (1.2 - 3.4 /CUMM) 0.9 L Lymphocytes (20.5 - 51.1 %) 19 L Monocytes (1.7 - 9.3 %) 14 H Absolute Monocytes (0.10 - 0.60 /CUMM) 1.2 H Eosinophils (0 - 5.0 %) 2 Absolute Eosinophils (0.0 - 0.7 /CUMM) 0.2 Absolute Basophils (0.0 - 0.2 /CUMM) 0 Platelet Estimate (ADEQUATE) DECREASED Anisocytosis 1+ PUBS MCHC (33.0 - 37.0 G/DL) 33.7 Other Body Source Fld Total RBCs Counted (%) 100 Assessment/Plan Assessment/Plan PATIENT WITH ALCOHOL INTOXICATION AND WITHDRAWAL, CABG, AFIB, COPD, METABOLIC ACIDOSIS, PNEUMONIA, METABOLIC DERANGEMENTS, WHO HAS HAD HOARSENESS FOR 2 WEEKS. HE HAS LEFT VOCAL FOLD PARALYSIS. ALSO HAS PNEUMONIA RECOMMEND: 1. CT NECK TO EVALUATE COURSE OF RECURRENT LARYNGEAL NERVE FROM SKULL BASE TO UPPER CHEST TO R/O MASS PRESSINGON THE RLN. 2. SPEECH AND SWALLOW REHAB NOTIFICATION OF LEFT VOCAL FOLD PARALYSIS, AND THERAPIES EXERCISES TO ASSIST, SUCH HEAD POSITIONING, THICKET, ETC 3. WILL MONITOR CLOSELY. TYPICALLY NO SURGICAL INTERVENTION CONSIDERED FOR AT LEAST SEVERAL MONTHS UNLESS UNCONTROLLED ASPIRATION. WOULD BE A POOR SURGICAL CANDIDATE GIVEN CONDITIONS AND CURRENT MENTAL STATUS AND CONCERNS ABOUT FOLLOW UPS. PLEASE HAVE HIM F/U WITH OUR OFFICE 2 WEEKS AFTER DISCHARGE FROM HOSPITAL. THANKS ZINA CASTRO MD, FACS Consult Acknowledgment - Thank you for your consult request.
[2016-10-19 15:53] VITALS: BP 140/60
--- NOTE | 2016-10-19 16:35 | NUR ---
PT IS DROWSY THIS AM, MORE AWAKE THIS AFTERNOON. GRIGGS D/C/D, [place] CATH PLACED AND THE PATIENT HAS VOIDED. ENT CONSULT DONE AND SCOPE DONE AT BEDSIDE. PT IS NOW NPO. CT NECK DONE. MONITOR NSR , AFEBRILE. OOB TO CHAIR WITH PT, MANINDER LIFT NEEDED FOR BACK TO BED. WAITING FOR TELEMETRY BED.
--- NOTE | 2016-10-19 18:07 | CT SCAN REPORT ---
EXAMINATION: CT SOFT TISSUE NECK WITH CONTRAST CLINICAL INFORMATION: Left local cord paralysis. Scan to determine a possible mass/tumor that would affect the course of the left recurrent laryngeal nerve. COMPARISON: None recent TECHNIQUE: Following the intravenous administration of 95 mL Optiray 320, helical imaging was performed in the axial plane with generation of coronal and sagittal reformatted images. DLP: 514 mGy-cm. FINDINGS: No cervical adenopathy is identified. The parotid glands are homogeneous in attenuation. The submandibular glands are normal. No contour abnormality or pathologic enhancement is seen within the oral cavity or pharyngeal mucosal space. The laryngeal structures are normal. The parapharyngeal fat is preserved. The carotid sheath vasculature opacify normally. However, there is extensive calcific plaque formation of the arterial vascular tree. Also, the midportion of the left internal jugular vein is compressed but not obstructed. No extra mucosal soft tissue mass or fluid collection is seen. No retropharyngeal fluid collection is seen. The thyroid gland is normal. The only finding of possible significance is the presence of a number of prominent lymph nodes located in the AP window. These nodes exceed 1 cm in short axis. There are also small pretracheal lymph nodes and bilateral hilar lymph nodes. A moderate-sized right pleural effusion is seen. A small left pleural effusion is present. Extensive emphysematous alterations of both upper lobes are seen. A combination of interstitial and airspace opacities are seen to involve the dependent portion of the right upper lobe. The mastoid air cells are well aerated. There is chronic sinusitis of the left maxillary antrum. The temporomandibular joints are normal. The patient is edentulous. As previously described, there is extensive cervical spondylosis and facet arthritis. The imaged portions of the brain parenchyma are unremarkable. IMPRESSION: 1. The only finding of possible significance is that of several prominent lymph nodes in the AP window. These may affect the recurrent left laryngeal nerve. 2. Extensive arteriosclerosis. 3. Bilateral pleural effusions much larger on the right than left. 4. Question right upper lobe pneumonia versus compression atelectasis of an emphysematous lung.
[2016-10-19 20:00] VITALS: BP 120/70
[2016-10-20] VITALS: BP 100/60
[2016-10-20 06:11] LABS: ABSOLUTE BASOPHIL COUNT 0 /CUMM (0.0-0.2); ABSOLUTE EOSINOPHIL COUNT 0.2 /CUMM (0.0-0.7); ABSOLUTE GRANULOCYTE CT 4.3 /CUMM (1.4-6.5); ABSOLUTE LYMPH COUNT 1.1 /CUMM (1.2-3.4); ABSOLUTE MONOCYTE COUNT 1.2 /CUMM (0.10-0.60); BASOPHIL % 0.4 % (0.0-2.0); EOSINOPHIL % 2.8 % (0-5); GRANULOCYTE % 63.4 % (42.2-75.2); MEAN CORPUSCULAR HGB 31.2 PG (27.0-31.0); MEAN CORPUSCULAR HGB CONC 33.4 G/DL (33.0-37.0); MEAN CORPUSCULAR VOLUME 93.3 FL (80.0-94.0); MEAN PLATELET VOLUME 8.3 FL (7.4-10.4); RBC DISTRIBUTION WIDTH 15.6 % (11.5-14.5); RED BLOOD CELL CT 3.69 /CUMM (4.70-6.10); WHITE BLOOD CELL COUNT 6.8 /CUMM (4.8-10.8)
[2016-10-20 06:20] LABS: HEMATOCRIT 34.4 % (42-52); PLATELET COUNT 143 /CUMM (130-400)
--- NOTE | 2016-10-20 07:10 | PN- Housestaff ---
Subjective Follow-up For: 1. hoarseness and difficulty swallowing - left vocal cord paralysis, - improved 2. generalized wekaness, poor oral intake, malnutrition, nutrition and PT on board 3. electrolyte imbalance: hypernatremia, hypomagnesemia, hypokalemia, tranaminitis - improved 4. alcohol intoxication and withdrawal - resolved 5. metabolic acidosis due to sepsis or increase alcohol intake and dehydration - resolved 6. elevated troponin most likely demand ischemia 7. episodes of vomiting and diarrhea on admission - resolved Tele-Events Since Last Visit: sinus tachy to max 164, an episode of 4 beats run of vtach Subjective: I saw an examined the patient this am, he is alert and awake, oriented x3, he is complaining of not having anything to eat, I explained the reason one more time and the risk of aspiration. Patient denies abdominal pain, has been incontinent per his nurse, with brown heme (-) loose stool. He had a good night sleep. No events reported overnight. Review of Systems Constitutional: Denies: chills, fever, weakness. EENTM: Reports: no symptoms. Cardiovascular: Denies: chest pain, palpitations. Respiratory: Denies: cough, short of breath, sputum production. Gastrointestinal: Denies: abdominal pain, changes in stool. Genitourinary: Reports: no symptoms. Musculoskeletal: Reports: no symptoms. Skin: Reports: no symptoms. Objective Last 24 Hrs of Vital Signs/I&O Vital Signs Date Time Temp Pulse Resp B/P B/P Pulse O2 O2 Flow FiO2 Mean Ox Delivery Rate 10/20 0809 98.4 112 28 130/70 96 Room Air 10/20 0000 93 Room Air 10/20 0000 99.0 107 20 100/60 93 Room Air 10/19 2000 88.3 93 20 120/70 93 Room Air 10/19 1553 98.4 80 20 140/60 95 Room Air 10/19 1244 96 Room Air Room Air Intake & Output 10/20 1600 10/20 0800 10/20 0000 Intake Total 361 279 Output Total 200 150 Balance 161 129 Intake, IV 361 279 Output, Urine 200 150 Patient 52.702 kg Weight Physical Exam General Appearance: Alert, Oriented X3 Skin: several abrasions on the skin on left knee, left thigh, flank and shoulder. covered with xeroform and kerlix. HEENT: Atraumatic, EOMI, Mucous Membr. moist/pink Neck: Supple, No JVD Cardiovascular: Regular Rate, Normal S1, Normal S2, No Murmurs Lungs: Clear to Auscultation, Normal Air Movement Abdomen: Soft, No Tenderness Neurological: Normal Tone, hoarseness is improved, speech is fluent Extremities: No Cyanosis, No Edema, Normal Pulses Vascular: Pulses Symmetrical Current Medications: Current Medications Sig/Sae Start time Last Medication Dose Route Stop Time Status Admin Acetaminophen/ 1 TAB Q6P PRN 10/15 1445 AC Hydrocodone Bitart PO Albuterol Sulfate 3 ML Q4P PRN 10/18 1030 AC INH Azithromycin 500 MG DAILY 10/18 1000 AC 10/20 Sodium Chloride 250 ML IV 0940 Ceftriaxone Sodium 1,000 MG DAILY 10/18 1000 AC 10/20 IV 0940 Folic Acid 1 MG DAILY 10/16 1000 AC 10/19 PO 0846 Furosemide 20 MG ONCE ONE 10/19 1630 DC 10/19 IV 10/19 1631 1745 Glycerin 2 SPRAY Q2P PRN 10/20 0800 AC PO Guaifenesin 600 MG Q12 10/19 1000 AC 10/19 PO 1200 Ipratropium [place] 2.5 ML Q4P PRN 10/18 1030 AC INH Lorazepam 0 Q1P PRN 10/15 1915 AC 10/18 IV 2110 Magnesium Oxide 400 MG BID 10/15 2200 AC 10/19 PO 0846 Magnesium Sulfate 1 GM ONCE ONE 10/20 1130 AC Dextrose/Water 100 ML IV 10/20 1529 Magnesium Sulfate 1 GM ONCE ONE 10/20 0730 AC 10/20 Dextrose/Water 100 ML IV 10/20 1129 0939 Metoprolol Tartrate 25 MG BID 10/18 1122 AC 10/19 PO 0846 Morphine Sulfate 2 MG Q4P PRN 10/15 1445 AC IV Multivitamins 1 TAB DAILY 10/18 1000 AC 10/19 PO 0846 Pantoprazole Sodium 40 MG DAILY 10/15 2000 AC 10/20 IV 0940 Phenol 2 SPRAY DAILY PRN 10/15 1845 AC 10/18 EXT 0932 Potassium Chloride 20 MEQ DAILY 10/19 1000 AC 10/19 PO 0845 Potassium Chloride 40 MEQ Q8H 10/18 0745 AC 10/20 Dextrose/Sodium 1,000 ML IV 0938 Chloride Sodium Chloride 2 SPRAY Q4P PRN 10/20 0800 AC CIARA Thiamine HCl 100 MG DAILY 10/16 1000 AC 10/19 PO 0846 Zinc Oxide 1 KAPIL BID 10/18 2200 AC 10/19 [facility] 2245 Last 24 Hrs of Lab/Dominic Results Last 24 Hrs of Labs/Mics: Laboratory Tests 10/20/16 0600: Anion Gap 10, Estimated GFR > 60, Glucose 95, Calcium 7.8 L, Phosphorus 3.3, Magnesium 1.1 L, Total Bilirubin 1.3, AST 38, ALT 56, Creatine Kinase 370 H, Albumin 2.7 L, CBC w Diff NO MAN DIFF REQ, RBC 3.69 L, MCV 93.3, MCH 31.2 H, RDW 15.6 H, MPV 8.3, Gran % 63.4, Lymphocytes % 15.8 L, Monocytes % 17.6 H, Eosinophils % 2.8, Basophils % 0.4, Absolute Granulocytes 4.3, Absolute Lymphocytes 1.1 L, Absolute Monocytes 1.2 H, Absolute Eosinophils 0.2, Absolute Basophils 0, PUBS MCHC 33.4 10/19/16 1203: Ammonia < 9 L Assessment/Plan Assessment: Patient is a 76 year old male with PMH significant for ETOH abuse, HTN, CAD s/p CABG, AFIB (not on anticoagulation due to fall risk), COPD (emphysema), upper GI bleed in 2012, who was brought in to the ED by family members after several days of worsening coughing, vomiting, poor oral intake and weakness. On admission patient had borderline BP, elevated lactic acid of 14.1, AG 34, carbon dioxide 14, Hypernatremia of 152, Cr of 4.4, AST 198, ALT 103, troponin 0.18. He was admitted to the ICU for close cardiac monitoring due to severe high anion gap metabolic acidosis and elevated troponin. His acidosis resolved within <12 hours of admission as well as the troponin. Patient has had poor oral intake as well as a new onset hoarseness and difficulty swallowing. His electrolytes are repleted daily and he is receiving vitamins. Patient is currently NPO until next swallow eval and is kept on maintenance fluids (D5W 1/2NS with KCl). His is overall more alert and awake. Family discussion to take place on Sunday, regarding goals of care. Problem list and plan: Respiratory #Hoarseness and difficultly swallowing hoarseness started since a week prior to admission. ENT consult was done on 10/20 for evaluation of possible vocal cord paralysis. per ENT: there is left sided vocal cord paralysis. Possible etiologies: viral, mass effect through the coarse of the left laryngeal nerve. CT of the neck with IV contrast reported several prominent lymph nodes in the AP window. These may affect the recurrent left laryngeal nerve. Today hoarseness has improved. * repeat swallow eval today * consider resuming his diet accordingly * if unsuccessful discussions are made with the pt re possible need for an NG tube. * ordered OASIS and nasal spray to help with dryness on the mucous membranes * kept on maintenance fluids (D5W 1/2NS with KCl) *pt refused to keep the NGT, we will try [place] tube later today. Cardiac #Mild troponin elevation on admission - resolved Most likely due to demand ischemia He has a history of CAD s/p CABG, hx of chronic systolic HF with normal LV/RV systolic function history of paroxysmal atrial fibrillation/flutter not on anticoagulation due to falls, alcohol abuse and medical noncompliance. Patient has tachycardia (HR in 100s this am, and had episodes of tachycardia during the night) * restarted metoprolol per cardiology but at a lower dose (25 mg BID) on 10/18/16 (he takes 50 mg BID at home) *metoprolol PO is not given as he is NPO, if needed consider 2.5g mg IV metoprolol to control the HR #HTN, CAD BP in normal range, HR has been in 100s today, we restarted metoprolol 25 mg BID , however on hold again due to pt being NPO * consider 1 time 2.5 mg IV metoprolol if needed to control the HR ID #possible aspiration pneumonia or HCAP CXR 10/19/16, reported pulmonary edema superimposed on obstructive lung disease [place] afebrile, WBC count: 5.6 (down from 15.6 on admission) Ferritin elevated to 539.0, could be an underlying * continue with Ceftriaxone and azithromycin * attempt to obtain sputum culture #Sepsis - resolved met criteria for severe sepsis on admission - tachycardic, leukocytosis 15.6, ERIKA, elevated troponin, lactic acidosis. It could also be due to severe dehydration (vomiting, poor po intake, diarrhea) as well as alcoholism. possible infectious etiology: HCAP or aspiration PNA or UTI. legionella and strep Ag (-). Patient has stayed afebrile, WBC trending down, urine culture NG after 2 days, blood culture x2 NG after 1 day CXR: * switched vancomycin and ceftazidime to ceftriaxone and azithromycin, will DC ABx if patient remains afebrile Metabolic #Hypernatremia, hypomagnesemia, hypokalemia - improved Patient has very poor oral intake, had diarrhea and vomiting on admission which are resolved Na 136 this am, K 4.2, Mg 1.4 * continue IV fluids, switched to D5w1/2 with 40 meq KCl at 50 cc/hour * recheck BEP in am #Alcohol intoxication and withdrawal - improved History of alcohol abuse, recent increase in alcohol intake, CIWA scores 4 and 6 this am, did not receive ativan since Sunday10/16/16 * Ativan per CIWA and PRN * continue thiamine, folic acid and multivitamin tab #Metabolic acidosis - resolved With elevated anion gap, likely secondary to alcohol. patient has had NL capillary refill since admission, alcoholism most likely is the major contributor to the current lactic acidosis. AG is WNL, as well as bicarbonate Chou catheter removed on 10/19/16 after 5 days Alimentary #Mild protein calorie malnutrition - chronic reports poor oral intake History of mild protein calorie malnutrition in the previous admission * Continue IV fluids at 50 cc/hour * Continue multivitamin, folic acid, thiamine * Nutrition consult placed * will need to place NG tube is pt agreeble for feeding as he needs to be kept NPP due to risk of aspiration Musculoskeletal #Generalized weakness, recent fall and trauma -In the setting of poor oral intake and pr calorie malnutrition. -Patient reported he had an accident, almost a fall at home, and got stuck under a bed frame and injured his extremities and back. he has several skin abrasions on the left knee, left thigh, left flank and shoulder. -CT chest shows New, minimally displaced fracture of the left L3 transverse process. no tenderness on the spine in the exam. -PT consult was made, managed to get out of bed to chair * pain management for mild, moderate and severe pain * wound care consult placed and following the pt * continue PT eval and tx GI #Transaminitis - resolved Most likely due to alcoholism * avoid acetaminophen * counseling for abstinence from alcohol before discharge #Vomiting and coffee ground emesis on admission - no further episode since 10/15 In the setting of heavy alcohol use and history of upper GI bleed * IV protonix * IV fluids * avoid NSAIDs and aspirin * will consider GI consult and possible endoscopy if any further evidence of bleeding noted #Diarrhea - improved patient has become incontinent for stool since admission, with loose stool, guaiac positive Stool culture has grown mixed sydni, negative for Cdiff toxin A and B #Pain * Tylenol for mild, Vicodin for moderate, and Percocet for severe pain NPO - failed swallow eval, will need NG tube placement DVT prophylaxis with ALPS FULL code Problem List: 1. Weakness 2. Tachycardia 3. Vocal cord paralysis Pain Ratin Pain Location: no report of pain currently Pain Goal: Pain 4 or less Pain Plan: control mild pain with tylenol, moderate pain with IV acetaminophen, and severe pain with acetaminophenhydrocodone. Tomorrow's Labs & Rationales: CBC (anemia) BEP and Mg (monitor electrolytes)
--- NOTE | 2016-10-20 07:45 | PN- Wound Care ---
Subjective Subjective: Is awake alert comfortable on a low air loss mattress. Objective Vital Signs and I&Os Vital Signs Result Date Time Pulse Ox 93 10/20 0000 O2 Delivery Room Air 10/20 0000 B/P 140/60 10/19 1553 Temp 98.4 10/19 1553 Pulse 80 10/19 1553 Resp 20 10/19 1553 O2 Flow Rate Room Air 10/19 1244 Intake & Output 10/20 0000 10/19 1600 10/19 0800 Intake Total 279 520 342 Output Total 150 625 500 Balance 129 -105 -158 Intake, IV 279 300 342 Intake, Oral 220 Number 1 Bowel Movements Output, Urine 150 625 500 Multiple pressure ulcers were examined with his nurse these appear to be clean the initial slough present is thinning there are areas of new skin growth there is no suspicion of soft tissue infection Impression/Plan Impression/Plan Impression/Plan: 76-year-old gentleman with multiple medical problems admitted with sepsis has been at home after a fall with multiple areas of pressure injury all present on admission. Evidence of significant malnutrition. He should be on a low air loss mattress and frequently turned. Wounds can be cleansed and treated with Xeroform daily. The plan reviewed with housestaff and nurse. Continue current wound care and optimize nutrition
[2016-10-20 08:09] VITALS: BP 130/70
--- NOTE | 2016-10-20 08:56 | PN- Pulmonary ---
Subjective HPI/Critical Care Issues: The patient is arousable but remains somnolent. He is complaining of not being able to eat or drink. The patient was found to have focal cord paralysis yesterday and is awaiting further evaluation today regarding his ability to eat. If the patient remains NPO, we will place KO feed tube and start tube feedings today. He is not able to offer other complaints. Objective Current Medications: Current Medications Sig/Sae Start time Last Medication Dose Route Stop Time Status Admin Acetaminophen/ 1 TAB Q6P PRN 10/15 1445 AC Hydrocodone Bitart PO Albuterol Sulfate 3 ML Q4P PRN 10/18 1030 AC INH Azithromycin 500 MG DAILY 10/18 1000 AC 10/19 Sodium Chloride 250 ML IV 0847 Ceftriaxone Sodium 1,000 MG DAILY 10/18 1000 AC 10/19 IV 0847 Folic Acid 1 MG DAILY 10/16 1000 AC 10/19 PO 0846 Furosemide 20 MG ONCE ONE 10/19 1630 DC 10/19 IV 10/19 1631 1745 Glycerin 2 SPRAY Q2P PRN 10/20 0800 AC PO Guaifenesin 600 MG Q12 10/19 1000 AC 10/19 PO 1200 Ipratropium [place] 2.5 ML Q4P PRN 10/18 1030 AC INH Lorazepam 0 Q1P PRN 10/15 1915 AC 10/18 IV 2110 Magnesium Oxide 400 MG BID 10/15 2200 AC 10/19 PO 0846 Magnesium Sulfate 1 GM ONCE ONE 10/20 1130 AC Dextrose/Water 100 ML IV 10/20 1529 Magnesium Sulfate 1 GM ONCE ONE 10/20 0730 AC Dextrose/Water 100 ML IV 10/20 1129 Metoprolol Tartrate 25 MG BID 10/18 1122 AC 10/19 PO 0846 Morphine Sulfate 2 MG Q4P PRN 10/15 1445 AC IV Multivitamins 1 TAB DAILY 10/18 1000 AC 10/19 PO 0846 Pantoprazole Sodium 40 MG DAILY 10/15 2000 AC 10/19 IV 0846 Phenol 2 SPRAY DAILY PRN 10/15 1845 AC 10/18 EXT 0932 Potassium Chloride 20 MEQ DAILY 10/19 1000 AC 10/19 PO 0845 Potassium Chloride 40 MEQ Q8H 10/18 0745 AC 10/19 Dextrose/Sodium 1,000 ML IV 1606 Chloride Sodium Chloride 2 SPRAY Q4P PRN 10/20 0800 AC CIARA Thiamine HCl 100 MG DAILY 10/16 1000 AC 10/19 PO 0846 Zinc Oxide 1 KAPIL BID 10/18 2200 AC 10/19 [facility] 2245 Vital Signs & I&O Last 24 Hrs of Vitals and I&O: Vital Signs Date Time Temp Pulse Resp B/P B/P Pulse O2 O2 Flow FiO2 Mean Ox Delivery Rate 10/20 0809 98.4 112 28 130/70 96 Room Air 10/20 0000 93 Room Air 10/20 0000 99.0 107 20 100/60 93 Room Air 10/19 2000 88.3 93 20 120/70 93 Room Air 10/19 1553 98.4 80 20 140/60 95 Room Air 10/19 1244 96 Room Air Room Air Intake & Output 10/20 1600 10/20 0800 10/20 0000 Intake Total 361 279 Output Total 200 150 Balance 161 129 Intake, IV 361 279 Output, Urine 200 150 Physical Exam General Appearance: no apparent distress, comfortable, cachetic Head: normal appearance Neck: normal inspection, supple Respiratory: faint scattered wheezes, decreased breath sounds bilaterally Cardiovascular: regular rate/rhythm Gastrointestinal: soft, non-tender Extremities: no edema Skin: normal color, warm/dry, multiple wounds on skin as documented by nursing, no evidence of cellulitis Results Last 24 Hrs of Lab Results: Laboratory Tests 10/20/16 0600: Anion Gap 10, Estimated GFR > 60, Glucose 95, Calcium 7.8 L, Phosphorus 3.3, Magnesium 1.1 L, Total Bilirubin 1.3, AST 38, ALT 56, Creatine Kinase 370 H, Albumin 2.7 L, CBC w Diff NO MAN DIFF REQ, RBC 3.69 L, MCV 93.3, MCH 31.2 H, RDW 15.6 H, MPV 8.3, Gran % 63.4, Lymphocytes % 15.8 L, Monocytes % 17.6 H, Eosinophils % 2.8, Basophils % 0.4, Absolute Granulocytes 4.3, Absolute Lymphocytes 1.1 L, Absolute Monocytes 1.2 H, Absolute Eosinophils 0.2, Absolute Basophils 0, PUBS MCHC 33.4 10/19/16 1203: Ammonia < 9 L Impression/Plan Impression/Plan Impression/Plan: 1. Sepsis secondary to pneumonia with respiratory failure. 2. Electrolyte abnormalities - improving. 3. COPD without evidence of bronchospasm. 4. Hematemesis - resolved, no blood loss anemia. 5. Diarrhea - improved, c. diff negative. 6. ERIKA secondary to volume depletion and rhabdomyolysis, resolved. 7. Malnutrition and failure to thrive. 8. EtOH hepatitis. 9. Chronic ETOH abuse - CIWA scores are low over the past 24 hours. 10. PAF, MAT - cardiology following. 11. Thrombocytopenia - chronic, likely secondary to EtOH. 14. Multiple skin wounds. 15. Encephalopathy, slowly improving. minimally displaced fracture of the left L3 transverse process. No additional acute fracture identified. Fragmentation and irregularity of the distal right clavicle, consistent with a remote fracture or traumatic injury. Recommendations: * Replete magnesium. * Continue to monitor CIWA scores, on EtOH withdrawal pathway. * Continue multivitamin, thiamine and folate. * Continue ceftriaxone and azithromycin. * Skin care protocol. * Continue nebs/TRC. * DVT prophylaxis with Alps only, no subcutaneous heparin due to thrombocytopenia. * Avoid any sedating medications. * Need to have a goals of care discussion with patient when he is more alert and family. * Continue telemetry monitoring. * Increase activity, out of bed to chair.
--- NOTE | 2016-10-20 12:31 | PN- Cardiology ---
Subjective Subjective: A little more alert today. Was able to tell me he has not taken any of his cardiac medications in over a year. Objective Vital Signs and I&Os Vital Signs Date Time Temp Pulse Resp B/P B/P Pulse O2 O2 Flow FiO2 Mean Ox Delivery Rate 10/20 1212 94 Room Air Room Air 10/20 0809 98.4 112 28 130/70 96 Room Air 10/20 0000 93 Room Air 10/20 0000 99.0 107 20 100/60 93 Room Air 10/19 2000 88.3 93 20 120/70 93 Room Air 10/19 1553 98.4 80 20 140/60 95 Room Air 10/19 1244 96 Room Air Room Air Intake & Output 10/20 1600 10/20 0800 10/20 0000 10/19 1600 10/19 0800 10/19 0000 Intake Total 361 279 520 342 320 Output Total 200 150 625 500 530 Balance 161 129 -105 -158 -210 Intake, IV 361 279 300 342 200 Intake, Oral 220 120 Number 1 Bowel Movements Output, Urine 200 150 625 500 530 Patient 116 lb Weight Physical Exam: General: No apparent distress HEENT: No jugular venous distention or abnormal jugular venous pulsations. Cardiovascular: Normal intensity S1/S2. Regular Respiratory: no rales or rhonchi Abdomen: no guarding or rebound tenderness. Musculoskeletal: No clubbing or cyanosis noted, no edema Skin: warm Current Medications: Current Medications Sig/Sae Start time Last Medication Dose Route Stop Time Status Admin Acetaminophen 500 MG Q6P PRN 10/20 1030 AC PO Acetaminophen 1,000 MG Q6P PRN 10/20 1030 AC N/A 1 UNIT IV Acetaminophen/ 1 TAB Q6P PRN 10/15 1445 AC Hydrocodone Bitart PO Albuterol Sulfate 3 ML Q4P PRN 10/18 1030 AC INH Azithromycin 500 MG DAILY 10/18 1000 AC 10/20 Sodium Chloride 250 ML IV 0940 Ceftriaxone Sodium 1,000 MG DAILY 10/18 1000 AC 10/20 IV 0940 Folic Acid 1 MG DAILY 10/16 1000 AC 10/19 PO 0846 Furosemide 20 MG ONCE ONE 10/19 1630 DC 10/19 IV 10/19 1631 1745 Glycerin 2 SPRAY Q2P PRN 10/20 0800 AC PO Guaifenesin 600 MG Q12 10/19 1000 AC 10/19 PO 1200 Ipratropium [place] 2.5 ML Q4P PRN 10/18 1030 AC INH Lorazepam 0 Q1P PRN 10/15 1915 AC 10/18 IV 2110 Magnesium Oxide 400 MG BID 10/15 2200 AC 10/19 PO 0846 Magnesium Sulfate 1 GM ONCE ONE 10/20 1130 AC Dextrose/Water 100 ML IV 10/20 1529 Magnesium Sulfate 1 GM ONCE ONE 10/20 0730 DC 10/20 Dextrose/Water 100 ML IV 10/20 1129 0939 Metoprolol Tartrate 25 MG BID 10/18 1122 AC 10/19 PO 0846 Morphine Sulfate 2 MG Q4P PRN 10/15 1445 AC IV Multivitamins 1 TAB DAILY 10/18 1000 AC 10/19 PO 0846 Pantoprazole Sodium 40 MG DAILY 10/15 2000 AC 10/20 IV 0940 Phenol 2 SPRAY DAILY PRN 10/15 1845 AC 10/18 EXT 0932 Potassium Chloride 20 MEQ DAILY 10/19 1000 AC 10/19 PO 0845 Potassium Chloride 40 MEQ Q8H 10/18 0745 AC 10/20 Dextrose/Sodium 1,000 ML IV 0938 Chloride Sodium Chloride 2 SPRAY Q4P PRN 10/20 0800 AC CIARA Thiamine HCl 100 MG DAILY 10/16 1000 AC 10/19 PO 0846 Zinc Oxide 1 KAP[place] BID 10/18 2200 AC 10/19 TOP 2245 Results Last 48 Hrs of Labs/Mics: Laboratory Tests 10/20/16 0600: Anion Gap 10, Estimated GFR > 60, Glucose 95, Calcium 7.8 L, Phosphorus 3.3, Magnesium 1.1 L, Total Bilirubin 1.3, AST 38, ALT 56, Creatine Kinase 370 H, Albumin 2.7 L, CBC w Diff NO MAN DIFF REQ, RBC 3.69 L, MCV 93.3, MCH 31.2 H, RDW 15.6 H, MPV 8.3, Gran % 63.4, Lymphocytes % 15.8 L, Monocytes % 17.6 H, Eosinophils % 2.8, Basophils % 0.4, Absolute Granulocytes 4.3, Absolute Lymphocytes 1.1 L, Absolute Monocytes 1.2 H, Absolute Eosinophils 0.2, Absolute Basophils 0, PUBS MCHC 33.4 10/19/16 1203: Ammonia < 9 L 10/19/16 0356: Anion Gap 7, Estimated GFR > 60, Glucose 91, Calcium 7.0 L, Phosphorus 2.6, Magnesium 1.4 L, Iron 19 L, TIBC 189 L, Ferritin 539.0 H, Total Bilirubin 1.5 H, AST 47, ALT 58, Creatine Kinase 719 H, Albumin 2.3 L, Lipase 10 L, CBC w Diff MAN DIFF ORDERED, RBC 3.06 L, MCV 93.6, MCH 31.5 H, RDW 15.4 H, MPV 8.9, Gran % 58.4, Lymphocytes % 16.7 L, Monocytes % 21.3 H, Eosinophils % 3.3, Basophils % 0.3, Absolute Granulocytes 3.3, Segmented Neutrophils 61, Band Neutrophils 3, Absolute Lymphocytes 0.9 L, Lymphocytes 19 L, Monocytes 14 H, Absolute Monocytes 1.2 H, Eosinophils 2, Absolute Eosinophils 0.2, Absolute Basophils 0, Platelet Estimate DECREASED, Anisocytosis 1+, PUBS MCHC 33.7, Fld Total RBCs Counted 100 10/18/16 1605: Anion Gap 7, Estimated GFR > 60, Glucose 118 H, Calcium 6.5 L, Phosphorus 3.2, Magnesium 1.7, Total Bilirubin 1.0, AST 49, ALT 61, Albumin 2.2 L Recent Imaging Studies: Telemetry tracings were personally reviewed and shows sinus rhythm and sinus tachycardia with short SVT bursts Assessment/Plan Assessment/Plan 1. PNA 2. Recurrent alcohol abuse/EtOH withdrawal 3. Acute renal failure/dehydration/rhabdomyolysis 4. Reported history of paroxysmal atrial fibrillation/flutter deemed a poor candidate for anticoagulation to falls/continued alcohol abuse/medical noncomplaince 5. History of coronary artery disease with prior CABG 6. 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 Chronic systolic congestive heart failure, compensated 10. History of medication noncompliance 11. Minimally elevated troponin consistent with demand ischemia 12. Thrombocytopenia and transaminitis 13. Vocal cord paralysis A little more alert today. Was diagnosed with left vocal cord paralysis. Currently not taking by mouth. Would resume the oral Lopressor when possible although he tells me he is not planning on taking medications after discharge. Agree with discussing goals of care. Thrombocytopenia has improved, would resume low-dose aspirin when taking by mouth. Would continue to hold statin therapy until CPK completely normalizes. Continue EtOH withdrawal protocols. Nathan Fermin MD FACC Continue telemetry? Yes
--- NOTE | 2016-10-20 13:57 | RADIOLOGY REPORT ---
EXAMINATION: XR MODIFIED BARIUM SWALLOW CLINICAL INFORMATION: 76-year-old male with left-sided vocal cord paralysis. Suspected aspiration pneumonia. COMPARISON: None. TECHNIQUE: Modified barium swallow was performed with speech therapist. FINDINGS: Evidence of free spillage to the level of the vallecula and minimal penetration was noted with puree. Aspiration was noted with head turned to the left. FLUOROSCOPY TIME: 1 minute 32 seconds. NUMBER OF IMAGES: 5 IMPRESSION: Evidence of aspiration is noted. Full procedural details will be dictated by the speech therapist.
--- NOTE | 2016-10-20 15:29 | NUR ---
PT IS AWAKE AND ORIENTED TODAY. HE HAD A MODIFIED BARIUM SWALLOW TODAY AND REMAINS NPO. INITIALLY HE AGREED TO AN NGT WITH TUBE FEEDING. NGT WAS PLACED IN RIGHT NARES. PT SOON AFTER CHANGED HIS MIND AND THE NGT WAS REMOVED. HE DECLINES TUBE FEEDINGS. RISKS OF NUTRITIONAL DEFICITS REVIEWED. ICU TEAM HAS BEEN NOTIFIED. THE PATIENT ALSO DECLINES A [place] CATHETER AND WILL ATTEMPT URINAL.
[2016-10-20 16:00] VITALS: BP 128/70
--- NOTE | 2016-10-20 18:04 | NUR ---
PT PULLED OUT ONE OF HIS IV'S. DID NOT ALLOW A RESTART. HE HAS REMAINED NPO AND WHEN OASIS MOUTH SRPAY WAS USED HE DID START COUGHING. HE CONTINUES TO DECLINE ANY KIND OF NG TUBE FOR TUBE FEEDING. HE HAS BEEN INCONTINENT OF URINE AND STOOL.
[2016-10-20 20:00] VITALS: BP 120/80
--- NOTE | 2016-10-20 20:46 | NUR ---
PATIENT AWAKE.MONITOR SINUS RHYTHM AT RATE OF 97.O2 SAT ON ROOM AIR=98%.NPO.IVF AT 50 ML/HR.
[2016-10-20 22:18] VITALS: BP 132/74
[2016-10-21] VITALS (12 sets, daily range): BP systolic 106–122; BP diastolic 60–73
[2016-10-21 08:06] LABS: ABSOLUTE BASOPHIL COUNT 0 /CUMM (0.0-0.2); ABSOLUTE EOSINOPHIL COUNT 0.1 /CUMM (0.0-0.7); ABSOLUTE GRANULOCYTE CT 5.3 /CUMM (1.4-6.5); ABSOLUTE MONOCYTE COUNT 1.1 /CUMM (0.10-0.60); BASOPHIL % 0.5 % (0.0-2.0); EOSINOPHIL % 1.8 % (0-5); GRANULOCYTE % 70.1 % (42.2-75.2); HEMATOCRIT 31.1 % (42-52); MEAN CORPUSCULAR HGB 31.2 PG (27.0-31.0); MEAN CORPUSCULAR HGB CONC 33.2 G/DL (33.0-37.0); MEAN CORPUSCULAR VOLUME 93.9 FL (80.0-94.0); MEAN PLATELET VOLUME 8.3 FL (7.4-10.4); PLATELET COUNT 204 /CUMM (130-400); RBC DISTRIBUTION WIDTH 15.3 % (11.5-14.5); RED BLOOD CELL CT 3.31 /CUMM (4.70-6.10); WHITE BLOOD CELL COUNT 7.5 /CUMM (4.8-10.8)
--- NOTE | 2016-10-21 08:39 | PN- Housestaff ---
See Addendum Subjective Follow-up For: 1. hoarseness and difficulty swallowing - left vocal cord paralysis, - improved 2. generalized wekaness, poor oral intake, malnutrition, nutrition and PT on board 3. electrolyte imbalance: hypernatremia, hypomagnesemia, hypokalemia, tranaminitis - improved 4. alcohol intoxication and withdrawal - resolved 5. metabolic acidosis due to sepsis or increase alcohol intake and dehydration - resolved 6. elevated troponin most likely demand ischemia 7. episodes of vomiting and diarrhea on admission - resolved Complaints: no complaints Tele-Events Since Last Visit: Normal sinus rhythm, HR 83 through 111. QRS 0.08. ID interval 0.16. PVCs and PACs Subjective: Interval history: Patient declined to have the NG tube placed yesterday. At this time the ALMA tube has not been placed. He denies any symptoms at this time. Patient denies any headache, chest pain, shortness of breath, palpitations, fever or chills. Review of Systems Constitutional: Reports: see HPI. EENTM: Reports: no symptoms. Cardiovascular: Reports: no symptoms. Respiratory: Reports: no symptoms. Gastrointestinal: Reports: no symptoms. Musculoskeletal: Reports: no symptoms. Objective Last 24 Hrs of Vital Signs/I&O Vital Signs Date Time Temp Pulse Resp B/P B/P Pulse O2 O2 Flow FiO2 Mean Ox Delivery Rate 10/21 0800 Room Air 10/21 0800 98.2 82 18 110/68 10/21 0751 98.2 82 18 110/68 94 Room Air 10/21 0330 104 20 112/60 10/21 0200 92 16 110/60 10/21 0000 98.9 104 20 106/70 10/20 2218 99.2 91 20 132/74 93 Room Air 10/21 1999 98.6 76 24 120/80 10/21 1999 98 Room Air 10/21 1999 98.6 76 24 120/80 96 Room Air 10/20 1600 99.0 104 24 128/70 97 Room Air 10/20 1403 Room Air 2.0L 10/20 1212 94 Room Air Room Air Intake & Output 10/21 1600 10/21 0800 10/21 0000 Intake Total 400 400 Output Total Balance 400 400 Intake, IV 400 400 Intake, Oral 0 Physical Exam General Appearance: Cooperative, No Acute Distress Skin: LLE skin breakdown covered in clean bandages at this time HEENT: Mucous Membr. moist/pink Cardiovascular: Regular Rate, Normal S1, Normal S2 Lungs: Normal Air Movement Abdomen: Normal Bowel Sounds, Soft, No Tenderness Extremities: No Edema, Normal Pulses Current Medications: Current Medications Sig/Sae Start time Last Medication Dose Route Stop Time Status Admin Acetaminophen 500 MG Q6P PRN 10/20 1030 AC PO Acetaminophen 1,000 MG Q6P PRN 10/20 1030 AC N/A 1 UNIT IV Acetaminophen/ 1 TAB Q6P PRN 10/15 1445 AC Hydrocodone Bitart PO Albuterol Sulfate 3 ML Q4P PRN 10/18 1030 AC INH Azithromycin 500 MG DAILY 10/18 1000 AC 10/20 Sodium Chloride 250 ML IV 0940 Ceftriaxone Sodium 1,000 MG DAILY 10/18 1000 AC 10/20 IV 0940 Folic Acid 1 MG DAILY 10/16 1000 AC 10/19 PO 0846 Glycerin 2 SPRAY Q2P PRN 10/20 0800 AC 10/20 PO 1820 Guaifenesin 600 MG Q12 10/19 1000 AC 10/19 PO 1200 Ipratropium [place] 2.5 ML Q4P PRN 10/18 1030 AC INH Lorazepam 0 Q1P PRN 10/15 1915 AC 10/21 IV 0334 Magnesium Oxide 400 MG BID 10/15 2200 AC 10/19 PO 0846 Magnesium Sulfate 1 GM ONCE ONE 10/20 1130 DC 10/20 Dextrose/Water 100 ML IV 10/20 1529 1200 Magnesium Sulfate 1 GM ONCE ONE 10/20 0730 DC 10/20 Dextrose/Water 100 ML IV 10/20 1129 0939 Metoprolol Tartrate 25 MG BID 10/18 1122 AC 10/19 PO 0846 Morphine Sulfate 2 MG Q4P PRN 10/15 1445 AC IV Multivitamins 1 TAB DAILY 10/18 1000 AC 10/19 PO 0846 Pantoprazole Sodium 40 MG DAILY 10/15 2000 AC 10/20 IV 0940 Phenol 2 SPRAY DAILY PRN 10/15 1845 AC 10/18 EXT 0932 Potassium Chloride 20 MEQ DAILY 10/19 1000 AC 10/19 PO 0845 Potassium Chloride 40 MEQ Q8H 10/18 0745 AC 10/20 Dextrose/Sodium 1,000 ML IV 0938 Chloride Sodium Chloride 2 SPRAY Q4P PRN 10/20 0800 AC 10/20 CIARA 1820 Thiamine HCl 100 MG DAILY 10/16 1000 AC 10/19 PO 0846 Zinc Oxide 1 KAPIL BID 10/18 2200 AC 10/20 [facility] 2122 Last 24 Hrs of Lab/Dominic Results Last 24 Hrs of Labs/Mics: Laboratory Tests 10/21/16 0615: Anion Gap 10, Estimated GFR > 60, BUN/Creatinine Ratio 8.6, Magnesium 1.6, CBC w Diff NO MAN DIFF REQ, RBC 3.31 L, MCV 93.9, MCH 31.2 H, RDW 15.3 H, MPV 8.3, Gran % 70.1, Lymphocytes % 13.3 L, Monocytes % 14.3 H, Eosinophils % 1.8, Basophils % 0.5, Absolute Granulocytes 5.3, Absolute Lymphocytes 1.0 L, Absolute Monocytes 1.1 H, Absolute Eosinophils 0.1, Absolute Basophils 0, PUBS MCHC 33.2 Assessment/Plan Assessment: Patient is a 76 year old male with PMH significant for ETOH abuse, HTN, CAD s/p CABG, AFIB (not on anticoagulation due to fall risk), COPD (emphysema), upper GI bleed in 2012, who was brought in to the ED by family members after several days of worsening coughing, vomiting, poor oral intake and weakness. On admission patient had borderline BP, elevated lactic acid of 14.1, AG 34, carbon dioxide 14, Hypernatremia of 152, Cr of 4.4, AST 198, ALT 103, troponin 0.18. He was admitted to the ICU for close cardiac monitoring due to severe high anion gap metabolic acidosis and elevated troponin. His acidosis resolved within <12 hours of admission as well as the troponin. Patient has had poor oral intake as well as a new onset hoarseness and difficulty swallowing. His electrolytes are repleted daily and he is receiving vitamins. Patient is currently NPO until next swallow eval and is kept on maintenance fluids (D5W 1/2NS with KCl). His is overall more alert and awake. Family discussion to take place on Sunday, regarding goals of care. Problem list and plan: Respiratory #Hoarseness and difficultly swallowing hoarseness started since a week prior to admission. ENT consult was done on 10/20 for evaluation of possible vocal cord paralysis. per ENT: there is left sided vocal cord paralysis. Possible etiologies: viral, mass effect through the coarse of the left laryngeal nerve. CT of the neck with IV contrast reported several prominent lymph nodes in the AP window. These may affect the recurrent left laryngeal nerve. Today hoarseness has improved. * She declined to have NG tube placed yesterday. We'll follow-up with alma tube later today * Continue with [place] spray for oral care * kept on maintenance fluids (D5W 1/2NS with KCl) Cardiac #Mild troponin elevation on admission - resolved Most likely due to demand ischemia He has a history of CAD s/p CABG, hx of chronic systolic HF with normal LV/RV systolic function history of paroxysmal atrial fibrillation/flutter not on anticoagulation due to falls, alcohol abuse and medical noncompliance. Patient has tachycardia (HR in 100s this am, and had episodes of tachycardia during the night) * restarted metoprolol per cardiology but at a lower dose (25 mg BID) on 10/18/16 (he takes 50 mg BID at home) *metoprolol PO is not given as he is NPO, if needed consider 2.5g mg IV metoprolol to control the HR #HTN, CAD BP in normal range, HR has been in 100s today, we restarted metoprolol 25 mg BID , however on hold again due to pt being NPO * consider 1 time 2.5 mg IV metoprolol if needed to control the HR ID #possible aspiration pneumonia or HCAP CXR 10/19/16, reported pulmonary edema superimposed on obstructive lung disease [place] afebrile, WBC count: 7.5 (down from 15.6 on admission) * Patient has completed 3 days, ceftaz * Azithromycin (day #4) * Ceftriaxone 1 g IV daily (day #4) #Sepsis - resolved met criteria for severe sepsis on admission - tachycardic, leukocytosis 15.6, ERIKA, elevated troponin, lactic acidosis. It could also be due to severe dehydration (vomiting, poor po intake, diarrhea) as well as alcoholism. possible infectious etiology: HCAP or aspiration PNA or UTI. legionella and strep Ag (-). Patient has stayed afebrile, WBC trending down, urine culture NG after 2 days, blood culture x2 NG after 1 day CXR: * switched vancomycin and ceftazidime to ceftriaxone and azithromycin, will DC ABx if patient remains afebrile Metabolic #Hypernatremia, hypomagnesemia, hypokalemia - improved Patient has very poor oral intake, had diarrhea and vomiting on admission which are resolved Na 136 this am, K 4.2, Mg 1.4 * continue IV fluids, switched to D5w1/2 with 40 meq KCl at 50 cc/hour * recheck BEP in am #Alcohol intoxication and withdrawal - improved History of alcohol abuse, recent increase in alcohol intake, CIWA scores 4 and 6 this am, did not receive ativan since Sunday10/16/16 * Ativan per CIWA and PRN * continue thiamine, folic acid and multivitamin tab #Metabolic acidosis - resolved With elevated anion gap, likely secondary to alcohol. patient has had NL capillary refill since admission, alcoholism most likely is the major contributor to the current lactic acidosis. AG is WNL, as well as bicarbonate Chou catheter removed on 10/19/16 after 5 days Alimentary #Mild protein calorie malnutrition - chronic reports poor oral intake History of mild protein calorie malnutrition in the previous admission * Continue IV fluids at 50 cc/hour * Continue multivitamin, folic acid, thiamine * Nutrition consult placed * PLan for alma tube today Musculoskeletal #Generalized weakness, recent fall and trauma -In the setting of poor oral intake and pr calorie malnutrition. -Patient reported he had an accident, almost a fall at home, and got stuck under a bed frame and injured his extremities and back. he has several skin abrasions on the left knee, left thigh, left flank and shoulder. -CT chest shows New, minimally displaced fracture of the left L3 transverse process. no tenderness on the spine in the exam. -PT consult was made, managed to get out of bed to chair * pain management for mild, moderate and severe pain * wound care consult placed and following the pt * continue PT eval and tx GI #Transaminitis - resolved Most likely due to alcoholism * avoid acetaminophen * counseling for abstinence from alcohol before discharge #Vomiting and coffee ground emesis on admission - no further episode since 10/15 In the setting of heavy alcohol use and history of upper GI bleed * IV protonix * IV fluids * avoid NSAIDs and aspirin * will consider GI consult and possible endoscopy if any further evidence of bleeding noted #Diarrhea - improved patient has become incontinent for stool since admission, with loose stool, guaiac positive Stool culture has grown mixed sydni, negative for Cdiff toxin A and B #Pain * Tylenol for mild, Vicodin for moderate, and Percocet for severe pain NPO - failed swallow eval, will need NG tube placement DVT prophylaxis with ALPS FULL code Problem List: 1. Vocal cord paralysis 2. Weakness 3. Tachycardia Pain Ratin Pain Location: N A Pain Goal: Pain 4 or less Pain Plan: Pain pathway Tomorrow's Labs & Rationales: CBC, BMP DVT/Prophylaxis: mechanical
--- NOTE | 2016-10-21 09:50 | PN- Cardiology ---
Subjective Subjective: The patient is awake, alert The patient appears somewhat confused The events of the last 24 hours as well as telemetry were reviewed. Review of Systems: The review of systems is negative for chest pains, palpitations nor lightheadedness. The remainder of the 14 point review of systems is noncontributory with the exception of above. Objective Vital Signs and I&Os Vital Signs Date Time Temp Pulse Resp B/P B/P Pulse O2 O2 Flow FiO2 Mean Ox Delivery Rate 10/21 0800 Room Air 10/21 0800 98.2 82 18 110/68 10/21 0751 98.2 82 18 110/68 94 Room Air 10/21 0330 104 20 112/60 10/21 0200 92 16 110/60 10/21 0000 98.9 104 20 106/70 10/20 2218 99.2 91 20 132/74 93 Room Air 10/20 2000 98.6 76 24 120/80 10/20 2000 98 Room Air 10/20 2000 98.6 76 24 120/80 96 Room Air 10/20 1600 99.0 104 24 128/70 97 Room Air 10/20 1403 Room Air 2.0L 10/20 1212 94 Room Air Room Air Intake & Output 10/21 1600 10/21 0800 10/21 0000 10/20 1600 10/20 0800 10/20 0000 Intake Total 400 400 900 361 279 Output Total 400 200 150 Balance 400 400 500 161 129 Intake, IV 400 400 900 361 279 Intake, Oral 0 0 Output, Urine 400 200 150 Patient 116 lb Weight Physical Exam: General: Nontoxic, no apparent distress. HEENT: Sclera and conjunctiva within normal limits, without xanthelasmas. Neck: Carotids 2+ without bruits. Respiratory: Scattered rhonchi, air movement is good, without accessory respiratory muscle use. Heart: Regular rate and rhythm, without murmurs, without JVD. Abdomen: Soft, nontender, no masses, normoactive bowel sounds. Extremities: Without clubbing, cyanosis, without edema. Neuro: Nonfocal exam, strength, 5 out of 5 Skin: Within normal limits without lesions. Psych: Mood and affect: Normal Current Medications: Current Medications Sig/Sae Start time Last Medication Dose Route Stop Time Status Admin Acetaminophen 500 MG Q6P PRN 10/20 1030 AC PO Acetaminophen 1,000 MG Q6P PRN 10/20 1030 AC N/A 1 UNIT IV Acetaminophen/ 1 TAB Q6P PRN 10/15 1445 AC Hydrocodone Bitart PO Albuterol Sulfate 3 ML Q4P PRN 10/18 1030 AC INH Azithromycin 500 MG DAILY 10/18 1000 AC 10/20 Sodium Chloride 250 ML IV 0940 Ceftriaxone Sodium 1,000 MG DAILY 10/18 1000 AC 10/20 IV 0940 Folic Acid 1 MG DAILY 10/16 1000 AC 10/19 PO 0846 Glycerin 2 SPRAY Q2P PRN 10/20 0800 AC 10/20 PO 1820 Guaifenesin 600 MG Q12 10/19 1000 AC 10/19 PO 1200 Ipratropium [place] 2.5 ML Q4P PRN 10/18 1030 AC INH Lorazepam 0 Q1P PRN 10/15 1915 AC 10/21 IV 0334 Magnesium Oxide 400 MG BID 10/15 2200 AC 10/19 PO 0846 Magnesium Sulfate 1 GM ONCE ONE 10/20 1130 DC 10/20 Dextrose/Water 100 ML IV 10/20 1529 1200 Magnesium Sulfate 1 GM ONCE ONE 10/20 0730 DC 10/20 Dextrose/Water 100 ML IV 10/20 1129 0939 Metoprolol Tartrate 25 MG BID 10/18 1122 AC 10/19 PO 0846 Morphine Sulfate 2 MG Q4P PRN 10/15 1445 AC IV Multivitamins 1 TAB DAILY 10/18 1000 AC 10/19 PO 0846 Pantoprazole Sodium 40 MG DAILY 10/15 2000 AC 10/20 IV 0940 Phenol 2 SPRAY DAILY PRN 10/15 1845 AC 10/18 EXT 0932 Potassium Chloride 20 MEQ DAILY 10/19 1000 AC 10/19 PO 0845 Potassium Chloride 40 MEQ Q8H 10/18 0745 AC 10/20 Dextrose/Sodium 1,000 ML IV 0938 Chloride Sodium Chloride 2 SPRAY Q4P PRN 10/20 0800 AC 10/20 CIARA 1820 Thiamine HCl 100 MG DAILY 10/16 1000 AC 10/19 PO 0846 Zinc Oxide 1 KAPIL BID 10/18 220 AC 10/20 [facility] 2121 Results Last 48 Hrs of Labs/Mics: Laboratory Tests 10/21/16 0615: Anion Gap 10, Estimated GFR > 60, BUN/Creatinine Ratio 8.6, Magnesium 1.6, CBC w Diff NO MAN DIFF REQ, RBC 3.31 L, MCV 93.9, MCH 31.2 H, RDW 15.3 H, MPV 8.3, Gran % 70.1, Lymphocytes % 13.3 L, Monocytes % 14.3 H, Eosinophils % 1.8, Basophils % 0.5, Absolute Granulocytes 5.3, Absolute Lymphocytes 1.0 L, Absolute Monocytes 1.1 H, Absolute Eosinophils 0.1, Absolute Basophils 0, PUBS MCHC 33.2 10/20/16 0600: Anion Gap 10, Estimated GFR > 60, Glucose 95, Calcium 7.8 L, Phosphorus 3.3, Magnesium 1.1 L, Total Bilirubin 1.3, AST 38, ALT 56, Creatine Kinase 370 H, Albumin 2.7 L, CBC w Diff NO MAN DIFF REQ, RBC 3.69 L, MCV 93.3, MCH 31.2 H, RDW 15.6 H, MPV 8.3, Gran % 63.4, Lymphocytes % 15.8 L, Monocytes % 17.6 H, Eosinophils % 2.8, Basophils % 0.4, Absolute Granulocytes 4.3, Absolute Lymphocytes 1.1 L, Absolute Monocytes 1.2 H, Absolute Eosinophils 0.2, Absolute Basophils 0, PUBS MCHC 33.4 10/19/16 1203: Ammonia < 9 L Assessment/Plan Assessment/Plan 1. PNA 2. Recurrent alcohol abuse/EtOH withdrawal 3. Acute renal failure/dehydration/rhabdomyolysis 4. Reported history of paroxysmal atrial fibrillation/flutter deemed a poor candidate for anticoagulation to falls/continued alcohol abuse/medical noncomplaince 5. History of coronary artery disease with prior CABG 6. 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 Chronic systolic congestive heart failure, compensated 10. History of medication noncompliance 11. Minimally elevated troponin consistent with demand ischemia 12. Thrombocytopenia and transaminitis 13. Vocal cord paralysis The patient continues to be overall stable from a cardiac standpoint. We will continue treatment as per the medical team regarding pneumonia. The patient has been noncompliant with his medication regimen in the past as stated she would not comply in the future. Continued education guarding the same including evaluation given his alcohol abuse will need to be accomplished prior to discharge. Continue telemetry? Yes
--- NOTE | 2016-10-21 11:42 | PN- Pulmonary ---
Subjective HPI/Critical Care Issues: pt seen and examined transferred out of icu afebrile hemodynamically stable 94% on room air no new events some confusionno n/v/d/c no cp Objective Current Medications: Current Medications Sig/Sae Start time Last Medication Dose Route Stop Time Status Admin Acetaminophen 500 MG Q6P PRN 10/20 1030 AC PO Acetaminophen 1,000 MG Q6P PRN 10/20 1030 AC N/A 1 UNIT IV Acetaminophen/ 1 TAB Q6P PRN 10/15 1445 AC Hydrocodone Bitart PO Albuterol Sulfate 3 ML Q4P PRN 10/18 1030 AC INH Azithromycin 500 MG DAILY 10/18 1000 AC 10/21 Sodium Chloride 250 ML IV 0942 Ceftriaxone Sodium 1,000 MG DAILY 10/18 1000 AC 10/21 IV 0942 Folic Acid 1 MG DAILY 10/16 1000 AC 10/19 PO 0846 Glycerin 2 SPRAY Q2P PRN 10/20 0800 AC 10/20 PO 1820 Guaifenesin 600 MG Q12 10/19 1000 AC 10/19 PO 1200 Ipratropium [place] 2.5 ML Q4P PRN 10/18 1030 AC INH Lorazepam 0 Q1P PRN 10/15 1915 AC 10/21 IV 1007 Magnesium Oxide 400 MG BID 10/15 2200 AC 10/19 PO 0846 Magnesium Sulfate 1 GM ONCE ONE 10/20 1130 DC 10/20 Dextrose/Water 100 ML IV 10/20 1529 1200 Metoprolol Tartrate 25 MG BID 10/18 1122 AC 10/19 PO 0846 Morphine Sulfate 2 MG Q4P PRN 10/15 1445 AC IV Multivitamins 1 TAB DAILY 10/18 1000 AC 10/19 PO 0846 Pantoprazole Sodium 40 MG DAILY 10/15 2000 AC 10/21 IV 0942 Phenol 2 SPRAY DAILY PRN 10/15 1845 AC 10/18 EXT 0932 Potassium Chloride 20 MEQ DAILY 10/19 1000 AC 10/19 PO 0845 Potassium Chloride 40 MEQ Q8H 10/18 0745 AC 10/20 Dextrose/Sodium 1,000 ML IV 0938 Chloride Sodium Chloride 2 SPRAY Q4P PRN 10/20 0800 AC 10/20 CIARA 1820 Thiamine HCl 100 MG DAILY 10/16 1000 AC 10/19 PO 0846 Zinc Oxide 1 KAPIL BID 10/18 2200 AC 10/21 TOP 0949 Vital Signs & I&O Last 24 Hrs of Vitals and I&O: Vital Signs Date Time Temp Pulse Resp B/P B/P Pulse O2 O2 Flow FiO2 Mean Ox Delivery Rate 10/21 1000 98.2 98 20 110/68 10/21 0800 Room Air 10/21 0800 98.2 82 18 110/68 10/21 0751 98.2 82 18 110/68 94 Room Air 10/21 0330 104 20 112/60 10/21 0200 92 16 110/60 10/21 0000 98.9 104 20 106/70 10/20 2218 99.2 91 20 132/74 93 Room Air 10/21 1999 98.6 76 24 120/80 10/20 2000 98 Room Air 10/21 1999 98.6 76 24 120/80 96 Room Air 10/20 1600 99.0 104 24 128/70 97 Room Air 10/20 1403 Room Air 2.0L 10/20 1212 94 Room Air Room Air Intake & Output 10/21 1600 10/21 0800 10/21 0000 Intake Total 400 400 Output Total Balance 400 400 Intake, IV 400 400 Intake, Oral 0 Exam Other Physical Findings: gen awake and alert heent ncat cvs s1, s2 lungs rare rhonchi, good aeration abd soft, bs+ ext without edema Results Last 24 Hrs of Lab Results: Laboratory Tests 10/21/16 0615: Anion Gap 10, Estimated GFR > 60, BUN/Creatinine Ratio 8.6, Magnesium 1.6, CBC w Diff NO MAN DIFF REQ, RBC 3.31 L, MCV 93.9, MCH 31.2 H, RDW 15.3 H, MPV 8.3, Gran % 70.1, Lymphocytes % 13.3 L, Monocytes % 14.3 H, Eosinophils % 1.8, Basophils % 0.5, Absolute Granulocytes 5.3, Absolute Lymphocytes 1.0 L, Absolute Monocytes 1.1 H, Absolute Eosinophils 0.1, Absolute Basophils 0, PUBS MCHC 33.2 Impression/Plan Impression/Plan Impression/Plan: Impression 76 year old man * right upper and lower lobe community acquired and possibly aspiration pneumonia * COPD stable * chronic alcoholism * malnutrition * alcoholic hepatitis * thrombocytopenia improved Plan -trc/nebs -electrolyte repletion and monitoring -ciwa monitoring -ceftriaxone and azithromycin. -skin care -cardiology follow up -OOB as tolerated DVT prophylaxis with ALPS (thrombocytopenia) - platelets remain stable would begin chemical prophylaxis
[2016-10-22] VITALS (11 sets, daily range): BP systolic 108–142; BP diastolic 74–86
--- NOTE | 2016-10-22 02:29 | NUR ---
PT NPO. ASPIRATION PRECAUTIONS. NO PO MEDS PER MD ARGUETA. VSS. FLUIDS RUNNING. IV ATIVAN NEEDED PER CIWA PROTOCOL. WILL CONTINUE TO MONITOR.
--- NOTE | 2016-10-22 09:10 | PN- Housestaff ---
Subjective Follow-up For: vocal cord paralysis alcohol detox Tele-Events Since Last Visit: NSR,[id number] Subjective: I have seen and examined the patient. Patient is lethargic. Oriented 2. Patient does respond to questions minimally, but reluctantly. Patient doesn't have any pain. rest of ROS is unobtainable Review of Systems Constitutional: Reports: see HPI. Objective Last 24 Hrs of Vital Signs/I&O Vital Signs Date Time Temp Pulse Resp B/P B/P Pulse O2 O2 Flow FiO2 Mean Ox Delivery Rate 10/22 1541 98.1 88 16 142/86 90 Room Air 10/22 1213 95 Room Air 10/22 1200 98.2 90 16 122/74 10/22 1000 98.0 99 18 134/80 10/22 0803 98.0 99 18 134/80 94 Room Air 10/22 0800 Room Air 10/22 0800 98.0 99 18 134/80 10/22 0600 97 10/22 0400 97 129/86 10/22 0039 97.3 89 20 108/76 95 Room Air 10/22 0000 90 108/76 10/21 2208 95 Room Air Room Air 10/21 2128 96 110/85 10/21 2000 97.9 91 20 110/73 10/21 1800 98.0 87 18 122/64 Intake & Output 10/22 1600 10/22 0800 10/22 0000 Intake Total 630 400 320 Output Total Balance 630 400 320 Intake, IV 630 400 320 Physical Exam General Appearance: No Acute Distress Other Physical Findings: Skin: LLE skin breakdown covered in clean bandages at this time HEENT: Mucous Membr. moist/pink Cardiovascular: Regular Rate, Normal S1, Normal S2 Lungs: Normal Air Movement Abdomen: Normal Bowel Sounds, Soft, No Tenderness Extremities: No Edema, Normal Pulses Current Medications: Current Medications Sig/Sae Start time Last Medication Dose Route Stop Time Status Admin Acetaminophen 500 MG Q6P PRN 10/20 1030 AC PO Acetaminophen 1,000 MG Q6P PRN 10/20 1030 AC N/A 1 UNIT IV Acetaminophen/ 1 TAB Q6P PRN 10/15 1445 DC Hydrocodone Bitart PO Albuterol Sulfate 3 ML Q4P PRN 10/18 1030 AC INH Azithromycin 500 MG DAILY 10/18 1000 DC 10/22 Sodium Chloride 250 ML IV 0905 Ceftriaxone Sodium 1,000 MG DAILY 10/18 1000 DC 10/22 IV 0905 Folic Acid 1 MG DAILY 10/16 1000 AC 10/19 PO 0846 Glycerin 2 SPRAY Q2P PRN 10/20 0800 AC 10/20 PO 1820 Guaifenesin 600 MG Q12 10/19 1000 AC 10/19 PO 1200 Ipratropium [place] 2.5 ML Q4P PRN 10/18 1030 AC INH Lorazepam 0 Q1P PRN 10/15 1915 AC 10/21 IV 2126 Magnesium Oxide 400 MG BID 10/15 2200 AC 10/19 PO 0846 Metoprolol Tartrate 25 MG BID 10/18 1122 AC 10/19 PO 0846 Morphine Sulfate 2 MG Q4P PRN 10/15 1445 DC IV Multivitamins 1 TAB DAILY 10/18 1000 AC 10/19 PO 0846 Pantoprazole Sodium 40 MG DAILY 10/15 2000 AC 10/22 IV 0905 Phenol 2 SPRAY DAILY PRN 10/15 1845 AC 10/18 EXT 0932 Potassium Chloride 20 MEQ DAILY 10/19 1000 AC 10/19 PO 0845 Potassium Chloride 40 MEQ Q8H 10/18 0745 AC 10/22 Dextrose/Sodium 1,000 ML IV 1314 Chloride Sodium Chloride 2 SPRAY Q4P PRN 10/20 0800 AC 10/20 CIARA 1820 Thiamine HCl 100 MG DAILY 10/16 1000 AC 10/19 PO 0846 Zinc Oxide 1 KAPIL BID 10/18 220 AC 10/22 TOP 0922 Assessment/Plan Assessment: Patient is a 76 year old male with PMH significant for ETOH abuse, HTN, CAD s/p CABG, AFIB (not on anticoagulation due to fall risk), COPD (emphysema), upper GI bleed in 2012, who was brought in to the ED by family members after several days of worsening coughing, vomiting, poor oral intake and weakness. On admission patient had borderline BP, elevated lactic acid of 14.1, AG 34, carbon dioxide 14, Hypernatremia of 152, Cr of 4.4, AST 198, ALT 103, troponin 0.18. He was admitted to the ICU for close cardiac monitoring due to severe high anion gap metabolic acidosis and elevated troponin. His acidosis resolved within <12 hours of admission as well as the troponin. Patient has had poor oral intake as well as a new onset hoarseness and difficulty swallowing. His electrolytes are repleted daily and he is receiving vitamins. Patient is currently NPO until next swallow eval and is kept on maintenance fluids (D5W 1/2NS with KCl). His is overall more alert and awake. Family discussion to take place on Sunday, regarding goals of care. Problem list and plan: #Hoarseness and difficultly swallowing hoarseness started since a week prior to admission. ENT consult was done on 10/20 for evaluation of possible vocal cord paralysis. per ENT: there is left sided vocal cord paralysis. Possible etiologies: viral, mass effect through the coarse of the left laryngeal nerve. CT of the neck with IV contrast reported several prominent lymph nodes in the AP window. These may affect the recurrent left laryngeal nerve. * he declined to have NG tube placed yesterday. * K O2 placement and NG tube placement by surgery was failed due to patient uncooperativeness * kept on maintenance fluids (D5W 1/2NS with KCl) * CBC BEP are pending #Mild troponin elevation on admission - resolved Most likely due to demand ischemia He has a history of CAD s/p CABG, hx of chronic systolic HF with normal LV/RV systolic function history of paroxysmal atrial fibrillation/flutter not on anticoagulation due to falls, alcohol abuse and medical noncompliance. Patient has tachycardia (HR in 100s this am, and had episodes of tachycardia during the night) * restarted metoprolol per cardiology but at a lower dose (25 mg BID) on 10/18/16 * metoprolol PO is not given as he is NPO, if needed consider 2.5g mg IV metoprolol to control the HR #HTN, CAD BP in normal range, HR has been in 100s today, we restarted metoprolol 25 mg BID , however on hold again due to pt being NPO * consider 1 time 2.5 mg IV metoprolol if needed to control the HR #possible aspiration pneumonia or HCAP CXR 10/19/16, reported pulmonary edema superimposed on obstructive lung disease [place] afebrile, WBC count: 7.5 (down from 15.6 on admission) * Patient has completed 3 days, ceftaz * Azithromycin (day #5) * Ceftriaxone 1 g IV daily (day #5) #Sepsis - resolved met criteria for severe sepsis on admission - tachycardic, leukocytosis 15.6, ERIKA, elevated troponin, lactic acidosis. It could also be due to severe dehydration (vomiting, poor po intake, diarrhea) as well as alcoholism. possible infectious etiology: HCAP or aspiration PNA or UTI. legionella and strep Ag (-). Patient has stayed afebrile, WBC trending down, urine culture NG after 2 days, blood culture x2 NG after 1 day CXR: * switched vancomycin and ceftazidime to ceftriaxone and azithromycin, will DC ABx if patient remains afebrile #Hypernatremia, hypomagnesemia, hypokalemia - improved Patient has very poor oral intake, had diarrhea and vomiting on admission which are resolved Na 136 this am, K 4.2, Mg 1.4 * continue IV fluids, switched to D5w1/2 with 40 meq KCl at 50 cc/hour * BEP Pending #Alcohol intoxication and withdrawal - improved History of alcohol abuse, recent increase in alcohol intake, CIWA scores 4 and 6 this am, did not receive ativan since Sunday10/16/16 * Ativan per CIWA and PRN * continue thiamine, folic acid and multivitamin tab #Mild protein calorie malnutrition - chronic reports poor oral intake History of mild protein calorie malnutrition in the previous admission * Continue IV fluids at 50 cc/hour * Continue multivitamin, folic acid, thiamine * Nutrition consult placed #Generalized weakness, recent fall and trauma -In the setting of poor oral intake and pr calorie malnutrition. -Patient reported he had an accident, almost a fall at home, and got stuck under a bed frame and injured his extremities and back. he has several skin abrasions on the left knee, left thigh, left flank and shoulder. -CT chest shows New, minimally displaced fracture of the left L3 transverse process. no tenderness on the spine in the exam. -PT consult was made, managed to get out of bed to chair * pain management for mild, moderate and severe pain * wound care consult placed and following the pt * continue PT eval and tx #Vomiting and coffee ground emesis on admission - no further episode since 10/15 In the setting of heavy alcohol use and history of upper GI bleed * IV protonix * IV fluids * avoid NSAIDs and aspirin * will consider GI consult and possible endoscopy if any further evidence of bleeding noted NPO - failed swallow eval, family discussion tomorrow DVT prophylaxis with ALPS FULL code Problem List: 1. Alcohol abuse Pain Ratin Pain Location: no pain Pain Goal: Remain pain free Pain Plan: same Tomorrow's Labs & Rationales: rina NunoP
--- NOTE | 2016-10-22 11:11 | PN- Pulmonary ---
Subjective HPI/Critical Care Issues: pt seen and examined lethargic confused limited review of systems, does not c/o pain or dyspnea Objective Current Medications: Current Medications Sig/Sae Start time Last Medication Dose Route Stop Time Status Admin Acetaminophen 500 MG Q6P PRN 10/20 1030 AC PO Acetaminophen 1,000 MG Q6P PRN 10/20 1030 AC N/A 1 UNIT IV Acetaminophen/ 1 TAB Q6P PRN 10/15 1445 AC Hydrocodone Bitart PO Albuterol Sulfate 3 ML Q4P PRN 10/18 1030 AC INH Azithromycin 500 MG DAILY 10/18 1000 DC 10/22 Sodium Chloride 250 ML IV 0905 Ceftriaxone Sodium 1,000 MG DAILY 10/18 1000 DC 10/22 IV 0905 Folic Acid 1 MG DAILY 10/16 1000 AC 10/19 PO 0846 Glycerin 2 SPRAY Q2P PRN 10/20 0800 AC 10/20 PO 1820 Guaifenesin 600 MG Q12 10/19 1000 AC 10/19 PO 1200 Ipratropium [place] 2.5 ML Q4P PRN 10/18 1030 AC INH Lorazepam 0 Q1P PRN 10/15 1915 AC 10/21 IV 2126 Magnesium Oxide 400 MG BID 10/15 2200 AC 10/19 PO 0846 Metoprolol Tartrate 25 MG BID 10/18 1122 AC 10/19 PO 0846 Morphine Sulfate 2 MG Q4P PRN 10/15 1445 AC IV Multivitamins 1 TAB DAILY 10/18 1000 AC 10/19 PO 0846 Pantoprazole Sodium 40 MG DAILY 10/15 2000 AC 10/22 IV 0905 Phenol 2 SPRAY DAILY PRN 10/15 1845 AC 10/18 EXT 0932 Potassium Chloride 20 MEQ DAILY 10/19 1000 AC 10/19 PO 0845 Potassium Chloride 40 MEQ Q8H 10/18 0745 AC 10/21 Dextrose/Sodium 1,000 ML IV 1410 Chloride Sodium Chloride 2 SPRAY Q4P PRN 10/20 0800 AC 10/20 CIARA 1820 Thiamine HCl 100 MG DAILY 10/16 1000 AC 10/19 PO 0846 Zinc Oxide 1 KAPIL BID 10/18 2200 AC 10/22 TOP 0922 Vital Signs & I&O Last 24 Hrs of Vitals and I&O: Vital Signs Date Time Temp Pulse Resp B/P B/P Pulse O2 O2 Flow FiO2 Mean Ox Delivery Rate 10/22 0803 98.0 99 18 134/80 94 Room Air 10/22 0800 Room Air 10/22 0800 98.0 99 18 134/80 10/22 0600 97 10/22 0400 97 129/86 10/22 0039 97.3 89 20 108/76 95 Room Air 10/22 0000 90 108/76 10/21 2208 95 Room Air Room Air 10/21 2128 96 110/85 10/21 2000 97.9 91 20 110/73 10/21 1800 98.0 87 18 122/64 10/21 1600 98.0 86 18 122/64 10/21 1530 98.0 86 18 122/64 93 Room Air 10/21 1400 98.0 89 16 108/68 10/21 1200 98.0 89 16 108/68 Intake & Output 10/22 1600 10/22 0800 10/22 0000 Intake Total 400 320 Output Total Balance 400 320 Intake, IV 400 320 Exam Other Physical Findings: gen awake and alert heent ncat cvs s1, s2 lungs rare rhonchi, good aeration abd soft, bs+ ext without edema Impression/Plan Impression/Plan Impression/Plan: Impression 76 year old man * right upper and lower lobe community acquired and possibly aspiration pneumonia * COPD stable * chronic alcoholism * malnutrition * alcoholic hepatitis * thrombocytopenia resolved Plan -trc/nebs -electrolyte repletion and monitoring -ciwa monitoring -ceftriaxone and azithromycin. -skin care -cardiology follow up -OOB as tolerated DVT prophylaxis with ALPS (thrombocytopenia) - platelets remain stable would begin chemical prophylaxis
--- NOTE | 2016-10-22 15:39 | PN- Att Addend ---
Attending MD Review Statement Attending Statement Attending MD Statement: examined this patient, discuss w/resident/PA/ROOFER, agreed w/resident/PA/ROOFER, discussed with family, reviewed EMR data (avail), discussed w/ nursing Attending Assessment/Plan: Vital Signs Date Time Temp Pulse Resp B/P B/P Pulse O2 O2 Flow FiO2 Mean Ox Delivery Rate 10/22 1213 95 Room Air 10/22 1200 98.2 90 16 122/74 10/22 1000 98.0 99 18 134/80 10/22 0803 98.0 99 18 134/80 94 Room Air 10/22 0800 Room Air 10/22 0800 98.0 99 18 134/80 10/22 0600 97 10/22 0400 97 129/86 10/22 0039 97.3 89 20 108/76 95 Room Air 10/22 0000 90 108/76 10/21 2208 95 Room Air Room Air 10/21 2128 96 110/85 10/21 2000 97.9 91 20 110/73 10/21 1800 98.0 87 18 122/64 10/21 1600 98.0 86 18 122/64 Patient seen and examined at bedside. Discussed with the team the care plan. Patient is still very drowsy and falls back to sleep right away after we wake him up. Appears in no respiratory distress. Feeding tube placement was tried yesterday but patient with the take it out right away. We again have a family conference tomorrow afternoon to discuss the further care plan as well as goals of care.
[2016-10-22 19:04] LABS: ABSOLUTE BASOPHIL COUNT 0.1 /CUMM (0.0-0.2); ABSOLUTE EOSINOPHIL COUNT 0.1 /CUMM (0.0-0.7); ABSOLUTE GRANULOCYTE CT 4.7 /CUMM (1.4-6.5); ABSOLUTE LYMPH COUNT 0.9 /CUMM (1.2-3.4); BASOPHIL % 0.9 % (0.0-2.0); EOSINOPHIL % 1.5 % (0-5); MEAN CORPUSCULAR HGB CONC 33.2 G/DL (33.0-37.0); MEAN CORPUSCULAR VOLUME 93.5 FL (80.0-94.0); MEAN PLATELET VOLUME 8.2 FL (7.4-10.4); RBC DISTRIBUTION WIDTH 14.8 % (11.5-14.5); RED BLOOD CELL CT 3.85 /CUMM (4.70-6.10); WHITE BLOOD CELL COUNT 6.8 /CUMM (4.8-10.8)
[2016-10-22 19:18] LABS: PLATELET COUNT 321 /CUMM (130-400)
[2016-10-23] VITALS (9 sets, daily range): BP systolic 116–130; BP diastolic 62–80
--- NOTE | 2016-10-23 07:28 | PN- Housestaff ---
Subjective Follow-up For: Vocal cord paralysis Hospital acquired pneumonia Complaints: no complaints Tele-Events Since Last Visit: Patient is in sinus rhythm. Rate 88-98. PVC. No acute events noticed on the monitor Subjective: Patient was seen and examined this morning. He is lethargic. Oriented to time place and person. He does respond to questions minimally. He doesn't have any pain. Vitals-afebrile, rate 102, respiratory rate 28, blood pressure 130/70, saturating at 92% on room air. Review of Systems Constitutional: Denies: see HPI. Objective Last 24 Hrs of Vital Signs/I&O Vital Signs Date Time Temp Pulse Resp B/P B/P Pulse O2 O2 Flow FiO2 Mean Ox Delivery Rate 10/23 1400 98.2 90 18 124/70 10/23 1200 98.2 90 18 124/70 10/23 1139 94 Room Air Room Air 10/23 1000 98.0 122 20 118/62 10/23 0800 Room Air 10/23 0800 97.1 86 18 118/62 10/23 0800 97.1 86 16 118/62 96 Room Air 10/23 0007 98.7 102 18 130/72 92 Room Air 10/22 2007 95 Room Air Room Air 10/22 1800 98.1 88 16 142/86 10/22 1600 98.1 88 16 142/86 10/22 1541 98.1 88 16 142/86 90 Room Air Intake & Output 10/23 1600 10/23 0800 10/23 0000 Intake Total 915 400 400 Output Total Balance 915 400 400 Intake, IV 915 400 400 Physical Exam General Appearance: Alert, Oriented X3 Skin: No Rashes, No Breakdown HEENT: Atraumatic, PERRLA, EOMI, Mucous Membr. moist/pink Neck: Supple, No JVD Cardiovascular: Regular Rate, Normal S1, Normal S2 Lungs: Normal Air Movement Abdomen: Normal Bowel Sounds, Soft Extremities: No Clubbing, No Cyanosis, No Edema Vascular: Normal Pulses Current Medications: Current Medications Sig/Sae Start time Last Medication Dose Route Stop Time Status Admin Acetaminophen 500 MG Q6P PRN 10/20 1030 AC PO Acetaminophen 1,000 MG Q6P PRN 10/20 1030 AC N/A 1 UNIT IV Albuterol Sulfate 3 ML Q4P PRN 10/18 1030 AC INH Azithromycin 500 MG DAILY 10/23 1000 AC 10/23 Sodium Chloride 250 ML IV 0908 Ceftriaxone Sodium 1,000 MG DAILY 10/23 1000 AC 10/23 IV 0908 Dextrose/Sodium 1,000 ML Q13H 10/23 0930 AC 10/23 Chloride IV 1052 Folic Acid 1 MG DAILY 10/23 1346 CAN PO Folic Acid 1 MG DAILY 10/16 1000 AC 10/19 PO 0846 Glycerin 2 SPRAY Q2P PRN 10/20 0800 AC 10/20 PO 1820 Guaifenesin 600 MG Q12 10/19 1000 AC 10/19 PO 1200 Heparin Sodium 5,000 UNIT Q8 10/22 1658 DC 10/23 (Porcine) SC 0600 Ipratropium [place] 2.5 ML Q4P PRN 10/18 1030 AC INH Lorazepam 0 Q1P PRN 10/15 1915 AC 10/23 IV 0631 Magnesium Oxide 400 MG BID 10/15 2200 AC 10/19 PO 0846 Magnesium Sulfate 1 GM Q2H 10/23 1130 DC 10/23 Dextrose/Water 100 ML IV 10/23 1529 1530 Metoprolol Tartrate 25 MG BID 10/18 1122 AC 10/19 PO 0846 Multivitamins 1 TAB DAILY 10/18 1000 AC 10/19 PO 0846 Pantoprazole Sodium 40 MG DAILY 10/15 2000 AC 10/23 IV 0908 Patient Medication 1 ED .STK-MED ONE 10/23 1411 NC Teaching ED 10/23 1412 Phenol 2 SPRAY DAILY PRN 10/15 1845 AC 10/18 EXT 0932 Potassium Chloride 20 MEQ DAILY 10/19 1000 AC 10/19 PO 0845 Potassium Chloride 40 MEQ Q8H 10/18 0745 DC 10/23 Dextrose/Sodium 1,000 ML IV 0919 Chloride Sodium Chloride 2 SPRAY Q4P PRN 10/20 0800 AC 10/20 CIARA 1820 Thiamine HCl 100 MG DAILY 10/16 1000 AC 10/19 PO 0846 Zinc Oxide 1 KAPIL BID 10/18 2200 AC 10/23 TOP 0915 Last 24 Hrs of Lab/Dominic Results Last 24 Hrs of Labs/Mics: Laboratory Tests 10/23/16 0919: Anion Gap 11, Estimated GFR > 60, BUN/Creatinine Ratio 6.7 L, Magnesium 1.3 L, PT 13.6 H, INR 1.30 H, CBC w Diff NO MAN DIFF REQ, RBC 3.56 L, MCV 93.3, MCH 31.5 H, RDW 14.6 H, MPV 8.0, Gran % 71.1, Lymphocytes % 15.7 L, Monocytes % 11.1 H, Eosinophils % 1.3, Basophils % 0.8, Absolute Granulocytes 4.0, Absolute Lymphocytes 0.9 L, Absolute Monocytes 0.6, Absolute Eosinophils 0.1, Absolute Basophils 0, PUBS MCHC 33.8 10/22/16 1725: Anion Gap 14, Estimated GFR > 60, BUN/Creatinine Ratio 6.7 L, PT Cancelled, INR Cancelled, CBC w Diff NO MAN DIFF REQ, RBC 3.85 L, MCV 93.5, MCH 31.0, RDW 14.8 H, MPV 8.2, Gran % 69.0, Lymphocytes % 13.9 L, Monocytes % 14.7 H, Eosinophils % 1.5, Basophils % 0.9, Absolute Granulocytes 4.7, Absolute Lymphocytes 0.9 L, Absolute Monocytes 1.0 H, Absolute Eosinophils 0.1, Absolute Basophils 0.1, PUBS MCHC 33.2 Assessment/Plan Assessment: Patient is a 76 year old male with PMH significant for ETOH abuse, HTN, CAD s/p CABG, AFIB (not on anticoagulation due to fall risk), COPD (emphysema), upper GI bleed in 2012, who was brought in to the ED by family members after several days of worsening coughing, vomiting, poor oral intake and weakness. On admission patient had borderline BP, elevated lactic acid of 14.1, AG 34, carbon dioxide 14, Hypernatremia of 152, Cr of 4.4, AST 198, ALT 103, troponin 0.18. He was admitted to the ICU for close cardiac monitoring due to severe high anion gap metabolic acidosis and elevated troponin. His acidosis resolved within <12 hours of admission as well as the troponin. Patient has had poor oral intake as well as a new onset hoarseness and difficulty swallowing. His electrolytes are repleted daily and he is receiving vitamins. Patient is currently NPO until next swallow eval and is kept on maintenance fluids (D5W 1/2NS with KCl). His is overall more alert and awake. Family discussion to take place on Sunday, regarding goals of care. #Hoarseness and difficultly swallowing hoarseness started since a week prior to admission. ENT consult was done on 4/21 /7 for evaluation of possible vocal cord paralysis. per ENT: there is left sided vocal cord paralysis. Possible etiologies: viral, mass effect through the coarse of the left laryngeal nerve. CT of the neck with IV contrast reported several prominent lymph nodes in the AP window. These may affect the recurrent left laryngeal nerve. * he declined to have NG tube placed . * Badin placement and NG tube placement by surgery was failed due to patient uncooperativeness * kept on maintenance fluids (D5W 1/2NS with KCl) #Mild troponin elevation on admission - resolved Most likely due to demand ischemia. He has a history of CAD s/p CABG, hx of chronic systolic HF with normal LV/RV systolic function. history of paroxysmal atrial fibrillation/flutter not on anticoagulation due to falls, alcohol abuse and medical noncompliance. Patient has tachycardia (HR in 100s 10/22/16, and had episodes of tachycardia) * restarted metoprolol per cardiology but at a lower dose (25 mg BID) on 10/18/16 * metoprolol PO is not given as he is NPO, if needed consider 2.5g mg IV metoprolol to control the HR #HTN, CAD BP in normal range, HR has been in 100s today, we restarted metoprolol 25 mg BID , however on hold again due to pt being NPO # HCAP/possible gram-negative pneumonia CXR 10/19/16, reported pulmonary edema superimposed on obstructive lung disease [place] afebrile, WBC count: 5.6 (7down from 15.6 on admission) * Azithromycin (day #6) * Ceftriaxone 1 g IV daily (day 6) #Sepsis - resolved met criteria for severe sepsis on admission - tachycardic, leukocytosis 15.6, ERIKA, elevated troponin, lactic acidosis. It could also be due to severe dehydration (vomiting, poor po intake, diarrhea) as well as alcoholism. possible infectious etiology: HCAP or aspiration PNA or UTI. legionella and strep Ag (-). Patient has stayed afebrile, WBC trending down, urine culture NG after 3days, blood culture x2 NG after 1 day * switched vancomycin and ceftazidime to ceftriaxone and azithromycin #Hypernatremia, hypomagnesemia, hypokalemia - improved Patient has very poor oral intake, had diarrhea and vomiting on admission which are resolved Na 140 this am, K 5.3, * continue IV fluids, switched to D5w1/2 with 40 meq KCl at 50 cc/hour #Alcohol intoxication and withdrawal - improved History of alcohol abuse, recent increase in alcohol intake, * Ativan per CIWA and PRN * continue thiamine, folic acid and multivitamin tab #Mild protein calorie malnutrition - chronic reports poor oral intake History of mild protein calorie malnutrition in the previous admission * Continue IV fluids at 50 cc/hour * Continue multivitamin, folic acid, thiamine * Nutrition consult placed #Generalized weakness, recent fall and trauma -In the setting of poor oral intake and pr calorie malnutrition. -Patient reported he had an accident, almost a fall at home, and got stuck under a bed frame and injured his extremities and back. he has several skin abrasions on the left knee, left thigh, left flank and shoulder. -CT chest shows New, minimally displaced fracture of the left L3 transverse process. no tenderness on the spine in the exam. -PT consult was made, managed to get out of bed to chair * pain management for mild, moderate and severe pain * wound care consult placed and following the pt * continue PT eval and tx #Vomiting and coffee ground emesis on admission - no further episode since 10/15 In the setting of heavy alcohol use and history of upper GI bleed * IV protonix * IV fluids * avoid NSAIDs and aspirin * will consider GI consult and possible endoscopy if any further evidence of bleeding noted NPO - failed swallow eval, family discussion tomorrow DVT prophylaxis with ALPS FULL code Problem List: 1. Alcohol abuse 2. CAD S/P CABG 3. Hyperlipidemia 4. GI BLEED 5. ETOH 6. Altered mental state 7. Alcohol withdrawal 8. Vocal cord paralysis 9. Elevated troponin Pain Ratin Pain Location: none Pain Goal: Remain pain free Pain Plan: n/a Tomorrow's Labs & Rationales: cbc in the setting of anemia bep in the setting of electrolyte abnormalities
--- NOTE | 2016-10-23 09:47 | PN- Pulmonary ---
Subjective HPI/Critical Care Issues: The patient is somnolent but arousable. He is not able to offer complaints. There were no overnight events reported by nursing. The patient does not appear to be in any pain. Objective Current Medications: Current Medications Sig/Sae Start time Last Medication Dose Route Stop Time Status Admin Acetaminophen 500 MG Q6P PRN 10/20 1030 AC PO Acetaminophen 1,000 MG Q6P PRN 10/20 1030 AC N/A 1 UNIT IV Acetaminophen/ 1 TAB Q6P PRN 10/15 1445 DC Hydrocodone Bitart PO Albuterol Sulfate 3 ML Q4P PRN 10/18 1030 AC INH Azithromycin 500 MG DAILY 10/23 1000 AC 10/23 Sodium Chloride 250 ML IV 0908 Azithromycin 500 MG DAILY 10/18 1000 DC 10/22 Sodium Chloride 250 ML IV 0905 Ceftriaxone Sodium 1,000 MG DAILY 10/23 1000 AC 10/23 IV 0908 Ceftriaxone Sodium 1,000 MG DAILY 10/18 1000 DC 10/22 IV 0905 Folic Acid 1 MG DAILY 10/16 1000 AC 10/19 PO 0846 Glycerin 2 SPRAY Q2P PRN 10/20 0800 AC 10/20 PO 1820 Guaifenesin 600 MG Q12 10/19 1000 AC 10/19 PO 1200 Heparin Sodium 5,000 UNIT Q8 10/22 1658 AC 10/23 (Porcine) SC 0600 Ipratropium [place] 2.5 ML Q4P PRN 10/18 1030 AC INH Lorazepam 0 Q1P PRN 10/15 1915 AC 10/23 IV 0631 Magnesium Oxide 400 MG BID 10/15 2200 AC 10/19 PO 0846 Metoprolol Tartrate 25 MG BID 10/18 1122 AC 10/19 PO 0846 Morphine Sulfate 2 MG Q4P PRN 10/15 1445 DC IV Multivitamins 1 TAB DAILY 10/18 1000 AC 10/19 PO 0846 Pantoprazole Sodium 40 MG DAILY 10/15 2000 AC 10/23 IV 0908 Phenol 2 SPRAY DAILY PRN 10/15 1845 AC 10/18 EXT 0932 Potassium Chloride 20 MEQ DAILY 10/19 1000 AC 10/19 PO 0845 Potassium Chloride 40 MEQ Q8H 10/18 0745 AC 10/23 Dextrose/Sodium 1,000 ML IV 0919 Chloride Sodium Chloride 2 SPRAY Q4P PRN 10/20 0800 AC 10/20 CIARA 1820 Thiamine HCl 100 MG DAILY 10/16 1000 AC 10/19 PO 0846 Zinc Oxide 1 KAPIL BID 10/18 2200 AC 10/23 TOP 0915 Vital Signs & I&O Last 24 Hrs of Vitals and I&O: Vital Signs Date Time Temp Pulse Resp B/P B/P Pulse O2 O2 Flow FiO2 Mean Ox Delivery Rate 10/23 0800 Room Air 10/23 0800 97.1 86 16 118/62 96 Room Air 10/23 0007 98.7 102 18 130/72 92 Room Air 10/22 2007 95 Room Air Room Air 10/22 1800 98.1 88 16 142/86 10/22 1600 98.1 88 16 142/86 10/22 1541 98.1 88 16 142/86 90 Room Air 10/22 1400 98.2 90 16 122/74 10/22 1213 95 Room Air 10/22 1200 98.2 90 16 122/74 10/22 1000 98.0 99 18 134/80 Intake & Output 10/23 1600 10/23 0800 10/23 0000 Intake Total 400 400 Output Total Balance 400 400 Intake, IV 400 400 Physical Exam General Appearance: no apparent distress, comfortable, cachetic Head: normal appearance Neck: normal inspection, supple Respiratory: faint scattered wheezes, decreased breath sounds bilaterally Cardiovascular: regular rate/rhythm Gastrointestinal: soft, non-tender Extremities: no edema Skin: normal color, warm/dry, multiple wounds on skin as documented by nursing, no evidence of cellulitis Impression/Plan Impression/Plan Impression/Plan: 1. Sepsis secondary to pneumonia with respiratory failure. 2. Electrolyte abnormalities - follow up potassium levels. 3. COPD without evidence of bronchospasm. 4. Hematemesis - resolved, no blood loss anemia. 5. Diarrhea - improved, c. diff negative. 6. ERIKA secondary to volume depletion and rhabdomyolysis, resolved. 7. Malnutrition and failure to thrive. 8. EtOH hepatitis. 9. Chronic ETOH abuse - CIWA scores are low over the past 24 hours. 10. PAF, MAT - cardiology following. 11. Thrombocytopenia - chronic, likely secondary to EtOH. 14. Multiple skin wounds. 15. Encephalopathy. minimally displaced fracture of the left L3 transverse process. No additional acute fracture identified. Fragmentation and irregularity of the distal right clavicle, consistent with a remote fracture or traumatic injury. Recommendations: * Continue to monitor CIWA scores. * Continue multivitamin, thiamine and folate. * Continue ceftriaxone and azithromycin. * Skin care protocol. * Continue nebs/TRC. * DVT prophylaxis with Alps only, no subcutaneous heparin due to thrombocytopenia. * Avoid any sedating medications. * Family meeting planned for later today. * Continue telemetry monitoring. * Increase activity.
[2016-10-23 10:30] LABS: ABSOLUTE BASOPHIL COUNT 0 /CUMM (0.0-0.2); ABSOLUTE EOSINOPHIL COUNT 0.1 /CUMM (0.0-0.7); ABSOLUTE LYMPH COUNT 0.9 /CUMM (1.2-3.4); ABSOLUTE MONOCYTE COUNT 0.6 /CUMM (0.10-0.60); BASOPHIL % 0.8 % (0.0-2.0); EOSINOPHIL % 1.3 % (0-5); GRANULOCYTE % 71.1 % (42.2-75.2); HEMATOCRIT 33.3 % (42-52); MEAN CORPUSCULAR HGB 31.5 PG (27.0-31.0); MEAN CORPUSCULAR HGB CONC 33.8 G/DL (33.0-37.0); MEAN CORPUSCULAR VOLUME 93.3 FL (80.0-94.0); PLATELET COUNT 340 /CUMM (130-400); RBC DISTRIBUTION WIDTH 14.6 % (11.5-14.5); RED BLOOD CELL CT 3.56 /CUMM (4.70-6.10); WHITE BLOOD CELL COUNT 5.6 /CUMM (4.8-10.8)
[2016-10-23 10:40] LABS: PT 13.6 SEC (9.4-12.5)
--- NOTE | 2016-10-23 16:20 | Event Note ---
Event Note Event Note: Family meeting was held today, It was decided that no tube feeding should be placed, and hospice evaluation will be performed tomorrow.
--- NOTE | 2016-10-23 16:21 | NUR ---
Participated in meeting with patients sister, nephews, and friend Shahnaz Arnold (POA for all things other than medical). Also, Healthcare [employer]er Joshua Arnold was included via a speaker phone. Dr. Dobbins presented current medical findings and was looking to family/POA/Healthcare [employer]er for goals of care decisions. Long discussion re: PEG Tube feedings. Information about Hospice shared with family and friends. Have just noted plans for Hospice Eval. for tomorrow.
--- NOTE | 2016-10-23 16:21 | PN- Att Addend ---
Attending MD Review Statement Attending Statement Attending MD Statement: examined this patient, discuss w/resident/PA/ADMINISTRATIVE LAW JUDGE, agreed w/resident/PA/ADMINISTRATIVE LAW JUDGE, discussed with family, reviewed EMR data (avail), discussed w/ nursing, discussed w/case mgmt Attending Assessment/Plan: Laboratory Tests 10/23/16 0919: Anion Gap 11, Estimated GFR > 60, BUN/Creatinine Ratio 6.7 L, Magnesium 1.3 L, PT 13.6 H, INR 1.30 H, CBC w Diff NO MAN DIFF REQ, RBC 3.56 L, MCV 93.3, MCH 31.5 H, RDW 14.6 H, MPV 8.0, Gran % 71.1, Lymphocytes % 15.7 L, Monocytes % 11.1 H, Eosinophils % 1.3, Basophils % 0.8, Absolute Granulocytes 4.0, Absolute Lymphocytes 0.9 L, Absolute Monocytes 0.6, Absolute Eosinophils 0.1, Absolute Basophils 0, PUBS MCHC 33.8 10/22/16 1725: Anion Gap 14, Estimated GFR > 60, BUN/Creatinine Ratio 6.7 L, PT Cancelled, INR Cancelled, CBC w Diff NO MAN DIFF REQ, RBC 3.85 L, MCV 93.5, MCH 31.0, RDW 14.8 H, MPV 8.2, Gran % 69.0, Lymphocytes % 13.9 L, Monocytes % 14.7 H, Eosinophils % 1.5, Basophils % 0.9, Absolute Granulocytes 4.7, Absolute Lymphocytes 0.9 L, Absolute Monocytes 1.0 H, Absolute Eosinophils 0.1, Absolute Basophils 0.1, PUBS MCHC 33.2 Vital Signs Date Time Temp Pulse Resp B/P B/P Pulse O2 O2 Flow FiO2 Mean Ox Delivery Rate 10/23 1608 97.2 88 18 128/80 97 Room Air 10/23 1400 98.2 90 18 124/70 10/23 1200 98.2 90 18 124/70 10/23 1139 94 Room Air Room Air 10/23 1000 98.0 122 20 118/62 10/23 0800 Room Air 10/23 0800 97.1 86 18 118/62 10/23 0800 97.1 86 16 118/62 96 Room Air 10/23 0007 98.7 102 18 130/72 92 Room Air 10/22 2007 95 Room Air Room Air 10/22 1800 98.1 88 16 142/86 Patient seen and examined at bedside. Discussed with patient's family in detail the care plan. We had a care conference today with the patient's family member as well as the patient's healthcare client support representative, Joshua Arnold over the phone. After a lengthy discussion about the goals of care for Mr. Ford with the family it was decided to put a hospice consult. We will consult hospice and have them talk with the family as well as patient's healthcare client support representative. Total time spent 45 minutes more than 50% of the time was spent coordinating care and counseling.
--- NOTE | 2016-10-24 07:14 | PN- Housestaff ---
[address],[place] 10/24/16 0713: Subjective Follow-up For: Vocal cord paralysis Hospital acquired pneumonia, possible aspiration Complaints: no complaints Tele-Events Since Last Visit: Sinus tachycardia heart rate ranging from 101-108. Subjective: I followed up and examined the patient today. He appears cachectic, hunched over ( position) in his bed, has a soft hoarse voice, doesn't offer any complaints, no events overnight. Of note, he has been refusing tube feedings over the weekend. Review of Systems Constitutional: Reports: no symptoms. Objective Last 24 Hrs of Vital Signs/I&O Vital Signs Date Time Temp Pulse Resp B/P B/P Pulse O2 O2 Flow FiO2 Mean Ox Delivery Rate 10/24 0922 100 20 118/60 10/24 0800 98.0 100 20 118/60 95 Room Air 10/23 2358 98.1 102 18 116/68 96 Room Air 10/23 1908 95 Room Air 10/23 1800 97.2 88 18 128/80 10/23 1608 97.2 88 18 128/80 97 Room Air 10/23 1600 98.2 88 18 128/80 10/23 1400 98.2 90 18 124/70 10/23 1200 98.2 90 18 124/70 Intake & Output 10/24 1600 10/24 0800 10/24 0000 Intake Total 600 1050 Output Total Balance 600 1050 Intake, IV 600 1050 Intake, Oral 0 0 Physical Exam General Appearance: Oriented X3, Cooperative, Mild Distress, drowsy, weak voice, cachetic Other Physical Findings: Skin: No Rashes, No Breakdown HEENT: Atraumatic, PERRLA, EOMI, Mucous Membr. moist/pink Neck: Supple, No JVD Cardiovascular: Regular Rate, Normal S1, Normal S2 Lungs: Bilateral breath sounds decreased, some crepitations heard basally Abdomen: Normal Bowel Sounds, Soft Extremities: No Clubbing, No Cyanosis, No Edema Vascular: Normal Pulses Current Medications: Current Medications Sig/Sae Start time Last Medication Dose Route Stop Time Status Admin Acetaminophen 500 MG Q6P PRN 10/20 1030 DCD PO Acetaminophen 1,000 MG Q6P PRN 10/20 1030 DCD N/A 1 UNIT IV Albuterol Sulfate 3 ML Q4P PRN 10/18 1030 DCD INH Azithromycin 500 MG DAILY 10/23 1000 DCD 10/24 Sodium Chloride 250 ML IV 0921 Ceftriaxone Sodium 1,000 MG DAILY 10/23 1000 DCD 10/24 IV 0920 Dextrose/Sodium 1,000 ML Q13H 10/23 0930 DCD 10/23 Chloride IV 2039 Folic Acid 1 MG DAILY 10/16 1000 DCD 10/19 PO 0846 Glycerin 2 SPRAY Q2P PRN 10/20 0800 DCD 10/20 PO 1820 Guaifenesin 600 MG Q12 10/19 1000 DCD 10/19 PO 1200 Ipratropium [place] 2.5 ML Q4P PRN 10/18 1030 DCD INH Lorazepam 0 Q1P PRN 10/15 1915 DCD 10/23 IV 0631 Magnesium Oxide 400 MG BID 10/15 2200 DCD 10/19 PO 0846 Metoprolol Tartrate 25 MG BID 10/18 1122 DCD 10/19 PO 0846 Multivitamins 1 TAB DAILY 10/18 1000 DCD 10/19 PO 0846 Pantoprazole Sodium 40 MG DAILY 10/15 2000 DCD 10/24 IV 0923 Patient Medication 1 ED ONE 10/24 0000 NR Teaching ED 10/24 2359 Phenol 2 SPRAY DAILY PRN 10/15 1845 DCD 10/18 EXT 0932 Potassium Chloride 20 MEQ DAILY 10/19 1000 DCD 10/19 PO 0845 Sodium Chloride 2 SPRAY Q4P PRN 10/20 0800 DCD 10/20 CIARA 1820 Thiamine HCl 100 MG DAILY 10/16 1000 DCD 10/19 PO 0846 Zinc Oxide 1 KAPIL BID 10/18 2200 DCD 10/24 TOP 0922 Last 24 Hrs of Lab/Dominic Results Last 24 Hrs of Labs/Mics: Laboratory Tests 10/24/16 0840: CBC w Diff NO MAN DIFF REQ, RBC 3.35 L, MCV 92.6, MCH 30.9, RDW 15.1 H, MPV 7.8, Gran % 71.9, Lymphocytes % 13.4 L, Monocytes % 12.5 H, Eosinophils % 1.3, Basophils % 0.9, Absolute Granulocytes 5.3, Absolute Lymphocytes 1.0 L, Absolute Monocytes 0.9 H, Absolute Eosinophils 0.1, Absolute Basophils 0.1, PUBS MCHC 33.4 10/24/16 0715: Anion Gap 11, Estimated GFR > 60, BUN/Creatinine Ratio 4.3 L Assessment/Plan Assessment: Patient is a 76 year old male with PMH significant for ETOH abuse, HTN, CAD s/p CABG, AFIB (not on anticoagulation due to fall risk), COPD (emphysema), upper GI bleed in 2012, who was brought in to the ED by family members after several days of worsening coughing, vomiting, poor oral intake and weakness. On admission patient had borderline BP, elevated lactic acid of 14.1, AG 34, carbon dioxide 14, Hypernatremia of 152, Cr of 4.4, AST 198, ALT 103, troponin 0.18. He was admitted to the ICU for close cardiac monitoring due to severe high anion gap metabolic acidosis and elevated troponin. His acidosis resolved within <12 hours of admission as well as the troponin. Patient has had poor oral intake as well as a new onset hoarseness and difficulty swallowing. His electrolytes are repleted daily and he is receiving vitamins. Patient is currently NPO until next swallow eval and is kept on maintenance fluids (D5W 1/2NS with KCl). He is somnolent, appears very frail, is taking position as his comfort position, is still refusing any food/feeding including feeding tube, Family discussion was held, regarding goals of care, with all the available information so far his plan of care has been changed to hospice today. He is supposed to be an inpatient hospice later today. #Hoarseness and difficultly swallowing: Likely contributing to aspiration pneumonia #Mild troponin elevation on admission #HTN, CAD # sepsis, 2/2 HCAP/possible gram-negative pneumonia Received antibiotic azithromycin and ceftriaxone #Hypernatremia, hypomagnesemia, hypokalemia - improved Patient has very poor oral intake, had diarrhea and vomiting on admission and was being repleted accordingly #Alcohol intoxication and withdrawal - improved History of alcohol abuse, recent increase in alcohol intake, was placed on CIWA protocol and thiamine, folic acid, multivitamin given accordingly. He did not have any seizures or delirium tremens, hallucinations either. #Mild protein calorie malnutrition - chronic reports poor oral intake, has been refusing any fluid via IV, any feeding tube either. #Generalized weakness, recent fall and trauma Patient was wheelchair-bound to begin with, and in the setting of protein calorie malnutrition leading to ataxia, recent fall trauma has a serious effect on his overall health. CT chest shows New, minimally displaced fracture of the left L3 transverse process. no tenderness on the spine in the exam. NPO - has failed swallow evaluation and has been refusing tube feeding either. DVT prophylaxis with ALPS FULL code Problem List: 1. Hospice care Pain Ratin Pain Location: - Pain Goal: Pain 4 or less Pain Plan: prn Tomorrow's Labs & Rationales: - STRATTONELIDA SAMANIEGOYVONNE 10/24/16 1613: Attending MD Review Statement Attending Statement Attending MD Statement: examined this patient, discuss w/resident/PA/SMALL STOCK FACER, agreed w/resident/PA/SMALL STOCK FACER, reviewed EMR data (avail), discussed with nursing Attending Assessment/Plan: Patient seen and examined at bedside. Patient is being transferred to hospice care today. We had a lengthy discussion with the family yesterday and they all agreed that the patient should be made comfort care.
[2016-10-24 08:00] VITALS: BP 118/60
[2016-10-24 09:11] LABS: ABSOLUTE BASOPHIL COUNT 0.1 /CUMM (0.0-0.2); ABSOLUTE EOSINOPHIL COUNT 0.1 /CUMM (0.0-0.7); ABSOLUTE GRANULOCYTE CT 5.3 /CUMM (1.4-6.5); ABSOLUTE MONOCYTE COUNT 0.9 /CUMM (0.10-0.60); BASOPHIL % 0.9 % (0.0-2.0); EOSINOPHIL % 1.3 % (0-5); GRANULOCYTE % 71.9 % (42.2-75.2); MEAN CORPUSCULAR HGB 30.9 PG (27.0-31.0); MEAN CORPUSCULAR HGB CONC 33.4 G/DL (33.0-37.0); MEAN CORPUSCULAR VOLUME 92.6 FL (80.0-94.0); MEAN PLATELET VOLUME 7.8 FL (7.4-10.4); PLATELET COUNT 430 /CUMM (130-400); RBC DISTRIBUTION WIDTH 15.1 % (11.5-14.5); RED BLOOD CELL CT 3.35 /CUMM (4.70-6.10); WHITE BLOOD CELL COUNT 7.4 /CUMM (4.8-10.8)
--- NOTE | 2016-10-24 09:20 | PN- Pulmonary ---
Subjective HPI/Critical Care Issues: The patient remains somnolent but arousable. He is not able to offer complaints. The patient remains nothing by mouth noting that he failed a swallowing evaluation. CT scan of the neck demonstrated a right greater than left pleural effusion. Objective Current Medications: Current Medications Sig/Sae Start time Last Medication Dose Route Stop Time Status Admin Acetaminophen 500 MG Q6P PRN 10/20 1030 AC PO Acetaminophen 1,000 MG Q6P PRN 10/20 1030 AC N/A 1 UNIT IV Albuterol Sulfate 3 ML Q4P PRN 10/18 1030 AC INH Azithromycin 500 MG DAILY 10/23 1000 AC 10/23 Sodium Chloride 250 ML IV 0908 Ceftriaxone Sodium 1,000 MG DAILY 10/23 1000 AC 10/23 IV 0908 Dextrose/Sodium 1,000 ML Q13H 10/23 0930 AC 10/23 Chloride IV 2039 Folic Acid 1 MG DAILY 10/23 1346 CAN PO Folic Acid 1 MG DAILY 10/16 1000 AC 10/19 PO 0846 Glycerin 2 SPRAY Q2P PRN 10/20 0800 AC 10/20 PO 1820 Guaifenesin 600 MG Q12 10/19 1000 AC 10/19 PO 1200 Heparin Sodium 5,000 UNIT Q8 10/22 1658 DC 10/23 (Porcine) SC 0600 Ipratropium [place] 2.5 ML Q4P PRN 10/18 1030 AC INH Lorazepam 0 Q1P PRN 10/15 1915 AC 10/23 IV 0631 Magnesium Oxide 400 MG BID 10/15 2200 AC 10/19 PO 0846 Magnesium Sulfate 1 GM Q2H 10/23 1130 DC 10/23 Dextrose/Water 100 ML IV 10/23 1529 1530 Metoprolol Tartrate 25 MG BID 10/18 1122 AC 10/19 PO 0846 Multivitamins 1 TAB DAILY 10/18 1000 AC 10/19 PO 0846 Pantoprazole Sodium 40 MG DAILY 10/15 2000 AC 10/23 IV 0908 Patient Medication 1 ED .STK-MED ONE 10/23 1411 DC Teaching ED 10/23 1412 Phenol 2 SPRAY DAILY PRN 10/15 1845 AC 10/18 EXT 0932 Potassium Chloride 20 MEQ DAILY 10/19 1000 AC 10/19 PO 0845 Potassium Chloride 40 MEQ Q8H 10/18 0745 DC 10/23 Dextrose/Sodium 1,000 ML IV 0919 Chloride Sodium Chloride 2 SPRAY Q4P PRN 10/20 0800 AC 10/20 CIARA 1820 Thiamine HCl 100 MG DAILY 10/16 1000 AC 10/19 PO 0846 Zinc Oxide 1 KAPIL BID 10/18 2199 10/23 [facility] 2038 Vital Signs & I&O Last 24 Hrs of Vitals and I&O: Vital Signs Date Time Temp Pulse Resp B/P B/P Pulse O2 O2 Flow FiO2 Mean Ox Delivery Rate 10/24 0800 98.0 100 20 118/60 95 Room Air 10/23 2358 98.1 102 18 116/68 96 Room Air 10/23 1908 95 Room Air 10/23 1800 97.2 88 18 128/80 10/23 1608 97.2 88 18 128/80 97 Room Air 10/23 1600 98.2 88 18 128/80 10/23 1400 98.2 90 18 124/70 10/23 1200 98.2 90 18 124/70 10/23 1139 94 Room Air Room Air 10/23 1000 98.0 122 20 118/62 Intake & Output 10/24 1600 10/24 0800 10/24 0000 Intake Total 600 1050 Output Total Balance 600 1050 Intake, IV 600 1050 Intake, Oral 0 0 Physical Exam General Appearance: no apparent distress, comfortable, cachetic Head: normal appearance Neck: normal inspection, supple Respiratory: faint scattered wheezes, decreased breath sounds bilaterally Cardiovascular: regular rate/rhythm Gastrointestinal: soft, non-tender Extremities: no edema Skin: normal color, warm/dry, multiple wounds on skin as documented by nursing, no evidence of cellulitis Results Last 24 Hrs of Lab Results: Laboratory Tests 10/24/16 0840: CBC w Diff Pending, WBC Pending, RBC Pending, Hgb Pending, Hct Pending, MCV Pending, MCH Pending, RDW Pending, Plt Count Pending, MPV Pending, PUBS MCHC Pending 10/24/16 0715: Anion Gap 11, Estimated GFR > 60, BUN/Creatinine Ratio 4.3 L 10/23/16 0919: Anion Gap 11, Estimated GFR > 60, BUN/Creatinine Ratio 6.7 L, Magnesium 1.3 L, PT 13.6 H, INR 1.30 H, CBC w Diff NO MAN DIFF REQ, RBC 3.56 L, MCV 93.3, MCH 31.5 H, RDW 14.6 H, MPV 8.0, Gran % 71.1, Lymphocytes % 15.7 L, Monocytes % 11.1 H, Eosinophils % 1.3, Basophils % 0.8, Absolute Granulocytes 4.0, Absolute Lymphocytes 0.9 L, Absolute Monocytes 0.6, Absolute Eosinophils 0.1, Absolute Basophils 0, PUBS MCHC 33.8 Diagnostic Data Radiology Findings: MBS: Evidence of aspiration is noted. Impression/Plan Impression/Plan Impression/Plan: 1. Sepsis secondary to pneumonia with respiratory failure. 2. Electrolyte abnormalities. 3. COPD without evidence of bronchospasm. 4. Hematemesis - resolved, no blood loss anemia. 5. Diarrhea - improved, c. diff negative. 6. ERIKA secondary to volume depletion and rhabdomyolysis, resolved. 7. Malnutrition and failure to thrive. 8. EtOH hepatitis. 9. Chronic ETOH abuse - CIWA scores are low over the past 24 hours. 10. PAF, MAT - cardiology following. 11. Thrombocytopenia - chronic, likely secondary to EtOH. 14. Multiple skin wounds. 15. Encephalopathy. 16. Recurrent aspiration. 17. Right greater than left pleural effusions. minimally displaced fracture of the left L3 transverse process. No additional acute fracture identified. Fragmentation and irregularity of the distal right clavicle, consistent with a remote fracture or traumatic injury. Recommendations: * Please check a noncontrast CT scan of the chest to rule out significant effusions. Thoracentesis should be considered if the patient does have a moderate to large effusion to rule out empyema. * Continue multivitamin, thiamine and folate. * Continue ceftriaxone and azithromycin. * Skin care protocol. * Continue nebs/TRC. * DVT prophylaxis with Alps only, no subcutaneous heparin due to thrombocytopenia. * Avoid any sedating medications. * Continue telemetry monitoring. * Increase activity. * Reevaluate goals of care. * Aspiration precautions at all times. Follow-up speech therapy recommendations.
[2016-10-24 09:22] VITALS: BP 118/60
--- NOTE | 2016-10-24 11:48 | Patient Discharge Instructions ---
Discharge Instructions General Discharge Information You were seen/treated for: Vocal cord paralysis, hospital-acquired pneumonia, possible aspiration You had these procedures: Modified barium swallow examination Special Instructions: Hospice care Diet Continue normal diet: No Recommended Diet: patient refused tube feeding Activity Full Activity/No Limits: No Activity Self Limited: Yes (is wheelchair bound at [facility]) Acute Coronary Syndrome Inclusion Criteria At DC or during hospital stay patient has or had the following: ACS DIAGNOSIS No Discharge Core Measures Meds if any: Prescribed or Continued at Discharge Meds if any: NOT Prescribed or Continued at Discharge Congestive Heart Failure Inclusion Criteria At DC or during hospital stay patient has or had the following: CHF DIAGNOSIS No Discharge Core Measures Meds if any: Prescribed or Continued at Discharge Meds if any: NOT Prescribed or Continued at Discharge Cerebrovascular accident Inclusion Criteria At DC or during hospital stay patient has or had the following: CVA/TIA Diagnosis No Discharge Core Measures Meds if any: Prescribed or Continued at Discharge Meds if any: NOT Prescribed or Continued at Discharge Venous thromboembolism Inclusion Criteria VTE Diagnosis No VTE Type NONE VTE Confirmed by (Test) NONE Discharge Core Measures - Per Current guidelines, there needs to be overlap - treatment for the first 5 days of Warfarin therapy. - If discharged on Warfarin prior to 5 days of - overlap therapy, the patient will need to be - assessed for post discharge needs including - *Post discharge parental anticoagulation - *Warfarin and/or parental anticoagulation education - *Follow up date to check INR post discharge At least 5 days overlap therapy as Inpatient No Meds if any: Prescribed or Continued at Discharge Note: Overlap Therapy is Warfarin and Anticoagulant Meds if any: NOT Prescribed or Continued at Discharge
--- NOTE | 2016-10-26 19:32 | Discharge Summary ---
Visit Information Visit Dates Admission Date: 10/15/16 Discharge Date: 10/24/16 Hospital Course Course Attending Physician: VIRAL STREET,BURTON Pope Primary Care Physician: YE STRE[address],[place] Hospital Course: Mr Courtney is a 76 year old male with PMH significant for ETOH abuse, HTN, CAD s/p CABG, AFIB (not on anticoagulation due to fall risk), COPD (emphysema), upper GI bleed in 2012, who was brought in to the ED by family members after several days of worsening coughing, vomiting, poor oral intake, a recent fall and weakness. On admission patient had borderline BP, elevated lactic acid of 14.1, AG 34, carbon dioxide 14, Hypernatremia of 152, Cr of 4.4, AST 198, ALT 103, troponin 0.18. He was admitted to the ICU for close cardiac monitoring due to severe high anion gap metabolic acidosis and elevated troponin. His acidosis resolved within <12 hours of admission as well as the troponin. Patient has history of alcohol abuse, and recent alcohol intake so was put on CIWA protocol, but did not have any seizures or delirium tremens. Patient was wheelchair-bound to begin with, and in the setting of protein calorie malnutrition leading to cachexia, recent fall trauma has a serious effect on his overall health. CT chest showed new, minimally displaced fracture of the left L3 transverse process. No tenderness over the spine on examination though. Patient has had poor oral intake as well as a new onset hoarseness and difficulty swallowing. His new onset hoarseness of voice was assumed to have contributed to aspiration pneumonia, for which you had received IV antibiotics. His electrolytes are repleted daily and he is receiving vitamins. Patient was kept NPO until swallow eval and is kept on maintenance fluids (D5W 1/2NS with KCl), but he failed it so tube feeding was recommended, tried multiple times to put him but he would take it out and finally refused any tube placement. He had refused any PEG tube placement/surgical intervention. Patient seemed to be very deconditioned, and on 10/24/2016, he was somnolent, very frail, and was assuming position as his comfort position, still refusing any food/feeding including feeding tube. Family discussion was held regarding goals of care and with all the available information so far, his plan of care was changed to hospice. He is to be an inpatient hospice later after in-hospital discharge for hospice care in general medical floor. Allergies: Coded Allergies: NO KNOWN ALLERGIES (06/18/16) Disposition Summary Disposition Principal Diagnosis: Vocal cord paralysis Hospital acquired pneumonia, possible aspiration Deconditioning Additional Diagnosis: ETOH abuse, HTN, CAD s/p CABG, AFIB (not on anticoagulation due to fall risk), COPD (emphysema), upper GI bleed in 2013 Discharge Disposition: hospice - medical facilit Discharge Instructions General Discharge Information Code Status: Hospice Patient's Diet: NPO due to aspiration precaution, refused tube feeding. Patient's Activity: Bed bound Follow-Up Instructions/Appts: Patient discharged to inpatient hospice care. Medications at Discharge Discharge Medications: Continue taking these medications: Losartan Potassium (Cozaar) 25 MG TABLET 1 Tablet ORAL DAILY Qty = 60 Instructions: Reason to Stop at ADM: sepsis, hypotension This prescription has been renewed Magnesium Oxide (Magnesium Oxide) 400 MG TABLET 400 Milligram ORAL TWICE DAILY Days = 10 This prescription has been renewed Metoprolol Tartrate (Lopressor) 50 MG TABLET 1 Tablet ORAL TWICE DAILY Qty = 60 Instructions: Reason to Stop at ADM:hypotension, sepsis Comments: This prescription has been renewed Thiamine HCl (Vitamin B-1) 100 MG TABLET 100 Milligram ORAL DAILY Days = 28 This prescription has been renewed Copies To: YE STREET,THIERNO Attending MD Review Statement Documenting Attending: VIRAL STREET,BURTON Pope Other Findings: please see my separate attending note for more details
== END 2016-10-24 11:52 | disposition hospice, home (50) | DRG 871 ==
LOC: ENRESERVDT → ENRESERVTM → ERH 12:27 → 1NO 13:43 → CRI 13:43 → ERHI 13:43 → CRI 15:52 → CMPBEDREQ 10-16 10:32 → CRI 10-18 09:56 → 1NO 10-20 22:14
PROVIDERS: Internal Medicine; Ophthalmology; Physician Assistant; Student in an Organized Health Care Education/Training Program; ADMIT Internal Medicine
PROC: 0CJY8ZZ Inspection of Mouth and Throat, Via Natural or Artificial Opening Endoscopic (ICD-10-PCS; principal; 2016-10-19)
DX: A41.9 Sepsis, unspecified organism (principal); J96.01 Acute respiratory failure with hypoxia; N17.9 Acute kidney failure, unspecified; G93.40 Encephalopathy, unspecified; I47.2 Ventricular tachycardia; Z51.5 Encounter for palliative care; J18.9 Pneumonia, unspecified organism; E87.0 Hyperosmolality and hypernatremia; R64 Cachexia; L89.223 Pressure ulcer of left hip, stage 3; I50.22 Chronic systolic (congestive) heart failure; J44.9 Chronic obstructive pulmonary disease, unspecified; J38.01 Paralysis of vocal cords and larynx, unilateral; I11.0 Hypertensive heart disease with heart failure; I24.8 Other forms of acute ischemic heart disease; E87.2 Acidosis; I48.0 Paroxysmal atrial fibrillation; I42.6 Alcoholic cardiomyopathy; D69.6 Thrombocytopenia, unspecified; E83.42 Hypomagnesemia; K70.10 Alcoholic hepatitis without ascites; E44.1 Mild protein-calorie malnutrition; L89.892 Pressure ulcer of other site, stage 2; Z68.1 Body mass index [BMI] 19.9 or less, adult; F10.239 Alcohol dependence with withdrawal, unspecified; I25.10 Atherosclerotic heart disease of native coronary artery without angina pectoris; E87.6 Hypokalemia; R65.20 Severe sepsis without septic shock; R62.7 Adult failure to thrive; I25.2 Old myocardial infarction; F17.210 Nicotine dependence, cigarettes, uncomplicated; Z95.1 Presence of aortocoronary bypass graft
CPT/HCPCS: 1NP; CCU; 36415; 74176; 74230; 76775; 80307; 81001; 82436; 87040; 87045; 87070; 87086; 87328; 87329; 87449; 87450; 93005; 93010; 93306; 96360; 97110-GO; 97161-GP; 97530-GO; 99291; G0480; J0131; J0456; J0696; J0713; J1644; J1940; J2765; J3370; J3490; J7040; J7042; J7060

== ENCOUNTER 2016-10-24 11:52 | Inpatient (IN) | payer OTHER ==
[~2016-10-24 11:52] MED LIST changes: +CHLORASEPTIC20 ML; +FOLIC ACID0.8 M2 PO; +MELOXICAM7.5 M1 PO
[2016-10-24 12:39] VITALS: BP 120/60
--- NOTE | 2016-10-24 15:06 | History & Physical ---
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 Patient lives alone at home after his (recently, at [facility]). Patient himself was admitted in August due to failure to thrive and starvation ketoacidosis, he was discharged to rehab and went back home almost 2 weeks prior to current admission. He is an alcoholic and reported drinking 3-4 shots of vodka for 5-6 days before admission , at the same time he started vomiting and reported increased coughing, he also lost his voice and had been whispering to make a conversation. Also reported poor appetite and not eating and drinking well. Reported an episode of almost falling the night before admission resulting in several abrasion on the left knee as well as the left thigh, left flank and shoulder. His Nephew reported that he did not respond to phone calls for a few hours on the same day of the fall and he may have lost consciousness as well. Patient was admitted to the ICU with multi-organ failure in the setting of sepsis secondary to pneumonia, probably due to aspiration , as well as severe dehydration and poor oral intake with metabolic derangement. He was placed on cardiac monitoring, received O2 supplementation and aggressive fluid hydration and was started on IV antibiotics (vancomycin and ceftazidime). Mr. Ford was kept on CIWA protocol for alcohol withdrawal. Pt. was seen by ENT and speech therapy for dysphagia and has left sided vocal cord paralysis. Even with maneuvers to decrease aspiration, he had penetration of liquids/solids and was made nothing by mouth. He did not tolerate feeding tube placement and POA/ family declined PEG tube and wished for hospice care instead. Currently pt states he has some discomfort "over left kidney". He does not answer other ROS questions, goes off topic. Please see transfer of care summary 10/19/16 for further details of inpatient stay. Allergies/Medications Allergies: Coded Allergies: NO KNOWN ALLERGIES (06/18/16) Past History Medical History Neurological: NONE EENT: NONE Cardiovascular: AFIB, cardiomyopathy, CHF, hypertension, myocardial infarction, CAD status post CABG SVT ablation, SVT-s/p ablation Respiratory: COPD, emphysema Gastrointestinal: upper GI bleed (2012) Hepatic: PANCREATITIS, steatosis Renal: NONE Musculoskeletal: R/L HIP FX Psychiatric: alcohol dependence, ETOH WITHDRAWAL Endocrine: osteoporosis Blood Disorders: NONE Cancer(s): NONE OPERATER/Reproductive: NONE History of MRSA: No History of VRE: No History of CDIFF: No Tetanus Vaccine: 02/28/12 Surgical History Surgical History: BYPASS QUAD b/l hip percutaneous pinning. Past Family/Social History Family History: Non-contributory Psychosocial History: , no children. Has living will /POA. Daily tobacco 1 ppd since teenager and daily alcohol use 3-4 shots vodka for decades. 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 Unclear if he had home care services in place after recent hospitalization and STR placement. Review of Systems Review of Systems Constitutional: Reports: see HPI. Exam & Diagnostic Data Last 24 Hrs of Vital Signs/I&O Vital Signs Date Time Temp Pulse Resp B/P B/P Pulse O2 O2 Flow FiO2 Mean Ox Delivery Rate 10/24 1239 98.3 92 18 120/60 95 Room Air Physical Exam General Appearance Cooperative, No Acute Distress, cachectic and chronically-ill appearing Skin sallow complexion. Petechiae and yellowish healing bruise to left flank. Open wound to flank/lower back area covered. HEENT Atraumatic, oral mucosa dry Cardiovascular Regular Rate, Normal S1, Normal S2 Lungs Normal Air Movement, unlabored Abdomen Normal Bowel Sounds, Soft, No Tenderness Neurological alert, oriented to person, place and year. Conversation is confused and often does not make sense. He is calm and follows simple instruction. Extremities No Edema Last 24 Hrs of Labs/Dominic: 10/24/16: CBC with WBC 7.4 (down from 15.6 initially), Hgb 10.4, Hct 31.0, Plt 430. Chemistries with CO2 21, Bun 3, Cr 0.7. Lft's initially elevated but back in normal range. Alb 2.7. Lactic acid initially 14.1 and CPK 7783 with troponin 0.18. Urinalysis with many bacteria but only 3-5 WBC and mod epithelial cells, pos. nitrite and neg. LE. Urine and blood cultures negative. Diagnostic Data Other Results Chest CT:IMPRESSION: 1. New, minimally displaced fracture of the left L3 transverse process. No additional acute fracture identified. Fragmentation and irregularity of the distal right clavicle, consistent with a remote fracture or traumatic injury. 2. Patchy airspace opacities within the right upper and lower lobes, which could represent early infiltrates in the appropriate clinical setting. Emphysematous changes are redemonstrated. 3. Fatty infiltration of the liver. Pancreatic atrophy without additional abnormality, unchanged. 4. Diverticulosis without evidence of acute diverticulitis. No intra-abdominal fluid collection or abscess. 5. Extensive atherosclerotic calcifications. barium swallow: IMPRESSION: Evidence of aspiration is noted. Full procedural details will be dictated by the speech therapist. Neck CT:MPRESSION: 1. The only finding of possible significance is that of several prominent lymph nodes in the AP window. These may affect the recurrent left laryngeal nerve. 2. Extensive arteriosclerosis. 3. Bilateral pleural effusions much larger on the right than left. 4. Question right upper lobe pneumonia versus compression atelectasis of an emphysematous lung. Assessment/Plan Assessment: This is a 76-year-old male admitted to hospice with dysphagia, vocal cord paralysis, sepsis due to pneumonia (most likely aspiration) and chronic alcohol abuse. 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 Plan: Morphine 2mg IV every 2 hours as needed for pain/dyspnea Ativan 2mg IV every 2 hours as needed for anxiety/jittery/tremor/insomnia Hadol 1mg SC every 4 hrs as needed for agitation For congestion, as needed scopolamine and glycopyrrolate 400mcg every 4 hrs. Pt is allowed to eat-comfort feeding. BURTON STRATTON 10/24/16 1609: Assessment/Plan Plan: Agree with the above assesment and plan. Patient was seen and examined at bedside. Patient is alert but confused. Continue above management.
[2016-10-25 06:43] VITALS: BP 120/60
--- NOTE | 2016-10-25 16:15 | PN- Hospice ---
Subjective Subjective: Pt. reports he is feeling good, he is hungry. He has not needed any prn meds. He denies pain or difficulty with breathing. Objective Last 24 Hrs of Vital Signs/I&O Vital Signs Date Time Temp Pulse Resp B/P B/P Pulse O2 O2 Flow FiO2 Mean Ox Delivery Rate 10/25 0643 98.3 102 19 120/60 87 Room Air Intake & Output 10/25 1600 10/25 0800 10/25 0000 Intake Total 240 240 240 Output Total Balance 240 240 240 Intake, Oral 240 240 240 Number 0 1 Bowel Movements Physical Exam General Appearance: awake, cachectic older male, sitting up in bed eating, NAD Head: atraumatic Respiratory: normal breath sounds Cardiovascular: regular rate/rhythm Abdomen: soft, non-tender Extremities: no edema Neurologic/Psychiatric: normal mood/affect, conversation starts logical and goal -oriented then makes bizarre remarks Assessment/Plan Assessment/Recommendations: This is a 76-year-old male admitted to hospice with dysphagia, vocal cord paralysis, sepsis due to pneumonia (most likely aspiration) and chronic alcohol abuse. 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 Currently comfortable. Eating for comfort as tolerated, ntl and puree diet. Problem List: 1. Dysphagia causing pulmonary aspiration with swallowing 2. Vocal cord paralysis 3. Hospice care
[2016-10-26 06:39] VITALS: BP 112/60
--- NOTE | 2016-10-26 15:53 | PN- Hospice ---
Subjective Subjective: Pt. is sleepy, incoherent. Received ativan x4 past 24 hours due to anxiety. Not eating today, drinking little. Has had several loose stools (not on stool softeners). Appears comfortable. Objective Last 24 Hrs of Vital Signs/I&O Vital Signs Date Time Temp Pulse Resp B/P B/P Pulse O2 O2 Flow FiO2 Mean Ox Delivery Rate 10/26 0639 98.0 97 20 112/60 88 Room Air Intake & Output 10/26 1600 10/26 0800 10/26 0000 Intake Total 100 100 Output Total Balance 100 100 Intake, Oral 100 100 Number 1 1 3 Bowel Movements Physical Exam General Appearance: no apparent distress, cachetic, sleepy Ears, Nose, Throat: dry mucus membranes Respiratory: no respiratory distress, quiet respiration Cardiovascular: regular rate/rhythm Extremities: no edema Assessment/Plan Assessment/Recommendations: This is a 76-year-old male admitted to hospice with dysphagia, vocal cord paralysis, sepsis due to pneumonia (most likely aspiration) and chronic alcohol abuse. He also has low back pain due to L3 fracture due to probable fall COMBAT CONTROL. Currently comfortable. Continue with supportive measures. Problem List: 1. Dysphagia causing pulmonary aspiration with swallowing 2. Vocal cord paralysis 3. Hospice care
[2016-10-27 06:30] VITALS: BP 116/60
--- NOTE | 2016-10-27 13:25 | PN- Hospice ---
Subjective Subjective: Pt. very sleepy, receiving prn ativan every 4-6 hours, gets agitated as it starts to wear off. Has not required any morphine. Not eating today. Objective Last 24 Hrs of Vital Signs/I&O Vital Signs Date Time Temp Pulse Resp B/P B/P Pulse O2 O2 Flow FiO2 Mean Ox Delivery Rate 10/27 0630 99.1 101 18 116/60 87 Room Air Intake & Output 10/27 1600 10/27 0800 10/27 0000 Intake Total 0 Output Total Balance 0 Intake, IV 0 Intake, Oral 0 Number 0 Bowel Movements Physical Exam General Appearance: no apparent distress, comfortable, lethargic Head: atraumatic Ears, Nose, Throat: mucus membranes dry Respiratory: quiet respiration Cardiovascular: regular rate/rhythm Abdomen: soft, non-tender Extremities: no edema Neurologic/Psychiatric: lethargic, nonverbal, spontaneous movement of extremities Assessment/Plan Assessment/Recommendations: This is a 76-year-old male admitted to hospice with dysphagia, vocal cord paralysis, sepsis due to pneumonia (most likely aspiration) and chronic alcohol abuse. 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 Currently comfortable, becomes anxious and restless as ativan wears off. Will schedule 2mg IV every 6 hours, continue with as needed dosing.
[2016-10-28 07:07] VITALS: BP 104/60
--- NOTE | 2016-10-28 10:32 | PN- Att Addend ---
Attending Addendum Attending Brief Note Patient appears comfortable and in no acute distress or pain. On exam decreased breath sounds at the bases with some scattered rhonchi, heart sounds are distant. He is a 76-year-old male with vocal cord paralysis, presumed aspiration pneumonia and problems with alcohol abuse with poor by mouth intake and dysphagia. He is imminently dying and comfortable on the current regimen per hospice.
[2016-10-29 07:37] VITALS: BP 118/70
--- NOTE | 2016-10-29 11:05 | PN- Att Addend ---
Attending Addendum Attending Brief Note Pt is comfortable and appears pain free. On exam he is minimally responsive with decreased breath sounds and coarse rhonchi. This s a 76-year-old with aspiration pneumonia, dysphagia and history of alcohol abuse. He is imminently dying and comfortable. Continue meds for comfort, pain and palliation.
[2016-10-30 07:25] VITALS: BP 114/70
--- NOTE | 2016-10-30 14:23 | PN- Hospice ---
Subjective Subjective: Pt. is unresponsive, mildly labored respirations. Objective Last 24 Hrs of Vital Signs/I&O Vital Signs Date Time Temp Pulse Resp B/P B/P Pulse O2 O2 Flow FiO2 Mean Ox Delivery Rate 10/30 0725 98.0 116 36 114/70 88 Room Air Intake & Output 10/30 1600 10/30 0800 10/30 0000 Intake Total 0 0 Output Total Balance 0 0 Intake, IV 0 Intake, Oral 0 0 Number 0 0 Bowel Movements Physical Exam General Appearance: dyspneic, mildly labored respirations Head: atraumatic, normal appearance Ears, Nose, Throat: oral mucosa dry Respiratory: lungs clear, mildly labored, RR-30 Cardiovascular: tachycardia Extremities: no edema Neurologic/Psychiatric: unresponsive Assessment/Plan Assessment/Recommendations: This is a 76-year-old male admitted to hospice with dysphagia, vocal cord paralysis, sepsis due to pneumonia (most likely aspiration) and chronic alcohol abuse. 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 Pt. now with dyspnea, mildly labored respirations not really responding to morphine at current dose, even when given with ativan. Will increase morphine to 3mg and schedule every 6 hours, prn every 2 hrs. with nursing. Problem List: 1. Dysphagia causing pulmonary aspiration with swallowing 2. Hospice care 3. Vocal cord paralysis
[2016-10-31 06:30] VITALS: BP 102/50
--- NOTE | 2016-10-31 13:31 | PN- Hospice ---
Subjective Subjective: Pt unresponsive. Has had increasing dyspnea, RR up to 30 with variable effect from morphine. Low grade fever this am. Objective Last 24 Hrs of Vital Signs/I&O Vital Signs Date Time Temp Pulse Resp B/P B/P Pulse O2 O2 Flow FiO2 Mean Ox Delivery Rate 10/31 0630 100.0 120 30 102/50 86 Room Air Intake & Output 10/31 1600 10/31 0800 05/ 0000 Intake Total 0 Output Total Balance 0 Intake, IV 0 Intake, Oral 0 Number 0 0 Bowel Movements Physical Exam General Appearance: mild distress Head: atraumatic Respiratory: respiratory distress (vdyspneic with RR 30) Cardiovascular: tachycardia Extremities: no edema, feet starting to mottle Assessment/Plan Assessment/Recommendations: This is a 76-year-old male admitted to hospice with dysphagia, vocal cord paralysis, sepsis due to pneumonia (most likely aspiration) and chronic alcohol abuse. 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 Will increase morphine frequency to every 3 hours, continue prn every 2 hrs. Also increase ativan frequency to every 4 hours. Discussed with nursing. Problem List: 1. Dysphagia causing pulmonary aspiration with swallowing 2. Hospice care 3. Vocal cord paralysis
[2016-11-01 06:27] VITALS: BP 98/50
--- NOTE | 2016-11-01 15:05 | PN- Hospice ---
Subjective Subjective: Family at bedside. Pt. is unresponsive. Had low grade fever this am. Appears comfortable. Received one dose as needed morphine in addition to scheduled. Objective Last 24 Hrs of Vital Signs/I&O Vital Signs Date Time Temp Pulse Resp B/P B/P Pulse O2 O2 Flow FiO2 Mean Ox Delivery Rate 11/01 0627 99.9 145 20 98/50 74 Room Air Physical Exam General Appearance: Ill-appearing, unresponsive male with greyish color in no acute distress. Respiratory: no respiratory distress, lungs clear Cardiovascular: tachycardia Extremities: no edema, some mottling bilat. feet Assessment/Plan Assessment/Recommendations: This is a 76-year-old male admitted to hospice with dysphagia, vocal cord paralysis, sepsis due to pneumonia (most likely aspiration) and chronic alcohol abuse. He also has low back pain due to L3 fracture due to probable fall [employer]. Pt. appears comfortable. support provided to family, questions answered. Continue current medications. Problem List: 1. Dysphagia causing pulmonary aspiration with swallowing 2. Vocal cord paralysis 3. Hospice care
--- NOTE | 2016-11-02 15:03 | Discharge Summary ---
Visit Information Visit Dates Admission Date: 10/24/16 Discharge Date: 11/02/16 Hospital Course Course Attending Physician: BURTON STRATTON MD Primary Care Physician: THIERNO BELCHER MD [facility] Course: This is a 76-year-old male admitted to hospice with dysphagia, vocal cord paralysis, sepsis due to pneumonia (most likely aspiration) and chronic alcohol abuse. He also has low back pain due to L3 fracture due to probable fall prior to admission. He was kept comfortable with morphine and ativan until he passed peacefully with his sister at bedside. Allergies: Coded Allergies: NO KNOWN ALLERGIES (06/18/16) Disposition Summary Disposition Principal Diagnosis: Dysphagia Vocal cord paralysis Sepsis Pneumonia Additional Diagnosis: Chronic alcohol abuse Discharge Disposition: Discharge Instructions General Discharge Information Code Status: Hospice Patient's Diet: N/A Patient's Activity: N/A Follow-Up Instructions/Appts: N/A Copies To: THIERNO BELCHER MD
== END 2016-11-02 03:00 | disposition expired | DRG 871 ==
LOC: 2NA 11:52
PROVIDERS: ADMIT Internal Medicine
DX: A41.9 Sepsis, unspecified organism (principal); J69.0 Pneumonitis due to inhalation of food and vomit; R64 Cachexia; S32.039A Unspecified fracture of third lumbar vertebra, initial encounter for closed fracture; I11.0 Hypertensive heart disease with heart failure; Z51.5 Encounter for palliative care; J38.00 Paralysis of vocal cords and larynx, unspecified; I48.2 Chronic atrial fibrillation; I50.9 Heart failure, unspecified; J44.0 Chronic obstructive pulmonary disease with (acute) lower respiratory infection; R13.10 Dysphagia, unspecified; I25.10 Atherosclerotic heart disease of native coronary artery without angina pectoris; Z95.1 Presence of aortocoronary bypass graft; R65.20 Severe sepsis without septic shock; I25.2 Old myocardial infarction; F17.210 Nicotine dependence, cigarettes, uncomplicated; F10.20 Alcohol dependence, uncomplicated; W19.XXXA Unspecified fall, initial encounter; Y92.009 Unspecified place in unspecified non-institutional (private) residence as the place of occurrence of the external cause
CPT/HCPCS: J1630